=== PATIENT | female | born 1990 | race Caucasian/White ===

== ENCOUNTER 2016-11-05 16:14 | Emergency (ER) | payer OTHER ==
[~2016-11-05 16:14] MED LIST: /TRAZ10TA PO; ALBU17IN INH; AMBIEN PO; DEPRO PROVERA IM; DOXY150C PO; IMIT50TA PO; MINI2CAP PO; NO HOME MEDS; PROZ40CA PO; RITA10TA PO; SERO400T3 PO; STRA80CA PO; SUBO8MIS SL; ZANTTAB PO; ZYPR20TA PO; [UNRECOGNIZED DRUG - CODE] TOP; [UNRECOGNIZED DRUG - OTHER] TD
[2016-11-05] MEDS ORDERED: ONDANSETRON 4 MG ORAL DISINTEGRATING TAB (S0181) As Ordered ONE (16:57)
--- NOTE | 2016-11-05 17:56 | EDDOCDS ---
Nurse's Notes [facility] Name: Ashley Stoll Age: 25 yrs Sex: Female : 1990 Arrival Date: 11/05/2016 Time: 16:14 Bed 13 Private MD: Diagnosis: Other and unspecified noninfective gastroenteritis and colitis Presentation: 11/05 16:18 Presenting complaint: Patient states: n/v/d since yesterday. Adult Sepsis Screening: kc3 The patient does not have new or worsening altered mentation. Patient's respiratory rate is less than 22. Systolic blood pressure is greater than 100. Patient has a qSOFA score of 0- Negative Sepsis Screen. Suicide/Homicide risk assessment- the patient denies having any suicidal and/or homicidal ideations and does not present with any other emotional, behavioral or mental health complaints. Status: Patient is not a senior administrative services officer or dependent. Transition of care: patient was not received from another setting of care. 16:18 Acuity: MONTEZ Level 4 kc3 16:18 Method Of Arrival: Walkin/Carried/Asstd kc3 Triage Assessment: 16:21 General: Appears in no apparent distress, comfortable, Behavior is appropriate for age, kc3 cooperative. Pain: Denies pain. HIV screening NA for this visit Offered previously. GI: Reports diarrhea, nausea, vomiting. 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 gabapentin 600 mg Oral tab 1 tab 3 times per day 2. Effexor XR 150 mg oral cp24 1 cap once daily 3. Zyprexa 5 mg Oral tab once daily 4. Cogentin 0.5 mg Oral tab 1 tab 2 times per day 5. Albuterol Inhl as needed 6. depo shot - PMHx: Anxiety; Asthma; Depression; Migraines; - PSHx: none; - Social history: Smoking status: Patient uses tobacco products, light tobacco smoker. No barriers to communication noted, The patient speaks fluent Sammarinese, Speaks appropriately for age. - Family history: Not pertinent. - : The pt / caregiver states he / she is not on anticoagulants. Home medication list is obtained from the patient. - Exposure Risk Screening:: None identified. Screenin:53 Screening information is obtained from the patient. Fall risk: No risks identified. jmb Assistance ADL's: requires no assistance with activities of daily living. Abuse/DV Screen: The patient / caregiver reports he/she is: not in a situation that causes fear, pain or injury. Nutritional screening: No deficits noted. Advance Directives: Currently, there is no health care proxy. There is no active DNR order. There is no living will. There is no Power of Textile Examiner. home support is adequate. Assessment: 16:40 Adult Sepsis Screening: The patient does not have new or worsening altered mentation. lf1 Patient's respiratory rate is less than 22. Systolic blood pressure is greater than 100. Patient has a qSOFA score of 0- Negative Sepsis Screen. General: Appears in no apparent distress, comfortable, Behavior is cooperative. Pain: Location: generalized body aches Pain currently is 4 out of 10 on a pain scale. Neurological: Level of Consciousness is awake, alert, obeys commands, Oriented to person, place, time. EENT: No deficits noted. Cardiovascular: Chest pain is denied. Respiratory: Respiratory effort is even, unlabored, Respiratory pattern is regular, Breath sounds are clear bilaterally. Denies cough, shortness of breath. GI: Reports diarrhea, nausea, vomiting. : No deficits noted. Derm: Skin is normal. 16:59 General: Appears in no apparent distress, comfortable, Behavior is appropriate for age, jmb cooperative, Patient laying on stretcher, texting and posting on [employer]. No voiced complaints at this time. . Neurological: Level of Consciousness is awake, alert, obeys commands, Oriented to person, place, time, Speech is normal, Facial symmetry appears normal, Facial symmetry: tongue is midline. Cardiovascular: Capillary refill < 3 seconds Heart tones present Pulses are all present. Rhythm is regular. Respiratory: Airway is patent Respiratory effort is even, unlabored, Respiratory pattern is regular, symmetrical, Breath sounds are clear bilaterally. GI: Abdomen is non- distended Bowel sounds present X 4 quads. Abd is soft X 4 quads. Derm: Skin is normal. Musculoskeletal: Range of motion intact in all extremities. 17:53 General: Patient instructed on discharge instructions. Patient asked if there were any b questions regarding discharge, patient stated no. Patient signed discharge instructions. Patient discharged in stable condition. . Vital Signs: 16:15 BP 137 / 79; Pulse 107; Resp 18; Temp 98.5(O); Pulse Ox 99% on R/A; Weight 68.04 kg lr2 (R); Height 5 ft. 3 in. (160.02 cm) (R); Pain 3/10; 17:53 BP 128 / 70; Pulse 70; Resp 18; Temp 98.2(O); Pulse Ox 98% on R/A; Pain 0/10; jmb 16:15 Body Mass Index 26.57 (68.04 kg, 160.02 cm) lr2 Vitals: 16:15 Log In Time: November 05, 2016 at 16:14. lr2 ED Course: 16:15 Patient visited by Leah Cuba. lr2 16:15 Patient moved to Waiting lr2 16:17 Patient moved to Pre RCE lr2 16:19 Triage Initiated kc3 16:32 Patient moved to I9 / 22 jml1 16:33 Patient moved to 13 jml1 16:40 -Influenza A&B Rapid Antigen - Nose Sent. lf1 16:42 Patient visited by Rosalia Barton RN. lf1 16:43 [facility] ke 16:43 Patient visited by Hever Carrasco FNP. ke 16:43 Patient visited by Hever Carrasco FNP. ke 17:01 Patient visited by Don Armas RN. jmb 17:24 Patient visited by Hever Carrasco FNP. ke 17:53 The patient / caregiver is instructed regarding the plan of care and ED course. b 17:53 No IV's were initiated during this patient's visit. No procedures done that require b assistance. 17:54 [facility] Payment Agreement was scanned into [email or web address] and attached to record. zo Administered Medications: 16:59 Drug: Ondansetron ODT (Peds >25kg) 4 mg [ondansetron 4 mg disintegrating tablet (1 jmb tabs)] Route: PO; Order Results: Lab Order: -Influenza A&B Rapid Antigen - Nose; SPEC'M 11/05/16 16:37 Test: INFLUENZA A RAPID SCR by ICA; Value: INFLUENZA A RESULTS NEGATIVE; Status: F Test: INFLUENZA A RAPID SCR by ICA; Value: Comments:; Status: F Test: INFLUENZA B RAPID SCR by ICA; Value: INFLUENZA B RESULTS NEGATIVE; Status: F Test Note: ; The Influenza test is a direct rapid immunoassay for the qualitative detection of Influenza viral antigen. Cell culture (Viral Culture) testing should be considered to confirm NEGATIVE results and to assist in detecting other viruses that can provide similar clinical symptoms. Please contact the lab within 24 hours ([phone]) if confirmatory testing is desired. Outcome: 17:48 Discharge ordered by Provider. nimo 17:53 Discharge Assessment: Patient awake, alert and oriented x 3. No cognitive and/or jmb functional deficits noted. Patient verbalized understanding of disposition instructions. Patient awake and alert. obeys commands, Oriented to person, place and time. Patient verbalized understanding of disposition instructions. Patient has no functional deficits. patient administered narcotics - no. The following High Risk Discharge criteria are identified: None. Discharged to home ambulatory. Condition: stable Condition: improved. Discharge instructions given to patient, Instructed on discharge instructions, follow up and referral plans. medication usage, Demonstrated understanding of instructions, medications, Pt was receptive of discharge instructions/ teaching. Prescriptions given X 1. No special radiology studies were completed. Property sent home with patient. 17:55 Patient left the ED. b Signatures: Hever Carrasco, MANAGER FACILITY MANAGER FACILITY John Whatley Lisa,RN RN lf1 Mike Gonzalesl1 Don Armas,RN RN maria db Claudine Mckeon,SULTANA RN kc3 Leah Cuba2 MTDD
--- NOTE | 2016-11-05 17:56 | EDDOCDS ---
Physician Documentation [facility] Name: Ashley Stoll Age: 25 yrs Sex: Female : 1990 Arrival Date: 11/05/2016 Time: 16:14 Bed 13 Private MD: Disposition: 11/05/16 17:48 Discharged to Home/Self Care. Impression: Other and unspecified noninfective gastroenteritis and colitis. - Condition is Stable. - Discharge Instructions: Gastritis, Adult. - Prescriptions for Zofran 4 mg Oral Tablet - take 1 tablet by ORAL route 4 times per day As needed; 10 tablet. - Medication Reconciliation, Local Pharmacy Hours form. - Follow up: Private Physician; When: 4 - 5 days; Reason: Recheck today's complaints, Continuance of care. - Problem is new. - Symptoms have improved. Historical: - Allergies: Ceclor; - Home Meds: 1. gabapentin 600 mg Oral tab 1 tab 3 times per day 2. Effexor XR 150 mg oral cp24 1 cap once daily 3. Zyprexa 5 mg Oral tab once daily 4. Cogentin 0.5 mg Oral tab 1 tab 2 times per day 5. Albuterol Inhl as needed 6. depo shot - PMHx: Anxiety; Asthma; Depression; Migraines; - PSHx: none; - Social history: Smoking status: Patient uses tobacco products, light tobacco smoker. No barriers to communication noted, The patient speaks fluent Turkmen, Speaks appropriately for age. - Family history: Not pertinent. - : The pt / caregiver states he / she is not on anticoagulants. Home medication list is obtained from the patient. - Exposure Risk Screening:: None identified. COMMERCIAL COORDINATOR: 11/05 16:21 LMP N/A - control method kc3 Vital Signs: 16:15 BP 137 / 79; Pulse 107; Resp 18; Temp 98.5(O); Pulse Ox 99% on R/A; Weight 68.04 kg / lr2 150 lbs (R); Height 5 ft. 3 in. (160.02 cm) (R); Pain 3/10; 17:53 BP 128 / 70; Pulse 70; Resp 18; Temp 98.2(O); Pulse Ox 98% on R/A; Pain 0/10; jmb 16:15 Body Mass Index 26.57 (68.04 kg, 160.02 cm) lr2 MDM: 16:26 Obtain sample by nasopharyngeal swab ordered. ke 16:27 -Influenza A&B Rapid Antigen - Nose Ordered. EDMS 16:43 Ondansetron ODT (Peds >25kg) Oral Disintegrating Tablet 4 mg PO once ordered. ke 17:06 -Influenza A&B Rapid Antigen - Nose Reviewed. ke 17:06 Fluid Challenge ordered. ke 17:40 Financial registration complete. zo 17:54 [facility] Payment Agreement was scanned into [employer] and attached to record. zo Administered Medications: 16:59 Drug: Ondansetron ODT (Peds >25kg) 4 mg [ondansetron 4 mg disintegrating tablet (1 jmb tabs)] Route: PO; Signatures: Dispatcher [employer] EDMS Hever Carrasco, John Alonzo Joshua,RN RN Claudine Lees,RN RN kc3 The chart was reviewed and I authenticate all verbal orders and agree with the evaluation and treatment provided.Attachments: 17:54 [facility] Payment Agreement zo MTDD
--- NOTE | 2016-11-07 18:57 | EDDOCDS ---
Physician Documentation [facility] Name: Ashley Stoll Age: 25 yrs Sex: Female : 1990 Arrival Date: 11/05/2016 Time: 16:14 Bed 13 Private MD: Disposition: 11/05/16 17:48 Discharged to Home/Self Care. Impression: Other and unspecified noninfective gastroenteritis and colitis. - Condition is Stable. - Discharge Instructions: Gastritis, Adult. - Prescriptions for Zofran 4 mg Oral Tablet - take 1 tablet by ORAL route 4 times per day As needed; 10 tablet. - Medication Reconciliation, Local Pharmacy Hours form. - Follow up: Private Physician; When: 4 - 5 days; Reason: Recheck today's complaints, Continuance of care. - Problem is new. - Symptoms have improved. Historical: - Allergies: Ceclor; - Home Meds: 1. gabapentin 600 mg Oral tab 1 tab 3 times per day 2. Effexor XR 150 mg oral cp24 1 cap once daily 3. Zyprexa 5 mg Oral tab once daily 4. Cogentin 0.5 mg Oral tab 1 tab 2 times per day 5. Albuterol Inhl as needed 6. depo shot - PMHx: Anxiety; Asthma; Depression; Migraines; - PSHx: none; - Social history: Smoking status: Patient uses tobacco products, light tobacco smoker. No barriers to communication noted, The patient speaks fluent Belarusian, Speaks appropriately for age. - Family history: Not pertinent. - : The pt / caregiver states he / she is not on anticoagulants. Home medication list is obtained from the patient. - Exposure Risk Screening:: None identified. 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 3 in. (160.02 cm) (R); Pain 3/10; 17:53 BP 128 / 70; Pulse 70; Resp 18; Temp 98.2(O); Pulse Ox 98% on R/A; Pain 0/10; jmb 16:15 Body Mass Index 26.57 (68.04 kg, 160.02 cm) lr2 MDM: 16:26 Obtain sample by nasopharyngeal swab ordered. ke 16:27 -Influenza A&B Rapid Antigen - Nose Ordered. EDMS 16:43 Ondansetron ODT (Peds >25kg) Oral Disintegrating Tablet 4 mg PO once ordered. ke 17:06 -Influenza A&B Rapid Antigen - Nose Reviewed. ke 17:06 Fluid Challenge ordered. ke 17:40 Financial registration complete. zo 17:54 [facility] Payment Agreement was scanned into [employer] and attached to record. zo 11/06 09:48 T-Sheet-- Draft Copy was scanned into [employer] and attached to record. gb Administered Medications: 11/05 16:59 Drug: Ondansetron ODT (Peds >25kg) 4 mg [ondansetron 4 mg disintegrating tablet (1 jmb tabs)] Route: PO; Signatures: Dispatcher [employer] EDMS Qian Bhandari, Reg Reg Hever Boo, LEAN SENSEI LEAN SENSEI John Whatley Joshua,RN RN Claudine Lees,SULTANA RN kc3 The chart was reviewed and I authenticate all verbal orders and agree with the evaluation and treatment provided.Attachments: 17:54 [facility] Payment Agreement zo 11/06 09:48 T-Sheet-- Draft Copy gb Chart Complete MTDD
--- NOTE | 2016-11-07 18:57 | EDDOCDS ---
Nurse's Notes [facility] Name: Ashley Stoll Age: 25 yrs Sex: Female : 1990 Arrival Date: 11/05/2016 Time: 16:14 Bed 13 Private MD: Diagnosis: Other and unspecified noninfective gastroenteritis and colitis Presentation: 11/05 16:18 Presenting complaint: Patient states: n/v/d since yesterday. Adult Sepsis Screening: kc3 The patient does not have new or worsening altered mentation. Patient's respiratory rate is less than 22. Systolic blood pressure is greater than 100. Patient has a qSOFA score of 0- Negative Sepsis Screen. Suicide/Homicide risk assessment- the patient denies having any suicidal and/or homicidal ideations and does not present with any other emotional, behavioral or mental health complaints. Status: Patient is not a director of cardiology service line or dependent. Transition of care: patient was not received from another setting of care. 16:18 Acuity: MONTEZ Level 4 kc3 16:18 Method Of Arrival: Walkin/Carried/Asstd kc3 Triage Assessment: 16:21 General: Appears in no apparent distress, comfortable, Behavior is appropriate for age, kc3 cooperative. Pain: Denies pain. HIV screening NA for this visit Offered previously. GI: Reports diarrhea, nausea, vomiting. 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 gabapentin 600 mg Oral tab 1 tab 3 times per day 2. Effexor XR 150 mg oral cp24 1 cap once daily 3. Zyprexa 5 mg Oral tab once daily 4. Cogentin 0.5 mg Oral tab 1 tab 2 times per day 5. Albuterol Inhl as needed 6. depo shot - PMHx: Anxiety; Asthma; Depression; Migraines; - PSHx: none; - Social history: Smoking status: Patient uses tobacco products, light tobacco smoker. No barriers to communication noted, The patient speaks fluent Trinidadian, Speaks appropriately for age. - Family history: Not pertinent. - : The pt / caregiver states he / she is not on anticoagulants. Home medication list is obtained from the patient. - Exposure Risk Screening:: None identified. Screenin:53 Screening information is obtained from the patient. Fall risk: No risks identified. jmb Assistance ADL's: requires no assistance with activities of daily living. Abuse/DV Screen: The patient / caregiver reports he/she is: not in a situation that causes fear, pain or injury. Nutritional screening: No deficits noted. Advance Directives: Currently, there is no health care proxy. There is no active DNR order. There is no living will. There is no Power of Modern Greek Studies Professor. home support is adequate. Assessment: 16:40 Adult Sepsis Screening: The patient does not have new or worsening altered mentation. lf1 Patient's respiratory rate is less than 22. Systolic blood pressure is greater than 100. Patient has a qSOFA score of 0- Negative Sepsis Screen. General: Appears in no apparent distress, comfortable, Behavior is cooperative. Pain: Location: generalized body aches Pain currently is 4 out of 10 on a pain scale. Neurological: Level of Consciousness is awake, alert, obeys commands, Oriented to person, place, time. EENT: No deficits noted. Cardiovascular: Chest pain is denied. Respiratory: Respiratory effort is even, unlabored, Respiratory pattern is regular, Breath sounds are clear bilaterally. Denies cough, shortness of breath. GI: Reports diarrhea, nausea, vomiting. : No deficits noted. Derm: Skin is normal. 16:59 General: Appears in no apparent distress, comfortable, Behavior is appropriate for age, jmb cooperative, Patient laying on stretcher, texting and posting on [employer]. No voiced complaints at this time. . Neurological: Level of Consciousness is awake, alert, obeys commands, Oriented to person, place, time, Speech is normal, Facial symmetry appears normal, Facial symmetry: tongue is midline. Cardiovascular: Capillary refill < 3 seconds Heart tones present Pulses are all present. Rhythm is regular. Respiratory: Airway is patent Respiratory effort is even, unlabored, Respiratory pattern is regular, symmetrical, Breath sounds are clear bilaterally. GI: Abdomen is non- distended Bowel sounds present X 4 quads. Abd is soft X 4 quads. Derm: Skin is normal. Musculoskeletal: Range of motion intact in all extremities. 17:53 General: Patient instructed on discharge instructions. Patient asked if there were any b questions regarding discharge, patient stated no. Patient signed discharge instructions. Patient discharged in stable condition. . Vital Signs: 16:15 BP 137 / 79; Pulse 107; Resp 18; Temp 98.5(O); Pulse Ox 99% on R/A; Weight 68.04 kg lr2 (R); Height 5 ft. 3 in. (160.02 cm) (R); Pain 3/10; 17:53 BP 128 / 70; Pulse 70; Resp 18; Temp 98.2(O); Pulse Ox 98% on R/A; Pain 0/10; jmb 16:15 Body Mass Index 26.57 (68.04 kg, 160.02 cm) lr2 Vitals: 16:15 Log In Time: November 05, 2016 at 16:14. lr2 ED Course: 16:15 Patient visited by Leah Cuba. lr2 16:15 Patient moved to Waiting lr2 16:17 Patient moved to Pre RCE lr2 16:19 Triage Initiated kc3 16:32 Patient moved to I9 / 22 jml1 16:33 Patient moved to 13 jml1 16:40 -Influenza A&B Rapid Antigen - Nose Sent. lf1 16:42 Patient visited by Rosalia Barton RN. lf1 16:43 [facility] ke 16:43 Patient visited by Hever Carrasco FNP. ke 16:43 Patient visited by Hever Carrasco FNP. ke 17:01 Patient visited by Don Armas RN. jmb 17:24 Patient visited by Hever Carrasco FNP. ke 17:53 The patient / caregiver is instructed regarding the plan of care and ED course. b 17:53 No IV's were initiated during this patient's visit. No procedures done that require b assistance. 17:54 [facility] Payment Agreement was scanned into [employer] and attached to record. zo 11/06 09:48 T-Sheet-- Draft Copy was scanned into [employer] and attached to record. gb Administered Medications: 11/05 16:59 Drug: Ondansetron ODT (Peds >25kg) 4 mg [ondansetron 4 mg disintegrating tablet (1 jmb tabs)] Route: PO; Order Results: Lab Order: -Influenza A&B Rapid Antigen - Nose; SPEC'M 11/05/16 16:37 Test: INFLUENZA A RAPID SCR by ICA; Value: INFLUENZA A RESULTS NEGATIVE; Status: F Test: INFLUENZA A RAPID SCR by ICA; Value: Comments:; Status: F Test: INFLUENZA B RAPID SCR by ICA; Value: INFLUENZA B RESULTS NEGATIVE; Status: F Test Note: ; The Influenza test is a direct rapid immunoassay for the qualitative detection of Influenza viral antigen. Cell culture (Viral Culture) testing should be considered to confirm NEGATIVE results and to assist in detecting other viruses that can provide similar clinical symptoms. Please contact the lab within 24 hours ([phone]) if confirmatory testing is desired. Outcome: 17:48 Discharge ordered by Provider. nimo 17:53 Discharge Assessment: Patient awake, alert and oriented x 3. No cognitive and/or jmb functional deficits noted. Patient verbalized understanding of disposition instructions. Patient awake and alert. obeys commands, Oriented to person, place and time. Patient verbalized understanding of disposition instructions. Patient has no functional deficits. patient administered narcotics - no. The following High Risk Discharge criteria are identified: None. Discharged to home ambulatory. Condition: stable Condition: improved. Discharge instructions given to patient, Instructed on discharge instructions, follow up and referral plans. medication usage, Demonstrated understanding of instructions, medications, Pt was receptive of discharge instructions/ teaching. Prescriptions given X 1. No special radiology studies were completed. Property sent home with patient. 17:55 Patient left the ED. jmb Signatures: Qian Bhandari, Reg Reg Hever Boo, COMMERCIAL LOAN OFFICER COMMERCIAL LOAN OFFICER John Whatley Lisa,RN RN lf1 Mike Gonzalesl1 Don Armas,RN RN maria db Claudine Mckeon,SULTNAA RN rowan3 Leah Cuba2 Chart Complete MTDD
--- NOTE | 2016-11-07 18:57 | EDDOCDS ---
Physician Documentation [facility] Name: Ashley Stoll Age: 25 yrs Sex: Female : 1990 Arrival Date: 11/05/2016 Time: 16:14 Bed 13 Private MD: Disposition: 11/05/16 17:48 Discharged to Home/Self Care. Impression: Other and unspecified noninfective gastroenteritis and colitis. - Condition is Stable. - Discharge Instructions: Gastritis, Adult. - Prescriptions for Zofran 4 mg Oral Tablet - take 1 tablet by ORAL route 4 times per day As needed; 10 tablet. - Medication Reconciliation, Local Pharmacy Hours form. - Follow up: Private Physician; When: 4 - 5 days; Reason: Recheck today's complaints, Continuance of care. - Problem is new. - Symptoms have improved. Historical: - Allergies: Ceclor; - Home Meds: 1. gabapentin 600 mg Oral tab 1 tab 3 times per day 2. Effexor XR 150 mg oral cp24 1 cap once daily 3. Zyprexa 5 mg Oral tab once daily 4. Cogentin 0.5 mg Oral tab 1 tab 2 times per day 5. Albuterol Inhl as needed 6. depo shot - PMHx: Anxiety; Asthma; Depression; Migraines; - PSHx: none; - Social history: Smoking status: Patient uses tobacco products, light tobacco smoker. No barriers to communication noted, The patient speaks fluent Pashto, Speaks appropriately for age. - Family history: Not pertinent. - : The pt / caregiver states he / she is not on anticoagulants. Home medication list is obtained from the patient. - Exposure Risk Screening:: None identified. 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 3 in. (160.02 cm) (R); Pain 3/10; 17:53 BP 128 / 70; Pulse 70; Resp 18; Temp 98.2(O); Pulse Ox 98% on R/A; Pain 0/10; jmb 16:15 Body Mass Index 26.57 (68.04 kg, 160.02 cm) lr2 MDM: 16:26 Obtain sample by nasopharyngeal swab ordered. ke 16:27 -Influenza A&B Rapid Antigen - Nose Ordered. EDMS 16:43 Ondansetron ODT (Peds >25kg) Oral Disintegrating Tablet 4 mg PO once ordered. ke 17:06 -Influenza A&B Rapid Antigen - Nose Reviewed. ke 17:06 Fluid Challenge ordered. ke 17:40 Financial registration complete. zo 17:54 [facility] Payment Agreement was scanned into [employer] and attached to record. zo 11/06 09:48 T-Sheet-- Draft Copy was scanned into [employer] and attached to record. gb Administered Medications: 11/05 16:59 Drug: Ondansetron ODT (Peds >25kg) 4 mg [ondansetron 4 mg disintegrating tablet (1 jmb tabs)] Route: PO; Signatures: Dispatcher [employer] EDMS Qian Bhandari, Reg Reg Hever Boo, SPECIAL EDUCATION SUPERVISOR SPECIAL EDUCATION SUPERVISOR John Whatley Joshua,RN RN Claudine Lees,SULTANA RN kc3 The chart was reviewed and I authenticate all verbal orders and agree with the evaluation and treatment provided.Attachments: 17:54 [facility] Payment Agreement zo 11/06 09:48 T-Sheet-- Draft Copy gb Chart Complete MTDD
== END 2016-11-05 17:55 | disposition home or self-care (01) ==
LOC: M ED 16:14
DX: K52.9 Noninfective gastroenteritis and colitis, unspecified (principal); B34.9 Viral infection, unspecified; J45.909 Unspecified asthma, uncomplicated; F41.9 Anxiety disorder, unspecified; F32.9 Major depressive disorder, single episode, unspecified; G43.909 Migraine, unspecified, not intractable, without status migrainosus; Z79.899 Other long term (current) drug therapy; Z79.3 Long term (current) use of hormonal contraceptives; Z88.1 Allergy status to other antibiotic agents; F17.201 Nicotine dependence, unspecified, in remission

== ENCOUNTER → 2016-11-10 | Outpatient (CLI) | payer OTHER | LOC: M LAB 11:50 | PROVIDERS: ATTEND Nurse Practitioner Family | DX: Z51.81 Encounter for therapeutic drug level monitoring (principal); Z79.899 Other long term (current) drug therapy ==

== ENCOUNTER 2016-12-03 09:00 | Emergency (ER) | payer OTHER ==
[~2016-12-03] VITALS: Ht 160 cm; Wt 63.5 kg
[2016-12-03 09:25] VITALS: BP 136/81
[2016-12-03] MEDS ORDERED: LAMI25TA PO (09:27)
[2016-12-03] MEDS ORDERED: EFFE75CA75 PO (09:27)
[2016-12-03] MEDS ORDERED: GABA600T PO (09:27)
[2016-12-03] MEDS ORDERED: ZOFR4TAB3 PO (09:55)
[2016-12-03] MEDS ORDERED: ONDANSETRON 4 MG ORAL DISINTEGRATING TAB (S0181) PO ONE (10:00)
== END 2016-12-03 10:00 | disposition home or self-care (01) ==
LOC: M ED 09:50
DX: R11.2 Nausea with vomiting, unspecified (principal); R19.7 Diarrhea, unspecified; F99 Mental disorder, not otherwise specified; F17.210 Nicotine dependence, cigarettes, uncomplicated; Z88.1 Allergy status to other antibiotic agents; Z79.899 Other long term (current) drug therapy

== ENCOUNTER 2017-06-05 16:00 | Emergency (ER) | payer OTHER, SELFPAY ==
[~2017-06-05] VITALS: Ht 160 cm; Wt 52.3 kg
[~2017-06-05 16:00] MED LIST changes: +EFFE75CA75 PO; +GABA600T PO; +LAMI25TA PO; +ZOFR4TAB3 PO
[2017-06-05 16:01] VITALS: BP 131/77
[2017-06-05] MEDS ORDERED: IPRATROPIUM 0.5MG/ALBUTEROL 2.5MG INH SOL UD 3ML (DUONEB)(J7620) NEB ONE (18:45)
[2017-06-05] MEDS ORDERED: ALBUTEROL 90 MCG/ACT 8GM HFA INHALER INH ONE (18:45)
== END 2017-06-05 18:54 | disposition left against medical advice (07) ==
LOC: M ED 16:00
DX: J45.901 Unspecified asthma with (acute) exacerbation (principal); J06.9 Acute upper respiratory infection, unspecified; F31.9 Bipolar disorder, unspecified; F17.210 Nicotine dependence, cigarettes, uncomplicated; Z88.1 Allergy status to other antibiotic agents

== ENCOUNTER → 2018-04-03 | Outpatient (CLI) | payer OTHER ==
[2018-04-03 11:05] LABS: HEMATOCRIT 40.3 % (36.0-47.0); HEMOGLOBIN 13.6 g/dl (12.0-15.5); MEAN CORPUSCULAR HEMOGLOBIN 32.2 pg (27.0-33.0); MEAN CORPUSCULAR HGB CONC 33.7 g/dl (32.0-36.5); MEAN CORPUSCULAR VOLUME 95.3 fl (80.0-96.0); PLATELET COUNT, AUTOMATED 239 10^3/uL (150-450); RED BLOOD COUNT 4.23 10^6/uL (4.00-5.40); RED CELL DISTRIBUTION WIDTH 12.4 % (11.5-14.5); WHITE BLOOD COUNT 6.4 10^3/uL (4.0-10.0)
[2018-04-03 11:43] LABS: ALBUMIN 3.7 GM/DL (3.2-5.2); ALBUMIN/GLOBULIN RATIO 1.48 (1.00-1.93); ALKALINE PHOSPHATASE 65 U/L (45-117); ALT/SGPT 18 U/L (12-78); ANION GAP 6 MEQ/L (8-16); AST/SGOT 14 U/L (7-37); BILIRUBIN,TOTAL 0.4 MG/DL (0.2-1.0); BLOOD UREA NITROGEN 12 MG/DL (7-18); CALCIUM LEVEL 8.8 MG/DL (8.5-10.1); CARBON DIOXIDE LEVEL 26 MEQ/L (21-32); CHLORIDE LEVEL 111 MEQ/L (98-107); GLOMERULAR FILTRATION RATE > 60.0 (>60); GLUCOSE, FASTING 74 MG/DL (70-100); POTASSIUM SERUM 4.3 MEQ/L (3.5-5.1); SODIUM LEVEL 143 MEQ/L (136-145); THYROID STIMULATING HORMONE 0.765 uIU/ML (0.358-3.740); TOTAL PROTEIN 6.2 GM/DL (6.4-8.2)
[2018-04-05 00:08] LABS: H PYLORI STOOL ANTIGEN Negative (Negative)
== END ==
LOC: M LAB 10:14
DX: R91.8 Other nonspecific abnormal finding of lung field (principal); K21.9 Gastro-esophageal reflux disease without esophagitis; R07.81 Pleurodynia
CPT/HCPCS: 71046

== ENCOUNTER → 2018-04-11 | Outpatient (CLI) | payer OTHER ==
[~2018-04-11] MED LIST changes: -/TRAZ10TA PO; -ALBU17IN INH; -AMBIEN PO; -DEPRO PROVERA IM; -DOXY150C PO; -EFFE75CA75 PO; -GABA600T PO; -IMIT50TA PO; +ISOVUE-370 76% 100ML VIAL (Q9967) As Ordered; -LAMI25TA PO; -MINI2CAP PO; -NO HOME MEDS; -PROZ40CA PO; -RITA10TA PO; -SERO400T3 PO; -STRA80CA PO; -SUBO8MIS SL; -ZANTTAB PO; -ZOFR4TAB3 PO; -ZYPR20TA PO; -[UNRECOGNIZED DRUG - CODE] TOP; -[UNRECOGNIZED DRUG - OTHER] TD
== END ==
LOC: M RAD 14:19
DX: R93.8 Abnormal findings on diagnostic imaging of other specified body structures (principal)
CPT/HCPCS: Q9967

== ENCOUNTER 2018-04-12 20:07 | Emergency (ER) | payer OTHER ==
[2018-04-12] MEDS: IBUPROFEN 600 MG TAB PO (23:30)
== END 2018-04-12 23:41 | disposition home or self-care (01) ==
LOC: M ED 20:07
DX: L95.8 Other vasculitis limited to the skin (principal); K21.9 Gastro-esophageal reflux disease without esophagitis; M54.9 Dorsalgia, unspecified; F17.200 Nicotine dependence, unspecified, uncomplicated; Z88.1 Allergy status to other antibiotic agents; Z79.899 Other long term (current) drug therapy
CPT/HCPCS: 99283

== ENCOUNTER → 2018-05-07 | Outpatient (CLI) | payer OTHER ==
[2018-05-07 18:26] LABS: ERYTHROCYTE SEDIMENTATION RATE 1 mm/hr (0-20)
[2018-05-07 19:06] LABS: RHEUMATOID FACTOR QUANT < 10.0 IU/ML (<15.0)
[2018-05-11 00:07] LABS: ANCA-ATYPICAL <1:20 titer (Neg:<1:20); ANTI DOUBLE STRAND-DNA AB <1 IU/mL (0-9); ANTINUCLEAR ANTIBODIES DIRECT Negative (Negative); CYTOPLASMIC NEUTROP AB ANCA-C <1:20 titer (Neg:<1:20); PERINUCLEAR AB ANCA-P <1:20 titer (Neg:<1:20); RNP ANTIBODIES <0.2 AI (0.0-0.9); SJOGREN'S ANTI SS-A <0.2 AI (0.0-0.9); SJOGREN'S ANTI SS-B <0.2 AI (0.0-0.9); SMITH ANTIBODIES <0.2 AI (0.0-0.9)
== END ==
LOC: M LAB 16:46
DX: R91.8 Other nonspecific abnormal finding of lung field (principal)
CPT/HCPCS: 86255

== ENCOUNTER → 2018-05-07 | Outpatient (CLI) | payer OTHER | LOC: M RAD 16:51 | DX: R07.81 Pleurodynia (principal) | CPT/HCPCS: 71130 ==

== ENCOUNTER → 2018-05-24 | Outpatient (CLI) | payer OTHER | LOC: M LAB 09:34 | DX: R91.8 Other nonspecific abnormal finding of lung field (principal) | CPT/HCPCS: 36415 ==

== ENCOUNTER → 2018-06-18 | Outpatient (REF) | payer OTHER | LOC: M SFHCPLAZ 17:22 | DX: D22.20 Melanocytic nevi of unspecified ear and external auricular canal (principal) ==

== ENCOUNTER 2018-06-20 13:31 | Day surgery (SDC) | payer OTHER ==
[2018-06-20] MEDS: NS 1,000 ML IV (06:00)
[~2018-06-20 13:31] MED LIST changes: -ISOVUE-370 76% 100ML VIAL (Q9967) As Ordered; +LIDOCAINE 2% INJ 100 MG/5 ML SDV (FOR ANES.) As Ordered; +PROPOFOL 200 MG/20 ML VIAL As Ordered; +fentaNYL 100 MCG/2 ML INJECTION (J3010) As Ordered
== END 2018-06-20 15:19 | disposition home or self-care (01) ==
LOC: M OPP 15:19
DX: K21.0 Gastro-esophageal reflux disease with esophagitis (principal); K22.8 Other specified diseases of esophagus; K29.70 Gastritis, unspecified, without bleeding; R12 Heartburn; F41.9 Anxiety disorder, unspecified; F32.9 Major depressive disorder, single episode, unspecified; G43.909 Migraine, unspecified, not intractable, without status migrainosus; Z86.69 Personal history of other diseases of the nervous system and sense organs; F19.90 Other psychoactive substance use, unspecified, uncomplicated; J45.909 Unspecified asthma, uncomplicated; F17.210 Nicotine dependence, cigarettes, uncomplicated; Z79.899 Other long term (current) drug therapy
CPT/HCPCS: 43239

== ENCOUNTER → 2018-07-04 | Outpatient (CLI) | payer OTHER | LOC: M RAD 14:28 | DX: R91.8 Other nonspecific abnormal finding of lung field (principal) | CPT/HCPCS: 71250 ==

== ENCOUNTER → 2018-08-04 | Outpatient (REF) | payer OTHER, MEDICAID ==
[2018-08-04 21:39] LABS: APPEARANCE, URINE CLEAR (CLEAR); BACTERIA, URINE AUTO 1+ (NEGATIVE); BILIRUBIN, URINE AUTO NEGATIVE (NEGATIVE); BLOOD, URINE BLOOD NEGATIVE (NEGATIVE); COLOR, URINE YELLOW (YELLOW); GLUCOSE, URINE (UA) AUTO NEGATIVE (NEGATIVE); KETONE, URINE AUTO NEGATIVE (NEGATIVE); LEUKOCYTE ESTERASE, URINE AUTO NEGATIVE (NEGATIVE); NITRITE, URINE AUTO NEGATIVE (NEGATIVE); PROTEIN, URINE AUTO NEGATIVE (NEGATIVE); RBC, URINE AUTO 0 /HPF (0-3); SQUAMOUS EPITHELIAL CELL UR AU 1 /HPF (0-6); UROBILINOGEN, URINE AUTO 0.2 mg/dL (0.0-2.0); WBC, URINE AUTO 2 /HPF (0-3)
== END ==
LOC: M LAB REF 13:30
DX: N39.0 Urinary tract infection, site not specified (principal)

== ENCOUNTER → 2019-06-05 | Outpatient (CLI) | payer BC ==
[~2019-06-05] MED LIST changes: +ALBU17IN INH; +ALBU83IN INH; +ALLE180T33 PO; +AMBIEN PO; +AUGM875T28 PO; +DEPRO PROVERA IM; +DOXY150C PO; +EFFE75CA2 PO; +GABA600T4 PO; +IBUP-1022 PO; +IMIT50TA PO; +LAMI25TA PO; -LIDOCAINE 2% INJ 100 MG/5 ML SDV (FOR ANES.) As Ordered; +MINI2CAP PO; +NO HOME MEDS; +OMEP10CASR PO; -PROPOFOL 200 MG/20 ML VIAL As Ordered; +PROZ40CA PO; +RITA10TA PO; +SERO400T3 PO; +STRA80CA PO; +SUBO8MIS SL; +TRAZ1TAB25 PO; +VENL37TA PO; +VENTAER; +ZANTTAB PO; +ZOFR4TAB14 PO; +ZYPR20TA PO; +[UNRECOGNIZED DRUG - CODE] TOP; +[UNRECOGNIZED DRUG - OTHER] TD; -fentaNYL 100 MCG/2 ML INJECTION (J3010) As Ordered
[2019-06-05 10:22] LABS: BASO # 0.1 10^3/uL (0.0-0.2); BASO % 0.6 % (0.0-1.0); EOS # 0.1 10^3/uL (0.0-0.5); EOS % 0.8 % (0.0-3.0); HEMATOCRIT 42.1 % (36.0-47.0); HEMOGLOBIN 14.4 g/dl (12.0-15.5); LYMPH # 2.5 10^3/uL (1.5-5.0); LYMPH % 31.9 % (24.0-44.0); MEAN CORPUSCULAR HEMOGLOBIN 32.4 pg (27.0-33.0); MEAN CORPUSCULAR HGB CONC 34.2 g/dl (32.0-36.5); MEAN CORPUSCULAR VOLUME 94.8 fl (80.0-96.0); MONO # 0.5 10^3/uL (0.0-0.8); MONO % 5.8 % (0.0-5.0); NEUTROPHILS # 4.8 10^3/uL (1.5-8.5); NEUTROPHILS % 60.5 % (36.0-66.0); PLATELET COUNT, AUTOMATED 244 10^3/uL (150-450); RED BLOOD COUNT 4.44 10^6/uL (4.00-5.40); WHITE BLOOD COUNT 7.9 10^3/uL (4.0-10.0)
[2019-06-05 10:50] LABS: C REACTIVE PROTEIN QUANTITATIV < 0.30 MG/DL (0.00-0.30)
[2019-06-05 10:56] LABS: ERYTHROCYTE SEDIMENTATION RATE 5 mm/hr (0-20)
[2019-06-05 13:44] LABS: MONO SCRN NEGATIVE (NEGATIVE)
--- NOTE | 2019-06-05 19:54 | REP ---
PA and lateral chest: Comparison is 04/03/2018. There is a 7 mm faintly visible parenchymal density peripherally in the right lung, similar to the prior study. Upon review of the chest CT dated 07/04/2018. This corresponds to a calcified granuloma per Lung guardado otherwise clear. Cardiac size is normal. The dg, mediastinum, skeletal structures are unremarkable. Impression: Essentially negative PA and lateral chest. Electronically Signed by Lionel Morris MD 06/05/2019 07:45 P
[2019-06-06 12:22] LABS: HEPATITIS C VIRUS ABY INDEX 0.2 INDEX (<0.8)
[2019-06-06 12:23] LABS: HEPATITIS B CORE ANTIBODY IGM NEGATIVE (NEGATIVE)
[2019-06-06 12:24] LABS: HIV 1&2 SCREEN CENTAUR NEGATIVE (NEGATIVE)
[2019-06-06 15:57] LABS: HEPATITIS A ANTIBODY IGM NEGATIVE (NEGATIVE)
[2019-06-10 00:14] LABS: HEPATITIS A IgG TOTAL Positive (Negative); HEPATITIS B CORE ANTIBODY IGG Negative (Negative)
== END ==
LOC: M LAB 08:29
PROVIDERS: ATTEND Physician Assistant Medical
DX: R68.83 Chills (without fever) (principal)

== ENCOUNTER → 2019-06-11 | Outpatient (CLI) | payer BC | LOC: M ED 09:39 → M RAD 09:39 | PROVIDERS: ATTEND Physician Assistant Medical | DX: R76.12 Nonspecific reaction to cell mediated immunity measurement of gamma interferon antigen response without active tuberculosis (principal) ==

== ENCOUNTER → 2019-06-12 | Outpatient (CLI) | payer BC | LOC: M ED 08:36 | PROVIDERS: ATTEND Physician Assistant Medical | DX: R76.12 Nonspecific reaction to cell mediated immunity measurement of gamma interferon antigen response without active tuberculosis (principal) ==

== ENCOUNTER → 2019-06-13 | Outpatient (CLI) | payer BC | LOC: M ED 08:37 | PROVIDERS: ATTEND Physician Assistant Medical | DX: R76.12 Nonspecific reaction to cell mediated immunity measurement of gamma interferon antigen response without active tuberculosis (principal) ==

== ENCOUNTER → 2019-07-02 | Outpatient (REF) | payer BC ==
[2019-07-02 15:56] LABS: BASO % 0.3 % (0.0-1.0); EOS # 0.2 10^3/uL (0.0-0.5); EOS % 2.1 % (0.0-3.0); HEMATOCRIT 44.8 % (36.0-47.0); HEMOGLOBIN 15.3 g/dl (12.0-15.5); LYMPH # 3.4 10^3/uL (1.5-5.0); LYMPH % 43.9 % (24.0-44.0); MEAN CORPUSCULAR HEMOGLOBIN 32.2 pg (27.0-33.0); MEAN CORPUSCULAR HGB CONC 34.2 g/dl (32.0-36.5); MEAN CORPUSCULAR VOLUME 94.3 fl (80.0-96.0); MONO # 0.7 10^3/uL (0.0-0.8); MONO % 8.6 % (0.0-5.0); NEUTROPHILS # 3.4 10^3/uL (1.5-8.5); NEUTROPHILS % 44.7 % (36.0-66.0); RED BLOOD COUNT 4.75 10^6/uL (4.00-5.40); WHITE BLOOD COUNT 7.7 10^3/uL (4.0-10.0)
[2019-07-02 16:23] LABS: ALBUMIN 4.3 GM/DL (3.2-5.2); ALT/SGPT 21 U/L (12-78); BILIRUBIN,TOTAL 0.5 MG/DL (0.2-1.0); BLOOD UREA NITROGEN 9 MG/DL (7-18); C REACTIVE PROTEIN QUANTITATIV < 0.30 MG/DL (0.00-0.30); CALCIUM LEVEL 9.8 MG/DL (8.5-10.1); CARBON DIOXIDE LEVEL 23 MEQ/L (21-32); CHLORIDE LEVEL 109 MEQ/L (98-107); CREATININE FOR GFR 0.62 MG/DL (0.55-1.30); GLOMERULAR FILTRATION RATE > 60.0 (>60); GLUCOSE, FASTING 73 MG/DL (70-100); POTASSIUM SERUM 4.4 MEQ/L (3.5-5.1); SODIUM LEVEL 139 MEQ/L (136-145)
== END ==
LOC: M SFHCPLAZ 13:49
PROVIDERS: ATTEND Physician Assistant Medical
DX: A09 Infectious gastroenteritis and colitis, unspecified (principal)

== ENCOUNTER → 2019-07-05 | Outpatient (REF) | payer BC | LOC: M SFHCPLAZ 08:21 | PROVIDERS: ATTEND Physician Assistant Medical | DX: A09 Infectious gastroenteritis and colitis, unspecified (principal) ==

== ENCOUNTER → 2019-07-21 | Outpatient (CLI) | payer BC, SELFPAY ==
[~2019-07-21] MED LIST changes: +ISOVUE-370 76% 100ML VIAL (Q9967) As Ordered ONE
--- NOTE | 2019-07-21 09:20 | REP ---
CT chest without contrast: History: Chronic cough. Comparison CT study July 04, 2018. Technique: A contrast-enhanced exam was attempted however we were apparently unable to obtain and maintain intravenous access. A noncontrast study was accomplished. CT findings: There is no evidence of endobronchial disease seen radiographically. Densely calcified benign stable right middle lobe granuloma is again seen. No other significant pulmonary parenchymal opacity is seen. There are stable granulomatous calcific residuals in the right hilus. Scattered normal-sized mediastinal lymph nodes are again seen unchanged. No pleural or pericardial effusion is seen. No hilar or mediastinal mass or adenopathy is observed. No adrenal lesion is seen. There is subtle contrast enhancement in the renal parenchyma bilaterally from attempts at the intravenous injection. Impression: No active cardiopulmonary disease seen. Old granulomatous residuals. Electronically Signed by Ignacio Leal MD 07/21/2019 01:36 P
== END ==
LOC: M RAD 06:42
PROVIDERS: ATTEND Internal Medicine Infectious Disease
DX: R05 Cough (principal)
CPT/HCPCS: 71250; Q9967

== ENCOUNTER → 2019-08-26 | Outpatient (REF) | payer BC ==
[~2019-08-26] MED LIST changes: -ISOVUE-370 76% 100ML VIAL (Q9967) As Ordered ONE
[2019-08-26 11:48] LABS: BASO % 0.6 % (0.0-1.0); EOS # 0.1 10^3/uL (0.0-0.5); HEMATOCRIT 44.9 % (36.0-47.0); HEMOGLOBIN 15.7 g/dl (12.0-15.5); LYMPH # 2.6 10^3/uL (1.5-5.0); LYMPH % 40.4 % (24.0-44.0); MEAN CORPUSCULAR HEMOGLOBIN 32.5 pg (27.0-33.0); MONO # 0.6 10^3/uL (0.0-0.8); MONO % 8.4 % (0.0-5.0); NEUTROPHILS # 3.2 10^3/uL (1.5-8.5); NEUTROPHILS % 48.4 % (36.0-66.0); PLATELET COUNT, AUTOMATED 258 10^3/uL (150-450); RED BLOOD COUNT 4.83 10^6/uL (4.00-5.40); WHITE BLOOD COUNT 6.5 10^3/uL (4.0-10.0)
[2019-08-26 12:12] LABS: ERYTHROCYTE SEDIMENTATION RATE 3 mm/hr (0-20)
[2019-08-26 12:20] LABS: ALBUMIN 4.6 GM/DL (3.2-5.2); ALT/SGPT 35 U/L (12-78); BILIRUBIN,TOTAL 0.5 MG/DL (0.2-1.0); BLOOD UREA NITROGEN 6 MG/DL (7-18); CALCIUM LEVEL 10.1 MG/DL (8.5-10.1); CARBON DIOXIDE LEVEL 25 MEQ/L (21-32); CHLORIDE LEVEL 106 MEQ/L (98-107); CREATININE FOR GFR 0.68 MG/DL (0.55-1.30); GLOMERULAR FILTRATION RATE > 60.0 (>60); GLUCOSE, FASTING 79 MG/DL (70-100); POTASSIUM SERUM 3.8 MEQ/L (3.5-5.1); SODIUM LEVEL 139 MEQ/L (136-145); TOTAL PROTEIN 7.4 GM/DL (6.4-8.2)
== END ==
LOC: M SFHCPLAZ 10:14
PROVIDERS: ATTEND Internal Medicine Infectious Disease
DX: R76.12 Nonspecific reaction to cell mediated immunity measurement of gamma interferon antigen response without active tuberculosis (principal); A09 Infectious gastroenteritis and colitis, unspecified

== ENCOUNTER 2020-01-10 17:19 | Emergency (ER) | payer BC, MEDICAID, OTHER ==
[~2020-01-10] VITALS: Ht 160 cm; Wt 46.0 kg
[~2020-01-10 17:19] MED LIST changes: +ABIL400I IM; +ADDE10CA3 PO; +ADDE1TAB14 PO; +NEUR600T PO; +PEPC1TAB5 PO; +PRAZ1CAP PO; +RIFA30CA PO; +ZOFR4TAB16 PO
[2020-01-10 17:20] VITALS: BP 117/71
[2020-01-10] MEDS ORDERED: GABA800T4 (17:31)
[2020-01-10] MEDS ORDERED: ADDE10TA (17:31)
[2020-01-10] MEDS ORDERED: QUET5TAB (17:31)
[2020-01-10] MEDS ORDERED: VENL37.598 (17:31)
[2020-01-10] MEDS ORDERED: LIDOCAINE 2% MDV 20ML VIAL SC ONE (18:00)
[2020-01-10 18:09] LABS: BASO # 0.1 10^3/uL (0.0-0.2); BASO % 0.6 % (0.0-1.0); EOS # 0.2 10^3/uL (0.0-0.5); HEMATOCRIT 40.2 % (36.0-47.0); HEMOGLOBIN 13.7 g/dl (12.0-15.5); LYMPH # 1.9 10^3/uL (1.5-5.0); LYMPH % 23.5 % (24.0-44.0); MEAN CORPUSCULAR HGB CONC 34.1 g/dl (32.0-36.5); MEAN CORPUSCULAR VOLUME 93.9 fl (80.0-96.0); MONO # 0.7 10^3/uL (0.0-0.8); MONO % 8.9 % (0.0-5.0); NEUTROPHILS # 5.2 10^3/uL (1.5-8.5); NEUTROPHILS % 64.8 % (36.0-66.0); PLATELET COUNT, AUTOMATED 385 10^3/uL (150-450); RED BLOOD COUNT 4.28 10^6/uL (4.00-5.40); WHITE BLOOD COUNT 8.1 10^3/uL (4.0-10.0)
[2020-01-10] MEDS ORDERED: CLINDAMYCIN 600 MG in IV 1 EA IV ONE (18:15)
[2020-01-10 18:32] LABS: BLOOD UREA NITROGEN 12 MG/DL (7-18); C REACTIVE PROTEIN QUANTITATIV 1.05 MG/DL (0.00-0.30); CALCIUM LEVEL 9.2 MG/DL (8.5-10.1); CARBON DIOXIDE LEVEL 25 MEQ/L (21-32); CHLORIDE LEVEL 110 MEQ/L (98-107); CREATININE FOR GFR 0.58 MG/DL (0.55-1.30); GLOMERULAR FILTRATION RATE > 60.0 (>60); GLUCOSE, FASTING 105 MG/DL (70-100); POTASSIUM SERUM 3.2 MEQ/L (3.5-5.1); SODIUM LEVEL 141 MEQ/L (136-145)
[2020-01-10 18:36] LABS: ERYTHROCYTE SEDIMENTATION RATE 19 mm/hr (0-20)
[2020-01-10] MEDS ORDERED: BOOSTRIX/ADACEL VACCINE (DIPHTH/PERTUSS/ACELL/TETANUS) 0.5ML SYR IM ONE (18:45)
[2020-01-10] MEDS ORDERED: POTASSIUM CHLORIDE 10 MEQ SR TABLET PO ONE (19:00)
[2020-01-10] MEDS ORDERED: CLIN150C14 PO (20:20)
== END 2020-01-10 20:34 | disposition home or self-care (01) ==
LOC: EEVIPCON 17:19 → M ED 17:19
DX: L03.112 Cellulitis of left axilla (principal); L02.412 Cutaneous abscess of left axilla; F17.210 Nicotine dependence, cigarettes, uncomplicated; F15.10 Other stimulant abuse, uncomplicated; F11.10 Opioid abuse, uncomplicated; Z88.1 Allergy status to other antibiotic agents; Z79.899 Other long term (current) drug therapy

== ENCOUNTER → 2020-02-21 | Outpatient (REF) | payer OTHER ==
[~2020-02-21] MED LIST changes: +ADDE10TA; +CLIN150C14 PO; +GABA800T4 PO; +QUET5TAB; +VENL37.598
[2020-02-21 21:02] LABS: AMORPHOUS SEDIMENT SMALL (NEGATIVE); APPEARANCE, URINE HAZY (CLEAR); BACTERIA, URINE AUTO NEGATIVE (NEGATIVE); BILIRUBIN, URINE AUTO NEGATIVE (NEGATIVE); BLOOD, URINE BLOOD NEGATIVE (NEGATIVE); COLOR, URINE YELLOW (YELLOW); GLUCOSE, URINE (UA) AUTO NEGATIVE (NEGATIVE); KETONE, URINE AUTO NEGATIVE (NEGATIVE); LEUKOCYTE ESTERASE, URINE AUTO TRACE (NEGATIVE); MUCUS, URINE SMALL (NEGATIVE); NITRITE, URINE AUTO NEGATIVE (NEGATIVE); PROTEIN, URINE AUTO NEGATIVE (NEGATIVE); RBC, URINE AUTO 2 /HPF (0-3); SPECIFIC GRAVITY URINE AUTO 1.016 (1.002-1.035); SQUAMOUS EPITHELIAL CELL UR AU 6 /HPF (0-6); WBC, URINE AUTO 22 /HPF (0-3)
[2020-02-21 22:28] LABS: CHLAMYDIA DNA AMPLIFICATION NEGATIVE (NEGATIVE); GC DNA AMPLIFICATION NEGATIVE (NEGATIVE)
== END ==
LOC: M LAB REF 20:51
PROVIDERS: ATTEND Physician Assistant Medical
DX: Z11.3 Encounter for screening for infections with a predominantly sexual mode of transmission (principal)

== ENCOUNTER 2020-02-24 10:30 | Emergency (ER) | payer OTHER ==
[~2020-02-24] VITALS: Ht 160 cm; Wt 40.9 kg
[2020-02-24] MEDS ORDERED: LORazepam 2 MG/ML VIAL IV STA (10:36)
[2020-02-24 10:42] VITALS: BP 134/80
[2020-02-24] MEDS ORDERED: NS 1,000 ML IV ONE (10:45)
--- NOTE | 2020-02-24 21:41 | ECGEPIP ---
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
== END 2020-02-24 11:17 | disposition left against medical advice (07) ==
LOC: EDBD 10:30 → M ED 10:30
DX: F15.129 Other stimulant abuse with intoxication, unspecified (principal); G43.909 Migraine, unspecified, not intractable, without status migrainosus; F31.9 Bipolar disorder, unspecified; F43.10 Post-traumatic stress disorder, unspecified; F90.9 Attention-deficit hyperactivity disorder, unspecified type; Z79.899 Other long term (current) drug therapy; Z88.1 Allergy status to other antibiotic agents; F17.210 Nicotine dependence, cigarettes, uncomplicated

== ENCOUNTER 2020-03-28 10:09 | Inpatient (IN) | payer OTHER ==
[~2020-03-28] VITALS: Ht 160 cm; Wt 50.1 kg
[2020-03-28 11:52] LABS: BASO % 0.3 % (0.0-1.0); EOS # 0.1 10^3/uL (0.0-0.5); EOS % 0.6 % (0.0-3.0); HEMATOCRIT 36.6 % (36.0-47.0); HEMOGLOBIN 12.9 g/dl (12.0-15.5); LYMPH # 1.2 10^3/uL (1.5-5.0); LYMPH % 12.8 % (24.0-44.0); MEAN CORPUSCULAR HEMOGLOBIN 31.5 pg (27.0-33.0); MEAN CORPUSCULAR HGB CONC 35.2 g/dl (32.0-36.5); MEAN CORPUSCULAR VOLUME 89.5 fl (80.0-96.0); MONO # 0.6 10^3/uL (0.0-0.8); MONO % 6.8 % (0.0-5.0); NEUTROPHILS # 7.4 10^3/uL (1.5-8.5); NEUTROPHILS % 79.2 % (36.0-66.0); PLATELET COUNT, AUTOMATED 261 10^3/uL (150-450); RED BLOOD COUNT 4.09 10^6/uL (4.00-5.40); WHITE BLOOD COUNT 9.4 10^3/uL (4.0-10.0)
[2020-03-28 12:12] LABS: BLOOD UREA NITROGEN 7 MG/DL (7-18); C REACTIVE PROTEIN QUANTITATIV 9.23 MG/DL (0.00-0.30); CALCIUM LEVEL 8.8 MG/DL (8.5-10.1); CARBON DIOXIDE LEVEL 25 MEQ/L (21-32); CHLORIDE LEVEL 106 MEQ/L (98-107); CREATININE FOR GFR 0.52 MG/DL (0.55-1.30); GLOMERULAR FILTRATION RATE > 60.0 (>60); GLUCOSE, FASTING 132 MG/DL (70-100); POTASSIUM SERUM 3.3 MEQ/L (3.5-5.1); SODIUM LEVEL 136 MEQ/L (136-145)
[2020-03-28 12:13] LABS: ERYTHROCYTE SEDIMENTATION RATE 14 mm/hr (0-20)
--- NOTE | 2020-03-28 12:24 | REP ---
HAND: REASON: Pain and swelling. FINDINGS: The joint spaces are symmetric and relatively well maintained. There is no evidence of acute fracture or destructive osseous lesion. IMPRESSION: Negative. Electronically Signed by Eyal Ma DO 03/28/2020 01:11 P
[2020-03-28] MEDS ORDERED: VANCOMYCIN HCL 1,000 MG, VIAL MATE ADAPTER 1 EACH in D5W 250 ML IV ONE (12:45)
[2020-03-28] MEDS ORDERED: ACETAMINOPHEN 500 MG TAB PO ONE (13:30)
[2020-03-28] MEDS ORDERED: POTASSIUM CHLORIDE 10 MEQ SR TABLET PO ONE (13:30)
[2020-03-28] MEDS ORDERED: PANT40TA29 PO (14:30)
--- NOTE | 2020-03-28 14:38 | REP ---
DEEP VENOUS ULTRASOUND LEFT UPPER EXTREMITY: REASON: Pain and swelling. TECHNIQUE: Multiple ultrasonographic images of the deep venous structures of the left upper extremity were obtained to rule out deep venous thrombosis. FINDINGS: There is no abnormal echogenic material seen in any of the visualized deep venous structures of the left upper extremity. Coaptation where applicable is appropriate throughout. Augmentation shows an expected response throughout. A short segment of distal basilic vein is noncompressible and no color Doppler signal is seen within that short segment of vein. This is likely secondary to a small thrombus. IMPRESSION: No evidence of a definite acute deep vein thrombosis; however, there is a small thrombus in the distal left basilic vein. It is debatable on whether or not that is truly part of the deep venous system. Electronically Signed by Eyal Ma DO 03/28/2020 02:49 P
--- NOTE | 2020-03-28 14:43 | REP ---
REASON: Assess for abscess. Ultrasonographic evaluation of the dorsum of the left hand over the regions of interest were obtained showing no evidence of a well-demarcated abscess or other fluid collection. There does appear to be diffuse edema. Correlate clinically. Electronically Signed by Eyal Ma DO 03/28/2020 02:50 P
--- NOTE | 2020-03-28 14:46 | HPEPDOC ---
[facility] Medical History & Physical Date of Admission Mar 28, 2020 Date of Service: Mar 28, 2020 Attending Physician: Eugenia Schafer MD History and Physical CHIEF COMPLAINT: Left hand pain HISTORY OF PRESENT ILLNESS: Patient is a 29 y/o F with PMH of polysubstance abuse (heroin, Lucy, methamphetamine), ADHD, bipolar disorder, PTSD, depression, asthma, migraine headaches, GORD (Gastro-oesophageal) reflux disease who presented to [facility] ER for worsening left hand pain, redness and swelling for past 3 days. Patient states that she shot Lucy into her left hand and she immediately felt severe, 10/10 pain, sharp, constant. She did not take anything to relieve the pain, worsened by hanging her hand by her side and it starts to throb. Swelling increased over the last several days. She states she has had decreased ability to open and close her hand and noticed extension of the redness, swelling up her left arm past the left wrist. Associated symptoms include chills. She denies fevers, nausea, vomiting, lightheadedness, chest pain, shortness of breath. Last use of substances: Lucy was 03/27/20 in AM, amphetamines was 03/24/20 in AM, heroin was 03/26/20 in the PM. She also complains of a new red, follicular rash that began several days 4-5 days ago, prior to the left hand swelling. It is small, scabs, itches only occasionally, located primarily near follicles on body (base of occipital hairline, forehead hairline, pubic hair areas, lumbar area of back. No recent exposure to scabies but there are some areas in between the fingers that are of concern, difficult to see if burrowing with amount of track barrett, swelling and tattoos on body. The patient thought this red, follicular ra sh was associated with being "hot" and with sweating. Unfamiliar to patient. She also admits to staying in a place from 03/30-04/03 where there was a bedbug infestation. She says she woke up one night with bed bugs all over her. She says she showered well and hasn't seen them since. She is covered in red bites with scabbed areas in central areas of bites. Patient says she gets mouth ulcers occasionally when she shoots Lucy or methamphetamines and has one now under her right side of tongue. In ER, VS stable. Labs were unremarkable. Extension of left hand cellulitis is beyond the left wrist. She had 10/10 pain. Ulcer under right side of tongue appeared clean. The rashes above were observed. XR of left hand was neg. PAST MEDICAL HISTORY: 1. Substance abuse- heroin, Lucy, methamphetamine 2. ADHD 3. Bipolar 4. PTSD 5. Depression 6. Asthma 7. Migraine headaches 8. GORD (Gastro-oesophageal) reflux disease PAST SURGICAL HISTORY: 1. Upper Endoscopy 2. 2 abscess drainages (left arm, right arm) 3. Mole removal from head, behind left ear SOCIAL HISTORY: Smoker 1/2 PPD, 10 years, cigarettes, medical marijuana. Illicit drug use: heroin, amphetamines, Lucy. PCP- Lita Diallo. Patient lives with her mother currently, full code. FAMILY HISTORY: Father: drug addict, alcohol abuse. Alive Mother: skin cancer. Alive. ALLERGIES: Please see below. HOME MEDICATIONS: Please see below. PHYSICAL EXAMINATION: CONSTITUTIONAL: Very figity, cannot sit still but otherwise in no acute distress laying in bed, AAO x 3 EYES: PERRLA, EOM intact HENT, MOUTH: Normocephalic, atraumatic, moist mucous membranes, poor dental hygiene, 0.4 cm x 0.4 cm tongue ulcer under the right tongue base NECK: SUPPLE, no JVD, no lymphadenopathy, no carotid bruit CV: Regular rate and rhythm, S1S2 normal, no murmurs/rubs/gallops RESPIRATORY: Clear to auscultation bilaterally, no rales/rhonchi/wheezes GI: BS positive in 4 quadrants, soft, nontender, nondistended, no rebound or guarding, no organomegaly : Deferred MUSCULOSKELETAL: Normal ROM. No cyanosis, clubbing, swelling, joint deformity, extremity edema INTEGUMENTARY: scabbed follicular rash located primarily near follicles on body (base of occipital hairline, forehead hairline, pubic hair areas, lumbar area of back), ? burrows between digits in upper ext b/l. Red, large bites all over the body thought to be 2/2 to bed bugs, appear clean. Left hand swelling and tenderness, erythema, extending past the left wrist on the left. Bump in left antecubital area. Intact, no rashes, no lesions, no erythema NEUROLOGIC: Cranial Nerves II-XII are intact, no focal deficits PSYCHIATRIC: Mood and affect are normal LABORATORY DATA: Please see below IMAGING: Left hand XR: neg Vascular US of LUE: No evidence of a definite acute deep vein thrombosis; however, there is a small thrombus in the distal left basilic vein. It is debatable on whether or not that is truly part of the deep venous system Soft tissues US of LUE: Ultrasonographic evaluation of the dorsum of the left hand over the regions of interest were obtained showing no evidence of a well-demarcated abscess or other fluid collection. There does appear to be diffuse edema. ASSESSMENT: Patient is a 29 y/o F with PMH of polysubstance abuse (heroin, Lucy, methamphetamine), ADHD, bipolar disorder, PTSD, depression, asthma, migraine headaches, GORD (Gastro-oesophageal) reflux disease admitted for further treatment of LUE cellulitis, left basilic vein thrombosis, bed bug exposure, ? scabies. PLAN: 1. Left hand cellulitis 2/2 to IV drug abuse. Cannot r/o increased swelling is also from left basilic vein thrombosis -WBC wnl, afebrile. Extension of redness past left wrist -F/u BCx x 2 sets, daily labs -Will outline to ensure improvement daily -C/w Vancomycin, tylenol PRN, tramadol PRN 2. Left basilic vein thrombosis -US above. Questionable results to some extent -In primary upper ext DVT, anticoagulation typically continues for a minimum of 3 months. With questionable results above, discussion should take place and include finding out if patient can afford continued medication after discharge (she is between homes, has been homeless and is moving out of state soon). She also has a history of noncompliance and dangerous lifestyle so risks of shelter AC should be reviewed. -For now, c/w Xarelto BID 3. Bed bug exposure -Bed bug bites all over body, stayed at residence with known infestation 03/30- 04/03 -Decontamination is suggested -Contact precautions -Can add benadryl cream if itching arises 4. ? Scabies infection vs. bacterial folliculitis or both -Ordered premethrin cream to be started -Suggest starting topical mupirocin after premethrin administered -Monitor for worsening over the next several days -Contact precautions 5. Polysubstance abuse-heroin, methamphetamines, Lucy -Very figity; however, not agitated and she states that this is her baseline -Monitor for signs of withdrawl -Ativan PRN 6. GORD -Start on PPI 7. Depression/Bipolar disorder/ADHD/PTSD -Not on medications -Currently appears stable -Denies HI/SI 8. Asthma -Can add albuterol PRN if SOB 9. DVT px. -Xarelto BID DISPOSITION: Admitted under inpatient status. Plan is discharge with her to return to her mother's home when medically improved. Vital Signs Vital Signs Date Time Temp Pulse Resp B/P (MAP) Pulse Ox O2 Delivery O2 Flow Rate FiO2 03/28/20 13:43 97.6 65 18 110/62 (78) 100 03/28/20 10:09 Room Air Laboratory Data Labs 24H Laboratory Tests 2 03/28/20 11:33: Immature Granulocyte % (Auto) 0.3, Neutrophils (%) (Auto) 79.2H, Lymphocytes (%) (Auto) 12.8L, Monocytes (%) (Auto) 6.8H, Eosinophils (%) (Auto) 0.6, Basophils (%) (Auto) 0.3, Neutrophils # (Auto) 7.4, Lymphocytes # (Auto) 1.2L, Monocytes # (Auto) 0.6, Eosinophils # (Auto) 0.1, Basophils # (Auto) 0.0, Nucleated Red Blood Cells % (auto) 0.0, Erythrocyte Sedimentation Rate 14, Anion Gap 5L, Glomerular Filtration Rate > 60.0, Calcium Level 8.8, C-Reactive Protein, Quantitative 9.23H CBC/BMP Laboratory Tests 03/28/20 11:33 Microbiology Microbiology 03/28/20 Blood Culture, Received Pending 03/28/20 Blood Culture, Received Pending Home Medications Scheduled Gabapentin (Gabapentin) 800 Mg Tablet, 800 MG PO QID Allergies Coded Allergies: cefaclor (Verified Allergy, Intermediate, rash, 11/06/19) A-FIB/CHADSVASC A-FIB History Current/History of A-Fib/PAF?: No Current PO Anticoag Therapy: No Age/Risk Factor Scoring CHADSVASC: CHADSVASC Response (Comments) Value Age Risk Factor Age < 65 years old 0 Gender Risk Factor Female 1 Hx of CHF No 0 Hx of HTN No 0 Hx of Stroke/TIA/or VTE No 0 Hx of Diabetes No 0 Hx of Vascular Disease No 0 Total 1 Treatment Treatment ordered: Rivaroxaban Eugenia Schafer MD Mar 28, 2020 14:46
[2020-03-28] MEDS ORDERED: LORazepam 1 MG TAB PO PRN ×3 (15:00→16:15)
[2020-03-28] MEDS ORDERED: VANCOMYCIN HCL 1,000 MG, VIAL MATE ADAPTER 1 EACH in D5W 250 ML IV SCH (15:00)
[2020-03-28 16:16] VITALS: BP 100/59
[2020-03-28] MEDS: VANCOMYCIN HCL 750 MG, VIAL MATE ADAPTER 1 EACH in D5W 250 ML IV SCH (16:38)
[2020-03-28] MEDS: PANTOPRAZOLE 20 MG TAB PO SCH (16:39)
[2020-03-28] MEDS ORDERED: PERMETHRIN 5% CREAM 60 GM TOP ONE (17:00)
[2020-03-28] MEDS: RIVAROXABAN 15 MG TAB (XARELTO) PO SCH (17:31)
[2020-03-28] MEDS: GABAPENTIN 400 MG CAP PO SCH ×2 (17:31→22:22)
[2020-03-28] MEDS: MAGIC MOUTHWASH SUSPENSION BTL SSP PRN (17:32)
[2020-03-28 17:34] LABS: INR 1.36; PROTHROMBIN TIME 16.5 SECONDS (11.8-14.0)
[2020-03-28 17:46] LABS: PARTIAL THROMBOPLASTIN TIME 30.1 SECONDS (25.0-38.4)
[2020-03-28 22:00] VITALS: BP 101/58
[2020-03-28] MEDS: traMADol 50 MG TAB PO PRN (22:32)
[2020-03-29] MEDS: VANCOMYCIN HCL 750 MG, VIAL MATE ADAPTER 1 EACH in D5W 250 ML IV SCH ×5 (00:11→23:45)
[2020-03-29] MEDS: MAGIC MOUTHWASH SUSPENSION BTL SSP PRN ×2 (00:13→14:13)
[2020-03-29] MEDS: traMADol 50 MG TAB PO PRN ×3 (05:18→23:44)
[2020-03-29 06:00] VITALS: BP 100/58
[2020-03-29] MEDS ORDERED: ENOXAPARIN 40MG/0.4ML SYRINGE (J1650 PER 10MG) SC SCH (09:00)
[2020-03-29] MEDS: RIVAROXABAN 15 MG TAB (XARELTO) PO SCH ×2 (09:48→18:28)
[2020-03-29] MEDS: GABAPENTIN 400 MG CAP PO SCH ×4 (09:48→21:17)
[2020-03-29] MEDS: PANTOPRAZOLE 20 MG TAB PO SCH (10:00)
[2020-03-29] MEDS ORDERED: LORazepam 1 MG TAB PO ONE (12:30)
[2020-03-29 14:00] VITALS: BP 113/71
[2020-03-29] MEDS ORDERED: LIDOCAINE 1% MDV 20ML VIAL As Ordered ONE (14:40)
[2020-03-29 15:40] VITALS: BP 119/73
[2020-03-29] MEDS: ACETAMINOPHEN TAB 650MG DOSE (2X325MG) PO PRN ×2 (16:03→16:44)
[2020-03-29] MEDS ORDERED: LORazepam 1 MG TAB PO PRN (16:30)
[2020-03-29] MEDS ORDERED: SODIUM CHLORIDE 0.9% INJ 10 ML SYR IV PRN (16:45)
--- NOTE | 2020-03-29 17:38 | IPNPDOC ---
Date Seen The patient was seen on 03/29/20. Progress Note SUBJECTIVE: Increasingly agitated but not confused- increased dose and frequency of ativan as she is likely withdrawling either from heroine or methamphetamines. PICC placement today. Denies chest pain, n/v/d, fevers or shortness of breath. OBJECTIVE: VITAL SIGNS: Please see below PHYSICAL EXAMINATION: CONSTITUTIONAL: Goosebump flesh, still very fidgity, tearful about PICC line, in no acute distress laying in bed, AAO x 3 EYES: PERRLA, EOM intact HENT, MOUTH: Normocephalic, atraumatic, moist mucous membranes, poor dental hygiene, 0.4 cm x 0.4 cm tongue ulcer under the right tongue base NECK: SUPPLE, no JVD, no lymphadenopathy, no carotid bruit CV: Regular rate and rhythm, S1S2 normal, no murmurs/rubs/gallops RESPIRATORY: Clear to auscultation bilaterally, no rales/rhonchi/wheezes GI: BS positive in 4 quadrants, soft, nontender, nondistended, no rebound or guarding, no organomegaly : Deferred MUSCULOSKELETAL: Normal ROM. No cyanosis, clubbing, swelling, joint deformity, extremity edema. patient is able to make left hand into fist easier today INTEGUMENTARY: scabbed follicular rash located primarily near follicles on body (base of occipital hairline, forehead hairline, pubic hair areas, lumbar area of back), ? burrows between digits in upper ext b/l. Red, large bites all over the body thought to be 2/2 to bed bugs, appear clean with scabbed areas in the central area. Left hand swelling and tenderness, erythema- improved . Bump in left antecubital area. Intact, no rashes, no lesions, no erythema NEUROLOGIC: Cranial Nerves II-XII are intact, no focal deficits PSYCHIATRIC: Appears agitated, tearful LABORATORY DATA: Please see below IMAGING: Left hand XR: neg Vascular US of LUE: No evidence of a definite acute deep vein thrombosis; however, there is a small thrombus in the distal left basilic vein. It is debatable on whether or not that is truly part of the deep venous system Soft tissues US of LUE: Ultrasonographic evaluation of the dorsum of the left hand over the regions of interest were obtained showing no evidence of a well-demarcated abscess or other fluid collection. There does appear to be diffuse edema. ASSESSMENT: Patient is a 29 y/o F with PMH of polysubstance abuse (heroin, Lucy, methamphetamine), ADHD, bipolar disorder, PTSD, depression, asthma, migr barb headaches, GORD (Gastro-oesophageal) reflux disease admitted for further treatment of LUE cellulitis, left basilic vein thrombosis, bed bug exposure, ? scabies. PLAN: 1. Left hand cellulitis 2/2 to IV drug abuse. Cannot r/o increased swelling is a lso from left basilic vein thrombosis -WBC wnl, afebrile. Erythema is improved and no longer past the left wrist. -PICC placed due to poor vascular access for IV abx -BCx x 2 sets NG at 24 hrs -F/u daily labs -C/w Vancomycin, tylenol PRN, tramadol PRN 2. Left basilic vein thrombosis -US above. Questionable results to some extent -In primary upper ext DVT, anticoagulation typically continues for a minimum of 3 months. With questionable results above, discussion should take place and include finding out if patient can afford continued medication after discharge (she is between homes, has been homeless and is moving out of state soon). She also has a history of noncompliance and dangerous lifestyle so risks of [facility] AC should be reviewed. -For now, c/w Xarelto BID 3. Polysubstance abuse withdrawl -Increased agitation, emotional, goosebump flesh but VS are currently stable and patient is not hallucinating-AAOx3 -Ativan 2 mg PO Q4 hrs 4. Bed bug exposure -Bed bug bites all over body, stayed at residence with known infestation 03/30- 04/03 -Decontamination done -Can add benadryl cream if itching arises 5. ? Scabies infection vs. bacterial folliculitis or both -S/p premethrin cream to be started -C/w topical mupirocin 6. Polysubstance abuse-heroin, methamphetamines, Lucy -Very figity; however, not agitated and she states that this is her baseline -Monitor for signs of withdrawl -Ativan PRN 7. GORD -C/w PPI 8. Depression/Bipolar disorder/ADHD/PTSD -Not on medications -Currently appears stable -Denies HI/SI 9. Asthma -Can add albuterol PRN if SOB 10. DVT px. -Xarelto BID DISPOSITION: Admitted under inpatient status. Plan is discharge with her to return to her mother's home when medically improved. VS, I&O, 24H, Fishbone Vital Signs/I&O Vital Signs Date Time Temp Pulse Resp B/P (MAP) Pulse Ox O2 Delivery O2 Flow Rate FiO2 03/29/20 15:40 99.2 87 19 119/73 (88) 100 Room Air I&O- Last 24 Hours up to 6 AM 03/29/20 06:00 Intake Total 1570 ml Output Total 0 ml Balance 1570 ml Laboratory Data Microbiology Microbiology 03/28/20 Blood Culture - Preliminary, Resulted No growth after 24 hours . All specim... 03/28/20 Blood Culture - Preliminary, Resulted No growth after 24 hours . All specim... Current Medications Current Medications Medications (Trade) Dose Ordered Sig/Blanca Route PRN Reason Start Time Stop Time Status Last Admin Dose Admin Acetaminophen (Tylenol Tab) 650 mg Q6HP PRN PO PAIN / FEVER 03/28/20 15:00 03/29/20 16:44 Enoxaparin Sodium (Lovenox) 40 mg DAILY SC 03/29/20 09:00 03/28/20 15:44 DC Gabapentin (Neurontin) 800 mg QID PO 03/28/20 17:00 03/29/20 16:03 Heparin Sodium (Heparin (Flush)) 200 units ASDIRECTED PRN IV SEE LABEL COMMENTS 03/29/20 16:45 Heparin Sodium (Heparin (Flush)) 200 units PICC IV 03/29/20 18:00 Home Med (Med Rec Complete!) ASDIRECTED XX 03/28/20 14:45 03/28/20 14:36 DC Lidocaine/ Diphenhydr/Alum/ Mg/Simeth (Magic Mouthwash) 5ml TIDP PRN SSP DISCOMFORT 03/28/20 16:30 03/29/20 14:13 Lorazepam (Ativan) 1 mg Q4HP PRN PO ANXIETY 03/28/20 16:15 03/28/20 16:15 DC Lorazepam (Ativan) 1 mg Q8HP PRN PO ANXIETY 03/28/20 15:00 03/28/20 16:12 DC Lorazepam (Ativan) 1 mg Q8HP PRN PO ANXIETY 03/28/20 16:15 03/29/20 16:24 DC Lorazepam (Ativan) 2 mg Q8HP PRN PO ANXIETY 03/29/20 16:30 03/29/20 17:06 Pantoprazole Sodium (Protonix) 20 mg DAILY PO 03/28/20 09:00 03/29/20 10:00 Rivaroxaban (Xarelto) 15 mg BID@08,18 PO 03/28/20 18:00 03/29/20 09:48 Sodium Chloride (Saline Lock Flush) 10 ml ASDIRECTED PRN IV SEE LABEL COMMENTS 03/29/20 16:45 Sodium Chloride (Saline Lock Flush) 10 ml PICC IV 03/29/20 18:00 Tramadol HCl (Ultram) 50 mg Q6HP PRN PO MODERATE PAIN (PS 5-7) 03/28/20 16:00 03/29/20 12:11 Vancomycin HCl 750 mg/IV Miscellaneous Supplies 1 each/ Dextrose 275 ml @ 275 mls/hr Q8H IV 03/28/20 16:00 03/29/20 16:04 Vancomycin HCl 1000 mg/IV Miscellaneous Supplies 1 each/ Dextrose 270 ml @ 270 mls/hr Q12H IV 03/28/20 15:00 03/28/20 15:17 DC Allergies Coded Allergies: cefaclor (Verified Allergy, Intermediate, rash, 11/06/19) Eugenia Schafer MD Mar 29, 2020 17:38
[2020-03-29] MEDS: SODIUM CHLORIDE 0.9% INJ 10 ML SYR IV SCH (18:27)
--- NOTE | 2020-03-29 18:43 | REP ---
PICC line insertion under ultrasound guidance. The procedure was performed by NICKI Kinsey, under the direct supervision of Dr. Leal. The risks and benefits of the procedure were explained to the patient and informed consent was obtained both verbally and written. Directly prior to the start of the procedure, a formal timeout was completed in the procedure room. The right basilic vein was localized using ultrasound guidance. The skin was prepped and draped in the sterile fashion. 1 ml 1% lidocaine 10 mg/ml was used as a local anesthetic. Using ultrasound guidance the right basilic vein was cannulated and a 0.018 guidewire was inserted and advanced to the SVC using fluoroscopic guidance. The needle was removed and a 4.5 Montserratian dilator and peel-away sheath was inserted over the guidewire. A 4.5 [place]atian single lumen catheter was cut to the length of 35 cm. The dilator was removed and the catheter was inserted over the guide wire with the tip ending in the SVC. The peel-away sheath was removed and the catheter was flushed with heparinized saline as per hospital protocol. The catheter was affixed to the skin and a sterile dressing was applied. The patient tolerated the procedure well and there were no immediate complications. 0.3 minutes of fluoroscopy time was utilized for this procedure. Some fluoroscopic images are performed with last image hold technology. These images require no additional radiation. Reviewed by NICKI Amaro 03/29/2020 05:20 P Electronically Signed by Ignacio Leal MD 03/29/2020 06:34 P
[2020-03-29] MEDS: MUPIROCIN 2% OINT 22 GM TUBE TOP SCH (21:17)
[2020-03-29 22:00] VITALS: BP 127/69
[2020-03-30 06:00] VITALS: BP 114/62
[2020-03-30] MEDS: SODIUM CHLORIDE 0.9% INJ 10 ML SYR IV SCH ×2 (06:40→17:07)
[2020-03-30] MEDS: traMADol 50 MG TAB PO PRN ×3 (06:45→13:30)
[2020-03-30] MEDS: LORazepam 1 MG TAB PO PRN ×4 (06:47→23:37)
[2020-03-30 06:54] LABS: HEMATOCRIT 34.6 % (36.0-47.0); HEMOGLOBIN 11.9 g/dl (12.0-15.5); MEAN CORPUSCULAR HEMOGLOBIN 32.1 pg (27.0-33.0); MEAN CORPUSCULAR HGB CONC 34.4 g/dl (32.0-36.5); MEAN CORPUSCULAR VOLUME 93.3 fl (80.0-96.0); PLATELET COUNT, AUTOMATED 277 10^3/uL (150-450); RED BLOOD COUNT 3.71 10^6/uL (4.00-5.40); WHITE BLOOD COUNT 5.8 10^3/uL (4.0-10.0)
[2020-03-30 07:23] LABS: ALBUMIN 2.5 GM/DL (3.2-5.2); ALT/SGPT 69 U/L (12-78); BILIRUBIN,TOTAL 0.3 MG/DL (0.2-1.0); BLOOD UREA NITROGEN 4 MG/DL (7-18); CALCIUM LEVEL 8.5 MG/DL (8.5-10.1); CARBON DIOXIDE LEVEL 25 MEQ/L (21-32); CHLORIDE LEVEL 113 MEQ/L (98-107); CREATININE FOR GFR 0.49 MG/DL (0.55-1.30); GLOMERULAR FILTRATION RATE > 60.0 (>60); GLUCOSE, FASTING 105 MG/DL (70-100); SODIUM LEVEL 142 MEQ/L (136-145); TOTAL PROTEIN 5.3 GM/DL (6.4-8.2); VANCOMYCIN LEVEL TROUGH 7.2 UG/ML (10.0-20.0)
[2020-03-30 07:24] LABS: POTASSIUM SERUM 2.8 MEQ/L (3.5-5.1)
[2020-03-30] MEDS: GABAPENTIN 400 MG CAP PO SCH ×4 (08:37→21:07)
[2020-03-30] MEDS: RIVAROXABAN 15 MG TAB (XARELTO) PO SCH ×2 (08:38→17:19)
[2020-03-30] MEDS: PANTOPRAZOLE 20 MG TAB PO SCH (08:38)
[2020-03-30] MEDS: POTASSIUM CHLORIDE 10 MEQ SR TABLET PO SCH ×3 (08:38→10:53)
[2020-03-30] MEDS: VANCOMYCIN HCL 750 MG, VIAL MATE ADAPTER 1 EACH in D5W 250 ML IV SCH ×3 (08:39→23:38)
[2020-03-30] MEDS: MUPIROCIN 2% OINT 22 GM TUBE TOP SCH ×2 (08:40→21:08)
[2020-03-30] MEDS: KETOROLAC 30 MG/ML 1ML VIAL IV SCH ×3 (09:30→21:08)
[2020-03-30] MEDS: ACETAMINOPHEN 500 MG TAB PO SCH ×3 (09:31→21:07)
[2020-03-30] MEDS ORDERED: VANCOMYCIN HCL 500 MG in D5W MINI-BAG PLUS 100 ML IV ONE (10:00)
[2020-03-30] MEDS: NS 1,000 ML IV SCH ×2 (11:20→21:06)
[2020-03-30 14:00] VITALS: BP 120/84
[2020-03-30] MEDS ORDERED: XARE15TA PO (15:02)
[2020-03-30] MEDS ORDERED: BACT800T5 PO (15:02)
--- NOTE | 2020-03-30 17:52 | IPN ---
DATE: 03/30/2020 SUBJECTIVE: Patient remains afebrile. Complains of pain in her right hand, rating it at 5/10. Complains of restlessness, wants to go smoking and wanted to sign out against medical advice (AMA). Floor nursing harvesting supervisor convinced her to stay for IV antibiotics. Patient agrees. OBJECTIVE: PHYSICAL EXAMINATION: Vital signs: Temperature 98.3, pulse 83, respiratory rate 17, blood pressure 120/84, 99% on room air. Generally: Patient is lethargic but arousable, speaks in slow sentences. Anicteric sclerae, no jaundice. Peripherally inserted central catheter (PICC) line in place. Poor dentition. Ulcer at the right tongue base. Lungs: Clear to auscultation, no wheezing, rales, or rhonchi. Heart: S1, S2, sinus rhythm. No murmurs, rubs, or gallops. Abdomen: Soft, nontender, nondistended. Positive bowel sounds. Extremities: Right hand continues to have some erythema, tenderness, difficulty with flexion and extension of her proximal interphalangeal (PIP) / metacarpophalangeal (MCP) joints. Patient has multiple excoriations bilateral upper and lower extremities, open lesions, non-purulent, pruritic, but non-erythematous, not raised. LABORATORY DATA: White count 5.8, hemoglobin 11, hematocrit 34, platelet count 277, sodium 142, potassium 2.8, chloride 113, bicarbonate 25, BUN 4, creatinine 0.49, glucose of 105. MICROBIOLOGY Methicillin-resistant Staphylococcus aureus (MRSA) positive. ASSESSMENT AND PLAN: This is a 29-year-old female with history of IV drug use and homeless admitted for complaints of swelling, redness, and tenderness of the left hand. IMPRESSION: 1. Left hand cellulitis secondary to drug abuse, currently on IV vancomycin. She is methicillin-resistant Staphylococcus aureus (MRSA) positive. Blood cultures have remained negative so far. White count is normal. She has remained afebrile but clinically not significantly improved. 2. Left basilic vein thrombosis. Currently on anticoagulation with Xarelto twice a day. 3. Polysubstance abuse with heroin, Lucy, and methamphetamines. Currently on Ativan every 4 hours. 4. Bedbug exposure. On Benadryl decontamination. 5. Questionable scabies. On permethrin and topical mupirocin for open lesions. 6. History of posttraumatic stress disorder (PTSD) and depression. Outpatient followup. 7. History of asthma. Not wheezing currently. 8. History of migraines. No complaints. 9. History of reflux disease. No new complaints. MTDD
[2020-03-30 22:00] VITALS: BP 106/74
[2020-03-31] MEDS: KETOROLAC 30 MG/ML 1ML VIAL IV SCH ×2 (02:07→08:33)
[2020-03-31] MEDS: SODIUM CHLORIDE 0.9% INJ 10 ML SYR IV SCH (05:13)
[2020-03-31 06:00] VITALS: BP 112/74
[2020-03-31] MEDS: NS 1,000 ML IV SCH (06:42)
[2020-03-31] MEDS: LORazepam 1 MG TAB PO PRN (06:42)
[2020-03-31 07:21] LABS: HEMOGLOBIN 11.7 g/dl (12.0-15.5); MEAN CORPUSCULAR HEMOGLOBIN 31.2 pg (27.0-33.0); MEAN CORPUSCULAR HGB CONC 33.4 g/dl (32.0-36.5); MEAN CORPUSCULAR VOLUME 93.3 fl (80.0-96.0); PLATELET COUNT, AUTOMATED 293 10^3/uL (150-450); RED BLOOD COUNT 3.75 10^6/uL (4.00-5.40); WHITE BLOOD COUNT 5.1 10^3/uL (4.0-10.0)
[2020-03-31 07:41] LABS: ALBUMIN 2.4 GM/DL (3.2-5.2); ALT/SGPT 53 U/L (12-78); BILIRUBIN,TOTAL 0.2 MG/DL (0.2-1.0); BLOOD UREA NITROGEN 4 MG/DL (7-18); CALCIUM LEVEL 8.3 MG/DL (8.5-10.1); CARBON DIOXIDE LEVEL 22 MEQ/L (21-32); CHLORIDE LEVEL 116 MEQ/L (98-107); GLOMERULAR FILTRATION RATE > 60.0 (>60); GLUCOSE, FASTING 80 MG/DL (70-100); POTASSIUM SERUM 4.2 MEQ/L (3.5-5.1); SODIUM LEVEL 144 MEQ/L (136-145); TOTAL PROTEIN 4.7 GM/DL (6.4-8.2)
[2020-03-31] MEDS ORDERED: VANCOMYCIN HCL 1,000 MG, VIAL MATE ADAPTER 1 EACH in D5W 250 ML IV SCH (08:00)
[2020-03-31] MEDS: ACETAMINOPHEN 500 MG TAB PO SCH (08:33)
[2020-03-31] MEDS: RIVAROXABAN 15 MG TAB (XARELTO) PO SCH (08:34)
[2020-03-31] MEDS: MUPIROCIN 2% OINT 22 GM TUBE TOP SCH (08:34)
[2020-03-31] MEDS: PANTOPRAZOLE 20 MG TAB PO SCH (08:34)
[2020-03-31] MEDS: GABAPENTIN 400 MG CAP PO SCH (08:34)
[2020-03-31] MEDS ORDERED: ACET-683 PO (09:20)
[2020-03-31] MEDS ORDERED: IBUP-1114 PO (09:20)
[2020-03-31] MEDS ORDERED: PRIL20TA2 PO (09:20)
[2020-03-31] MEDS ORDERED: ELIQ5TAB PO (10:40)
== END 2020-03-31 10:53 | disposition home or self-care (01) | DRG 383 ==
LOC: M ED 10:09 → M ED INP 14:28 → ENRESERV 15:08 → M MSPAV 15:49
PROVIDERS: ADMIT Internal Medicine; ATTEND General Practice
PROC: 02HV33Z Insertion of Infusion Device into Superior Vena Cava, Percutaneous Approach (ICD-10-PCS; principal; 2020-03-29 15:30)
DX: L03.114 Cellulitis of left upper limb (principal); I82.612 Acute embolism and thrombosis of superficial veins of left upper extremity; F31.9 Bipolar disorder, unspecified; F11.10 Opioid abuse, uncomplicated; F43.10 Post-traumatic stress disorder, unspecified; F32.9 Major depressive disorder, single episode, unspecified; J45.909 Unspecified asthma, uncomplicated; G43.909 Migraine, unspecified, not intractable, without status migrainosus; K21.9 Gastro-esophageal reflux disease without esophagitis; F17.210 Nicotine dependence, cigarettes, uncomplicated; S80.861A Insect bite (nonvenomous), right lower leg, initial encounter; S80.862A Insect bite (nonvenomous), left lower leg, initial encounter; S40.861A Insect bite (nonvenomous) of right upper arm, initial encounter; S40.862A Insect bite (nonvenomous) of left upper arm, initial encounter; W57.XXXA Bitten or stung by nonvenomous insect and other nonvenomous arthropods, initial encounter; Y92.009 Unspecified place in unspecified non-institutional (private) residence as the place of occurrence of the external cause

== ENCOUNTER 2020-04-10 14:57 | Emergency (ER) | payer OTHER ==
[~2020-04-10 14:57] MED LIST changes: +ACET-683 PO; +BACT800T5 PO; +ELIQ5TAB PO; +IBUP-1114 PO; +LORazepam 2 MG/ML VIAL As Ordered ONE; +PANT40TA29 PO; +PRIL20TA2 PO; +XARE15TA PO
[2020-05-16 21:35] LABS: BASO % 0.3 % (0.0-1.0); EOS % 0.5 % (0.0-3.0); HEMATOCRIT 36.6 % (36.0-47.0); HEMOGLOBIN 12.5 g/dl (12.0-15.5); LYMPH # 1.3 10^3/uL (1.5-5.0); MEAN CORPUSCULAR HEMOGLOBIN 30.7 pg (27.0-33.0); MEAN CORPUSCULAR HGB CONC 34.2 g/dl (32.0-36.5); MEAN CORPUSCULAR VOLUME 89.9 fl (80.0-96.0); MONO # 0.7 10^3/uL (0.0-0.8); MONO % 9.4 % (0.0-5.0); NEUTROPHILS # 5.5 10^3/uL (1.5-8.5); NEUTROPHILS % 72.5 % (36.0-66.0); PLATELET COUNT, AUTOMATED 266 10^3/uL (150-450); RED BLOOD COUNT 4.07 10^6/uL (4.00-5.40); WHITE BLOOD COUNT 7.6 10^3/uL (4.0-10.0)
[2020-06-20 13:59] LABS: ALBUMIN 3.3 GM/DL (3.2-5.2); ALT/SGPT 155 U/L (12-78); BILIRUBIN,DIRECT 0.3 MG/DL (0.0-0.2); BILIRUBIN,TOTAL 0.7 MG/DL (0.2-1.0); BLOOD UREA NITROGEN 9 MG/DL (7-18); CALCIUM LEVEL 8.9 MG/DL (8.5-10.1); CARBON DIOXIDE LEVEL 27 MEQ/L (21-32); CHLORIDE LEVEL 104 MEQ/L (98-107); CREATININE FOR GFR 0.64 MG/DL (0.55-1.30); GLOMERULAR FILTRATION RATE > 60.0 (>60); GLUCOSE, FASTING 59 MG/DL (70-100); POTASSIUM SERUM 3.2 MEQ/L (3.5-5.1); SODIUM LEVEL 138 MEQ/L (136-145); TOTAL PROTEIN 5.9 GM/DL (6.4-8.2)
== END 2020-04-10 15:10 | disposition home or self-care (01) ==
LOC: M ED 14:57
DX: F19.10 Other psychoactive substance abuse, uncomplicated (principal); L98.9 Disorder of the skin and subcutaneous tissue, unspecified; Z86.14 Personal history of Methicillin resistant Staphylococcus aureus infection; F17.200 Nicotine dependence, unspecified, uncomplicated; Z79.899 Other long term (current) drug therapy; Z79.01 Long term (current) use of anticoagulants
CPT/HCPCS: 80048; 80076; 83605; 85025; 87040; 87077; 87186; 96374; 99284; J2060

== ENCOUNTER 2020-05-01 05:15 | Emergency (ER) | payer OTHER ==
[~2020-05-01 05:15] MED LIST changes: -LORazepam 2 MG/ML VIAL As Ordered ONE
[2020-05-01 05:39] VITALS: BP 138/62
== END 2020-05-01 06:39 | disposition home or self-care (01) ==
LOC: M ED 05:15
DX: Z91.19 Patient's noncompliance with other medical treatment and regimen (principal); J45.909 Unspecified asthma, uncomplicated; K21.9 Gastro-esophageal reflux disease without esophagitis; F15.10 Other stimulant abuse, uncomplicated; Z79.899 Other long term (current) drug therapy; Z88.1 Allergy status to other antibiotic agents; F17.210 Nicotine dependence, cigarettes, uncomplicated

== ENCOUNTER 2020-05-10 22:28 | Emergency (ER) | payer OTHER ==
[2020-05-10] MEDS ORDERED: diphenhydrAMINE 50MG/ML VIAL (J1200) IM ONE (23:30)
[2020-05-10] MEDS ORDERED: LORazepam 2 MG/ML VIAL IM ONE (23:30)
[2020-05-10] MEDS ORDERED: HALOPERIDOL 5MG/ML VIAL (J1630 PER 1) IM ONE (23:30)
[2020-05-11 00:08] LABS: AMPHETAMINES LEVEL URINE POSITIVE (NEGATIVE); BARBITURATES URINE NEGATIVE (NEGATIVE); BENZODIAZEPINES URINE NEGATIVE (NEGATIVE); CANNABINOIDS URINE POSITIVE (NEGATIVE); COCAINE METABOLITE URINE NEGATIVE (NEGATIVE); METHADONE URINE NEGATIVE (NEGATIVE); OPIATES URINE NEGATIVE (NEGATIVE); PHENCYCLIDINE URINE NEGATIVE (NEGATIVE)
[2020-05-11 00:33] LABS: HEMATOCRIT 43.2 % (36.0-47.0); MEAN CORPUSCULAR HEMOGLOBIN 30.8 pg (27.0-33.0); MEAN CORPUSCULAR HGB CONC 32.4 g/dl (32.0-36.5); MEAN CORPUSCULAR VOLUME 95.2 fl (80.0-96.0); PLATELET COUNT, AUTOMATED 219 10^3/uL (150-450); RED BLOOD COUNT 4.54 10^6/uL (4.00-5.40); WHITE BLOOD COUNT 8.1 10^3/uL (4.0-10.0)
[2020-05-11 01:20] LABS: ACETAMINOPHEN LEVEL < 2.0 UG/ML (10.0-30.0); ALBUMIN 3.7 GM/DL (3.2-5.2); ALT/SGPT 80 U/L (12-78); BILIRUBIN,DIRECT 0.3 MG/DL (0.0-0.2); BILIRUBIN,TOTAL 0.7 MG/DL (0.2-1.0); BLOOD UREA NITROGEN 8 MG/DL (7-18); CARBON DIOXIDE LEVEL 21 MEQ/L (21-32); CHLORIDE LEVEL 111 MEQ/L (98-107); CREATININE FOR GFR 0.72 MG/DL (0.55-1.30); ETHYL ALCOHOL (ETHANOL) < 0.003 % (0.000-0.010); GLOMERULAR FILTRATION RATE > 60.0 (>60); GLUCOSE, FASTING 63 MG/DL (70-100); POTASSIUM SERUM 4.2 MEQ/L (3.5-5.1); SALICYLATE LEVEL 3.9 MG/DL (5.0-30.0); SODIUM LEVEL 140 MEQ/L (136-145); TOTAL PROTEIN 6.9 GM/DL (6.4-8.2)
[2020-05-11] MEDS ORDERED: BUPRENORPHINE/NALOXONE 8-2MG SUBLINGUAL TABLET(SUBOXONE) SL SCH (09:00)
[2020-05-11 12:20] VITALS: BP 111/70
== END 2020-05-11 12:42 | disposition home or self-care (01) ==
LOC: M ED 22:28
DX: F15.10 Other stimulant abuse, uncomplicated (principal); Z79.899 Other long term (current) drug therapy; Z88.1 Allergy status to other antibiotic agents
CPT/HCPCS: 36415; 80048; 80076; 80307; 84443; 85027; 96372; 99285; G0480; J1200; J1630; J2060

== ENCOUNTER 2020-06-06 10:25 | Emergency (ER) | payer OTHER ==
[~2020-06-06] VITALS: Ht 160 cm; Wt 46.2 kg
[2020-06-06] MEDS ORDERED: LORazepam 2 MG/ML VIAL IV STA (10:27)
[2020-06-06] MEDS ORDERED: QUET200T2 (10:38)
[2020-06-06] MEDS ORDERED: ARIP1TAB (10:38)
[2020-06-06] MEDS ORDERED: HYDR-643 (10:38)
[2020-06-06] MEDS ORDERED: LORazepam 2 MG/ML VIAL IM STA (10:55)
[2020-06-06 16:45] VITALS: BP 143/70
== END 2020-06-06 17:44 | disposition home or self-care (01) ==
LOC: M ED 10:25
DX: F19.10 Other psychoactive substance abuse, uncomplicated (principal); F31.9 Bipolar disorder, unspecified; F17.200 Nicotine dependence, unspecified, uncomplicated; Z79.899 Other long term (current) drug therapy; Z88.1 Allergy status to other antibiotic agents; Z86.14 Personal history of Methicillin resistant Staphylococcus aureus infection; Z86.19 Personal history of other infectious and parasitic diseases
CPT/HCPCS: 96372; 99284; J2060

== ENCOUNTER → 2020-08-12 | Outpatient (CLI) | payer MEDICAID ==
[~2020-08-12] MED LIST changes: +ARIP1TAB; +ARIP1TAB6; +BUPRENORPHINE; +ERYT5OIN25 OD; +GABA600T4; +HYDR-643; +OMEP-221; +PRAZ1CAP; +QUET200T2; +VENL75CA47
== END ==
LOC: M OUTALCOH 08:26
PROVIDERS: ATTEND Psychiatry & Neurology Addiction Medicine
DX: Z13.39 Encounter for screening examination for other mental health and behavioral disorders (principal); F16.10 Hallucinogen abuse, uncomplicated; F11.20 Opioid dependence, uncomplicated; F12.10 Cannabis abuse, uncomplicated

== ENCOUNTER 2020-08-15 17:21 | Emergency (ER) | payer MEDICAID, OTHER ==
[~2020-08-15] VITALS: Ht 160 cm; Wt 56.1 kg
[~2020-08-15 17:21] MED LIST changes: -ARIP1TAB6; -BUPRENORPHINE; -ERYT5OIN25 OD; -GABA600T4; -OMEP-221; -PRAZ1CAP; -VENL75CA47
[2020-08-15] MEDS ORDERED: GABA600T4 (17:32)
[2020-08-15] MEDS ORDERED: PRAZ1CAP (17:32)
[2020-08-15] MEDS ORDERED: VENL75CA47 (17:32)
[2020-08-15] MEDS ORDERED: BUPRENORPHINE (17:32)
[2020-08-15] MEDS ORDERED: OMEP-221 (17:32)
[2020-08-15] MEDS ORDERED: ARIP1TAB6 (17:32)
[2020-08-15] MEDS ORDERED: FLUORESCEIN OPHTH 1 MG STRIP OD ONE (18:00)
[2020-08-15] MEDS ORDERED: TETRACAINE 0.5% OPHTH SOLN 4ML OD ONE (18:00)
[2020-08-15] MEDS ORDERED: ERYTHROMYCIN OPHTH OINT OD ONE (18:15)
[2020-08-15] MEDS ORDERED: IBUPROFEN 800 MG TAB PO ONE (18:15)
[2020-08-15] MEDS ORDERED: ACETAMINOPHEN 500 MG TAB PO ONE (18:15)
[2020-08-15] MEDS ORDERED: ERYT5OIN25 OD (18:16)
[2020-08-15 18:54] VITALS: BP 130/79
== END 2020-08-15 19:24 | disposition home or self-care (01) ==
LOC: M ED 17:21
DX: S05.01XA Injury of conjunctiva and corneal abrasion without foreign body, right eye, initial encounter (principal); X58.XXXA Exposure to other specified factors, initial encounter; Y92.89 Other specified places as the place of occurrence of the external cause; Z79.899 Other long term (current) drug therapy

== ENCOUNTER 2020-09-02 09:00 | Outpatient (RCR) | payer MEDICAID ==
[~2020-09-02 09:00] MED LIST changes: +ARIP1TAB6; +BUPRENORPHINE; +ERYT5OIN25 OD; +GABA600T4; +OMEP-221; +PRAZ1CAP; +VENL75CA47
== END 2020-09-09 ==
LOC: M OUTALCOH 09:00
PROVIDERS: ATTEND Psychiatry & Neurology Addiction Medicine
DX: F16.20 Hallucinogen dependence, uncomplicated (principal); F11.20 Opioid dependence, uncomplicated; F12.10 Cannabis abuse, uncomplicated; F17.200 Nicotine dependence, unspecified, uncomplicated

== ENCOUNTER 2020-09-10 23:46 | Emergency (ER) | payer MEDICAID ==
[~2020-09-10] VITALS: Ht 160 cm; Wt 43.2 kg
[2020-09-11 01:16] LABS: HEMATOCRIT 41.1 % (36.0-47.0); HEMOGLOBIN 13.7 g/dl (12.0-15.5); MEAN CORPUSCULAR HEMOGLOBIN 30.1 pg (27.0-33.0); MEAN CORPUSCULAR HGB CONC 33.3 g/dl (32.0-36.5); MEAN CORPUSCULAR VOLUME 90.3 fl (80.0-96.0); PLATELET COUNT, AUTOMATED 339 10^3/uL (150-450); RED BLOOD COUNT 4.55 10^6/uL (4.00-5.40); WHITE BLOOD COUNT 7.8 10^3/uL (4.0-10.0)
[2020-09-11 01:24] LABS: HCG, SERUM QUALITATIVE NEGATIVE (NEGATIVE)
[2020-09-11 01:36] LABS: AMPHETAMINES LEVEL URINE NEGATIVE (NEGATIVE); BARBITURATES URINE NEGATIVE (NEGATIVE); BENZODIAZEPINES URINE NEGATIVE (NEGATIVE); CANNABINOIDS URINE POSITIVE (NEGATIVE); COCAINE METABOLITE URINE NEGATIVE (NEGATIVE); METHADONE URINE NEGATIVE (NEGATIVE); OPIATES URINE NEGATIVE (NEGATIVE); PHENCYCLIDINE URINE NEGATIVE (NEGATIVE)
[2020-09-11 01:44] LABS: GLOMERULAR FILTRATION RATE > 60.0 (>60)
[2020-09-11 01:45] LABS: ACETAMINOPHEN LEVEL < 2.0 UG/ML (10.0-30.0); ALBUMIN 3.6 GM/DL (3.2-5.2); ALT/SGPT 129 U/L (12-78); BILIRUBIN,DIRECT < 0.1 MG/DL (0.0-0.2); BILIRUBIN,TOTAL 0.7 MG/DL (0.2-1.0); BLOOD UREA NITROGEN 16 MG/DL (7-18); CALCIUM LEVEL 8.9 MG/DL (8.5-10.1); CARBON DIOXIDE LEVEL 19 MEQ/L (21-32); CHLORIDE LEVEL 109 MEQ/L (98-107); CREATININE FOR GFR < 0.15 MG/DL (0.55-1.30); ETHYL ALCOHOL (ETHANOL) < 0.003 % (0.000-0.010); GLUCOSE, FASTING 128 MG/DL (70-100); POTASSIUM SERUM 4.1 MEQ/L (3.5-5.1); SALICYLATE LEVEL < 1.7 MG/DL (5.0-30.0); SODIUM LEVEL 139 MEQ/L (136-145); TOTAL PROTEIN 6.8 GM/DL (6.4-8.2)
[2020-09-11 03:51] VITALS: BP 132/58
== END 2020-09-11 03:52 | disposition home or self-care (01) ==
LOC: M ED 23:46
DX: F43.20 Adjustment disorder, unspecified (principal); Z79.891 Long term (current) use of opiate analgesic; Z88.1 Allergy status to other antibiotic agents; F17.210 Nicotine dependence, cigarettes, uncomplicated
CPT/HCPCS: 36415; 80048; 80076; 80307; 84443; 84703; 85027; 99284; G0480

== ENCOUNTER 2020-09-11 07:10 | Emergency (ER) | payer MEDICAID ==
[2020-09-11] MEDS ORDERED: LORazepam 2 MG TAB PO STA (07:50)
[2020-09-11] MEDS ORDERED: BUPRENORPHINE/NALOXONE 8-2MG SUBLINGUAL TABLET(SUBOXONE) SL SCH (09:00)
[2020-09-11 18:19] VITALS: BP 118/68
[2020-09-12] MEDS ORDERED: BUPRENORPHINE/NALOXONE 8-2MG SUBLINGUAL TABLET(SUBOXONE) SL SCH (09:00)
== END 2020-09-11 18:22 | disposition home or self-care (01) ==
LOC: M ED 07:10
DX: F16.10 Hallucinogen abuse, uncomplicated (principal); J45.909 Unspecified asthma, uncomplicated; K21.9 Gastro-esophageal reflux disease without esophagitis; Z79.899 Other long term (current) drug therapy; Z88.1 Allergy status to other antibiotic agents

== ENCOUNTER 2021-01-07 05:56 | Emergency (ER) | payer MEDICAID, OTHER ==
[~2021-01-07] VITALS: Ht 160 cm; Wt 45.5 kg
[~2021-01-07 05:56] MED LIST changes: -CLIN150C14 PO; +CLIN150C15 PO; +QUET50TA3; -QUET5TAB
[2021-01-07 06:26] LABS: HEMATOCRIT 44.9 % (36.0-47.0); HEMOGLOBIN 15.5 g/dl (12.0-15.5); MEAN CORPUSCULAR HEMOGLOBIN 29.2 pg (27.0-33.0); MEAN CORPUSCULAR HGB CONC 34.5 g/dl (32.0-36.5); MEAN CORPUSCULAR VOLUME 84.6 fl (80.0-96.0); PLATELET COUNT, AUTOMATED 272 10^3/uL (150-450); RED BLOOD COUNT 5.31 10^6/uL (4.00-5.40); WHITE BLOOD COUNT 7.9 10^3/uL (4.0-10.0)
[2021-01-07 07:16] LABS: HCG, SERUM QUALITATIVE NEGATIVE (NEGATIVE)
[2021-01-07 07:37] LABS: ACETAMINOPHEN LEVEL < 2.0 UG/ML (10.0-30.0); ALBUMIN 3.8 GM/DL (3.2-5.2); ALT/SGPT 36 U/L (12-78); BILIRUBIN,DIRECT 0.2 MG/DL (0.0-0.2); BILIRUBIN,TOTAL 0.7 MG/DL (0.2-1.0); BLOOD UREA NITROGEN 9 MG/DL (7-18); CALCIUM LEVEL 9.4 MG/DL (8.5-10.1); CARBON DIOXIDE LEVEL 20 MEQ/L (21-32); CHLORIDE LEVEL 107 MEQ/L (98-107); CREATININE FOR GFR 0.52 MG/DL (0.55-1.30); ETHYL ALCOHOL (ETHANOL) < 0.003 % (0.000-0.010); GLOMERULAR FILTRATION RATE > 60.0 (>60); GLUCOSE, FASTING 68 MG/DL (70-100); SALICYLATE LEVEL < 1.7 MG/DL (5.0-30.0); SODIUM LEVEL 137 MEQ/L (136-145); THYROID STIMULATING HORMONE 0.541 uIU/ML (0.358-3.740); TOTAL PROTEIN 7.4 GM/DL (6.4-8.2)
[2021-01-07] MEDS ORDERED: BUPR1FIL (08:58)
[2021-01-07] MEDS ORDERED: GABA-845 (08:58)
[2021-01-07] MEDS ORDERED: QUET100T2 (08:58)
[2021-01-07 17:19] LABS: AMPHETAMINES LEVEL URINE POSITIVE (NEGATIVE); BARBITURATES URINE NEGATIVE (NEGATIVE); BENZODIAZEPINES URINE NEGATIVE (NEGATIVE); CANNABINOIDS URINE NEGATIVE (NEGATIVE); COCAINE METABOLITE URINE POSITIVE (NEGATIVE); METHADONE URINE NEGATIVE (NEGATIVE); OPIATES URINE NEGATIVE (NEGATIVE); PHENCYCLIDINE URINE NEGATIVE (NEGATIVE)
[2021-01-08] MEDS ORDERED: DOXY100C37 PO (06:56)
[2021-01-08] MEDS ORDERED: BUPRENORPHINE/NALOXONE 8-2MG SUBLINGUAL TABLET(SUBOXONE) SL ONE (15:00)
[2021-01-08] MEDS ORDERED: DOXYCYCLINE HYCLATE 100MG TABLET PO ONE (15:15)
[2021-01-08 15:43] VITALS: BP 112/70
== END 2021-01-08 15:46 | disposition home or self-care (01) ==
LOC: M ED 05:56
DX: F15.10 Other stimulant abuse, uncomplicated (principal); F43.20 Adjustment disorder, unspecified; L03.90 Cellulitis, unspecified; Z88.1 Allergy status to other antibiotic agents

== ENCOUNTER 2021-06-06 18:52 | Inpatient (IN) | payer MEDICAID, OTHER ==
[~2021-06-06] VITALS: Ht 160 cm; Wt 45.5 kg
[~2021-06-06 18:52] MED LIST changes: +ARIP10TA32; -ARIP1TAB; +BUPR1FIL; -CLIN150C15 PO; +CLIN150C17 PO; +DOXY1CAP62 PO; +GABA-283; -OMEP-221; +OMEP-221 PO; +QUET100T2; -QUET50TA3; +QUET50TA4
[2021-06-06] MEDS ORDERED: NS 1,000 ML IV ONE (19:20)
[2021-06-06 20:45] LABS: BASO % 0.3 % (0.0-1.0); EOS # 0.1 10^3/uL (0.0-0.5); EOS % 0.6 % (0.0-3.0); HEMATOCRIT 43.9 % (36.0-47.0); HEMOGLOBIN 15.2 g/dl (12.0-15.5); LYMPH # 3.4 10^3/uL (1.5-5.0); LYMPH % 35.2 % (24.0-44.0); MEAN CORPUSCULAR HEMOGLOBIN 30.3 pg (27.0-33.0); MEAN CORPUSCULAR HGB CONC 34.6 g/dl (32.0-36.5); MEAN CORPUSCULAR VOLUME 87.5 fl (80.0-96.0); MONO # 0.8 10^3/uL (0.0-0.8); MONO % 8.7 % (2.0-8.0); NEUTROPHILS # 5.3 10^3/uL (1.5-8.5); NEUTROPHILS % 54.8 % (36.0-66.0); PLATELET COUNT, AUTOMATED 359 10^3/uL (150-450); RED BLOOD COUNT 5.02 10^6/uL (4.00-5.40); WHITE BLOOD COUNT 9.7 10^3/uL (4.0-10.0)
[2021-06-06 21:48] LABS: RSV AMPLIFICATION NEGATIVE (NEGATIVE)
[2021-06-06 22:35] LABS: ACETAMINOPHEN LEVEL < 2.0 UG/ML (10.0-30.0); ALBUMIN 3.4 GM/DL (3.2-5.2); ALT/SGPT 73 U/L (12-78); BILIRUBIN,DIRECT 0.1 MG/DL (0.0-0.2); BILIRUBIN,TOTAL 0.6 MG/DL (0.2-1.0); BLOOD UREA NITROGEN 19 MG/DL (7-18); CARBON DIOXIDE LEVEL 21 MEQ/L (21-32); CHLORIDE LEVEL 108 MEQ/L (98-107); CPK CREATINE PHOSPHOKINASE 58 U/L (26-192); CREATININE FOR GFR 0.56 MG/DL (0.55-1.30); ETHYL ALCOHOL (ETHANOL) < 0.003 % (0.000-0.010); GLOMERULAR FILTRATION RATE > 60.0 (>60); GLUCOSE, FASTING 87 MG/DL (70-100); POTASSIUM SERUM 4.4 MEQ/L (3.5-5.1); SALICYLATE LEVEL 2.1 MG/DL (5.0-30.0); SODIUM LEVEL 138 MEQ/L (136-145); TOTAL PROTEIN 7.3 GM/DL (6.4-8.2)
[2021-06-06 22:36] LABS: HCG, SERUM QUALITATIVE NEGATIVE (NEGATIVE)
--- NOTE | 2021-06-07 05:09 | ECGEPIP ---
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
[2021-06-07 09:55] LABS: HEPATITIS A ANTIBODY IGM NEGATIVE (NEGATIVE); HEPATITIS B CORE ANTIBODY IGM NEGATIVE (NEGATIVE); HEPATITIS B SURFACE ANTIGEN NEGATIVE (NEGATIVE); HEPATITIS C VIRUS ABY INDEX > 11.0 INDEX (<0.8)
[2021-06-07 09:57] LABS: HIV SCREEN CENTAUR SOURCE NEGATIVE (NEGATIVE)
[2021-06-07] MEDS ORDERED: MOM 30ML SUSPENSION UDC PO PRN (13:55)
[2021-06-07] MEDS ORDERED: MAALOX 30 ML SUSP *UDC PO PRN (13:55)
[2021-06-07] MEDS ORDERED: QUET200T2 PO (15:18)
[2021-06-07] MEDS ORDERED: PRAZ2CAP PO (15:18)
[2021-06-07] MEDS ORDERED: HOME MED LIST COMPLETE! XX SCH (15:20)
--- NOTE | 2021-06-07 15:53 | MHIPNPDOC ---
[facility] Progress Note Progress Note DATE OF SERVICE: 06/07/21 Per PSA report patient presented by police due to overdose on polydrug use suicide attempt. Patient meets criteria for inpatient admission on involuntary status. Vital Signs Vital Signs Date Time Temp Pulse Resp B/P (MAP) Pulse Ox O2 Delivery O2 Flow Rate FiO2 06/06/21 21:58 115 18 133/71 (91) 99 Room Air 06/06/21 20:04 97.9 Laboratory Data 24H Labs Laboratory Tests 2 06/06/21 20:34: Immature Granulocyte % (Auto) 0.4, Neutrophils (%) (Auto) 54.8, Lymphocytes (%) (Auto) 35.2, Monocytes (%) (Auto) 8.7H, Eosinophils (%) (Auto) 0.6, Basophils (%) (Auto) 0.3, Neutrophils # (Auto) 5.3, Lymphocytes # (Auto) 3.4, Monocytes # (Auto) 0.8, Eosinophils # (Auto) 0.1, Basophils # (Auto) 0.0, Nucleated Red Blood Cells % (auto) 0.0, Hepatitis A IgM Antibody NEGATIVE, Hepatitis B Surface Antigen NEGATIVE, Hepatitis B Core IgM Antibody NEGATIVE, Hepatitis C Antibody Index > 11.0H, HIV Antigen/Antibody Combo Qual NEGATIVEA 06/06/21 20:48: Coronavirus (COVID-19)(PCR) POSITIVEA, Influenza Type A (RT-PCR) NEGATIVE, Influenza Type B (RT-PCR) NEGATIVE, Respiratory Syncytial Virus (PCR) NEGATIVE 06/06/21 21:53: Anion Gap 9, Glomerular Filtration Rate > 60.0, Calcium Level 9.0, Total Bilirubin 0.6, Direct Bilirubin 0.1, Aspartate Amino Transf (AST/SGOT) 48H, Alanine Aminotransferase (ALT/SGPT) 73, Alkaline Phosphatase 96, Total Creatine Kinase 58, Total Protein 7.3, Albumin 3.4, Albumin/Globulin Ratio 0.9L, Thyroid Stimulating Hormone (TSH) 2.630, Human Chorionic Gonadotropin, Qual NEGATIVE, Salicylates Level 2.1L, Acetaminophen Level < 2.0L, Ethyl Alcohol Level < 0.003 CBC/BMP Laboratory Tests 06/06/21 20:34 06/06/21 21:53 Current Medications Current Medications Medications (Trade) Dose Ordered Sig/Blanca Route PRN Reason Start Time Stop Time Status Last Admin Dose Admin Acetaminophen (Tylenol Tab) 650 mg Q6HP PRN PO HEADACHE or MILD DISCOMFORT 06/07/21 13:55 Al Hydrox/Mg Hydrox/Simethicone (Mylanta) 30 ml Q4HP PRN PO HEARTBURN/INDIGESTION 06/07/21 13:55 Clonidine HCl (Catapres) 0.1 mg DAILYPRN PRN PO WITHDRAWAL SYMPTOMS 06/07/21 13:55 Home Med (Home Med List Complete!) ASDIRECTED XX 06/07/21 15:20 06/07/21 15:21 DC Magnesium Hydroxide (Milk Of Magnesia) 30 ml DAILYPRN PRN PO CONSTIPATION 06/07/21 13:55 Nicotine (Nicoderm Cq 21mg) 1 patch DAILY TD 06/07/21 09:00 Olanzapine (ZyPREXA ZYDIS) 5 mg Q6HP PRN PO ANXIETY/AGITATION 06/07/21 13:55 Trazodone HCl (Desyrel) 50 mg QHSP PRN PO INSOMNIA 06/07/21 13:55 Allergies Coded Allergies: cefaclor (Verified Allergy, Intermediate, rash, 11/06/19) YOEL LIMA MD Jun 07, 2021 15:53
[2021-06-07] MEDS: NICOTINE 21MG/24HR 1 EA TRANSDERMAL TD SCH (17:00)
[2021-06-07] MEDS: traZODone 50 MG TAB PO PRN (22:01)
[2021-06-07] MEDS: QUEtiapine FUMARATE 200 MG TAB PO SCH (22:01)
[2021-06-07] MEDS: PRAZOSIN 1 MG CAP PO SCH (22:30)
[2021-06-08 06:53] VITALS: BP 113/64
[2021-06-08] MEDS: NICOTINE 21MG/24HR 1 EA TRANSDERMAL TD SCH (09:30)
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
[2021-06-08] MEDS: DOCUSATE SODIUM 100MG CAPSULE PO SCH ×2 (14:42→21:04)
[2021-06-08] MEDS: OMEPRAZOLE 20 MG CAP PO SCH (14:42)
--- NOTE | 2021-06-08 16:35 | HPEPDOC ---
[facility] Medical History & Physical Date of Admission Jun 08, 2021 Date of Service: Jun 08, 2021 Attending Physician: HANNAH ARCOS DO History and Physical CHIEF COMPLAINT: Substance use disorder HISTORY OF PRESENT ILLNESS: Patient is a 30-year-old female is currently in the inpatient mental health unit for polysubstance abuse. Patient was incidentally found to have COVID-19 on regular admission testing. Patient denies any symptoms of COVID-19. Patient is only complaining of constipation and heartburn. Patient would like her omeprazole which she is supposed to be on. Patient is otherwise doing well. Patient denies any shortness of breath or coughing. Patient recently finished a course of antibiotics for a soft tissue abscess on her left hip which is healing. PAST MEDICAL HISTORY: 1. Substance abuse. 2. ADHD. 3. Bipolar. 4. Depression 5. PTSD 6. Asthma 7. Migraine headaches 8. GERD PAST SURGICAL HISTORY: 1. Upper endoscopy. 2. 2 abscess drainages. 3. Mole removal from head. SOCIAL HISTORY: Patient denies alcohol but smokes cigarettes and does Lucy. FAMILY HISTORY: Polysubstance abuse runs in her family on her father's side. Mother had skin ca ncer ALLERGIES: Please see below. REVIEW OF SYSTEMS: General: Patient denies fevers HEENT: Patient denies headaches Cardiovascular: Patient denies chest pain Respiratory: Patient denies shortness of breath, cough GI: Patient reports constipation and heartburn but denies nausea, vomiting, diarrhea : Patient denies increased frequency or pain with urination Extremities: Patient denies swelling or pain in extremities Neurological: Patient denies numbness or tingling in legs Skin: Patient denies any new rashes or lesions. Hematologic: Patient denies any easy bruising. Lymphatic: Patient denies any lumps lumps or bumps in neck, axilla, or groin HOME MEDICATIONS: Please see below. PHYSICAL EXAMINATION: VITAL SIGNS: Temperature 98.5, pulse 103, respiratory rate 20, blood pressure 113/64, pulse oximetry 98% on room air. General: Alert and oriented female patient who is laying in bed when I walked in. Patient not appear to be in any acute distress. HEENT: Normocephalic, atraumatic, moist mucous membranes. Neck: No lymphadenopathy or thyromegaly Cardiac: Regular rate and rhythm, no murmurs, normal S1, normal S2 Pulm: Clear to auscultation bilaterally. No wheezes, rhonchi, rales Abd: Nondistended, nontender to palpation, normal bowel sounds Ext: No edema bilateral lower extremities Neuro: Patient was able to move all 4 extremities on command and reported equal sensation light touch in all 4 extremities. Skin: Patient had a small area that appeared to be a healing abscess. There was no erythema, heat, or fluctuance to this area as well. This was on the left lateral hip LABORATORY DATA: See below. IMAGING: No imaging has been performed MICROBIOLOGY: Please see below. ASSESSMENT: 30-year-old female who presented to the inpatient mental health unit after making suicidal statements to her mother who has a history of polysubstance abuse.. . PLAN: 1. Suicidal statements. Patient will continue treatment per [facility]. 2. COVID-19. At this time, patient is currently asymptomatic. Patient will need to be continue to monitor. If the patient begins to become symptomatic, patient may need to come over to the medical floor if she requires oxygen. Tylenol and/or ibuprofen to help with fevers and body aches from COVID-19. 3. Tachycardia. Patient's vital signs show the patient has been to be tachycardic. This is most likely secondary to the patient's substance abuse. This will need to be monitored closely as it could be a sign that the patient's COVID-19 may be worsening. 4. Abscess on the left hip. This has been healing. Patient finished a course of clindamycin. We we will continue to monitor for worsening of this area. 5. DVT prophylaxis: Early ambulation. Although the patient does have COVID-19, she does not meet criteria for inpatient admission therefore no DVT prophylaxis will be given. Encouraged the patient to walk around her room as much as she can. Disposition: Patient can be discharged per psychiatry. Please reconsult hospitalist if the need arises. Thank you for this consult Vital Signs Vital Signs Date Time Temp Pulse Resp B/P (MAP) Pulse Ox O2 Delivery O2 Flow Rate FiO2 06/08/21 10:48 Room Air 06/08/21 06:53 98.5 103 20 113/64 (80) 98 Home Medications Scheduled Omeprazole (Omeprazole) 40 Mg Capsule., 40 MG PO DAILY Prazosin Hcl (Prazosin HCl) 2 Mg Capsule, 2 MG PO QHS Quetiapine Fumarate (Quetiapine Fumarate) 200 Mg Tablet, 200 MG PO QHS Allergies Coded Allergies: cefaclor (Verified Allergy, Intermediate, rash, 11/06/19) A-FIB/CHADSVASC A-FIB History Current/History of A-Fib/PAF?: No HANNAH ARCOS DO Jun 08, 2021 16:35
[2021-06-08] MEDS: QUEtiapine FUMARATE 200 MG TAB PO SCH (21:04)
[2021-06-08] MEDS: PRAZOSIN 1 MG CAP PO SCH (21:05)
[2021-06-08 21:08] VITALS: BP 102/66
[2021-06-08] MEDS: ACETAMINOPHEN TAB 650MG DOSE (2X325MG) PO PRN (21:16)
[2021-06-08] MEDS: OLANZapine ORAL DISINTEGRATING TAB 5MG PO PRN (21:17)
[2021-06-08] MEDS: traZODone 50 MG TAB PO PRN (21:17)
[2021-06-09] MEDS: cloNIDine 0.1MG TABLET PO PRN ×3 (01:14→21:40)
[2021-06-09] MEDS: ACETAMINOPHEN TAB 650MG DOSE (2X325MG) PO PRN (03:22)
[2021-06-09] MEDS: OLANZapine ORAL DISINTEGRATING TAB 5MG PO PRN ×2 (03:23→21:42)
[2021-06-09] MEDS ORDERED: haloperidoL 5 MG TAB PO ONE (04:25)
[2021-06-09] MEDS ORDERED: LORazepam 0.5 MG TAB PO ONE (04:25)
[2021-06-09 04:51] VITALS: BP 92/51
[2021-06-09] MEDS: IBUPROFEN 600MG TAB PO PRN ×2 (04:53→21:41)
--- NOTE | 2021-06-09 04:55 | IPNPDOC ---
Date Seen The patient was seen on 06/09/21. Progress Note Called by RN to eval patient's left hip, site of known abscess, due to worsening pain. COVID-10 positive. Upon entering room with RN to examine patient, I was shouted at by the patient to leave the room, and that she will not be doing any testing. I left the room. I asked nursing to re-consult during day shift, as this needs to be examined once patient is more amenable to exam. VS, I&O, 24H, Fishbone Vital Signs/I&O Vital Signs Date Time Temp Pulse Resp B/P (MAP) Pulse Ox O2 Delivery O2 Flow Rate FiO2 06/09/21 04:51 92 18 92/51 (65) 06/08/21 21:08 99.5 98 Room Air ELENI MCCALLUM MD Jun 09, 2021 04:55
[2021-06-09] MEDS: NICOTINE 21MG/24HR 1 EA TRANSDERMAL TD SCH ×3 (09:00→10:24)
[2021-06-09] MEDS: OMEPRAZOLE 20 MG CAP PO SCH (10:12)
[2021-06-09] MEDS: DOCUSATE SODIUM 100MG CAPSULE PO SCH ×2 (10:12→21:08)
--- NOTE | 2021-06-09 12:59 | IPNPDOC ---
Text Note Date of Service The patient was seen on 06/09/21. NOTE Subjective: Patient is a 30-year-old female who is in the inpatient mental health unit for substance use disorder who I was asked to reconsult on due to worsening of abscess in the lateral aspect of the left hip. protozoologist called the night provider to see this however, the patient refused examination at that time. Patient is more amenable to examination today. Patient recently finished a course of clindamycin a few days ago and states that the abscess is worse today. Patient is otherwise feeling well. Review of systems: General: Patient denies fevers HEENT: Patient denies headaches Cardiovascular: Patient denies chest pain Respiratory: Patient denies shortness of breath, cough Extremities: Patient reports pain around the abscess on the lateral aspect of th e left hip Physical exam: Vitals: See below General: Alert and oriented female patient who was laying in bed on her side whe n I walked in. Patient not appear to be in any acute distress. HEENT: Normocephalic, atraumatic, moist mucous membranes. Neck: No lymphadenopathy or thyromegaly Cardiac: Regular rate and rhythm, no murmurs, normal S1, normal S2 Pulm: Clear to auscultation bilaterally. No wheezes, rhonchi, rales Abd: Nondistended, nontender to palpation, normal bowel sounds Ext: There is an area of redness over the left hip that is tender to the touch. Patient would only let me examine the area for a quick second sign unable to feel there is any fluctuance in the area although it does appear that there is a pocket that needs to be drained however, patient was adamant about me now touching the area. Labs: See below Imaging: No imaging has been performed Assessment/plan: 30-year-old female who is in the inpatient mental health unit for substance use disorder who has an abscess on the left lateral hip. 1. Soft tissue abscess. This area appears to be in need of incision and drainage however, when I told the patient about this she adamantly refused. She adamantly refused any other treatment other than antibiotics. Patient just finished a course of clindamycin. Patient was started on doxycycline. I did advise the patient that abscesses need to be drained in order for definitive treatment and that this may continue to flare up when the patient does not have antibiotics however, patient still adamantly refuses this at this time. We will continue to monitor for clinical improvement after starting doxycycline. 2. COVID-19. Patient is currently asymptomatic. Tylenol and/or ibuprofen to help with fevers or body aches from COVID-19. 3. Suicidal statements with a history of polysubstance abuse. Treatment per [facility]. DVT Prophylaxis: Early ambulation. Disposition: Discharge per psychiatry. Continue doxycycline as above VS,Fishbone, I+O VS, Fishbone, I+O Vital Signs Date Time Temp Pulse Resp B/P (MAP) Pulse Ox O2 Delivery O2 Flow Rate FiO2 06/09/21 08:59 Room Air 06/09/21 04:51 92 18 92/51 (65) 06/08/21 21:08 99.5 98 HANNAH ARCOS DO Jun 09, 2021 12:59
[2021-06-09] MEDS: DOXYCYCLINE HYCLATE 100MG TABLET PO SCH ×2 (13:04→21:08)
--- NOTE | 2021-06-09 14:35 | MHIPNPDOC ---
[facility] Progress Note Progress Note DATE OF SERVICE: 06/09/21 HISTORY: Patient is a 30 -year-old single , unemployed , , female, who reportedly made suicidal threats to her mother. [place] heroin, Xanax, Jordi and several needles were found on her person. In her initial interview, she refused to participate and answer questions. PER ED REPORT: Pt was brought to the ED by [facility] on a 9.41 after pt made numerous suicidal threats to Mother. [place] she attempted to kill self by OD on Heroin, Xanax, and Jordi. Numerous needles were found in her belongings. Pt states, "I didn't ask to come here, I just simultaneously decided to end my life tonight." Pt reports making suicidal threats to Mother tonight & OD on Heroin, Jordi, and unknown amount of Xanax. She denies any specific triggers to TW. When asked about stressors, pt just shrugs her shoulders and is refusing to explain in detail. Pt has a long hx of polysubstance abuse, bipolar, and anxiety. She admits attempting to get sober in the past, but has been unsuccessful. Denies any previous mental health hospitalizations. Attempted to get additional information from Mother, however pt is refusing TW to contact information. VITAL SIGNS: See below. NEW TEST RESULTS: none CURRENT MEDICATIONS: See below. MENTAL STATUS EXAMINATION: Patient is a 30 -year-old single , unemployed , , female, who reported ly made suicidal threats to her mother. [place] on heroin, Xanax, Jordi and several needles were found on her person. Speech: Is spontaneous, slow rate, low tone and volume Language skills are intact Thought processes including: linear and goal oriented Thought content: denies depression and anxiety. Denies suicidal/homicidal ideation, planning or intent. Abstract reasoning, and computation: fair Description of associations: denies, none observed Description of abnormal or psychotic thoughts: denies, none observed. Judgment: fair Insight: fair Orientation: alert and oriented to person, place, time and situation Recent and remote memory: intact Attention span and concentration: good Language: expansive Fund of knowledge: average Mood: Euthymic Mood Affect: Irritable and hostile DIAGNOSES: Substance Induced Depressive Disorder rule out Major Depressive Disorder, recurrent, moderate Hx of PTSD Hx of ADHD Polysubstance Use Disorder (nicotine, heroin, cannabis, alcohol, bath salts, Xanax, jordi) ASSESSMENT: Patient appears to be experiencing withdrawal symptoms; fatigue, lethargic and drowsiness, reports of increased appetite, observed depressed and apathetic. She denies suicidal ideations or abnormal psychiatric symptoms and wants minimal dialogue in 1:1 interviews. Patient is moderately irritable and undertones of being angry. She is refusing any treatment for withdrawal, substance use, depression or anxiety. She denies any auditory hallucinations. She is requesting to be discharged. Have attempted therapeutic and supportive therapy but patient is making minimal responses and does not engage. MANAGEMENT PLAN: Continue medications and supportive therapies, as patient is unwilling to participate in unit activities, individual and group therapy and is uncooperative and does not want inpatient substance use treatment she can be discharged tomorrow. TIME SPENT: 25 minutes. Vital Signs Vital Signs Date Time Temp Pulse Resp B/P (MAP) Pulse Ox O2 Delivery O2 Flow Rate FiO2 06/09/21 08:59 Room Air 06/09/21 04:51 92 18 92/51 (65) 06/08/21 21:08 99.5 98 Current Medications Current Medications Medications (Trade) Dose Ordered Sig/Blanca Route PRN Reason Start Time Stop Time Status Last Admin Dose Admin Acetaminophen (Tylenol Tab) 650 mg Q6HP PRN PO HEADACHE or MILD DISCOMFORT 06/07/21 13:55 06/09/21 03:22 Al Hydrox/Mg Hydrox/Simethicone (Mylanta) 30 ml Q4HP PRN PO HEARTBURN/INDIGESTION 06/07/21 13:55 Clonidine HCl (Catapres) 0.1 mg DAILYPRN PRN PO WITHDRAWAL SYMPTOMS 06/07/21 13:55 06/09/21 03:22 Docusate Sodium (Colace) 100 mg BID PO 06/08/21 09:00 06/09/21 10:12 Doxycycline Hyclate (Vibramycin) 100 mg BID PO 06/09/21 12:15 06/09/21 13:04 Home Med (Home Med List Complete!) ASDIRECTED XX 06/07/21 15:20 06/07/21 15:21 DC Ibuprofen (Advil) 600 mg Q6HP PRN PO MODERATE PAIN (PS 5-7) 06/09/21 04:25 06/09/21 04:53 Magnesium Hydroxide (Milk Of Magnesia) 30 ml DAILYPRN PRN PO CONSTIPATION 06/07/21 13:55 Nicotine (Nicoderm Cq 21mg) 1 patch DAILY TD 06/07/21 09:00 06/08/21 09:30 Olanzapine (ZyPREXA ZYDIS) 5 mg Q6HP PRN PO ANXIETY/AGITATION 06/07/21 13:55 06/09/21 03:23 Omeprazole (PriLOSEC) 40 mg DAILY PO 06/08/21 09:00 06/09/21 10:12 Prazosin HCl (Minipress) 2 mg QHS PO 06/07/21 21:00 06/08/21 21:05 Quetiapine Fumarate (SEROquel) 200 mg QHS PO 06/07/21 21:00 06/08/21 21:04 Trazodone HCl (Desyrel) 50 mg QHSP PRN PO INSOMNIA 06/07/21 13:55 06/08/21 21:17 Allergies Coded Allergies: cefaclor (Verified Allergy, Intermediate, rash, 11/06/19) ARIELLA GOODEN STAFF PHYSICAL THERAPY ASSISTANT Jun 09, 2021 14:21
[2021-06-09 21:00] VITALS: BP 100/69
[2021-06-09] MEDS: QUEtiapine FUMARATE 200 MG TAB PO SCH (21:08)
[2021-06-09 21:40] VITALS: BP 100/69
[2021-06-09] MEDS: PRAZOSIN 1 MG CAP PO SCH (21:40)
[2021-06-09] MEDS: traZODone 50 MG TAB PO PRN (21:40)
[2021-06-10] MEDS: OLANZapine ORAL DISINTEGRATING TAB 5MG PO PRN (03:49)
[2021-06-10] MEDS: IBUPROFEN 600MG TAB PO PRN (03:53)
[2021-06-10] MEDS ORDERED: DOXY100T PO (08:57)
[2021-06-10] MEDS ORDERED: NICO21PAT TD (08:57)
[2021-06-10] MEDS: NICOTINE 21MG/24HR 1 EA TRANSDERMAL TD SCH (09:00)
[2021-06-10] MEDS: DOXYCYCLINE HYCLATE 100MG TABLET PO SCH (09:45)
[2021-06-10] MEDS: DOCUSATE SODIUM 100MG CAPSULE PO SCH (09:45)
[2021-06-10] MEDS: OMEPRAZOLE 20 MG CAP PO SCH (09:45)
--- NOTE | 2021-06-10 12:25 | MHDSPDOC ---
[facility] Discharge Summary Discharge Summary DATE OF ADMISSION: Jun 07, 2021 at 13:54 DATE OF DISCHARGE: June 10, 2021 at 1057 DISCHARGE DIAGNOSES: Substance Induced Depressive Disorder rule out Major Depressive Disorder, recurrent, moderate Hx of PTSD Hx of ADHD Polysubstance Use Disorder (nicotine, heroin, cannabis, alcohol, bath salts, Xanax, jordi) REASON FOR ADMISSION: Patient is a 30 -year-old single, unemployed , , female, who reportedly made suicidal threats to her mother. [place] to overdose on heroin, Xanax, Jordi and several needles were found on her person. In her initial interview, she refused to participate and answer questions. PER ED REPORT: Pt was brought to the ED by D on a after pt made numerous suicidal threats to Mother. She was found by the [place] after she attempted to kill self by OD on Heroin, Xanax, and Jordi. Numerous needles were found in her belongings. Pt states, "I didn't ask to come here, I just simultaneously decided to end my life tonight." Pt reports making suicidal threats to Mother tonight & OD on Heroin, Jordi, and unknown amount of Xanax. She denies any specific triggers to TW. When asked about stressors, pt just shrugs her shoulders and is refusing to explain in detail. Pt has a long hx of polysubstance abuse, bipolar, and anxiety. She admits attempting to get sober in the past, but has been unsuccessful. Denies any previous mental health hosp italizations. Attempted to get additional information from Mother, however pt is refusing TW to contact information. VITAL SIGNS: See below. CONSULTANTS INVOLVED: See Medical H + P by Hospitalist TREATMENT AND PROGRESS ON THE UNIT: Patient was admitted to the [facility] on a legal status was afforded the following treatment modalities: 1) Individual Therapy 2) Group Therapy 3) Medication Management 4) Milieu Therapy 5) Safe Environment HOSPITAL COURSE: Patient was admitted to [facility] on a legal status. Patient was placed COVID room with quarantine restrictions. Patient was started on medications to reduced withdrawal symptoms and she was started on her home medications. Pt tolerated medications well. Patient was quite resistive to therapy, individual sessions and was refusing to be engaged in treatment. She was had minimal responses with provider and was labile, had undertones of ag itation and anger. Mood, anxiety, and intrusive thoughts appear to have improve with treatment but she was quite superficial when reporting this. Pt did not attend groups daily during stay due to her COVID restrictions. Pts symptoms appear to have improved with treatment. On day of discharge pt. denied depression, anxiety, insomnia, SI/HI, hallucinations, delusions. Pt was d ischarged home with follow-up with [facility]. Pt felt safe for discharge. DISCHARGE ASSESSMENT: In today's interview, patient is alert and oriented, pt.s dress is appropriate. Hygiene and grooming is unkempt/fair. Denies depression and anxiety. Denies suicidal and homicidal ideation, planning or intent. Denies and is not observed with wesley, psychotic symptoms of delusions, bizarre thinking, obsessions, paranoia, ruminations illogical thoughts, flight of ideas or having poor insight and judgement. Reinforced with patient need to abstain from alcohol and drugs. At discharge patient has normal mentation, declines further hospitalization on a voluntary status and meets criteria for discharge today. Discussed indications of medications, potential benefits and risks, alternatives (including no treatment) and questions were encouraged and answered. MENTAL STATUS EXAMINATION ON DISCHARGE: Patient is a 30 -year-old single, unemployed , , female, who reportedly made suicidal threats to her mother. [place], Xanax, Jordi and several needles were found on her person. In her initial interview, she refused to participate and answer questions. Speech: Is spontaneous slow rate, low tone and volume Language skills are intact Thought processes including: linear and goal oriented Thought content: denies depression and anxiety. Denies suicidal/homicidal ideation, planning or intent. Abstract reasoning, and computation: fair Description of associations: denies, none observed Description of abnormal or psychotic thoughts: denies, none observed. Judgment: fair Insight: fair Orientation: alert and oriented to person, place, time and situation Recent and remote memory: intact Attention span and concentration: good Language: expansive Fund of knowledge: average Mood: Labile Mood Affect: Flat Suicide Risk Assessment: 1) Does the patient wish to be ? No 2) Since your admission, have you had any actual thought of killing yourself? No 3) Since your admission, have you been thinking about how you might do this? No 4) Since your admission, have you had these thoughts and had some intention of acting on them? No 5) Since your admission, have you started to work out or worked out the details of how to kill yourself? No 5A) Do you intent to carry out this plan? No and NA 6) Have you ever done anything, started anything, or prepared to do anything with any intent to ? No 6A) How long since your admission did you do any of these? NA MEDICATIONS ON DISCHARGE: See Medication Reconciliation PLAN/FOLLOWUP ARRANGEMENTS: Patient discharged to home she is [facility] The amount of time spent in the coordination of care for this patient was approximately 25_ minutes. ETOH/Disorder Med Rx ETOH/DRUG DISORDER RX: Offrd @ d/c & pt refused Vital Signs/I&Os Vital Signs Date Time Temp Pulse Resp B/P (MAP) Pulse Ox O2 Delivery O2 Flow Rate FiO2 06/09/21 21:40 100/69 06/09/21 21:00 100.1 110 18 95 Room Air Medications Scheduled Doxycycline Hyclate (Doxycycline Hyclate) 100 Mg Tablet, 100 MG PO BID for Abscess, #18 Nicotine (Nicotine Patch) 21 Mg Patch.td24, 1 PATCH TD DAILY for Nicotine Withdrawal, #7 Omeprazole (Omeprazole) 40 Mg Capsule.dr, 40 MG PO DAILY, (Reported) Prazosin Hcl (Prazosin HCl) 2 Mg Capsule, 2 MG PO QHS, (Reported) Quetiapine Fumarate (Quetiapine Fumarate) 200 Mg Tablet, 200 MG PO QHS, (Reported) Allergies Coded Allergies: cefaclor (Verified Allergy, Intermediate, rash, 11/06/19) ARIELLA GOODEN NP Jun 10, 2021 11:00
== END 2021-06-10 13:01 | disposition home or self-care (01) | DRG 773 ==
LOC: M ED 18:52 → M ED INP 06-07 13:54 → M PSY 06-07 15:25
PROVIDERS: ADMIT Student in an Organized Health Care Education/Training Program; ATTEND Psychiatry & Neurology Psychiatry
DX: F19.14 Other psychoactive substance abuse with psychoactive substance-induced mood disorder (principal); U07.1 COVID-19; F11.10 Opioid abuse, uncomplicated; R45.851 Suicidal ideations; F33.1 Major depressive disorder, recurrent, moderate; F10.10 Alcohol abuse, uncomplicated; F43.10 Post-traumatic stress disorder, unspecified; R00.0 Tachycardia, unspecified; L02.412 Cutaneous abscess of left axilla; F17.210 Nicotine dependence, cigarettes, uncomplicated; F12.10 Cannabis abuse, uncomplicated; Z79.899 Other long term (current) drug therapy; Z81.3 Family history of other psychoactive substance abuse and dependence

== ENCOUNTER 2021-06-29 20:47 | Inpatient (IN) | payer MEDICAID, OTHER ==
[~2021-06-29] VITALS: Ht 157.5 cm; Wt 54.5 kg
[~2021-06-29 20:47] MED LIST changes: +DOXY-443 PO; +DOXY100T PO; -DOXY1CAP62 PO; +NICO21PAT TD; +PRAZ2CAP PO; +QUET200T2 PO
[2021-06-29] MEDS ORDERED: diphenhydrAMINE 50MG/ML VIAL (J1200) IM ONE (20:55)
[2021-06-29] MEDS ORDERED: LORazepam 2 MG/ML VIAL IM ONE (20:55)
[2021-06-29] MEDS ORDERED: HALOPERIDOL 5MG/ML VIAL (J1630 PER 1) IM ONE (20:55)
--- OUTSIDE RECORDS SUMMARY | 2021-06-29 20:55 | CCD ---
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 Active confirmed 786563777 Problem Migraine with aura and without status migrainosu s, not intractable G43.109 Active confirmed 0409720 Problem Tobacco use Z72.0 Active confirmed 29528464 0 Problem Drug dependence, abuse F19.20 Active confirmed 7077808 Problem PTSD (post-traumatic stress disorder) F43.10 Ac tive confirmed 48318825 Problem Bipolar II disorder F31.81 Active confirmed 01197603 Problem Positive 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 R76.12 Active confirmed 368955574 Problem Chronic cough R05 Active confirmed 616162 08 Problem Peripheral polyneuropathy G62.9 Active confirmed 50506570 ALLERGIES Allergen (clinical drug ingredient) Drug/Non Drug Allergy do cumented on EMR Reaction Allergy Type Onset Date Status ceclor hives Non Drug Allergy Active ENCOUNTERS from 1989 to 2021-06-21 Encounter Location Date Provider Diagnosis [address] [phone] [place] [address] 08 Oct, 202Elisa Alexander COVID-19 virus RNA test resu lt positive at limit of detection U07.1 and Drug dependence, abuse F19.20 IMMUNIZATIONS Vaccine Route Administration Date Status Influenza 18 yrs & older Flublok IM Intramuscular Jul 15, 2019 Administered Depo-Provera 150mg/1mL Medroxy-Progestrone Acetate IM Intram uscular January 09, 2020 Administered Depo-Provera 150mg/1mL Medroxy-Progestrone Acetate IM Intram uscular Oct 16, 2019 Administered Depo-Provera 150mg/1mL Medroxy-Progestrone Acetate IM Intram uscular Jul 25, 2019 Administered SOCIAL HISTORY Tobacco Use: Social History Observation Description Date Details (start date - stop date) Current Smoker Sex Assigned At : Social History Observation Description Sex Assigned At Unknown Education: Question Answer Notes Level of Education: High School Audit Question Answer Notes Total Score: 0 Interpretation: Alcohol Education Language: Question Answer Notes Languages spoken: Setswana Nondenominational: Question Answer Notes Nondenominational 33 None Sexual Hx: Question Answer Notes Had sex in the last 12 months (vaginal, oral, or anal)? Yes LMP: Depo provera Have you ever had an STD? Yes with Both Men and Women Use protection? Yes Other? Yes How often? Most of the time Drug and Alcohol Question Answer Notes Total Score: 0 Interpretation: No problems reported Alcohol Screening: Question Answer Notes Did you have a drink containing alcohol in the past year? No Points 0 Interpretation Negative Tobacco Use: Question Answer Notes Are you a: current smoker Patient counseled on the dangers of tobacco use and urged to quit: 06/17/2021 How many cigarettes a day do you smoke? 5 or less Are you interested in quitting? Not ready to quit pt does not want smoking cessation handout Counseled the patient on smoking effects, education provided 06/17/2021 REASON FOR REFERRAL No Information VITAL SIGNS Weight 115 lbs Jun, Weight-kg 52.16 kg Jun, Height 63 in Jun, BMI 20.37 kg/m2 Jun, Heart Rate 122 /min Jun, Respiratory Rate 18 /min Jun, Temperature 98.4 degrees Fahrenheit Jun, Oximetry 100% Jun, Blood pressure systolic 128 mm Hg Jun, Blood pressure diastolic 60 mm Hg Jun, MEDICATIONS Medication SIG (Take, Route, Frequency, Duration) Notes Start Da te End Date Status Vivitrol 380 MG 4 ml Intramuscular for 30 day(s) Active SEROquel XR 200 MG 1 tablet in the evening Orally Once a day for 30 day(s) Active Doxycycline Hyclate 100 MG 1 capsule Orally Once a day for 10 day(s) Active Minipress 2 MG 1 capsule at bedtime Orally Once a day for 30 day(s) Active PROCEDURES No Information RESULTS No Results REASON FOR VISIT [facility], 06/10, COVID+ (quarantine ends 06/17), L hip abscess [id number] w/ and open ar ea of 1 cm. SS pt but no availibility. MEDICAL (GENERAL) HISTORY Type Description Date Medical History migraines Medical History PTSD Medical History ADHD Medical History Insomnia Medical History Bipolar Medical History Asthma Medical History Hx of drug addiction including IV drugs (clean since 2013) Medical History "Innumerable scattered thin- walled cystic changes" in lungs bilaterally CT 04/27 Medical History Treated c medical marijuana Medical History Migraine Surgical History EGD 06/2018 Hospitalization History With childbirth Hospitalization History Asthma attack as a child Goals Section No Information Health Concerns No Information MEDICAL EQUIPMENT No Information MENTAL STATUS No Information FUNCTIONAL STATUS No Information ASSESSMENTS Encounter Date Diagnosis Assessment Notes Treatment Notes Treatm ent Clinical Notes Jun, Drug dependence, abuse (ICD-10 - F19.20) poly substance use continuous (jordi, heroin, xanax ) infected ulcer at Left hip healing complete doxy. does not want to stop street drugs Jun, COVID-19 virus RNA test resu lt positive at limit of detection (ICD- 10 - U07.1) reviewed records asymptomatic PLAN OF TREATMENT Treatment Notes Assessment Notes Clinical Notes Drug dependence, abuse poly substance us e continuous (jordi, heroin, xanax )infected ulcer at Left hip healingcomplete doxy.does not want to stop street drugs COVID-19 virus RNA test result positive at limit of detectio n reviewed recordsasymptomatic Next Appt Details f/u with SS Reason: Provider Name:Lita Diallo, 2020-09 07:30:00 AM, [address] [facility], , [place], [address], Insurance Providers Payer Name Payer Address Payer Phone Insured Name Patient Relati onship to Insured Coverage Start Date Coverage End Date [facility] [employer] [facility] [address] [facility] [id number] [employer]TI[employer] G[employer] MAY self
--- OUTSIDE RECORDS SUMMARY | 2021-06-29 20:57 | CCD ---
Author Author [facility] Organization [facility] Address Unknown Phone Unavailable Care Team Providers Care Paper Core Machine Operator Name Role Phone URIEL ANN WAITER AND CASHIER Unavailable Unavailable URIEL ANN WAITER AND CASHIER Unavailable Unavailable URIEL ANN WAITER AND CASHIER Unavailable Unavailable SERURIEL COURTNEY WAITER AND CASHIER Unavailable Unavailable SERURIEL COURTNEY WAITER AND CASHIER Unavailable Unavailable URIEL ANN WAITER AND CASHIER Unavailable Unavailable URIEL ANN WAITER AND CASHIER Unavailable Unavailable STELLA ENCISO MD Unavailable Unavailable STELLA ENCISO MD Unavailable Unavailable STELLA ENCISO MD Unavailable Unavailable STELLA ENCISO MD Unavailable Unavailable STELLA ENCISO MD Unavailable Unavailable STELLA ENCISO MD Unavailable Unavailable STELLA ENCISO MD Unavailable Unavailable Kathrine Nicci Booa, CHANNEL DEVELOPMENT MANAGER Unavailable Unavailable Alvaro, R Jossy WAITER AND CASHIER Unavailable Unavailable Alvaro, R Jossy WAITER AND CASHIER Unavailable Unavailable Alvaro, R Jossy WAITER AND CASHIER Unavailable Unavailable Alvaro, R Jossy WAITER AND CASHIER Unavailable Unavailable Alvaro, R Jossy WAITER AND CASHIER Unavailable Unavailable Alvaro, R Jossy WAITER AND CASHIER Unavailable Unavailable Alvaro, R Jossy WAITER AND CASHIER Unavailable Unavailable Alvaro, R Ojssy WAITER AND CASHIER Unavailable Unavailable Alvaro, R Jossy WAITER AND CASHIER Unavailable Unavailable Alvaro, R Jossy WAITER AND CASHIER Unavailable Unavailable Alvaro, R Jossy WAITER AND CASHIER Unavailable Unavailable Godlewski, Lindy PA Unavailable Unavailable Godlewski, Lindy PA Unavailable Unavailable Godlewski, Lindy PA Unavailable Unavailable Godlewski, Lindy PA Unavailable Unavailable Godlewski, Lindy PA Unavailable Unavailable Godlewski, Lindy PA Unavailable Unavailable Godlewski, Lindy PA Unavailable Unavailable Kathrine Nicci Rayaidaa, CHANNEL DEVELOPMENT MANAGER Unavailable Unavailable Ball, C Merced WAITER AND CASHIER Unavailable Unavailable Ball, C Merced WAITER AND CASHIER Unavailable Unavailable Ball, C Merced WAITER AND CASHIER Unavailable Unavailable Ball, C Merced WAITER AND CASHIER Unavailable Unavailable Ball, C Merced WAITER AND CASHIER Unavailable Unavailable Ball, C Merced WAITER AND CASHIER Unavailable Unavailable Ball, C Merced WAITER AND CASHIER Unavailable Unavailable Ball, C Merced WAITER AND CASHIER Unavailable Unavailable Ball, C Merced WAITER AND CASHIER Unavailable Unavailable Ball, C Merced WAITER AND CASHIER Unavailable Unavailable Mcrae IV, J Devan CHANNEL DEVELOPMENT MANAGER Unavailable Unavailable Mcrae IV, J Devan CHANNEL DEVELOPMENT MANAGER Unavailable Unavailable Mcrae IV, J Devan CHANNEL DEVELOPMENT MANAGER Unavailable Unavailable Mcrae IV, J Devan CHANNEL DEVELOPMENT MANAGER Unavailable Unavailable Fide Gunn DIRECTOR GLOBAL MARKET RESEARCH Unavailable Unavailable Terry Leos MD Unavailable Unavailable Terry Leos MD Unavailable Unavailable Ean Washington MD Unavailable Unavailable Ean Washington MD Unavailable Unavailable Ean Washington MD Unavailable Unavailable Ean Washington MD Unavailable Unavailable Ean Washington MD Unavailable Unavailable Ean Washington MD Unavailable Unavailable Ean Washington MD Unavailable Unavailable Ean Washington MD Unavailable Unavailable Ean Washington MD Unavailable Unavailable Ean Washington MD Unavailable Unavailable Ean Washington MD Unavailable Unavailable Ean Washington MD Unavailable Unavailable Ean Washington MD Unavailable Unavailable Ean Washignton MD Unavailable Unavailable Ean Washington MD Unavailable Unavailable Ean Washington MD Unavailable Unavailable Ean Washington MD Unavailable Unavailable Ean Washington MD Unavailable Unavailable Ean Washington MD Unavailable Unavailable Ean Washington MD Unavailable Unavailable Ean Washington MD Unavailable Unavailable Ean Washington MD Unavailable Unavailable Ean Washington MD Unavailable Unavailable Ean Washington MD Unavailable Unavailable Ean Washington MD Unavailable Unavailable Ean Washington MD Unavailable Unavailable Ean Washington MD Unavailable Unavailable Ean Washington MD Unavailable Unavailable PorcariEan MD Unavailable Unavailable TRAN, G EDWARD RPA Unavailable Unavailable TRAN, G EDWARD RPA Unavailable Unavailable TRAN, G EDWARD RPA Unavailable Unavailable TRAN, G EDWARD RPA Unavailable Unavailable TRAN, G EDWARD RPA Unavailable Unavailable TRAN, G EDWARD RPA Unavailable Unavailable TRAN, G EDWARD RPA Unavailable Unavailable TRAN, G EDWARD RPA Unavailable Unavailable TRAN, G EDWARD RPA Unavailable Unavailable TRAN, G EDWARD RPA Unavailable Unavailable TRAN, G EDWARD RPA Unavailable Unavailable TRAN, G EDWARD RPA Unavailable Unavailable TRAN, G EDWARD RPA Unavailable Unavailable TRAN, G EDWARD RPA Unavailable Unavailable TRAN, G EDWARD RPA Unavailable Unavailable TRAN, G EDWARD RPA Unavailable Unavailable TRAN, G EDWARD RPA Unavailable Unavailable TRAN, G EDWARD RPA Unavailable Unavailable TRAN, G EDWARD RPA Unavailable Unavailable TRAN, G EDWARD RPA Unavailable Unavailable TRAN, G EDWARD RPA Unavailable Unavailable TRAN, G EDWARD RPA Unavailable Unavailable TRAN, G EDWARD RPA Unavailable Unavailable TRAN, G EDWARD RPA Unavailable Unavailable TRAN, G EDWARD RPA Unavailable Unavailable TRAN, G EDWARD RPA Unavailable Unavailable TRAN, G EDWARD RPA Unavailable Unavailable TRAN, G EDWARD RPA Unavailable Unavailable TRAN, G EDWARD RPA Unavailable Unavailable TRAN, G EDWARD RPA Unavailable Unavailable TRAN, G EDWARD RPA Unavailable Unavailable TRAN, G EDWARD RPA Unavailable Unavailable TRAN, G EDWARD RPA Unavailable Unavailable TRAN, G EDWARD RPA Unavailable Unavailable TRAN, G EDWARD RPA Unavailable Unavailable AsarPerry MD Unavailable Unavailable Amelie Loera, [facility] Unavailable Unavailab Catalina Sen Unavailable Unavailable Susy Rossi MD Unavailable Unavailable Susy Rossi MD Unavailable Unavailable Susy Rossi MD Unavailable Unavailable Susy Rossi MD Unavailable Unavailable Susy Rossi MD Unavailable Unavailable Susy Rossi MD Unavailable Unavailable Susy Rossi MD Unavailable Unavailable Susy Rossi MD Unavailable Unavailable Susy Rossi MD Unavailable Unavailable Susy Rossi MD Unavailable Unavailable Susy Rossi MD Unavailable Unavailable Susy Rossi MD Unavailable Unavailable Susy Rossi MD Unavailable Unavailable Susy Rossi MD Unavailable Unavailable Susy Rossi MD Unavailable Unavailable Susy Rossi MD Unavailable Unavailable Susy Rossi MD Unavailable Unavailable Susy Rossi MD Unavailable Unavailable Susy Rossi MD Unavailable Unavailable Susy Rossi MD Unavailable Unavailable Susy Rossi MD Unavailable Unavailable Susy Rossi MD Unavailable Unavailable Susy Rossi MD Unavailable Unavailable Susy Rossi MD Unavailable Unavailable Susy Rossi MD Unavailable Unavailable Head, C Julianna RPA-C Unavailable Unavailable Head, C Julianna RPA-C Unavailable Unavailable Head, C Julianna RPA-C Unavailable Unavailable Head, C Julianna RPA-C Unavailable Unavailable Head, C Julianna RPA-C Unavailable Unavailable Head, C Julianna RPA-C Unavailable Unavailable Head, C Julianna RPA-C Unavailable Unavailable Head, C Julianna RPA-C Unavailable Unavailable Head, C Julianna RPA-C Unavailable Unavailable Head, C Julianna RPA-C Unavailable Unavailable Head, C Julianna RPA-C Unavailable Unavailable Head, C Julianna RPA-C Unavailable Unavailable Head, C Julianna RPA-C Unavailable Unavailable Head, C Julianna RPA-C Unavailable Unavailable Head, C Julianna RPA-C Unavailable Unavailable Head, C Julianna RPA-C Unavailable Unavailable Head, C Julianna RPA-C Unavailable Unavailable Head, C Julianna RPA-C Unavailable Unavailable Head, C Julianna RPA-C Unavailable Unavailable Head, C Julianna RPA-C Unavailable Unavailable Head, C Julianna RPA-C Unavailable Unavailable Head, C Julianna RPA-C Unavailable Unavailable Head, C Julianna RPA-C Unavailable Unavailable Head, C Julianna RPA-C Unavailable Unavailable Head, C Julianna RPA-C Unavailable Unavailable Head, C Julianna RPA-C Unavailable Unavailable Head, C Julianna RPA-C Unavailable Unavailable Head, C Julianna RPA-C Unavailable Unavailable Sherlyn REYES MD Unavailable Unavailable Sherlyn REYES MD Unavailable Unavailable Sherlyn REYES MD Unavailable Unavailable Sherlyn REYES MD Unavailable Unavailable Sherlyn REYES MD Unavailable Unavailable Sherlyn REYES MD Unavailable Unavailable PHYSICIAN, ER Unavailable Unavailable Re-disclosure Warning The records that you are about to access may contain information from federally-assisted alcohol or drug abuse programs. If such information is present, then the following federally mandated warning applies: This information has been disclosed to you from records protected by federal confidentiality rules (42 CFR part 2). The federal rules prohibit you from making any further disclosure of this information unless further disclosure is expressly permitted by the written consent of the person to whom it pertains or as otherwise permitted by 42 CFR part 2. A general authorization for the release of medical or other information is NOT sufficient for this purpose. The Federal rules restrict any use of the information to criminally investigate or prosecute any alcohol or drug abuse patient.The records that you are about to access may contain highly sensitive health information, the redisclosure of which is protected by Article 27-F of the [facility] Public Health law. If you continue you may have access to information: Regarding HIV / AIDS; Provided by facilities licensed or operated by the [facility] Office of Mental Health; or Provided by the [facility] Office for People With Developmental Disabilities. If such information is present, then the following [facility] mandated warning applies: This information has been disclosed to you from confidential records which are protected by state law. State law prohibits you from making any further disclosure of this information without the specific written consent of the person to whom it pertains, or as otherwise permitted by law. Any unauthorized further disclosure in violation of state law may result in a fine or fpc sentence or both. A general authorization for the release of medical or other information is NOT sufficient authorization for further disc losure. Allergies and Adverse Reactions Type Description Substance Reaction Status Data Source(s ) Drug allergy Drug [facility] Drug allergy Drug allergy Penicillins [facility] Drug allergy Drug allergy cefaclor (From [facility]) [facility] Allergy to substance Allergy to substance Cefaclor NETSMART ([facility]) Allergy to substance Allergy to substance Bupropion [facility] ([facility]) Family History Family Member Name Family Member Gender Family Member Status Date o f Status Description Data Source(s) Unknown Male Problem MEDENT ([facility]) Unknown Male Problem MEDENT ([facility]) Encounters Encounter Providers Location Date Indications Data Source(s ) [place] [address] [address] 06/17/2021 12:00:00 AM EDT eCW1 ([facility]) Outpatient Attender: Paz Rossi MDAttender: LOLA MENDOZA RPA 05/22/2021 01:44:44 PM EDT - 05/22/2021 02:36:49 PM EDT [facility]Tap ( [facility]) Preadmit Attender: Fide Gunn LCSW CPSCAORT-CHEPDREH 11:00:00 AM EDT [facility] Emergency Attender: Devan Mcrae IVAttender: Merced Rivera CPSCAORT-ED 12/18/2020 06:53:00 PM EDT - 12/19/2020 10:40:00 AM EDT PSYCH PROBLEM, DRUG ABUSE [facility] PSYCH PROBLEM, DRUG ABUSE Patient discharged. Emergency Attender: Merced Leos MD CPSCAORT-ED 021 08:34:00 AM EDT - 12/18/2020 10:05:00 AM EDT LACERATION TO LEG [facility] LACERATION TO LEG Patient discharged. Outpatient Attender: TANIA Rivera CPSCAORT-CHEPDREH 12/15/2020 03:00:00 PM EDT - 12/15/2020 03:01:00 PM EDT [facility] pital MAR Patient discharged. Outpatient Attender: Fide Gunn LCSW CPSCAORT-CHEPDREH 11:00:00 AM EDT - 12/14/2020 11:01:[address] [facility]. Preadmit Attender: Fide Gunn LCSW CPSCAORT-CHEPDREH 10:00:00 AM EDT [facility] PSD Preadmit Attender: Julianna WALKER CPSCAORT-CHEPDREH 12/08/2020 11:00:00 AM EDT [facility] MAR Outpatient Attender: Fide Gray DIRECTOR GLOBAL MARKET RESEARCH CPSCAORT-CHEPDREH 10:00:00 AM EDT - 11/29/2020 10:01:00 [facility] Outpatient Attender: Fide Gunn DIRECTOR GLOBAL MARKET RESEARCH CPS[facility]ORT-CHEPDREH 09:00:00 AM EST - 11/15/2020 09:01:00 AM EST [facility]. Preadmit Attender: Fide DUBONW CPSCAORT-CHEPDREH 03:00:00 PM EST PSD [facility] PSD Outpatient Attender: Julianna Head RPA-C CPSCAORT-CHEPDREH 11/10/2020 10:30:00 AM EST - 11/10/2020 10:31:00 AM EST MAR [facility] pital MAR Patient discharged. Outpatient Attender: TANIA Rivera CPSCAORT-CHEPDREH 11/04/2020 01:00:00 PM EST - 11/04/2020 01:01:00 PM EST MAR [facility] MAR Patient discharged. Outpatient Attender: DES Loera CPSCAORT- CHEPDREH 11/02/2020 09:00:00 AM EST - 11/02/2020 09:01:00 AM EST PSD [facility] PSD Patient discharged. Outpatient Attender: DES Bolanos tender: Julianna Head RPA-C CPSCAORT-CHEPDREH 10/26/2020 09:56:00 AM EST - 10/26/2020 09:57:00 AM EST [facility] PSD Patient discharged. Inpatient Attender: Stella Florez nder: STELLA ENCISO MDAdmitter: Stella Enciso MDReferrer: TANIA Rivera CPSCAORT-CHEPPDREH 09/27/2020 09:09:00 A M EST - 10/24/2020 06:53:00 AM EST PSYCHOACTIVE SUBSTANCE DEPENDENCE [facility] PSYCHOACTIVE SUBSTANCE DEPENDENCE Patient discharged. [place] [address] [address] 09/24/2020 12:00:00 AM EST eCW1 ([facility]) [facility] 02:56:[address] [facility] 07/22/2020 09:49:[address] [facility] Outpatient [facility] 07/21/2020 08:43:[address] [facility] Inpatient Attender: Ean Washington MDAdmitter: Ean glaser MD [facility] 07/21/2020 05:56:00 PM [facility] - 07/27/2020 03:00:00 PM [facility] F19.10,F11.10 [facility] F19.10,F11.10 Patient discharged. Outpatient 07/20/2020 12:00:00 AM [facility] Outpatient Attender: JACLYN REYES MD 07A-[facility]OX[facility] 07/13 12:00:00 AM EST - 07/13/2020 03:01:48 PM [facility] Outpatient Attender: JACLYN REYES MD [facility] 07/06 12:00:00 AM EDT - 07/06/2020 01:47:43 PM EDT Opioid dependence, [facility] Opioid dependence, uncomplicated Unknown [address] [address] 06/30/2020 12:00:00 AM EDT eCW1 ([facility]) Outpatient Attender: URIEL ANN NP 07A-MTOX[facility]CC 06/28 12:00:00 AM EDT - 06/28/2020 03:02:05 PM EDT [facility] Emergency Attender: Jossy John NPAttender: ER PHYSICIAN 06/27/2020 10:41:00 AM EDT - 06/27/2020 11:50:00 AM EDT SUBOXONE DOSAGE [facility] SUBOXONE DOSAGE Patient discharged. Emergency Attender: Merced Dixon NPAttender: ER PHYSICIAN 06/26/2020 01:44:00 PM EDT - 06/26/2020 04:26:00 PM EDT MISSED SUBOXONE [facility] MISSED SUBOXONE Patient discharged. Emergency 06/26/2020 10:17:00 AM EDT - 06/26/2020 01:20:00 PM EDT med refill [facility] med refill Patient discharged. Unlisted evaluation and management service Performer: Bereket gaston 06/15/2020 10:00:00 PM EDT - 06/15/2020 10:30:00 PM EDT [facility] ([facility]) Outpatient 06/15/2020 12:00:00 AM EDT [facility] Emergency Attender: Lindy Hoyt PAAttender: SHANIA ISBELL 06/14/2020 07:25:00 AM EDT - 06/14/2020 08:17:00 AM EDT UNCERS UNDER TONGUE [facility] UNCERS UNDER TONGUE Patient discharged. Unlisted evaluation and management service Performer: Bereket gaston 06/10/2020 07:00:00 PM EDT - 06/10/2020 07:20:00 PM EDT NETSM[facility] ([facility]) Unlisted evaluation and management service Performer: Bereket gaston 06/09/2020 04:30:00 PM EDT - 06/09/2020 04:50:00 PM EDT [facility] ([facility]) Unlisted evaluation and management service Performer: Bereket gaston 06/08/2020 03:30:00 PM EDT - 06/08/2020 04:10:00 [facility] Outpatient Attender: JACLYN REYES MD [id number] 06/08/2020 12:00:0 0 AM [facility] Outpatient Attender: JACLYN REYES MD [id number] 06/01 12:00:00 AM EDT - 06/01/2020 09:30:14 AM [facility] Unlisted evaluation and management service 05/11 12:39:00 PM EDT [facility] ([facility]) Outpatient Attender: JACLYN REYES MD 07A-MTOX[facility]CC 05/25 12:00:00 AM EDT - 05/26/2020 12:00:00 AM [facility] Outpatient Attender: JACLYN HillA-MTOXUHCC 05/18/2020 12:00:0 0 AM [facility]2020 01:51:00 PM EDT - 05/14/2020 03:07:00 PM EDT Opioid dependence with unspecified opioid-induced disorder [facility] Opioid dependence with unspecified opioi d-induced disorder Patient discharged. Emergency 07A-ERMADULT 05/13/2020 04:02 :00 PM EDT - 05/13/2020 05:09:00 PM EDT Opioid dependence with unspecified opioid-induced diso rder [facility] Opioid dependence with unspecified opioi d-induced disorder Patient discharged. Outpatient 05/04/2020 12:00:00 AM EDT [facility] Immunizations Vaccine Date Status Description Data Source(s) New in 2011. IIV4 05/25/2020 12:00:00 AM EDT completed <t d ID="[id number]">Influenza Quad IM Pres Free (0.5 mL dose)</td><td>05/25/2020</td><td></td> [facility] Medications Medication Brand Name Start Date Product Form Dose Route Admi nistrative Instructions Pharmacy Instructions Status Indications Reaction Description Data Source(s) Sulfamethoxazole 800 MG / Trimethoprim 160 MG Oral Tab let 800-160 mg SULFAMETHOXAZOLE/TRIMETHOPRIM 07/14/2020 12:00:00 AM EST tablet 20 TAKE ONE TABLET BY MOUTH TWO TIMES A DAY FOR 10 DAYS TAKE ONE TABLET BY MOUTH TWO TIMES A DAY FOR 10 DAYS SOLD: 07/15/2020 [facility] Sulfamethoxazole 800 MG / Trimethoprim 1 60 MG Oral Tablet Sulfamethoxazole- Trimethoprim 800-160 MG Oral Tablet (Bactrim DS) Sulfamethoxazole-Trimethoprim 800-160 MG Oral Tablet (Bactrim DS) 07/13/2020 12:00:00 AM EST 1 {tbl } Oral aborted Take 1 tablet by mouth Two T imes Daily for 10 days [facility] Buprenorphine 8 MG / Naloxone 2 MG Oral Strip Buprenorphine HCl-Naloxone HCl 8-2 MG Sublingual Film (SUBOXONE) Buprenorphine HCl-Naloxone HCl 8-2 MG Bradley blingual Film (SUBOXONE) 07/13/2020 12:00:00 AM EST 2 {film} Sublingual active Place 2 Film under the tongue daily for 7 days, Max Daily Dose: 2 Film [facility] Sulfamethoxazole 800 MG / Trimethoprim 1 60 MG Oral Tablet Sulfamethoxazole- Trimethoprim 800-160 MG Oral Tablet (Bactrim DS) Sulfamethoxazole-Trimethoprim 800-160 MG Oral Tablet (Bactrim DS) 07/13/2020 12:00:00 AM EST 1 {tbl } Oral active Take 1 tablet by mouth Two T imes Daily for 10 days [facility] Buprenorphine 8 MG / Naloxone 2 MG Oral Strip Buprenorphine HCl-Naloxone HCl 8-2 MG Sublingual Film (SUBOXONE) Buprenorphine HCl-Naloxone HCl 8-2 MG Bradley blingual Film (SUBOXONE) 07/13/2020 12:00:00 AM EST 2 {film} Sublingual aborted Place 2 Film under the tongue daily for 7 days, Max D aily Dose: 2 Film [facility] Polymyxin B 70127 UNT/ML / Trimethoprim 1 MG/ML Ophthalmic Solution Polymyxin B- Trimethoprim 24759-2.1 UNIT/ML-% Ophthalmic Solution (Polytrim) Polymyxin B- Trimethoprim 35941-6.1 UNIT/ML-% Ophthalmic Solution (Polytrim) 07/06/2020 12:00:00 AM EDT 1 [drp] Both Eyes active Place 1 drop into both eyes every 4 (four) hours for 10 days [facility] Buprenorphine 8 MG / Naloxone 2 MG Oral Strip Buprenorphine HCl-Naloxone HCl 8-2 MG Sublingual Film (SUBOXONE) Buprenorphine HCl-Naloxone HCl 8-2 MG Bradley blingual Film (SUBOXONE) 07/06/2020 12:00:00 AM EDT 2 {film} Sublingual active Place 2 Film under the tongue daily for 7 days, Max Daily Dose: 2 Film [facility] 8-2 mg 07/06/2020 12:00:00 AM EDT film 14 PLACE TWO FILMS UNDER THE TONGUE EVERY DAY FOR 7 DAYS MAXIMUM DAILY DOSE = 2 PLACE TWO FILMS UNDER THE TONGUE EVERY DAY FOR 7 DAYS MAXIMUM DAILY DOSE = 2 SOLD: 07/06/2020 [facility] 10,000 unit- 1 mg/mL 07/06/2020 12:00:00 AM EDT drops 10 INSTILL 1 DROP INTO BOTH EYES EVERY 4 HOURS FOR 10 DAYS INSTILL 1 DROP INTO BOTH EYES EVERY 4 HO URS FOR 10 DAYS SOLD: 07/06/2020 [facility] 8-2 mg 06/28/2020 12:00:00 AM EDT film 16 PLACE TWO FILMS UNDER THE TONGUE EVERY DAY FOR EIGHT DAYS MAXIMUM DAILY DOSE = 2 PLACE TWO FILMS UNDER THE TONGUE EVERY DAY FOR EIGHT DAYS MAXIMUM DAILY DOSE = 2 SOLD: 06/28/2020 [facility] Buprenorphine 8 MG / Naloxone 2 MG Oral Strip Buprenorphine HCl-Naloxone HCl 8-2 MG Sublingual Film (SUBOXONE) Buprenorphine HCl-Naloxone HCl 8-2 MG Bradley blingual Film (SUBOXONE) 06/28/2020 12:00:00 AM EDT 2 {film} Sublingual active Place 2 Film under the tongue daily for 8 days, Max Daily Dose: 2 Film [facility] MAGIC MOUTHWASH 06/14/2020 12:00:00 AM EDT suspension 240 SWISH AND SPIT 10ML EVERY 4 HOURS NEEDED FOR PAIN SWISH AND SPIT 10ML EVERY 4 HOURS NEEDED FOR PAIN SOLD: 06/15/2020 [facility] [id number] mg/30 mL 06/09/2020 12:00:00 AM EDT mouthwash 119 TAKE 15ML BY MOUTH OR THROAT EVERY 6 HOURS NEEDED TAKE 15ML BY MOUTH OR THROAT EVERY 6 HOURS NEEDED SOLD: 06/10/2020 [facility] Buprenorphine 8 MG / Naloxone 2 MG Oral Strip Buprenorphine HCl-Naloxone HCl 8-2 MG Sublingual Film (SUBOXONE) Buprenorphine HCl-Naloxone HCl 8-2 MG Bradley blingual Film (SUBOXONE) 06/08/2020 12:00:00 AM EDT 2 {film} Sublingual active Place 2 Film under the tongue daily for 7 days, Max Daily Dose: 2 Film [facility] quetiapine 200 MG Oral Tablet QUETIAPINE FUMARATE 06/08/2020 12: 00:00 AM EDT tablet 30 TAKE ONE TABLET BY MOUTH EVERY D AY AT NIGHT TAKE ONE TABLET BY MOUTH EVERY DAY AT NIGHT SOLD: 06/10/2020 [facility] Mouth/Throat Suspension 74142-871-17 06/08/2020 12:00:00 AM EDT 15 mL Mouth/Throat active Use as directed 15 mLs in the mouth or throat every 6 (six) hours as needed [facility] quetiapine 200 MG Oral Tablet QUEtiapine Fumarate 200 MG Oral Tablet (SEROquel) QUEtiapine Fumarate 200 MG Oral Tablet (SEROquel) 06/08/2020 12:00:00 AM EDT 200 mg Oral active Take 1 tablet by mouth n ighy [facility] aripiprazole 5 MG Oral Tablet ARIPiprazole 5 MG Oral T ablet (Abilify) ARIPiprazole 5 MG Oral Tablet (Abilify) 06/08/2020 12:00:00 AM EDT 5 mg Oral active Take 1 tablet by mouth da marcel [facility] 5 mg 06/08/2020 12:00:00 AM EDT tablet 30 TAKE ONE TABLET BY MOUTH EVERY DAY TAKE ONE TABLET BY MOUTH EVERY DAY SOLD: 06/08/2020 [facility] 8-2 mg 06/08/2020 12:00:00 AM EDT film 14 PLACE TWO FILMS UNDER THE TONGUE EVERY DAY FOR 7 DAYS MAXIMUM DAILY DOSE = TWO FILMS PLACE TWO FILMS UNDER THE TONGUE EVERY DAY FOR 7 DAYS MAXIMUM DAILY DOSE = TWO FILMS SOLD: 07/15/2020 [facility] 10 mg 06/02/2020 12:00:00 AM EDT tablet 30 TAKE ONE TABLET BY MOUTH THREE TIMES A DAY NEEDED FOR ANXIETY FOR UP TO 10 DAYS TAKE ONE TABLET BY MOUTH THREE TIMES A DAY NEEDED FOR ANXIETY FOR UP TO 10 DAYS SOLD: 06/02/2020 [facility] Buprenorphine 8 MG / Naloxone 2 MG Oral Strip Buprenorphine HCl-Naloxone HCl 8-2 MG Sublingual Film (SUBOXONE) Buprenorphine HCl-Naloxone HCl 8-2 MG Bradley blingual Film (SUBOXONE) 06/01/2020 12:00:00 AM EDT 2 {film} Sublingual active Place 2 Film under the tongue daily for 7 days, Max Daily Dose: 2 Film [facility] Hydroxyzine Hydrochloride 10 MG Oral Tab let hydrOXYzine HCl 10 MG Oral Tablet (ATARAX) hydrOXYzine HCl 10 MG Oral Tablet (ATARAX) 06/01/2020 12:00: 00 AM EDT 10 mg Oral active Take 1 tablet by mouth Three times daily as needed for Anxiety for up to 10 days [facility] 8-2 mg 06/01/2020 12:00:00 AM EDT film 14 PLACE 2 FILMS UNDER THE TONGUE DAILY FOR 7 DAYS MAXIMUM DAILY DOSE = 2 PLACE 2 FILMS UNDER THE TONGUE DAILY FOR 7 DAYS MAXIMUM DAILY DOSE = 2 SOLD: 06/02/2020 [facility] Omeprazole 40 MG Delayed Release Oral Ca psule Omeprazole 40 MG Oral Capsule Delayed Release (PRILOSEC) Omeprazole 40 MG Oral Capsule Delayed Re lease (PRILOSEC) 05/25/2020 12:00:00 AM EDT 40 mg Oral active Take 1 capsule by mouth daily [facility] 12-3 mg 05/25/2020 12:00:00 AM EDT film 7 PLACE 1 FILM UNDER THE TONGUE DAILY MAXIMUM DAILY DOSE = 1 PLACE 1 FILM UNDER THE TONGUE DAILY MAXI MUM DAILY DOSE = 1 SOLD: 05/25/2020 [facility] 40 mg 05/25/2020 12:00:00 AM EDT capsule,delayed release (DR/EC) 30 TAKE ONE CAPSULE BY MOUTH DAILY TAKE ONE CAPSULE BY MOUTH DAILY SOLD: 05/25/2020 [facility] Buprenorphine 12 MG / Naloxone 3 MG Oral Strip Buprenorphine HCl-Naloxone HCl 12-3 MG Sublingual Film (SUBOXONE) Buprenorphine HCl-Naloxone HCl 12-3 MG Sublingual Film (SUBOXONE) 05/25/2020 12:00:00 AM EDT 1 {film} Sublin gual active Place 1 Film under t he tongue daily for 7 days, Max Daily Dose: 1 Film [facility] 8-2 mg 05/18/2020 12:00:00 AM EDT film 7 PLACE ONE FILM UNDER THE TONGUE EVERY DAY FOR 7 DAYS - MAXIMUM DAILY DOSE = [address] ONE FILM UNDER THE TONGUE EVERY DAY FOR 7 DAYS - MAXIMUM DAILY DOSE = 1 FILM SOLD: 05/18/2020 [facility] Buprenorphine 8 MG / Naloxone 2 MG Oral Strip Buprenorphine HCl-Naloxone HCl 8-2 MG Sublingual Film (SUBOXONE) Buprenorphine HCl-Naloxone HCl 8-2 MG Bradley blingual Film (SUBOXONE) 05/18/2020 12:00:00 AM EDT 1 {film} Sublingual active Place 1 Film under the tongue daily for 7 days, Max Daily Dose: 1 Film [facility] Buprenorphine 8 MG / Naloxone 2 MG Subli ngual Tablet buprenorphine-naloxone (SUBOXONE) 8-2 MG per sublingual tablet 1 tablet buprenorphine-naloxone (SUBOXONE) 8-2 MG per sublingual tablet 1 tablet 05/14/2020 03:00:00 PM EDT Sublingual completed 1 tablet (8 mg of buprenorphine), Sublingual, Once, 05/14/20 at 1500, For 1 dose [facility] Medication administered onsite Buprenorphine 8 MG / Naloxone 2 MG Subli ngual Tablet buprenorphine-naloxone (SUBOXONE) 8-2 MG per sublingual tablet 1 tablet buprenorphine-naloxone (SUBOXONE) 8-2 MG per sublingual tablet 1 tablet 05/13/2020 05:00:00 PM EDT Sublingual completed 1 tablet (8 mg of buprenorphine), Sublingual, Once, [place] 05/13/20 at 1700, For 1 dose [facility] Medication administered onsite Buprenorphine 8 MG / Naloxone 2 MG Oral Strip Buprenorphine HCl-Naloxone HCl 8-2 MG Sublingual Film (SUBOXONE) Buprenorphine HCl-Naloxone HCl 8-2 MG Bradley blingual Film (SUBOXONE) 04/13/2020 12:00:00 AM EDT Sublingual aborted Place 16 mg of buprenorphine under the tongue [facility] Insurance Providers Payer name Policy type / Coverage type Policy ID Covered republican ID Covered republican's relationship to selby Policy Selby Plan Information [facility] COMMUNITY PLAN [facility] [id number] SP [id number] [place] [place] [id number] SP [id number] FIVE GU[place] [id number] SP [id number] SELF PAY ONLY [id number] SP [id number] [facility] COMMUNITY PLAN [facility] [id number] SP [id number] [facility] [id number] SP [id number] [facility] [id number] S [id number] [facility] I [id number] Self [id number] [facility] Commercial Insurance Co. [id number] Self [id number] BCBS [place] HMO [id number] SP [id number] [place] P[place] 302/307 [id number] SP [id number] [place] PPO 302/307 [id number] SP [id number] MEDICAID [id number] SP [id number] EXCELL[employer] BCBS B [id number] S [id number] SELF PAY ONLY [id number] SP [id number] ANSI-Medicaid [id number] [facility]-Medicaid [id number] [facility] Health Maintenance Organization (HMO) [id number] Self [id number] [facility] Community Plan Commercial [id number] Self [id number] [facility] Community Plan Commercial [id number] Self [id number] ANSI-Medicaid [id number] [facility] [id number] ANSI-Medicaid [id number] [facility] Community Plan Commercial [id number] Self [id number] [facility] Health Maintenance Organization (HMO) [id number] Self [id number] ANSI-Medicaid [id number] [facility] Community Plan Commercial [id number] Self [id number] ANSI-Medicaid [id number] ANSI-Medicaid [id number] ANSI-Medicaid [id number] ANSI-Medicaid [id number] ANSI-Medicaid [id number] [employer] GUYS O [id number] S [id number] [employer] AMERICHOICE XIX HMO [id number] 18 [id number] [facility] COMM PLAN HUNG W [id number] S [id number] [facility] COMM PLAN HUN[place] W [id number] S [id number] [facility] COMM PLAN H[place] W [id number] S [id number] [facility] COMM PLAN HUNG W UNAVAILABLE S UNAVAILABLE MEDICAID [id number] SP [id number] MEDICAID [id number] SP [id number] [facility] HUNG [id number] SP [id number] UNHC AMERICHOICE XIX HMO [id number] 18 [id number] UNHC COMMUNITY PLAN MCDHMO [id number] SP [id number] UNHC COMMUNITY PLAN MCDHMO [id number] SP [id number] AMERICHOICE UNHC XIX HMO-I/P [id number] 18 [id number] AMERICHOICE UNHC XIX HMO-I/P [id number] 18 [id number] UNHC AMERICHOICE XIX HMO [id number] 18 [id number] [facility] HUNG [id number] SP [id number] UNHC AMERICHOICE XIX HMO [id number] 18 [id number] UNHC COMMUNITY PLAN MCDHMO [id number] SP [id number] UNHC COMMUNITY PLAN MCDHMO [id number] SP [id number] [facility] [address] [id number] Unemploye d [id number] [facility] [address] [id number] S [id number] [facility] HEA [id number] S [id number] [facility](MCAID) O [id number] S [id number] BCBS [place] HMO [id number] SP [id number] [facility] [address] [id number] S [id number] Problems, Conditions, and Diagnoses Code Display Name Description Problem Type Effective Dates Data Source(s) Z88.8 Allergy status to other drug s, medicaments and biological substances status ALLERGY STATUS TO OTHER DRUG/MEDS/BIOL SUBST Diagnosis [facility]/18[facility] 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 O THER MCC (CURRENT) DRUG THERAPY Diagnosis 12/18/2020 08:34:00 AM EDT [facility] F17.210 Nicotine dependence, cigarettes, uncompl icated NICOTINE DEPENDENCE, CIGARETTES, UNCOMPLICATED Diagnosis 12/18/2020 08:34:00 AM EDT [facility] F19.10 Other psychoactive substance abuse, unco mplicated OTHER PSYCHOACTIVE SUBSTANCE ABUSE, UNCOMPLICATED Diagnosis 12/18/2020 08:34:00 AM EDT Ca [facility] Z23 Encounter for immunization ENCOUNTER FOR IMMUNIZATION Diagnosis 12/18/2020 08:34:00 AM [facility] Y92.[address] in unspeci fied non-institutional (private) residence as the place of occurrence of the external cause [facility] ([facility]IDENCE PLACE Diagnosis 12/18/2020 08:34:00 AM EDT [facility] X58.XXXA Exposure to other specified factors, ini tial encounter EXPOSURE TO OTHER SPECIFIED FACTORS, INITIAL ENCOUNTER Diagnosis 12/18/2020 08:34: 00 AM [facility] S71.111A Laceration without foreign body, right t high, initial encounter LACERATION WITHOUT FOREIGN BODY, RIGHT THIGH, INIT ENCNTR Diagnosis 12/18/2020 08:34:00 AM [facility] K04.7 Periapical abscess without sinus PERIAPICAL ABSC ESS WITHOUT SINUS Diagnosis 09/27/2020 09:09:[address] [facility] L08.9 Local infection of the skin and subcutan eous tissue, unspecified LOCAL INFECTION OF THE SKIN AND SUBCUTANEOUS TISSUE, UNSP Diagnosis 09:09:[address] [facility] K59.00 Constipation, unspecified CONSTIPATION, UNSPECIFIED Di agnosis 09/27/2020 09:09:[address] [facility] R21 Rash and other nonspecific skin eruption RASH AND OTHER NONSPECIFIC SKIN ERUPTION Diagnosis 09/27/2020 09:09:00 AM [facility] B95.8 Unspecified staphylococcus as the cause of diseases classified elsewhere UNSP STAPHYLOCOCCUS THE CAUSE OF DISEASES CLASSD ELSWHR Diagnosis 09/27/2020 09:09:[address] [facility] N39.0 Urinary tract infection, site not specif ied URINARY TRACT INFECTION, SITE NOT SPECIFIED Diagnosis 09/27/2020 09:09:00 AM [facility] A54.9 Gonococcal infection, unspecified GONOCOCCAL INF ECTION, UNSPECIFIED Diagnosis 09/27/2020 09:09:[address] [facility] Z91.5 Personal history of self-harm PERSONAL HISTORY OF SELF -HARM Diagnosis 09/27/2020 09:09:[address] [facility] G47.00 Insomnia, unspecified INSOMNIA, UNSPECIFIED Diagnosis 09/27/2020 09:09:[address] [facility] Z87.442 Personal history of urinary calculi PERSONAL HIS TORY OF URINARY CALCULI Diagnosis 09/27/2020 09:09:[address] [facility] B18.2 Chronic viral hepatitis C CHRONIC VIRAL HEPATITIS C Di agnosis 09/27/2020 09:09:[address] [facility] F41.9 Anxiety disorder, unspecified ANXIETY DISORDER, UNSPEC IFIED Diagnosis 09/27/2020 09:09:[address] [facility] F90.9 Attention-deficit hyperactivity disorder , unspecified type ATTENTION- DEFICIT HYPERACTIVITY DISORDER, UNSPECIFIED TYPE Diagnosis 09/27 09:09:[address] [facility] F43.10 Post-traumatic stress disorder, unspecif ied POST-TRAUMATIC STRESS DISORDER, UNSPECIFIED Diagnosis 09/27/2020 09:09:00 AM [facility] F31.9 Bipolar disorder, unspecified BIPOLAR DISORDER, UNSPEC IFIED Diagnosis 09/27/2020 09:09:[address] [facility] K21.9 Gastro-esophageal reflux disease without esophagitis GASTRO-ESOPHAGEAL REFLUX DISEASE WITHOUT ESOPHAGITIS Diagnosis 09/27/2020 09:09:00 AM [facility] M41.9 Scoliosis, unspecified SCOLIOSIS, UNSPECIFIED Diagnosi s 09/27/2020 09:09:[address] [facility] G43.909 Migraine, unspecified, not intractable, without status migrainosus MIGRAINE, UNSP, NOT INTRACTABLE, WITHOUT STATUS MIGRAINOSUS Diagnosis 09/27/2020 09:09:[address] [facility] J30.2 Other seasonal allergic rhinitis OTHER SEASONAL ALLERGIC RHINITIS Diagnosis 09/27/2020 09:09:[address] [facility] Z88.0 Allergy status to penicillin ALLERGY STATUS TO PENICIL BARRY Diagnosis 09/27/2020 09:09:[address] [facility] F15.20 Other stimulant dependence, uncomplicate d OTHER STIMULANT DEPENDENCE, UNCOMPLICATED Diagnosis 09/27/2020 09:09:00 AM [facility] F11.23 Opioid dependence with withdrawal OPIOID DEPENDE NCE WITH WITHDRAWAL Diagnosis 09/27/2020 09:09:[address] [facility] B18.2 Chronic viral hepatitis C CHRONIC VIRAL HEPATITIS C Di agnosis 07/21/2020 05:56:00 PM [facility] F31.9 Bipolar disorder, unspecified BIPOLAR DISORDER, UNSPEC IFIED Diagnosis 07/21/2020 05:56:00 PM [facility] F41.9 Anxiety disorder, unspecified ANXIETY DISORDER, UNSPEC IFIED Diagnosis 07/21/2020 05:56:00 PM [facility] J45.909 Unspecified asthma, uncomplicated UNSPECIFIED THMA, UNCOMPLICATED Diagnosis 07/21/2020 05:56:00 PM [facility] E86.0 Dehydration DEHYDRATION Diagnosis 07/21/2020 05:56:00 PM [facility] G47.09 Other insomnia OTHER INSOMNIA Diagnosis 07/21/2020 05:56: 00 PM [facility] K21.9 Gastro-esophageal reflux disease without esophagitis GASTRO-ESOPHAGEAL REFLUX DISEASE WITHOUT ESOPHAGITIS Diagnosis 07/21/2020 05:56:00 PM [facility] F17.210 Nicotine dependence, cigarettes, uncompl icated NICOTINE DEPENDENCE, CIGARETTES, UNCOMPLICATED Diagnosis 07/21/2020 05:56:00 PM [facility] F90.9 Attention-deficit hyperactivity disorder , unspecified type ATTENTION- DEFICIT HYPERACTIVITY DISORDER, UNSPECIFIED TYPE Diagnosis 07/21 05:56:00 PM [facility] F12.20 Cannabis dependence, uncomplicated CANNABIS DEPE NDENCE, UNCOMPLICATED Diagnosis 07/21/2020 05:56:00 PM [facility] F11.23 Opioid dependence with withdrawal OPIOID DEPENDE NCE WITH WITHDRAWAL Diagnosis 07/21/2020 05:56:00 PM [facility] 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 OTHER STIMULANT DEPENDENCE WITH WITHDRAWAL Diagnosis 07/21/2020 05:56:[address] [facility] spital F11.10 Opioid abuse, uncomplicated OPIOID ABUSE, UNCOMPLICATE D Diagnosis 07/21/2020 05:56:00 PM [facility] F11.20 Opioid dependence, uncomplicated Opioid dependen ce, uncomplicated Diagnosis 07/06/2020 01:04:39 PM [facility] med refill med refill Diagnosis 06/26/2020 11:21:00 AM ED [facility] F11.29 Opioid dependence with unspecified opioi d-induced disorder Opioid dependence with unspecified opioid-induced disorder Diagnosis 02:16:00 PM [facility] refill refill Diagnosis 05/14/2020 02:16:00 PM ED [facility] Withdrawal Withdrawal Diagnosis 05/13/2020 04:37:00 PM ED [facility] F19.20 Psychoactive substance dependence Drug dependence, abu se Problem 06/17/2021 12:00:00 AM EDT eCW1 ([facility]) Surgeries/Procedures Procedure Description Date Indications Data Source(s) TDAP VACCINE 7/> YR IM TDAP VACCINE 7 YRS/> IM 12/18/2020 12:00:00 AM [facility] IMADM PRQ ID SUBQ/IM NJXS 1 VACCINE IMMUNIZATION ADMIN 12/09 12:00:00 AM [facility] EMERGENCY DEPARTMENT VISIT MODERATE SEVERITY EMERGENCY DEPT VISIT 12/18/2020 12:00:00 AM [facility] Injection, lorazepam, 2 mg 12/18/2020 12:00:00 AM [facility] Individual Counseling for Substance Abuse Treatment, C ognitive-Behavioral INDIV SOCIAL ORGANIZATION PROFESSOR FOR SUBSTANCE ABUSE, COGNITIVE BEHAVIORAL 09/30/2020 12:00:[address] [facility] Group Counseling for Substance Abuse Treatment, Motiva tional Enhancement GROUP SOCIAL ORGANIZATION PROFESSOR FOR SUBSTANCE ABUSE, MOTIVATIONAL ENHANCE 09/30/2020 12:00:[address] [facility] Group Counseling for Substance Abuse Treatment, Spirit ual GROUP COUNSELING FOR SUBSTANCE ABUSE TREATMENT, SPIRITUAL 09/30/2020 12:00:[address] [facility] Group Counseling for Substance Abuse Treatment, Cognit lucretia-Behavioral GROUP SOCIAL ORGANIZATION PROFESSOR FOR SUBSTANCE ABUSE, COGNITIVE BEHAVIORAL 09/30/2020 12:00:[address] [facility] Measurement of Cardiac Rhythm, External Approach MEASU REMENT OF CARDIAC RHYTHM, EXTERNAL APPROACH 09/28/2020 12:00:00 AM [facility] Ultrasonography of Right and Left Heart ULTRASONOGRAPHY OF R IGHT AND LEFT HEART 09/28/2020 12:00:[address] [facility] Medication Management for Substance Abuse Treatment, N aloxone MEDS MGMT FOR SUBSTANCE ABUSE TREATMENT, NALOXONE 07/23/2020 12:00:00 AM [facility] Individual Counseling for Substance Abuse Treatment, C ontinuing Care INDIV SOCIAL ORGANIZATION PROFESSOR FOR SUBSTANCE ABUSE TREATMENT, CONTINUING CARE 07/22/2020 12:00:00 AM [facility] Detoxification Services for Substance Abuse Treatment DETOXIFICATION SERVICES FOR SUBSTANCE ABUSE TREATMENT 07/22/2020 12:00:00 AM [facility] Results ID Date Data Source [id number] 06/06/2021 08:48:00 PM EDT [facility] Name Value Range Interpretation Code Description Data Medina rce(s) Supporting Document(s) SARS coronavirus 2 RNA [Presence] in Res piratory specimen by TEE with probe detection POSITIVE [facility] This lab was ordered by [facility] a nd reported by [facility]. ID Date Data Source [id number] 12/18/2020 06:53:00 PM EDT [facility] Name: ASHLEY STOLL Med Rec #: [id number] : 1990 Age/Sex: 30F Date of Service: 12/18/20 PHYSICIAN CHART Physician Documentation [facility] Name: Ashley Stoll Age: 30 yrs Sex: Female : 1990 Arrival Date: 12/18/2020 Time: 18:53 Bed H1 Private MD: ED Physician Merced Leos Disposition: 12/19 06:44 Attestation: I was present, saw, evaluated and participated kr in the care with the Advanced Practice Provider. My personal exam reveals findings consistent with those documented. HPI: 12/18 20:57 This 30 yrs old Female presents to ER via [place] [facility] with complaints of Psych Problem, Drug Abuse. 20:57 Associated signs and symptoms: The patient has no apparent jja1 associated signs or symptoms. Severity of symptoms: At their worst the symptoms were moderate. Patient is a 30-year-old female medical history significant for substance abuse, presenting to the ER today with complaints of likely drug intoxication. Patient was seen here earlier in the emergency department and admitted to taking Yuriy. Apparently patient came in earlier with psychomotor agitation and was treated with lorazepam and discharged home. After discharge it is believed that she used further amounts of Yuriy, and is presenting now with further symptoms.. 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 Suboxone 12-3 mg sublingual film 1 film once daily (Last dose: Unknown) 2. gabapentin 400 mg Oral cap 1 cap 3 times per day (Last dose: Unknown) - PMHx: Abuse; - PSHx: Upper GI Scope; - Med Reconciliation:: Medications reviewed, completed by nurse using patient's med list. - Immunization history: unknown. - Advance directive: There is no existing advanced directive. Information offered. - Family History:: mother : unknown medical history. Father : unknown medical history. - Social History: Smoking status (Tobacco): Patient admits to smoking tobacco products on some days. Preferred Language: Dominican. - The history of the events were obtained from: the patient. ROS: 20:57 Constitutional: See HPI. Head Negative for Injury. ENT: jja1 Negative for sinus congestion, sinus pain, sore throat. Eyes: Negative for blurry vision, Double vision vision loss, visual disturbance. Neck: Negative for injury or acute deformity. Chest See HPI. Cardiovascular: Negative for chest pain, palpitations. Respiratory: Negative for cough, shortness of breath, wheezing. Abdomen/GI: Negative for abdominal pain, nausea, vomiting, diarrhea. Skin: Negative for rash. Psych: See HPI. Neuro: Negative for acute changes. All other systems are negative. Exam: 23:37 Neck: Supple, trachea midline Chest/axilla: Normal chest [facility] wall appearance and motion without asymmetry. Nontender with no deformity. 23:37 Constitutional: The patient appears alert, appears anxious, appears to be awake. 23:37 Head/face: Exam is negative for abnormalities. 23:37 Eyes: Exam is negative for abnormalities. 23:37 Cardiovascular: Rate: tachycardic. 23:37 Respiratory: the patient does not display signs of respiratory distress, Respirations: normal, symetrical, Breath sounds: are normal, clear throughout. 23:37 Abdomen/GI: Inspection: 23:37 Skin: Appearance: Color: pink, Temperature: warm, Moisture: dry. 23:37 Neuro: Orientation: to person. 23:37 Psych: Behavior/mood is anxious, Affect is animated, Not oriented to place, time, Patient has no thoughts/intents to harm self or others. Patient is intoxicated on mildly and has psychomotor agitation and some disorientation.. Vital Signs: 19:13 BP 129 / 67; Pulse 125; Resp 20; Temp 98.4; Pulse Ox 97% on kl1 R/A; Weight 54.43 kg; 20:57 BP 108 / 58; Pulse 102; Resp 20; Pulse Ox 98% on R/A; kl1 22:51 BP 112 / 64; P ulse 92; Resp 20; Pulse Ox 98% on R/A; kl1 12/19 01:36 BP 116 / 64; Pulse 88; Resp 16; Temp 97; Pulse Ox 98% on kl1 R/A; 03:11 BP 126 / 84; Pulse 79; Resp 16; Temp 97; Pulse Ox 98% on kl1 R/A; 05:31 BP 124 / 77; Pulse 97; Resp 20; Pulse Ox 98% on R/A; kl1 MDM: 12/18 18:57 Patient medically screened. jja1 12/19 02:03 Case presented to: Dr. Charity Doyle. Data reviewed: vital jja1 signs, nurses notes, old medical records. Transition of care: After a detail discussion of the patient's case, care is transferred to Charity Doyle MD. ED course: Patient presented intoxicated with Yuriy. However, she now is alert and oriented and at her baseline. However, she was unable to get a ride home at this time. She will likely be able to get a ride in the morning.. Dispensed Medications: 12/18 19:08 Drug: LORazepam 2 mg [lorazepam 2 mg/mL injection solution awr (1 mL)] Route: IVP; Site: right foot; 12/19 05:31 Follow up: Response: Anxiety decreased kl1 12/18 19:32 Drug: LORazepam 1 mg Route: IVP; Site: right foot; kl1 12/19 05:32 Follow up: Response: Anxiety decreased kl1 01:22 Drug: Ibuprofen 600 mg Route: PO; kl1 05:32 Follow up: Response: No adverse reaction kl1 03:10 Drug: Prazosin 2 tabs Route: PO; kl1 05:32 Follow up: Response: No adverse reaction kl1 03:10 Drug: Subutex 8 mg Route: Sublingual; kl1 03:10 Drug: QUEtiapine 200 mg Route: PO; kl1 05:32 CANCELLED (Duplicate Order): Prazosin 2 tabs PO once; january kl1 take own medication 06:54 Drug: omeprazole Delayed Release Capsule 40 mg Route: PO; kl1 06:54 Drug: Venlafaxine Extended Release 24 hour Capsule 150 mg kl1 Route: PO; 06:55 Drug: omeprazole Delayed Release Capsule 40 mg Route: PO; kl1 08:55 Drug: LORazepam 1 mg [lorazepam 1 mg tablet (1 tabs)] mp3 Route: PO; Disposition Summary: 12/19/20 06:45 Discharge Ordered Location: Home/Self Care kr Condition: Good kr Diagnosis - Substance Abuse kr Followup: kr - With: Dilan Pinto MD (Piit) - When: 1 - 2 days - Reason: Continuance of care Discharge Instructions: - Discharge Summary Sheet kr - Substance Use Disorder kr Forms: - Medication Reconciliation kr Signatures: Marcus Reeves RN RN kl1 Merced Leos MD MD jtv Palmer, MacKenzie, RN RN mp3 Henry Moreno RN RN awr Devan Mcrae RNP VEHICLE DETAILER jja1 Charity Doyle MD MD kr Corrections: (The following items were deleted from the chart) 12/18 23:32 20:57 Patient is a 30-year-old female medical history jja1 significant for substance abuse, presenting to the ER today with complaints of likely drug intoxication. Patient was seen here earlier in the emergency department and admitted to taking Yuriy. Apparently patient came in earlier with psychomotor agitation and was treated with lorazepam and discharged home. After discharge is believe that she used further amounts of Yuriy, and is presenting now with further symptoms.. jja1 12/19 05:32 03:10 Prazosin 2 tabs PO once; may take own medication kl1 ordered. kl1 :32 03:10 Prazosin 2 tabs PO once; may take own medication kl1 given. kl1 : 05:32 Prazosin 2 tabs PO once; may take own medication kl1 ordered. kl1 Name Value Range Interpretation Code Description Data Medina rce(s) Supporting Document(s) ID Date Data Source [id number] 12/18/2020 06:53:00 PM EDT [facility] Name: ASHLEY STOLL [facility] Rec #: [id number] : 1990 Age/Sex: 30F Date of Service: 12/18/20 DISPOSITION SUMMARY Discharge Summary [facility] Name:Ashley Stoll Emergency Department Age:30 yrs Sex:Female :1990 Arrival:12/18/2020 18:53 Departure Date12/19/2020 Departure Time10:47 Private MD: Outcome: Discharge Location: Home/Self Care Condition: Good Chief Complaint: Psych Problem, Drug Abuse Diagnosis: Substance Abuse Prescriptions: Follow up: Dilan Pinto MD (Piit) Custom Notes: Attending Physician: Merced Leos MD Private MD: Mid Level Provider: Devan Mcrae RNP Followup Physician: Dilan Pinto MD (Piit) Orders: LORazepam, LORazepam, Ibuprofen, Miscellaneous Medication - Non Formulary, Miscellaneous Medication - Non Formulary, Miscellaneous Medication - Non Formulary, Miscellaneous Medication - Non Formulary, Miscellaneous Med ication - Non Formulary, Miscellaneous Medication - Non Formulary, Venlafaxine, LORazepam Discharge Instruction: Discharge Summary Sheet, Substance Use Disorder, Medication Reconciliation, Fax Visit Summary for Dilan Pinto MD (Piit) Name Value Range Interpretation Code Description Data Medina rce(s) Supporting Document(s) ID Date Data Source [id number] 12/18/2020 06:53:00 PM EDT [facility] Name: ASHLEY STOLL [facility] Rec #: [id number] : 1990 Age/Sex: 30F Date of Service: 12/18/20 NURSE CHART Nurse's Notes [facility] Name: Ashley Stoll Age: 30 yrs Sex: Female : 1990 Arrival Date: 12/18/2020 Time: 18:53 Bed H1 Private MD: Diagnosis: Substance Abuse Presentation: 12/18 18:55 Acuity: Urgent - 3 rp1 19:08 Transition of care: patient was not received from another [facility] setting of care. Presenting complaint: Patient states - Patient having anxiety after using drugs last night. Patient appears to be crying, anxious, but cooperative upon arrival. Have you travelled in the last 30 days? No. Have you had contact with an individual with a confirmed diagnosis of Ebola or COVID-19? No. 19:08 Method Of Arrival: [facility] Triage Assessment: 19:11 SEPSIS SCREEN: A Confirmed or Suspected Infection is [facility] Unknown. Suicide Screening: Have you had thoughts of harming yourself or others? No. The patient appears to have some mild discomfort, The patient is anxious, cooperative. No pain is apparent. 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 Suboxone 12-3 mg sublingual film 1 film once daily (Last dose: Unknown) 2. gabapentin 400 mg Oral cap 1 cap 3 times per day (Last dose: Unknown) - PMHx: Abuse; - PSHx: Upper GI Scope; - Med Reconciliation:: Medications reviewed, completed by nurse using patient's med list. - Immunization history: unknown. - Advance directive: There is no existing advanced directive. Information offered. - Family History:: mother : unknown medical history. Father : unknown medical history. - Social History: Smoking status (Tobacco): Patient admits to smoking tobacco products on some days. Preferred Language: Dominican. - The history of the events were obtained from: the patient. Screenin:17 AUDIT 1. How often do you have a drink containing alcohol? [facility] Never (0 points). Drug Abuse Screening Test: 1. Have you used drugs other than those required for medical reasons? Yes (1 point). Abuse screen: Denies threats or abuse. Denies injuries from another. Nutritional screening: No deficits noted. The patient has IV access (20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 applies to non-numeric results) [facility] Result in log IU/mL is 6.33. ---------ADDITIONAL INFORMATION The quantification range of this assay is 15 to 100,000,000 IU/mL (1.18 log to 8.00 log IU/mL). Testing was performed using the jc HCV test ([employer] with the jc [employer] System. Test Performed by: [place] [address] Fuel Pilot Engineer: Jim Spencer M.D. Ph.D.; CLIA# [id number] THIS IS A STATE REPORTABLE COMMUNICABLE DISEASE. Results called 10/06/20925,NICHOLAS EDWARDS read back information to LAB.HAREM ID Date Data Source [id number] 10/03/2020 11:37:00 AM EST [facility] Value Range Interpretation Code Description Data Medina rce(s) Supporting Document(s) HAVM Nonreactive Normal (applies to non-numeric resu lts) [facility] ID Date Data Source [id number] 10/03/2020 11:36:00 AM EST [facility] Value Range Interpretation Code Description Data Medina rce(s) Supporting Document(s) Hep Bs Ag Result T-Test Nonreactive Normal (applies to non -numeric results) [facility] ID Date Data Source [id number] 10/03/2020 11:36:00 AM EST [facility] Value Range Interpretation Code Description Data Medina rce(s) Supporting Document(s) Syphilis Serology Nonreactive Normal (applies to non-numer ic results) [facility] ID Date Data Source [id number] 10/03/2020 10:58:00 AM EST [facility] Name Value Range Interpretation Code Description Data Medina rce(s) Supporting Document(s) Sodium 140 mmol/L 137-145 Normal (applies to non-numeric resul ts) [facility] Potassium 3.5-5.1 Normal (applies to non-numeric resul ts) [facility] Chloride 107 mmol/L 98-112 Normal (applies to non-numeric resul ts) [facility] Carbon Dioxide CO2 22.0-33.0 Normal (applies to non-numer ic results) [facility] Anion Gap 4.0-11.0 Below low normal [facility] BUN 19 mg/dL 7-17 Above high normal [facility] Creatinine 0.70-1.20 Below low normal [facility] GFR >60 Normal (applies to non-numeric results) [facility] Result based on MDRD formula. Glucose Level 81 mg/dL 74-99 Normal (applies to non-numeric re sults) [facility] The reference range is only applicable w hen fasting. Calcium-Uncorrected 8.4-10.2 Normal (applies to non-nume gabriel results) [facility] Corrected Calcium 8.4-10.2 Normal (applies to non-numeri c results) [facility] Bilirubin,Total 0.2-1.3 Normal (applies to non-numeric results) [facility] Bilirubin,Direct 0.0-0.3 Normal (applies to non-numeric results) [facility] SGOT(AST) 98 U/L 14-36 Above high normal [facility] SGPT(ALT) 133 U/L 9-52 Above high normal [facility] Alkaline Phosphatase 136 U/L 38-126 Above high normal [facility] can increase Alkaline Phosp le vels up to 2 times the normal adult value. Normal values for children and adolescents are 2 to 3 times the normal adult value. CPK 69 U/L 26-192 Normal (applies to non-numeric resul ts) [facility] Total Protein 6.3-8.2 Below low normal [facility] Albumin 3.5-5.0 Below low normal [facility] Thyroid Stimulate Hormone TSH 0.358-3.740 No rmal (applies to non-numeric results) [facility] ID Date Data Source [id number] 10/03/2020 10:58:00 AM EST [facility] Name Value Range Interpretation Code Description Data Medina rce(s) Supporting Document(s) Magnesium 1.80-2.40 Normal (applies to non-numeric resul ts) [facility] ID Date Data Source [id number] 10/03/2020 10:58:00 AM EST [facility] Name Value Range Interpretation Code Description Data Medina rce(s) Supporting Document(s) C-Reactive Protein,Wide Range <3.00 Normal (applies t o non-numeric results) [facility] ID Date Data Source [id number] 10/03/2020 10:50:00 AM EST [facility] Name Value Range Interpretation Code Description Data Medina rce(s) Supporting Document(s) White Blood Count 4.8-10.8 Normal (applies to non-numeri c results) [facility] Red Blood Count 3.68-5.22 Normal (applies to non-numeric results) [facility] Hemoglobin 11.2-15.7 Normal (applies to non-numeric resul ts) [facility] Hematocrit 34.1-44.9 Normal (applies to non-numeric resul ts) [facility] Mean Corpuscular Volume 81-99 Normal (applies to non- numeric results) [facility] Mean Corpuscular Hemoglobin 27.0-33.0 Normal (appli es to non-numeric results) [facility] Mean Corpuscular HGB Conc 32.0-36.0 Normal (applies to no n-numeric results) [facility] Red Cell Distribution Width 11.5-14.5 Normal (appli es to non-numeric results) [facility] Platelet Count 255 X10 3/uL 130-450 Normal (applies to non-numeric results) [facility] Mean Platelet Volume 9.5-12.7 Below low normal [facility] Imm Grans% (AUTO) 0 % 0-2 Normal (applies to non-numeri c results) [facility] Neutrophils % (AUTO) 54 % 40-75 Normal (applies to non-num paulina results) [facility] Lymphocytes % (AUTO) 33 % 21-46 Normal (applies to non-num paulina results) [facility] Monocytes % (AUTO) 9 % 5-12 Normal (applies to non-numer ic results) [facility] Eosinophils % (AUTO) 3 % 1-5 Normal (applies to non-num paulina results) [facility] Basophils % (AUTO) 0 % 0-1 Normal (applies to non-numer ic results) [facility] Imm Grans# (AUTO) 0.0-0.5 Normal (applies to non-numeri c results) [facility] Neutrophils # (AUTO) 1.5-8.1 Normal (applies to non-num paulina results) [facility] Lymphocytes # (AUTO) 1.0-3.1 Normal (applies to non-num paulina results) [facility] Monocytes # (AUTO) 0.2-1.3 Normal (applies to non-numer ic results) [facility] Eosinophils# (AUTO) 0.0-0.5 Normal (applies to non-nume gabriel results) [facility] Basophils # (AUTO) 0.0-0.1 Normal (applies to non-numer ic results) [facility] ID Date Data Source [id number] 09/29/2020 07:07:00 PM EST [facility] Name Value Range Interpretation Code Description Data Medina rce(s) Supporting Document(s) Gentamicin,10 Hr Normal (applies to non-numeric results) [facility] Interval between start of infusion and o btaining a blood sample (hours). This information is based on q24 hour dosing. 6 hours after infusion <7.6 ug/mL 7 hours after infustion <7.0 ug/mL 8 hours after infusion <6.2 ug/mL 9 hours after infusion <5.5 ug/mL 10 hours after infusion <5.0 ug/mL 11 hours after infusion <4.4 ug/mL 12 hours after infusion <3.8 ug/mL 13 hours after infusion <2.8 ug/mL 14 hours after infusion <2.0 ug/mL ID Date Data Source [id number] 09/29/2020 01:01:00 PM [facility] Name: ASHLEY STOLL : 1990 Age/Sex: 29F Ordering Provider: Julianna BLANKENSHIP Med Rec #: [id number] Reg Status: ADM IN Room #: 156-1 Date of Service: 09/29/20 Report Number: [id number] cc:Julianna BLANKENSHIP Send Report To: [id number] XRP/XR Chest 2 View [Pa & Lat] Reason for exam: positive ppd FINDINGS: Heart and mediastinum are within normal limits. There is a calcifiedgranuloma in the right mid lung noted, unchanged from 02/14/20. No mediastinal adenopathy identified. No pleural or pericardial effusions noted. No infiltrates noted. IMPRESSION: Calcified granuloma in the right mid lung. No other significant findings. Fluoroscopy time in seconds: 0 Number of Exposures: Time Portable Image Performed: Contrast Agent in ml: Method of Administration: REPORT SIGNATURE ON FILE Reported By: Sebastian Mosquera MD <Electronically signed by Sammie Mosquera MD> 09/30/20 0952 Dictation Date/Time: 09/29/20 0904 Transcribed Date/Time: 09/29/20 1301 Dope Firer: DOMENICA Name Value Range Interpretation Code Description Data Medina rce(s) Supporting Document(s) ID Date Data Source [id number] 09/28/2020 06:00:00 AM [facility] Name: ASHLEY STOLL : 1990 Age/Sex: 29F Ordering Provider: Julianna BLANKENSHIP Med Rec #: [id number] Reg Status:ADM IN Room #: 156-1 Date of Service: 09/28/20 Report Number: [id number] cc: Julianna BLANKENSHIP Send Report To: Echocardiogram Complete Ordering Phys: PATTIE SCOTT, Referring Phys: PATTIE SCOTT, Exam Location: Echo Lab Exam Date: 09/28/2020 08:50 Ht (in): 63 Wt (lb): 108 Tech/RN: BF/TR Indications: BASELINE, 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 INPT. BP 110 / 75 Rhythm: Technical Quality: Contrast: Total Dose (mL): MEASUREMENTS (Male / Female) Normal Values 2D ECHO Measurement LV Diastolic Diameter PLAX 4.7 cm 4.2 - 6.0 / 3.9 - 5.4 cm IVS Diastolic Thickness 1.3 cm 0.6 - 1.1 / 0.6 - 1.0 cm LVPW Diastolic Thickness 1.1 cm 0.6 - 1.1 / 0.6 - 1.0 LV Relative Wall Thickness 0.51 Aortic Root Diameter 2.6 cm Aortic Root Diameter Index 1.8 cm/m2 LA Systolic Diameter LX 3.6 cm 3.0 - 4.1 / 2.7 - 3.9 cm LA Volume Index 26.5 cm3/m2 16 - 28 cm3/m2 RV Internal Dim ED PLAX 3.1 cm Ascending Aorta Diameter 2.7 cm DOPPLER Measurement AV Peak Velocity 135 cm/s AV Peak Gradient 7.3 mmHg LVOT Peak Velocity 104 cm/s LVOT Peak Gradient 4.3 mmHg Mitral E Point Velocity 60 cm/s Mitral A Point Velocity 59.6 cm/s Mitral E to A Ratio 1 MV Area PHT 3.8 cm2 MV Deceleration Time 197 ms TR Peak Velocity 207 cm/s TR Peak Gradient 17.1 mmHg Right Atrial Pressure 3 mmHg Pulmonary Artery Systolic Pressu 20.1 mmHg Right Ventricular Systolic Press 20.1 mmHg Mitral E to LV E' Lateral Ratio 3.9 LV E' Septal Velocity 10.2 cm/s Mitral E to LV E' Septal Ratio 5.9 FINDINGS Left Ventricle: Normal global left ventricular size and systolic function. Ejection fraction is estimated at _ 60%_ . Right Ventricle: Normal right ventricular size and function. Right Atrium: Normal right atrial size. Left Atrium: Normal left atrial size. Mitral Valve: Trace mitral regurgitation. No evidence of vegetation on the mitral valve. Aortic Valve: Structurally normal aortic valve. No evidence of vegetation on the aortic valve. Tricuspid Valve: Trace tricuspid regurgitation. Right ventricular systolic pressure estimated to be within the normal range at 20 mmHg. Pulmonic Valve: Trace pulmonic regurgitation. No vegetations seen. Pericardium: Normal pericardium. Aorta: Normal size aortic root and proximal ascending aorta. CONCLUSIONS Normal global left ventricular size and systolic function. Ejection fraction is estimated at _60%_ . No significant valvular dysfunction. No significant chamber abnormalities. Right ventricular systolic pressure estimated to be within the normal range at 20 mmHg. REPORT SIGNATURE ON FILE 09/28/20 1341 Reported By: Dio Fuentes II, MD <Electronically signed by Dio Fuentes II, MD in OV> Exam Date/Time: 09/28/20 0600 Order #: [id number] Dictation Date/Time: 09/28/20 0850 Transcribed Date/Time: Dope Firer: Name Value Range Interpretation Code Description Data Medina rce(s) Supporting Document(s) ID Date Data Source [id number] 09/28/2020 10:08:00 AM [facility] Name: ASHLEY STOLL : 1990 Age/Sex: 29F Ordering Provider: Julianna BLANKENSHIP Med Rec #: [id number] Reg Status:ADM IN Room #: 156-1 Date of Service: 09/28/20 Report Number: [id number] cc: Julianna BLANKENSHIP; Stella Enciso MD; PCP None Send Report To: Reason for exam: Baseline SINUS RHYTHM NORMAL ECG There is no old ECG available for comparison Physician Other Spatial Scientist: Jeromy Wiggins M.D. ECG HEART RATE: 92 /min ECG RR INTERVAL: 646 ms ECG P DURATION: 97 ms ECG QRS DURATION: 87 ms ECG OH INTERVAL: 124 ms ECG QT INTERVAL: 329 ms ECG QTC INTERVAL: 385 ms Q-T dispersion: ms ECG P AXIS: 35 deg ECG QRS AXIS: 71 deg ECG T AXIS: 21 deg REPORT SIGNATURE ON FILE 09/28/20 1009 Reported By: Jeromy Wiggins MD, [facility] <<Signature on File>> Exam Date/Time: 09/28/20 0903 Order #: [id number] Dictation Date/Time: 09/28/20 1008 Transcribed Date/Time: 09/28/20 100 Dope Firer: ABI Name Value Range Interpretation Code Description Data Medina rce(s) Supporting Document(s) ID Date Data Source [id number] 09/28/2020 02:44:00 PM EST [facility] Name Value Range Interpretation Code Description Data Medina rce(s) Supporting Document(s) GC Urine Negative [facility] THIS IS A STATE REPORTABLE COMMUNICABLE DISEASE. Results called 09/28/20 1442,PATTIE Levine read back information to LAB.LUC[facility] Methodology: Second generation nucleic acid amplification. ID Date Data Source [id number] 09/27/2020 03:33:00 PM [facility] Name Value Range Interpretation Code Description Data Medina rce(s) Supporting Document(s) Opiate Screen,Urine Negative Normal (applies to non-nume gabriel results) [facility] Amphetamine Screen,Urine Negative Normal (applies to non -numeric results) [facility] Benzodiazepines Scrn,Ur result Negative N ormal (applies to non-numeric results) [facility] Cocaine Screen,Urine Negative Normal (applies to non-num paulina results) [facility] Methadone Screen,Urine Negative Normal (applies to non-n umeric results) [facility] Cannabinoid Screen, Ur Negative Normal (applies to non-n umeric results) [facility] Therapeutic Drug Ranges for Emergency an d Rehabilitation Threshold Levels (ng/mL) Cocaine 300 Opiates 300 Cannabinoids 50 Barbiturates 200 Benzodiazepine 200 Methadone 300 Amphetamines 1000 All positive find ings are presumptive and unconfirmed. Confirmation of positive results are performed only at request of provider. Unconfirmed results must not be used for non-medical purposes (i.e. pre-employment and legal purposes) ID Date Data Source [id number] 09/27/2020 02:09:00 PM [facility] Name Value Range Interpretation Code Description Data Medina rce(s) Supporting Document(s) Color,Urine Yellow Normal (applies to non-numeric resu lts) [facility] Clarity,Urine Clear [facility] ospital Specific Etters,Urine 1.001-1.030 Normal (applies to non- numeric results) [facility] PH,Urine 5.0-8.0 Normal (applies to non-numeric resul ts) [facility] Protein,Urine Negative Normal (applies to non-numeric re sults) [facility] Glucose,Urine (UA) Negative Normal (applies to non-numer ic results) [facility] Ketones,Urine Negative Normal (applies to non-numeric re sults) [facility] Blood,Urine Negative [facility] pital Bilirubin,Urine Negative Normal (applies to non-numeric results) [facility] Urobilinogen,Urine Norm 0.2-1 Normal (applies to non-numer ic results) [facility] Leukocyte Esterase,Urine Negative [facility] Nitrite,Urine Negative Normal (applies to non-numeric re sults) [facility] ID Date Data Source [id number] 09/27/2020 02:09:00 PM [facility] Name Value Range Interpretation Code Description Data Medina rce(s) Supporting Document(s) [facility] 0-2 Normal (applies to non-numeric resul ts) [facility] Hyaline Casts,Ur None Seen Normal (applies to non-numeric results) [facility] Bacteria,Urine None Seen [facility] Epithelial Cell,Ur None-Few [facility] ID Date Data Source [id number] 09/27/2020 02:09:00 PM EST [facility] Name Value Range Interpretation Code Description Data Medina rce(s) Supporting Document(s) Urine HCG Negative Normal (applies to non-numeric resul ts) [facility] ID Date Data Source [id number] 09/27/2020 09:43:00 AM EST [facility] Name Value Range Interpretation Code Description Data Medina rce(s) Supporting Document(s) Respiratory specimen severe acute respir atory syndrome coronavirus 2 (SARS-CoV-2) RNA Negative (qualifier value) [facility] This lab was ordered by [facility] rashad and reported by [facility]. ID Date Data Source [id number] 09/27/2020 09:43:00 AM EST [facility] Name Value Range Interpretation Code Description Data Medina rce(s) Supporting Document(s) SARS-CoV-2 RNA Negative Normal (applies to non-numeric r esults) [facility] Negative results should be treated as pr esumptive and, if inconsistent with clinical signs and symptoms or necessary for patient management, should be tested with different authorized or cleared molecular tests. Negative results do not preclude SARS-CoV-2 infection and should not be used as the sole basis for patient management decisions. Negative results should be considered in the context of a patients recent exposures, history and the presence of clinical signs and symptoms consistent with COVID-19. This test has not been FDA cleared or approved; this test has been authorized by FDA under an Emergency Use Authorization for use by laboratories certified under the Clinical Laboratory Improvement Amendments of 1988 (CLIA), 42 U.S.C. 263a, to perform moderate complexity/high complexity tests and at the Point of Care (POC), i.e., in patient care settings operating under a CLIA Certificate of Waiver, Certificate of Compliance, or Certificate of Accreditation. Factsheets for healthcare providers: https://www.fda.gov/media/096901/download Factsheets for patients: https://www.fda.gov/media/189223/download The ID NOW Instrument is a rapid molecular in vitro diagnostic test utilizing an isothermal nucleic acid amplification technology intended for the qualitative detection of nucleic acid from the SARS-CoV-2 viral RNA. THIS IS A STATE REPORTABLE COMMUNICABLE DISEASE. Manual entry verified by Ronald Buitrago 09/27/20 0942 ID Date Data Source [id number] 09/13/2020 10:13:00 AM EST [facility] Name Value Range Interpretation Code Description Data Medina rce(s) Supporting Document(s) Respiratory specimen severe acute respir atory syndrome coronavirus 2 (SARS-CoV-2) RNA [facility] This lab was ordered by Nicola choudhary and reported by . ID Date Data Source [id number] 09/12/2020 05:00:00 AM EST [facility] ([facility]) Name Value Range Interpretation Code Description Data Medina rce(s) Supporting Document(s) Appearance of Abdomen CLOUDY [facility] ([facility]) Color of Peritoneal dialysis fluid DARK YELLOW [facility] ([facility]) Glucose [Mass/volume] in Urine collected for unspecified duration N EGATIVE [facility] ([facility]) pH of Lower respiratory specimen 7.0 [facility] ([facility]) Bilirubin [Presence] in Peritoneal fluid NEGATIVE [facility] ([facility]) Specific gravity of Pericardial fluid by Refractometry 1.012 [facility] ([facility]) Ketones [Presence] in Blood by Tablet NEGATIVE [facility] ([facility]) OCCULT BLOOD 2+ [facility] ([facility]) Protein [Mass/volume] in Lower respiratory specimen NEGATIVE [facility] ([facility]) WBC 20-40 [facility]) RBC 3-10 [facility]) Leukocyte esterase [Presence] in Body fluid by Automated test strip 3 + [facility] ([facility]) Nitrite [Presence] in Urine by Test strip NEGATIVE [facility] ([facility]) TRANSITIONAL EPITHELIAL CELLS DNR [facility] ([facility]) RENAL EPITHELIAL CELLS DNR NETSMAR T ([facility]) SQUAMOUS EPITHELIAL CELLS 10-20 [facility] ([facility]) Triple phosphate crystals [Presence] in Urine sediment by Li ght microscopy DNR [facility] ([facility]) Calcium oxalate crystals [Presence] in Urine sediment by Lig ht microscopy MANY [facility] ([facility]) URIC ACID CRYSTALS DNR [facility] ([facility]) Bacteria [Presence] in Prostatic fluid by Light microscopy NONE SEEN [facility] ([facility]) HYALINE CAST NONE SEEN [facility]) Amorphous sediment [Presence] in Urine sediment by Light microscopy D NR [facility] ([facility]) Crystals [#/area] in Body fluid by Light microscopy DNR [facility] ([facility]) Casts [#/area] in Urine sediment by Automated count DNR [facility] ([facility]) Yeast [#/area] in Urine by Automated count DNR [facility] ([facility]) GRANULAR CAST DNR [facility] ([facility]) COMMENTS DNR [facility] ([facility]) Enhanced PDF Report [id number] [facility] ([facility]) Nurse Note DNR [facility] ([facility]) ID Date Data Source [id number] 09/12/2020 05:00:00 AM EST [facility] ([facility]) Name Value Range Interpretation Code Description Data Medina rce(s) Supporting Document(s) Color of Urine DARK YELLOW [facility] ([facility]) pH of Urine by Test strip 7.0 [facility] ([facility]) Glucose [Presence] in Urine by Test strip NEGATIVE [facility] ([facility]) Appearance of Urine CLOUDY [facility] ( [facility]) Specific gravity of Urine by Test strip 1.012 [facility] ([facility]) Bilirubin.total [Presence] in Urine by Test strip NEGATIVE [facility] ([facility]) Hemoglobin [Presence] in Urine by Test strip 2+ [facility] ([facility]) Protein [Presence] in Urine by Test strip NEGATIVE [facility] ([facility]) Ketones [Presence] in Urine by Test strip NEGATIVE [facility] ([facility]) Leukocyte esterase [Presence] in Urine by Test strip 3+ [facility] ([facility]) Leukocytes [#/area] in Urine sediment by Microscopy high power fiel d 20-40 [facility] ([facility]) Nitrite [Presence] in Urine by Test strip NEGATIVE [facility] ([facility]) Erythrocytes [#/area] in Urine sediment by Microscopy high power fi eld 3-10 [facility] ([facility]) Epithelial cells.renal [#/area] in Urine sediment by Microscopy high power field DNR [facility] ([facility]) Epithelial cells.squamous [#/area] in Ur ine sediment by Microscopy high power field 10-20 [facility] ([facility]) Transitional cells [#/area] in Urine sediment by Micro scopy high power field DNR [facility] ([facility]) Triple phosphate crystals [#/area] in Ur ine sediment by Microscopy high power field DNR [facility] ([facility]) Calcium oxalate crystals [#/area] in Uri ne sediment by Microscopy high power field MANY [facility] ([facility]) Bacteria [#/area] in Urine sediment by Microscopy high power fie ld NONE SEEN [facility] ([facility]) Urate crystals [#/area] in Urine sediment by Microscopy high pow er field DNR [facility] ([facility]) Crystals [#/area] in Urine sediment by Microscopy high power field DN R [facility] ([facility]) Granular casts [#/area] in Urine sediment by Microscopy low power f ield DNR [facility] ([facility]) Hyaline casts [#/area] in Urine sediment by Microscopy low power field NONE SEEN [facility] ([facility]) Amorphous sediment [Presence] in Urine sediment by Light microscopy D NR [facility] ([facility]) Service comment DNR [facility]) Casts [#/area] in Urine sediment by Microscopy low power field DNR [facility] ([facility]) Yeast [#/area] in Urine sediment by Microscopy high power field DNR [facility] ([facility]) ID Date Data Source [id number] 09/14/2020 12:28:00 PM EST [facility] Received: 09/14/2020 at 09:29:00 QPT : [facility] Lisseth Moody, [address] [place] [address], [phone], Dev Chung MD Name Value Range Interpretation Code Description Data Medina rce(s) Supporting Document(s) Color of Urine DARK YELLOW YELLOW Normal (applies to non-numeric results) [facility] Appearance of Urine CLOUDY CLEAR Abnormal (applies to non-nu meric results) [facility] Specific gravity of Urine by Test strip 1.012 1.001-1. 035 Normal (applies to non-numeric results) [facility] pH of Urine by Test strip 7.0 5.0-8.0 Normal (applies to non-numeric results) [facility] Glucose [Presence] in Urine by Test strip NEGATIVE NEGATI VE Normal (applies to non-numeric results) [facility] Bilirubin.total [Presence] in Urine by Test strip NEGATIVE NEGATIVE Normal (applies to non-numeric results) [facility] Ketones [Presence] in Urine by Test strip NEGATIVE NEGATI VE Normal (applies to non-numeric results) [facility] Hemoglobin [Presence] in Urine by Test strip 2+ NEG ATIVE Abnormal (applies to non-numeric results) [facility] Protein [Presence] in Urine by Test strip NEGATIVE NEGATI VE Normal (applies to non-numeric results) [facility] Nitrite [Presence] in Urine by Test strip NEGATIVE NEGATI VE Normal (applies to non-numeric results) [facility] Leukocyte esterase [Presence] in Urine by Test strip 3+ NEGATIVE Abnormal (applies to non-numeric results) [facility] Leukocytes [#/area] in Urine sediment by Microscopy high pow er field 20-40 /HPF < OR = 5 Abnormal (applies to non-numeric results) [facility] Erythrocytes [#/area] in Urine sediment by Microscopy high power field 3-10 /HPF < OR = 2 Abnormal (applies to non-numeric results) [facility] Epithelial cells.squamous [#/area] in Ur ine sediment by Microscopy high power field 10-20 /HPF < OR = 5 Abnormal (applies to non-numeric results) [facility] Bacteria [#/area] in Urine sediment by Microscopy high power field NONE SEEN /HPF NONE SEEN Normal (applies to non-numeric results) [facility] Calcium oxalate crystals [#/area] in Uri ne sediment by Microscopy high power field MANY /HPF NONE OR FEW Abnormal (applies to non-numeric results) [facility] Hyaline casts [#/area] in Urine sediment by Microscopy low power field NONE SEEN /LPF NONE SEEN Normal (applies to non-numeric results) [facility] ID Date Data Source [id number] 08/23/2020 04:10:00 PM EST [facility] Name Value Range Interpretation Code Description Data Medina rce(s) Supporting Document(s) HCV Genotype result 3 Undetected Normal (applies to non-nume gabriel results) [facility] ADDITIONAL INFORMATIO N This test was performed using the [place] RealTime HCV Genotype II assay ([employer] [place], [place]). Test Performed by: [facility] [place] [address] [employer] Engineer: Jim Spencer M.D. Ph.D.; CLIA# [id number] ID Date Data Source [id number] 07/27/2020 11:05:00 AM [facility] Name Value Range Interpretation Code Description Data Medina rce(s) Supporting Document(s) HCV Genotype result 3 Undetected Normal (applies to non-nume gabriel results) [facility] ADDITIONAL INFORMATIO N This test was performed using the [place] RealTime HCV Genotype II assay ([employer] [place], [place]). Test Performed by: [facility] [place] [address] [employer] Engineer: Jim Spencer M.D. Ph.D.; CLIA# [id number] ID Date Data Source [id number] 07/22/2020 04:19:00 AM [facility] ADD ON FROM SAMPLE COLLECTED 07/21/20 AT 1945 Name Value Range Interpretation Code Description Data Medina rce(s) Supporting Document(s) Beta HCG,Screen Negative Normal (applies to non-numeric results) [facility] ID Date Data Source [id number] 08/23/2020 02:23:00 PM EST [facility] Name Value Range Interpretation Code Description Data Medina rce(s) Supporting Document(s) Chlamydia,Urine Negative Normal (applies to non-numeric results) [facility] Test Performed By: [facility] [address] [place] [address] Director: Em Head MD . GC Urine Negative Normal (applies to non-numeric resul ts) [facility] Test Performed By: [facility] [address] [place] [address] Director: Em Head MD . Methodology: Second generation nucleic acid amplification. ID Date Data Source [id number] 07/23/2020 04:28:00 PM [facility] Name Value Range Interpretation Code Description Data [facility] rce(s) Supporting Document(s) Chlamydia,Urine result Negative Normal (applies to non-n umeric results) [facility] Test Performed By: [facility] [address] [place] [address] Director: Em Head MD . GC Urine result Negative Normal (applies to non-numeric results) [facility] Test Performed By: [facility] [address] [place] [address] Director: Em Head MD . Methodology: Second generation nucleic acid amplification. ID Date Data Source [id number] 07/21/2020 10:21:00 PM [facility] Collected By: Nurse Initials: banuelos Time Collected: 2019 Collected By: Nurse Initials: banuelos Time Collected: 2019 Name Value Range Interpretation Code Description Data [facility] rce(s) Supporting Document(s) Color,Urine Colorl-Dk Y Normal (applies to non-numeric res ults) [facility] Clarity,Urine Clear Normal (applies to non-numeric re sults) [facility] Specific Etters,Urine 1.005-1.030 Normal (applies to non- numeric results) [facility] pH,Urine 5.0-8.0 [facility] Protein,Urine Negative Normal (applies to non-numeric re sults) [facility] Glucose,Urine Negative Normal (applies to non-numeric re sults) [facility] Ketones,Urine Negative Normal (applies to non-numeric re sults) [facility] Blood,Urine Negative Normal (applies to non-numeric resu lts) [facility] Bilirubin,Urine Negative Normal (applies to non-numeric results) [facility] Urobilinogen,Urine 0.2-1.0 Normal (applies to non-numer ic results) [facility] Leukocyte Esterase,Urine Negative Normal (applies to non -numeric results) [facility] Nitrite,Urine Negative Normal (applies to non-numeric re sults) [facility] ID Date Data Source [id number] 07/21/2020 10:21:00 PM [facility] Collected By: Nurse Initials: vin Time Collected: 2019 Collected By: Nurse Initials: vin Time Collected: 2019 Name Value Range Interpretation Code Description Data Medina rce(s) Supporting Document(s) WBC,Urine None Seen [facility] Squamous Cells,Urine None Seen [facility] Bacteria,Urine None Seen [facility] ID Date Data Source [id number] 07/21/2020 10:04:00 PM [facility] Name Value Range Interpretation Code Description Data [facility] rce(s) Supporting Document(s) UDS Benzodiazepines Screen Negative Normal (applies to n on-numeric results) [facility] UDS Cocaine Screen Negative Normal (applies to non-numer ic results) [facility] UDS Ampetamine Screen Negative Normal (applies to non-nu meric results) [facility] UDS Cannabinoids Screen Negative [facility] UDS Opiates Screen Negative Normal (applies to non-numer ic results) [facility] UDS Barbiturates Screen Negative Normal (applies to non- numeric results) [facility] ID Date Data Source [id number] 08/23/2020 02:21:00 PM [facility] Name Value Range Interpretation Code Description Data Medina rce(s) Supporting Document(s) Hepatitis A Ab,IgG result Normal (applies to no n-numeric results) [facility] Result indicates immunity to hepatitis A infection from either vaccination or past exposure to hepatitis A. False-positive results may be observed in patients with CMV antibodies or heterophilic antibodies. REFERENCE VALUE Unvaccinated: Negative Vaccinated: Positive Test Performed by: [facility] [address] [address] [employer] Pilot Engineer: Jim Spencer M.D. Ph.D.; CLIA# [id number] ID Date Data Source [id number] 08/23/2020 02:21:00 PM EST [facility] Test Performed By: [facility] [address] [place] [address] Director: Em Head MD Test Performed By: [place] [address] Director: Em Head MD Name Value Range Interpretation Code Description Data Medina rce(s) Supporting Document(s) Hep C Ab-T Test Nonreactive [facility] Test Performed By: [place] [address] Director: Em Head MD Results called 07/22/20 0811,MERCED BRITTON read back information to Tamra Head THIS IS A STATE REPORTABLE COMMUNICABLE DISEASE. Note: This patient's sample tests reactive with a high Index >/= 11.00. Samples with high indexes have been shown to repeat positive using a different methodology 95% of the time or greater but <5 of every 100 samples might be false positives. Additional testing for verification of the result can be requested by the physician if necessary. ([facility] MMWR No RR-3. 2003). ID Date Data Source [id number] 08/23/2020 02:21:00 PM EST [facility] Test Performed By: [place] [address] Director: Em Head MD Test Performed By: [place] [address] Director: Em Head MD Name Value Range Interpretation Code Description Data [facility] rce(s) Supporting Document(s) ID Date Data Source [id number] 08/23/2020 02:21:00 PM EST [facility] Test Performed By: [facility] [address] [place] [address] Director: Em Head MD Test Performed By: [place] [address] Director: Em Head MD Name Value Range Interpretation Code Description Data [facility] rce(s) Supporting Document(s) ID Date Data Source [id number] 08/23/2020 02:21:00 PM [facility] Name Value Range Interpretation Code Description Data [facility] rce(s) Supporting Document(s) CPK 20 U/L 26-192 Below low normal [facility] Test Performed By: [facility] [address] [place] [address] Director: Em Head MD ID Date Data Source [id number] 07/23/2020 01:57:00 PM [facility] Name Value Range Interpretation Code Description Data [facility] rce(s) Supporting Document(s) Hepatitis A Ab,IgG result Normal (applies to no n-numeric results) [facility] Result indicates immunity to hepatitis A infection from either vaccination or past exposure to hepatitis A. False-positive results may be observed in patients with CMV antibodies or heterophilic antibodies. REFERENCE VALUE Unvaccinated: Negative Vaccinated: Positive Test Performed by: [place] [address] Fuel Pilot Engineer: Jim Spencer M.D. Ph.D.; CLIA# [id number] ID Date Data Source [id number] 07/22/2020 08:33:00 AM [facility] Value Range Interpretation Code Description Data [facility](s) Supporting Document(s) Hepatitis C Virus Ab result Nonreactive Very abnormal (applies to non-numeric units [facility] Test Performed By: [facility] [address] [place] [address] Director: Em Head MD Results called 07/22/20810,MERCED BRITTON read back information to Tamra Head CALLED TO MCKENNA Ballard ([place]) 07/22/20 08 [place] THIS IS A STATE REPORTABLE COMMUNICABLE DISEASE. Note: This patient's sample tests reactive with a high Index >/= 11.00. Samples with high indexes have been shown to repeat positive using a different methodology 95% of the time or greater but <5 of every 100 samples might be false positives. Additional testing for verification of the result can be requested by the physician if necessary. ([facility] MMWR No RR-3. 2003). ID Date Data Source [id number] 07/22/2020 08:33:00 AM [facility] Value Range Interpretation Code Description Data [facility] rce(s) Supporting Document(s) Syphilis Serology result Nonreactive Normal (applies to non-numeric results) [facility] Test Performed By: [facility] [address] [place] [address] Director: Em Head MD ID Date Data Source [id number] 07/22/2020 08:33:00 AM [facility] Value Range Interpretation Code Description Data [facility] rce(s) Supporting Document(s) CPK result 20 U/L 26-192 [facility] Test Performed By: [facility] [address] [place] [address] Director: Em Head MD ID Date Data Source [id number] 07/22/2020 08:33:00 AM [facility] Value Range Interpretation Code Description Data [facility] rce(s) Supporting Document(s) Hep Bs Ag result T-Test Nonreactive Normal (applies to non -numeric results) [facility] Test Performed By: [place] [address] Director: Em Head MD ID Date Data Source [id number] 07/21/2020 08:54:00 PM [facility] Value Range Interpretation Code Description Data [facility] rce(s) Supporting Document(s) Bilirubin,Direct 0.05-0.20 Normal (applies to non-numeric results) [facility] ID Date Data Source [id number] 07/21/2020 08:54:00 PM [facility] Value Range Interpretation Code Description Data [facility] rce(s) Supporting Document(s) Sodium 132 mmol/L 136-145 Below low normal [facility] Potassium 3.5-5.1 Below low normal [facility] Chloride 92 mmol/L 98-107 Below low normal [facility] Carbon Dioxide CO2 21-32 Normal (applies to non-numer ic results) [facility] Anion Gap 5.0-16.0 Normal (applies to non-numeric resul ts) [facility] BUN 14 mg/dL 7-18 Normal (applies to non-numeric results) [facility] Creatinine,Serum 0.7-1.2 Normal (applies to non-numeric results) [facility] GFR >60 Normal (applies to non-numeric results) [facility] Glucose Level 120 mg/dL 60-99 Above high normal [facility] Reference range is only applicable when patient is fasting Note the following drug interference: Sulfasalazine Sulfapyridine Can see falsely depressed Can see falsely elevated result with up to 17% results with up to 11% decrease in measurement increase in measurement Recommend patients be collected for this test prior to administration of either drug. Calcium 8.5-10.1 Normal (applies to non-numeric resul ts) [facility] Bilirubin,Total 0.1-1.9 Normal (applies to non-numeric results) [facility] SGOT(AST) 34 U/L 15-37 Normal (applies to non-numeric resul ts) [facility] Note the following drug interference: Sulfasalazine Sulfapyridine Can see falsely depressed Can see falsely elevated result with up to 10% results with up to 10% decrease in measurement increase in measurement Recommend patients be collected for this test prior to administration of either drug. SGPT(ALT) 32 U/L 12-78 Normal (applies to non-numeric resul ts) [facility] Note the following drug interference: Sulfasalazine Sulfapyridine Can see falsely depressed Can see falsely elevated result with up to 29% results with up to 10% decrease in measurement increase in measurement Recommend patients be collected for this test prior to administration of either drug. Alkaline Phosphatase 127 U/L 38-126 Above high normal [facility] can increase Alkaline Phosp le vels up to 2 times the normal adult value. Normal values for children and adolescents are 2 to 3 times the normal adult value. Total Protein 6.0-8.2 Above high normal [facility] Albumin Level 3.4-5.0 Normal (applies to non-numeric re sults) [facility] ID Date Data Source [id number] 07/21/2020 08:54:00 PM EST [facility] Name Value Range Interpretation Code Description Data [facility] rce(s) Supporting Document(s) Phosphorus 2.5-4.9 Normal (applies to non-numeric resul ts) [facility] ID Date Data Source [id number] 07/21/2020 08:54:00 PM [facility] Name Value Range Interpretation Code Description Data [facility] rce(s) Supporting Document(s) Magnesium 1.8-2.4 Normal (applies to non-numeric resul ts) [facility] ID Date Data Source [id number] 07/21/2020 08:54:00 PM [facility] Name Value Range Interpretation Code Description Data [facility] rce(s) Supporting Document(s) Thyroid Stimulate Hormone TSH 0.358-3.74 No rmal (applies to non-numeric results) [facility] ID Date Data Source [id number] 07/21/2020 08:46:00 PM [facility] Name Value Range Interpretation Code Description Data [facility] rce(s) Supporting Document(s) White Blood Count 3.5-10.5 Normal (applies to non-numeri c results) [facility] Red Blood Count 3.90-5.00 Above high normal [facility] Hemoglobin 12.0-15.5 Above high normal [facility] Hematocrit 34.9-44.5 Above high normal [facility] Mean Corpuscular Volume 81.2-95.1 Normal (applies to non- numeric results) [facility] Mean Corpuscular Hgb 25.6-32.2 Normal (applies to non-num paulina results) [facility] Mean Corpuscular Hgb Conc 32.0-36.0 Normal (applies to no n-numeric results) [facility] Red Cell Distribution Width 11.9-15.5 Normal (appli es to non-numeric results) [facility] Platelet Count 303 x10 3/uL 150-450 Normal (applies to non-numeric results) [facility] Mean Platelet Volume 9.4-12.4 Normal (applies to non-num paulina results) [facility] Neutrophils% (Auto) 31.0-71.0 Normal (applies to non-nume gabriel results) [facility] Lymphocytes% (Auto) 20.0-55.0 Normal (applies to non-nume gabriel results) [facility] Monocytes% (Auto) 4.0-12.0 Normal (applies to non-numeri c results) [facility] Eosinophils% (Auto) 1.0-8.0 Below low normal [facility] Basophils% (Auto) 0.0-2.0 Normal (applies to non-numeri c results) [facility] Immature Granulocytes% (Auto) 0.0-2.0 Normal (lio lies to non-numeric results) [facility] Neutrophils# (Auto) 1.50-6.20 Normal (applies to non-nume agbriel results) [facility] Lymphocytes# (Auto) 1.20-4.00 Normal (applies to non-nume gabriel results) [facility] Monocytes# (Auto) 0.00-0.90 Normal (applies to non-numeri c results) [facility] Eosinophils# (Auto) 0.00-0.50 Normal (applies to non-nume gabriel results) [facility] Basophils# (Auto) 0.00-0.20 Normal (applies to non-numeri c results) [facility] Immature Granulocytes# (Auto) 0.00-7.00 No rmal (applies to non-numeric results) [facility] Slide Reviewed By Normal (applies to non-numeri c results) [facility] Slide has been reviewed and findings con firmed by a technologist/automation control technician. ID Date Data Source [id number] 07/21/2020 08:54:00 PM EST [facility] Name Value Range Interpretation Code Description Data Medina rce(s) Supporting Document(s) Ethanol Less than 10.0 Normal (applies to non-numeric r esults) [facility] ID Date Data Source [id number] 07/21/2020 06:47:00 PM EST [facility] Name Value Range Interpretation Code Description Data Medina rce(s) Supporting Document(s) RP Internal Control Passed Normal (applies to non-nume gabriel results) [facility] Adenovirus None Detect Normal (applies to non-numeric resu lts) [facility] Coronavirus 229E None Detect Normal (applies to non-numeri c results) [facility] Coronavirus HKU1 None Detect Normal (applies to non-numeri c results) [facility] Coronavirus NL63 None Detect Normal (applies to non-numeri c results) [facility] Coronavirus OC43 None Detect Normal (applies to non-numeri c results) [facility] SARS-CoV-2 Not Detect Normal (applies to non-numeric resul ts) [facility] Negative results do not preclude SARS- CoV-2 infection and should not be used as the sole basis for treatment or other patient management decisions. Negative results must be combined with clinical observations, patient history, and epidemiological information. Testing was performed using the [employer] real-time nested multiplexed PCR Respiratory Panel 2.1 This test has not been FDA cleared or approved. This test has been authorized by FDA under an (Emergency Use Authorization) EUA for use by authorized laboratories. This test is only authorized for the duration of the declaration that circumstances exist justifying the authorization of emergency use of in vitro diagnostic tests for detection and/or diagnosis of SARS-CoV-2. Fact sheets for this EUA assay can be found at the following links: General: https://www.cdc.gov/COVID19 Healthcare Professionals: https://www.cdc.gov/coronavirus/2019-nCoV/guidance-hcp.html THIS IS A STATE REPORTABLE COMMUNICABLE DISEASE. Human Metapneumovirus None Detect Normal (applies to non-n umeric results) [facility] Rhino/Enterovirus None Detect Normal (applies to non-numer ic results) [facility] Influenza A None Detect Normal (applies to non-numeric res ults) [facility] Influenza B None Detect Normal (applies to non-numeric res ults) [facility] Parainfluenza Virus 1 None Detect Normal (applies to non-n umeric results) [facility] Parainfluenza Virus 2 None Detect Normal (applies to non-n umeric results) [facility] Parainfluenza Virus 3 None Detect Normal (applies to non-n umeric results) [facility] Parainfluenza Virus 4 None Detect Normal (applies to non-n umeric results) [facility] Respiratory Syncytial Virus None Detect Norm al (applies to non-numeric results) [facility] Bordetella Parapertussis None Detect Normal (applies to non-numeric results) [facility] Bordetella Pertussis None Detect Normal (applies to non-nu meric results) [facility] Chlamydia Pneumoniae None Detect Normal (applies to non-nu meric results) [facility] Mycoplasma Pneumoniae None Detect Normal (applies to non-n umeric results) [facility] Methodology: Multiplexed PCR Refer ence Range: None detected ID Date Data Source [id number] 07/13/2020 04:02:25 PM [facility] Name Value Range Interpretation Code Description Data Medina rce(s) Supporting Document(s) Progress Note [facility] LMNDCa0nGjTSItRc09/SEXrmBQHre2SsYIggZSu2XHjmUUAiT0SqODI7kB9zXIG3HHlOOrVzPbGfVUMc [facility] [file] AgICAgICAgICAgICAgICAgICAgICAgICAgICAgICAgICAgICAgICAgICAgICAgICAgICAgICAgICAgIC LyDQJkXCWsKDAwGIXdXYWhNGVkEF9NHOOcWPOmDDLg ICAgICAgICAgICAgICAgICAgICAgICAgICAgICAgICAgICAgICAgICAgICAgICAgICAgICAgICAgICAg NQMyIFMoSPLrFSMqJHLwULCeCZWoHBLmIWBsRHZsZJ5MXTKuMVCpZTPlKEUqDFSjDYMsCAAhLLFqWFGz ICAgICAgICAgICAgICAgICAgICAgICAgICAgICAgIC EqKCGfBSLbKXHjKLOiJDGnEVHfAIVfUEZqGBBeGURbULDySRJvGKDwSM9RYMWuYXEkTBHuPEUxAVRoLZ AgICAgICAgICAgICAgICAgICAgICAgICAgICAgICAgICAgICAgICAgICAgICAgICAgICAgICAgICAgIC VdTYRqGYDlFPVvAHRxUMGyWAHnIUPmKU6SQWMsRCJb ICAgICAgICAgICAgICAgICAgICAgICAgICAgICAgICAgICAgICAgICAgICAgICAgICAgICAgICAgICAg ACZoAMEnWWPiUZOnAIShJHKwIFRfIGJkFBAqKFRaHOFxNT7HCCLqTEFsNAGcGZOoZZJwWKEqRGRgIHQd ICAgICAgICAgICAgICAgICAgICAgICAgICAgICAgIC XcUTYhGBLwTUMnOQCoTPVqQVNkWOTiPONyTXVkKJUiNBRhQZBuTDWdBILwEM4CRZCjEPDmSLHfFEPsGC AgICAgICAgICAgICAgICAgICAgICAgICAgICAgICAgICAgICAgICAgICAgICAgICAgICAgICAgICAgIC DaZRQpAVCeHHEpCPErQUNmDGHlZFIrZMKnJH8SBPMj ICAgICAgICAgICAgICAgICAgICAgICAgICAgICAgICAgICAgICAgICAgICAgICAgICAgICAgICAgICAg CWWkNKRrDFWbYZLbEWPxOKUrJMOxBRSbGAJeQRZrZWJwIJSaHF8XSPPkGGKaRGJtQEGrVPUxTHCkNJPn ICAgICAgICAgICAgICAgICAgICAgICAgICAgICAgIC PdYEZiVHFdXNClEREwTQJhHAGcFBWvTCXiIVHvLQUjRJZyGAChATNqRAXmCQCqUK9XZYHnIPNsSCQyBL AgICAgICAgICAgICAgICAgICAgICAgICAgICAgICAgICAgICAgICAgICAgICAgICAgICAgICAgICAgIC HeFNOgSLTlWGElOEMxFHWjJWQfRPGjNXTbNTYuDP1N OY13tFXgi4U1CBNuRP8dxze/Iy9VBErgnzFtcXWmKS6RYgPsPO8pra9COvGhCX4fom4PXUrBFjIsY2X5 nZFxVYYnCVQJSbJmA55tKVksPy79UGkvKXUrFrNjSMy1Pp3BNoQhT8sbOZVzSqJ7MGCrVvE1GENaTbAa LFPbOVBxNOLhJXZCFQF7MCZuHsMcPFykRB9Nk0JsdO A1DQo+Px2TNC4mj8FjNJfdZZRcMG5zcd3FQIpOViBdV9WzitW3PMT0SBEcIt3QAKGbTKTkkCAhMTQnCN XSDfSnU9AnlX07LFBDFa9+FBcveoOmAzcEOrT9UECnd8WyXDr1JJ2HKESgAUn6rJIvHBZyP4Raz8HqVi 90ZXMgYnkgUmlzaGFuYSBTIENvaGVuLCBNRCBhdCAx DW7eQqDgFfEmILI3FSWwZF9bZRvyUV8IWAH7BLtzYNWjMMBhD5lGYrGyAEBbEXSvoMkzPS2VCxSwY9Oc cmVudCAyOCAwIFINCj4+JKskftCiUlqLYhGvJUPaDvkZAgn9UIkkXL3CoJMaAR8Wru5tlDWwN2EgiAhn HKLkYIrdzjSqMf9yFBBaPScrNKGoSR3nG5zoL7wmH6 MaPKFZUsYlE1NuH1HiHyE8CELbWhKjXLRxHAZ7CK8aGXddUZ4QYNw1T5HlE1SHGIQwYQRYQB8qf7ryM7 WumTapzzeaB0TcsE3fX058YQAyJiDaDoGynnheRn2cDKb+Sf1MCA5sg1DwRMltTMAiXC2drm5QFPvOFr OcF6G1cXJdO7V9QGtgWe7HUGXkRCLeGgGlQGCTEXdt HU8HHG0ptiR6MF0CgBWlYMGnFTSdhJYsSSh4N59qwFTnOCloMC0ORIV+Pradeep+Hq0DGBMcZZQrAUZxGuKu CXFFXxShH7AuC5NYv4WhQ8QrVV50aFiyjjDxDLddIK7IRF5oBHSaAUNATI2CyCKavT1mipEjEYNpCNYV FnObA49wwFLjAQNkYVL4OFTgSx8RUSSwN7ArsvRejJ bumrKpFJQdLTSWYE8EBLnjslZxeANejQaqVX81oZfzBI4GNd6EQnZaZO5wvm8FbRGzJi5UKINyPF2OMP PbZDCyOEKvVCP1WTFeCcXuPTxgIGKsOCVzIHM0SBSzMRRoJG6OKsVvTQOwYqMjHRnnVIBoFNWivt3GDX GiBQXxIdx6TvOnKPIgQAYlAFsoHLFlURCoEJL9ZRSi CBCoYJ4ENySqAVEnUKM3OZbmZEJoGDMvaw0QKGWgGUJcEsIzFrPyKDAsNMLbXJxrWSVfDCP3LVX0LNUj VFBpFN4QQxLhVWLdPQG7TtGlVHZjHIDwur0YVEZdFWIjXfR0MeVcDQFdNWBbFDunDYCtUSF6Itb2GNYi FNKaMS9YHkLdUCRwRVg7PIAfTQQyLIKnds5WFDRtFP IiAhV0ClVeXHHdRRZvCZolFPTqLJJcEPM8PRLaXXLqCK6VHtDjHPUvSRN6McCiURRlPCAgcc6HOGUaTF UrJWe5EtRrEYVfCPDaQLpqXYWpUBS6CSX6VUEgBLWmXI0VHpWyOQSeKPfdJpRlNAVcPUCvdx9PZHEqAH GiXwBiTvYvUXFeFONlDSgoMELdIYD2Vkr5UZEpSBQw VI6OWpXwCSCfGXt1ZzsjBPJcZZUgex9EVBCwOVQeUFC3FHHhXKXeNJMfSWeoYXHuRMWvNNl7ONSbNDOi TK0KHzQfBQIeCiT4MyNaJXCwGZQvbv0SJMHuIZIgIJXiIGIyOFWzCBCbUXtgFUJhNHDbBOi6XBWxXXUi NL9UHqOySXMbZvNaDgCsYSJaVTLgzi4MCJCiCRZgJT LyXpQwYUOzKREqYXhoIIRoLRNbLAgdXEGvCBBeZA8GWrEpGEKuCrT0NvJhQKSdQZYzqc4LHYJlZJIbAr N1GCRePSFtGRXwXVo7ljZxcYOfZBt1YQ8XJ4FlsfAmGxGRKs4Qn226LUSwARXqOq0LU0sfDp9lGTYfKB YCCp4XSBk1CBegANFjJWAoDvtfATsrFZEqL7EkSOCs HFE2SaMsRTN+RNsjI7R6CvY2KZV6WjX8P2QlYtDdXDJ9HBYdHWjhZaN5MD9zNKNOHj9+DQpzdGFydHhy CDBURmCtYXF7UZfrFTTVRo0H ID Date Data Source [id number] 07/13/2020 08:31:21 PM [facility] Name Value Range Interpretation Code Description Data Medina rce(s) Supporting Document(s) Buprenorphine [Presence] in Urine Negative [facility] (NOTE)Positive results above the cutoff of 10 ng/mL are presumptive andunconfirmed. [phone] within 5 days of collection. ID Date Data Source [id number] 07/13/2020 08:31:21 PM [facility] Name Value Range Interpretation Code Description Data Medina rce(s) Supporting Document(s) Amphetamine [Presence] in Urine by Screen method Negative [facility] Benzodiazepines [Presence] in Urine by Screen method Negat [facility] Cannabinoids [Presence] in Urine by Screen method Negative [facility] (NOTE)Positive results are presumptive a nd unconfirmed;confirmatorytesting can be ordered at the [facility] at [phone] [facility] at [phone] within 5 days of collection. Benzoylecgonine [Presence] in Urine by Screen method Negat [facility] Methadone [Presence] in Urine by Screen method Negative [facility] Opiates [Presence] in Urine by Screen method Negative [facility] Oxycodone [Presence] in Urine by Screen method Negative [facility] Fentanyl+Norfentanyl [Presence] in Urine by Screen method Negative [facility] Service comment [facility] Results below the indicated cutoff (ng/m L), are reported as"Negative." Note: for medical purposes only; not valid for legalor employment testing. ID Date Data Source [id number] 07/06/2020 01:56:43 PM EDT [facility] Name Value Range Interpretation Code Description Data Medina rce(s) Supporting Document(s) Progress Note [facility] BDWTZq2hUfSNXnAu65/VMVodLJPrv0JaVMepCIv9QBhzKZGfF2ZoHPR7qR2eBPO2STzCNpDsZbQdITL5 lbm [file] ICAgICAgICAgICAgICAgICAgICAgICAgICAgICAgIC AgICAgICAgICAgICAgICAgICAgICAgICAgICAgICAgICAgICAgICAgICAgICAgICAgICAgICAgICAgIC YfGM0IIOLnGYRkFJIgDNAuKOUjVMVkEWRwEPSrWMQgKJAiMDOsWDCkGOWiMYQnZXRmXAJeCCFxMQUsAS AgICAgICAgICAgICAgICAgICAgICAgICAgICAgICAg KIZjPMUzVRZgUJYnUV5YEWBmUJNnROZcJPLrPTPsEGXvCHImVFZnDGNxHYZdRCZtCIIhDEPgVVIfVMGl WXRqBSBlLOJpAVJfFDDkQCPdBKZuYHPdWAJcKGWyVWKfCFZiLHIiQNZxEFUoNVSiAOHpVKElFF1VILDi ICAgICAgICAgICAgICAgICAgICAgICAgICAgICAgIC AgICAgICAgICAgICAgICAgICAgICAgICAgICAgICAgICAgICAgICAgICAgICAgICAgICAgICAgICAgIC OoMBCjJD4RPCYhUDSuGTEyPXHzIHRkSHItURFgBNKbWRUgUQAjCDXyJEYaYRTeVQTkOOIpBKHfOCGuGG AgICAgICAgICAgICAgICAgICAgICAgICAgICAgICAg DGAwTSTpNUZmQYCjNEZaBN7PFXVaPMApEMEoEFKvRRMeZLTcAPByBBLpQKDoLMWtXHAyBSHcEGAjOKTe FOOhULTeFJErZHDqBSTrFFBfYPDjSZAlLSUaGDIzAGRrNRBkMPNxUOFhWCIgPHFuZRYdIKViSVFsGH3Z ICAgICAgICAgICAgICAgICAgICAgICAgICAgICAgIC AgICAgICAgICAgICAgICAgICAgICAgICAgICAgICAgICAgICAgICAgICAgICAgICAgICAgICAgICAgIC ReRVTsYFKaFH1YAQSdSHWuPNLrEHMtBWCqBUUvZDIbUVOoOULvCWBkLESuKXAmGVRbJZZdAVNxJQWyEN AgICAgICAgICAgICAgICAgICAgICAgICAgICAgICAg XRUpXVUhQOEzDNSuXPBwKNQmLR1GCLWkCTToZTZzPLGgEFDlVLAgQXErYFNqIWTtLXRsJHSnFKIiMUVg ICAgICAgICAgICAgICAgICAgICAgICAgICAgICAgICAgICAgICAgICAgICAgICAgICAgICAgICAgICAg VV6FAH53tGHqc8O7EPTvID6gtyy/Jz9GOIdpdrJmnA KdDA8PQvVmNR6igm3JRxQdIZ1qrm2WOEoQHcLlP7B8qTQeWGUyYPOYUbJwY67vIFqiZz33JTraVMMnOo IkHXy3Fv2BNoKoF5ceVUJpFaU6OACrYnS3FCZpTrKvLNThMQDlACScIEBDCCA4TUPgAuYxREtzEC3Em0 RriJC7HSr+Ap3XHW3xl7SzQWghJNTaXU6bst9QBNfL DbYbX9HxskO4BXD9OHAhZi2XXOPsOBYlcEQpYUGwFYJBFuHaX0DdgW34JVLSVm9+DQplbmRvYmoNCjI5 HNEbx3ArOVc8PC5GEMYrEAy8xBKdJFAaD4Boc7VfWg38QZTwZldfQgzkeLWnSIBCTJVprJLwNCRVBTEs yQRkUU5cBu0mXIQxDUSuGfUhSTFPIM0MVGBrKWBtdT YqSGXuBXWFAK7HKVigWXO1IUQnkiGntHMrKBjoHY1MVSHuiiCyPunpTWOASKy+Fo7QHA0ck9EyITt7XP Vnp7JbTBv3DP9KVLPqHGcqUZHgHA3yh1YiD1G3KrI2jKUjG4uvqjosS8IihqNukbPmGBQbNVVfTG7FQB 3LTB5KHPFjCQcpHN1TNNZ8QQl3NNFeVpH2VHM8KOMv NTmwQC5XBVBwOHX9PN0JDG8RVqckM7QNAEfrcDWgtkbzR0HtpO6tbtPsWehqNOe9aC5wuQE2IR2uwJ26 ya6xu4jcW5NzhUxjkufuL0RroS1fC844ZKYcGpNhPaJvckwjWv2hNTc+Xl4OSJ2ch3GyBHvnQSUnQJ5l iw6ONVgZIaPqA8L3iFBgZ8X5GWspUg8FAPUoOVKuCj KnWFMVUNoyZT8IMG9rovO4VA6HkCBrOWGcJEAdgIVrRXx7U92zjUGwAOwoFU5NERN+Pradeep+Qp4FBHXwUH LlEDJzFzMcIXOWRkIvT2WxR9NUy9XeX3QdLO02fCtcofXbIHckUV3PZT8mRXNyNFGXGV4BtMLkjZ6izu JqUZLdRQLSHrDsZ46clPLeZXYfUJA6YCBsNw3NVONy F6BbvuEomPrtzvYpOZDtDTBCOJ8ZUJucbjMakFXnhUqvKT86vKscJV4ZTu9OAwIoAV3eug5DeADlNh6V WGUlIM1QBHCeZOGeINUbIWU0BGLuRzTxQFuzRVXqOZNbZPM0OKOgQYXaHW8PEfQwATSeKiI7QiOxMLSb HXAzck3ZPTVyANLbXlF9RfRrEEFbNSCnJYsuNNWoZL FbIWB4JCPjRFLmCV5FJeOdHONxHLT9YUGkRUHcGZEwig0MINOhMVOcDyRmSXNgNOAcKPEcQAowQKUcYR F2YCs9OOOjUOPmFS7AEoSwFDWfCYL2IscxQBThIXEidw0UMDIsIXVwIab0XvApMMYdEMDgJErfVYYyES Y1NtL9OGThPWWvWM6BScDdOIIrJAr4NAmuAETmULWx cm2TDMQmEDIvKrJgDGUtOLPeAYAvLYydYSUuHANtFwC6OKFtULQpBJ8OFhZpSXSpHUHdKLksWIIsGONx rb2XGPBrBMKyYWR4PiMyKVKgVAKaPYerTHXwQKP5VSVkSHDbCNDaFO1DQfNxIPRgADB0XFQrZWIhURIk gh8PYHPtIXYzTektVaBxGMKtKQPuOTwiIAMxNSW0Cw cqEAAnQHZcTN3MYiDuPAKzPVd3BQEcAETxULGtgk1EDHBgWEXcINS4HaHfOLYaUGYxUBhcIVEiXKC3Gm YhUWHkPWDxRR4EAsHnDYHfLii3XfqyWFJpYNLnow5KUZHqFLJzSHZ4IfIwHGBpFEPuTNlpGNTkVHDhSr o4EBSwXARuGJ5VNfWrLFNzQrX7OGErPUMrQPFulp1S ZJLqLTNdWRu6TtNhAJLiIIUiVDekGXEdFDAcZWM3HTEyDKUpAY5SAuWjDFMrHjM7ZwaoFXBaVOEydm6E ICIqIDSjOqzpHwGzBQRlBWIzNWf8anXdgQBaTZo7EJ7HT9TzwiGdFvGFXb8Vd523QWJyBXElLj9WY9sc Np3eWDJaUVHSNl5KYOl6CGDiLsMoYpXhMmP3MENsPN TdIFMeTLWmLPioRYY9Joj+KUbfUNMhHjDeYXR9OICxHGQ6VNI2P0H1FhG3QPT1OlTtJu8pRWHIDn1+DQ pbbYYihXogYUDSPtQgAAdhXKriKXJKHi9Z ID Date Data Source [id number] 07/06/2020 06:28:53 PM [facility] Name Value Range Interpretation Code Description Data Medina rce(s) Supporting Document(s) Amphetamine [Presence] in Urine by Screen method Negative [facility] (NOTE)Positive results are presumptive a nd unconfirmed;confirmatorytesting can be ordered at the [facility] at [address] [place] [address] [place] [address] within 5 days of collection. Benzodiazepines [Presence] in Urine by Screen method Negat [facility] Cannabinoids [Presence] in Urine by Screen method Negative [facility] (NOTE)Positive results are presumptive a nd unconfirmed;confirmatorytesting can be ordered at the [facility] at [address] [place] [address] at [phone] within 5 days of collection. Benzoylecgonine [Presence] in Urine by Screen method Negat [facility] Methadone [Presence] in Urine by Screen method Negative [facility] Opiates [Presence] in Urine by Screen method Negative [facility] Oxycodone [Presence] in Urine by Screen method Negative [facility] Fentanyl+Norfentanyl [Presence] in Urine by Screen method Negative [facility] Service comment [facility] Results below the indicated cutoff (ng/m L), are reported as"Negative." Note: for medical purposes only; not valid for legalor employment testing. ID Date Data Source [id number] 07/06/2020 08:22:02 PM [facility] Name Value Range Interpretation Code Description Data Medina rce(s) Supporting Document(s) Buprenorphine [Presence] in Urine Negative [facility] (NOTE)Positive results above the cutoff of 10 ng/mL are presumptive andunconfirmed. Confirmatory testing can be ordered at [address] within 5 days of collection. ID Date Data Source [id number] 06/28/2020 03:17:17 PM EDT [facility] Name Value Range Interpretation Code Description Data Medina rce(s) Supporting Document(s) Progress Note [facility] TJPHOa7fMrNMNeTn96/PAZcyCGPxq3ZbINwiGEk8ZWovZLCaR5SyVAH1oQ3lXDB7CApNUvAxIuVqFSB5 lbm GbMzmJVjJhANKfQsbPFsZhZHdjVdzrtOWeFK1TyTN6UCGjD10dGFRbQUOuQ8FiCYZtTID+Zp3JHKLvvU NeLA2UBidC6L2td2hWFQ9o2Z9gNMQZNHtSqSWXZYcXfXv3oiYD7lWs7y2IInelmYoAllpt+vfldbnniP t2Gw9KPojJ6BNY9cmjKzuPdIEYi7/Ees8huyTD/+uf vzyU6Zb87Z+yDcetmda8fy6vC4ukzLnkuhohmv/u2DcvNr6sEnozGrb9aUkFwV5KVz5TDFN5DyzNuUGM fXsk0K59GAEmHavSt/v+VITKcQP/w/xur7dj6aAa8t5us0kdF51By5BIqABJ6RE5jDWfp4Ki/UCaCj4m yrTrtkyrvogPQuVLl/3EWxWhSbxus7zgqp6tq9wnsq [file] ICAgICAgICAgICAgICAgICAgICAgICAgICAgICAgIC AgICAgICAgICAgICAgICAgICAgICAgICAgICAgICAgICAgICAgICAgICAgICAgICAgICAgICAgICAgIA 0KICAgICAgICAgICAgICAgICAgICAgICAgICAgICAgICAgICAgICAgICAgICAgICAgICAgICAgICAgIC AgICAgICAgICAgICAgICAgICAgICAgICAgICAgICAg SYMkRTIqNNHxNW8AXEBjKGNySDSyKLHkCLAkIQDeDCNsWBAbYNWtPIBiYQAiICLsFIAzMMBbEEZbHLAd ZMOdABGvBCVhCFEeJIYvPDFwAPVwEVOaPJDhPYAtZUArCCPzEFOvIOMcJGQcCKBbCDVzSV6EOOKvLWZa ICAgICAgICAgICAgICAgICAgICAgICAgICAgICAgIC AgICAgICAgICAgICAgICAgICAgICAgICAgICAgICAgICAgICAgICAgICAgICAgICAgICAgICAgICAgIC YtXM7FJLFbTRHyCCFrTWBvJMQqUYLgOTItSMRpJMDpMVEdPZErMPWqXZQjSFWtVAKsKCZxFWNtEMSnAC AgICAgICAgICAgICAgICAgICAgICAgICAgICAgICAg ZPGdMQEwLSKgOKHtYW6MZNIzOBTfDAWnPFMfRVLrWLBvEUSrZZJoSAHfEZRpHONwEUXiWPTlUPLxMTSt GRBgZZScTLLdGEAgUPRtAUZpGDAwZUQvERIxTBQpKBOeZELvNPHyFMRwCNNyLWGcFPRhYZTbYG7AYTIr ICAgICAgICAgICAgICAgICAgICAgICAgICAgICAgIC AgICAgICAgICAgICAgICAgICAgICAgICAgICAgICAgICAgICAgICAgICAgICAgICAgICAgICAgICAgIC MzBNNbOZ1LFDBnMIYzUPFzAUWsQESrMXUoCFHjKJAbDAIjARVsEWNuHFMtQANtRQXoJKSbWQJoSKLwEM AgICAgICAgICAgICAgICAgICAgICAgICAgICAgICAg DQApERFmROUdETObAGTuFB7SNNKtNGNkUWPaXGDrNOHpWNRjFVOmAPVwBSQoMPVyZGUvLRJmSEUqHETd WPFqBJVmHPEnXNIhETLeLOBxKZElHVVoDBQmLVEdBJZbYUBzWVAbLSIrPZIrZPQsLFEyPSIzPZNiFC9U ICAgICAgICAgICAgICAgICAgICAgICAgICAgICAgIC AgICAgICAgICAgICAgICAgICAgICAgICAgICAgICAgICAgICAgICAgICAgICAgICAgICAgICAgICAgIC JoYUQpDQRzAG5DXO58yIWkd6H3BPPlVM4gefw/Jd8MSNanhjMbnWCyWZ4STnScVD2nct6VZoQvHO2ttm 3YCMnYCkFmN9Q2fCBwIMLvHNOXIiHuS85rEEcpLu99 YSzySREaFiDkKXj5Jv2OLsJoN5fpSVFiIyE9JXGwPbK3KUMeFkS4EXVaQhJlREnsSD9Gd9LyqOIyBBb+ Gw8ZXS2hv9WhXYezAxJtBF3utn0ZYCgGWyVxA4KndaV4QRO0INRrUm4WEACwASOecCLsNWNvNTOCYvUd E3NemY60UWSQKr2+CNhvbaEmTthUHwE7BYOaw0XqEC m5PT8JMAYeCKx4yEJfQGPgB8Eyc3GuHs48RRUtOtxpF4LygQL1AVObB6KoRX1tCPVWTWAhxGDiJZ1fXX 1tHUUoTKKvBaBdWOIZHH1MDDFrSZUqnCNmYXKsJWMRCB3PYGdvBPO9UZKrypUheTPvTUoqXE3IJBTdvo QgMjMgMCBSDQo+Ix2XDF8sw2WoSLiaOIUmOR0lkt0R EUhUAyWuY1U5gNKaH0A6KRyoVq8ZBSUsPBXyNqKfXCAWSLhtYY8XQA1gqjK5MF5ZpQHgBQQcLVZfyDAe JZk1E58xxBCzVCceQQ8WPKM+Pradeep+Wc9NEPRmLZUfYRLlVzJuONFYSqCkI3HdY7LKb6YjA4CuYP58kYkp jmZqHKdqXI4RPO1tGZGqRRPXGF2UdEOwaE6tlwGcWd GmSCUEFpMpN44agKGiIUCvGUGiBONtEm7JBLYgD9LotqWbpPpfnoPsZXPnMFKAHD2FHTbzdaLdbCMrsU ixTP61fJplCA2MQs5HVzHcHJ1zfo3WzGYsBk0THHRiVr6LRHNsGWYrCEMyUCC8UXHaDfKqGPyjKXCxTM JmVUD6XRKmRFVeYE1GTgHoOPXhNoJ5XGFpSAOsNGOe tv5PWRWiOPPwNcIaAlBwZIFbABZpMWzsVERrIACbNWQ6QVRjFCAbSD2AHjAdCFOlWRO4QJIvVADpLYWk mz5TDKSbXBHkBbD1ReLxDXUrVXEdVFruWTKeDNQ3HDT6BNRbUCVdHC3AAoWyOGFcRIP1AWseTIVzZRHz tj3PCIUmTYDiHVIeIEVrBMHmUWAuOWchVEUvUWQ1LC ByXLRsMENoNX7ZLgNwDQUhQKU0KJHgPMJrRGCxrm4FQJWuAGVoYRG9DCHsZNFyOMPoMAnjWNBoRNHqVK loMLRqBEXmAT7URzIiNUSrATP3SbVyTWPfWSCktc9JGNCjQDMcWxMnZxKbUXTtJOBqWRhrHIWyGPGsPy VqIWRwYMJbSQ4AUzYpTQFsXrE8FONbYPOiKBVdac5F BQQmKQJjYmx2ZyAbYOZuENZpGEpdVLFnCLG5MRv5SIGrRIWjRI0KHfDqOVHdJwQ8LrDeJYKrKKYilj0F ZZSpCFMqQOF3UMSuMJPjVHQsHCxrUZAqDKZ6JXkfDRVqYPWfEV4TAbWpOEZlFoX5QuZtEMXoNNRmcw6W LXDyGCHuDvJyJpHdFRUuXNHqVPyoBSEoUKQ7EfF7KP ImDZQrXQ8XVkBeQXppBZQEWak5BNnsA4o1HAJvTl6VD7Tai9HsSwXoQNZNLYxkYZ8qedOfASFxMh4MS5 wTTiyfLMMrXNS9VsBcXeRaJqG4MSmyIFW9B7YrXQXsNhUiEr2mSYK4FOEfHjx6QwRtZIX1LedgNHB9OD TbVcVeOUBnVYC4FnQtOK8YPr2KXzR3GRW7oOIuGn7MIxB2EOhTZaIxQW3HQEn= ID Date Data Source [id number] 06/28/2020 06:38:[facility] Interpretation Code Description Data Medina rce(s) Supporting Document(s) Amphetamine [Presence] in Urine by Screen method Negative [facility] Benzodiazepines [facility]Presence[facility] Cannabinoids [Presence] in Urine by Screen method Negative [facility] (NOTE)Positive results are presumptive a nd unconfirmed;confirmatorytesting can be ordered at the [facility] at [phone] [facility] at [phone] within 5 days of collection. Benzoylecgonine [Presence] in Urine by Screen method [facility] Methadone [Presence] in Urine by Screen method Negative [facility] Opiates [Presence] in Urine by Screen method Negative [facility] Oxycodone [Presence] in Urine by Screen method Negative [facility] Fentanyl+Norfentanyl [Presence] in Urine by Screen method Negative [facility] Service comment [facility] Results below the indicated cutoff (ng/m L), are reported as"Negative." Note: for medical purposes only; not valid for legalor employment testing. ID Date Data Source [id number] 06/28/2020 09:08:58 PM [facility] Name Value Range Interpretation Code Description Data Medina rce(s) Supporting Document(s) Buprenorphine [Presence] in Urine Negative [facility] (NOTE)Positive results above the cutoff of 10 ng/mL are presumptive andunconfirmed. [phone] within 5 days of collection. ID Date Data Source [id number] 06/19/2020 12:00:00 AM EDT [facility] NOTE: Presumptive Positive indicates a n onnegative test result by immunoassay screen. It is a preliminary result. [facility] recommends that a Presumptive Positive result be confirmed by an additional, more specific test such as mass spectrometry Name Value Range Interpretation Code Description Data Medina rce(s) Supporting Document(s) Creatinine 99.9NORMALNORMAL mg/dL 20.0-300.0 mg/dL [facility] pH 6.1NORMALNORMAL 3.5-9.2 [facility] Oxidants -19.00NegativeNegative mcg/mL 200.00 mcg/mL [facility] Validity Result VALIDVALIDVALID [facility] ID Date Data Source [id number] 06/19/2020 12:00:00 AM EDT [facility] NOTE: Presumptive Positive indicates a n onnegative test result by immunoassay screen. It is a preliminary result. [facility] recommends that a Presumptive Positive result be confirmed by an additional, more specific test such as mass spectrometry Name Value Range Interpretation Code Description Data Medina rce(s) Supporting Document(s) Cannabinoids 85.00PRESUMPTIVE POSITIVEPRESUMPTI VE POSITIVE ng/mL 20.00 ng/mL [facility] Cocaine Metabolites 44.00NegativeNegative ng/mL 300.00 ng/mL [facility] Ecstasy (MDMA) 590.00PRESUMPTIVE POSITIVEPRESUMPT LUCRETIA POSITIVE ng/mL 500.00 ng/mL [facility] Ethyl Alcohol -1.00NegativeNegative mg/dL 100.00 mg/dL [facility] Ethyl Glucuronide -40.00NegativeNegative ng/mL 500.00 ng/mL [facility] Heroin (6-AM) 1.20NegativeNegative ng/mL 10.00 ng/mL [facility] Phencyclidine -2.00NegativeNegative ng/mL 25.00 ng/mL [facility] Amphetamines 3777.00PRESUMPTIVE POSITIVEPRESUMP TIVE POSITIVE ng/mL 500.00 ng/mL [facility] Methadone 3.00NegativeNegative ng/mL 300.00 ng/mL [facility] Opiates -15.00NegativeNegative ng/mL 300.00 ng/mL [facility] Synthetic Opiates -12.00NegativeNegative ng/mL 100.00 ng/mL [facility] Tramadol 19.00NegativeNegative ng/mL 200.00 ng/mL [facility] ID Date Data Source [id number] 06/19/2020 12:00:00 AM EDT [facility] NOTE: Presumptive Positive indicates a n onnegative test result by immunoassay screen. It is a preliminary result. [facility] recommends that a Presumptive Positive result be confirmed by an additional, more specific test such as mass spectrometry Name Value Range Interpretation Code Description Data Medina rce(s) Supporting Document(s) Buprenorphine 20.420Positive - ConsistentPOSITIVE ng/mL 5.00 ng/mL [facility] Norbuprenorphine 271.900Positive - ConsistentPOSITI VE ng/mL 10.00 ng/mL [facility] Naloxone 2.800Negative - InconsistentNegative ng /mL 25.00 ng/mL Abnormal (applies to non-numeric results) [facility] ID Date Data Source [id number] 06/19/2020 12:00:00 AM EDT [facility] NOTE: Presumptive Positive indicates a n onnegative test result by immunoassay screen. It is a preliminary result. [facility] recommends that a Presumptive Positive result be confirmed by an additional, more specific test such as mass spectrometry Name Value Range Interpretation Code Description Data Medina rce(s) Supporting Document(s) Norfentanyl 0.000NegativeNegative ng/mL 1.00 ng/mL [facility] Fentanyl 0.120NegativeNegative ng/mL 1.00 ng/mL [facility] Carfentanil 0.090NegativeNegative ng/mL 1.00 ng/mL [facility] Norcarfentanil 0.310NegativeNegative ng/mL 1.00 ng/mL [facility] Sufentanil 0.180NegativeNegative ng/mL 1.00 ng/mL [facility] ID Date Data Source [id number] 06/19/2020 12:00:00 AM EDT [facility] NOTE: Presumptive Positive indicates a n onnegative test result by immunoassay screen. It is a preliminary result. [facility] recommends that a Presumptive Positive result be confirmed by an additional, more specific test such as mass spectrometry Name Value Range Interpretation Code Description Data Medina rce(s) Supporting Document(s) Methamphetamine 2500Positive - InconsistentPOSITIVE> ng /mL 50.00 ng/mL Abnormal (applies to non-numeric results) [facility] Amphetamine 861.670Positive - InconsistentPOSITIVE ng/mL 50.00 ng/mL Abnormal (applies to non-numeric results) [facility] ID Date Data Source [id number] 06/19/2020 12:00:00 AM EDT [facility] NOTE: Presumptive Positive indicates a n onnegative test result by immunoassay screen. It is a preliminary result. [facility] recommends that a Presumptive Positive result be confirmed by an additional, more specific test such as mass spectrometry Name Value Range Interpretation Code Description Data Medina rce(s) Supporting Document(s) MDMA 3.390NegativeNegative ng/mL 50.00 ng/mL [facility] MDEA 20.520NegativeNegative ng/mL 50.00 ng/mL [facility] MDA 13.860NegativeNegative ng/mL 50.00 ng/mL [facility] ID Date Data Source [id number] 06/19/2020 12:00:00 AM EDT [facility] NOTE: Presumptive Positive indicates a n onnegative test result by immunoassay screen. It is a preliminary result. [facility] recommends that a Presumptive Positive result be confirmed by an additional, more specific test such as mass spectrometry Name Value Range Interpretation Code Description Data Medina rce(s) Supporting Document(s) THC-COOH 37.810Positive - InconsistentPOSITIVE n g/mL 15.00 ng/mL Abnormal (applies to non-numeric results) [facility] THC:Creatinine 37.8 [facility] If THC:Creatinine ratio increases betwee n samples, new usage on or between those dates is possible ID Date Data Source [id number] 06/19/2020 12:00:00 AM EDT [facility] NOTE: Presumptive Positive indicates a n onnegative test result by immunoassay screen. It is a preliminary result. [facility] recommends that a Presumptive Positive result be confirmed by an additional, more specific test such as mass spectrometry Name Value Range Interpretation Code Description Data Medina rce(s) Supporting Document(s) Temazepam 2.550NegativeNegative ng/mL 50.00 ng/mL [facility] Lorazepam 10.650NegativeNegative ng/mL 50.00 ng/mL [facility] alpha-Hydroxyalprazolam 8.930NegativeNegative ng/mL 50.00 ng /mL [facility] 7-Aminoclonazepam 13.640NegativeNegative ng/mL 50.00 ng/mL [facility] Oxazepam 13.710NegativeNegative ng/mL 50.00 ng/mL [facility] Nordiazepam 7.120NegativeNegative ng/mL 50.00 ng/mL [facility] ID Date Data Source [id number] 06/19/2020 12:00:00 AM EDT [facility] NOTE: Presumptive Positive indicates a n onnegative test result by immunoassay screen. It is a preliminary result. [facility] recommends that a Presumptive Positive result be confirmed by an additional, more specific test such as mass spectrometry Name Value Range Interpretation Code Description Data Medina rce(s) Supporting Document(s) Pregabalin 8.260NegativeNegative ng/mL 500.00 ng/mL [facility] Gabapentin 2500Positive - InconsistentPOSITIVE> ng /mL 500.00 ng/mL Abnormal (applies to non-numeric results) [facility] ID Date Data Source [id number] 06/08/2020 02:52:12 PM [facility] Name Value Range Interpretation Code Description Data Medina rce(s) Supporting Document(s) Amphetamine [Presence] in Urine by Screen method Negative [facility] (NOTE)Positive results are presumptive a nd unconfirmed;confirmatorytesting can be ordered at the [facility] [place] [address] at [phone] within 5 days of collection. Benzodiazepines [Presence] in Urine by Screen method Negat [facility] Cannabinoids [Presence] in Urine by Screen method Negative [facility] (NOTE)Positive results are presumptive a nd unconfirmed;confirmatorytesting can be ordered at the [facility] [place] [address] at [phone] within 5 days of collection. Benzoylecgonine [Presence[facility] in Urine [facility] Meth[facility]one [Presence] in Urine by Screen method Negative [facility] Opiates [Presence] in Urine by Screen method Negative [facility] Oxycodone [Presence] in Urine by Screen method Negative [facility] Fentanyl+Norfentanyl [Presence] in Urine by Screen method Negative [facility] Service comment [facility] Results below the indicated cutoff (ng/m L), are reported as"Negative." Note: for medical purposes only; not valid for legalor employment testing. ID Date Data Source [id number] 06/08/2020 04:10:04 PM [facility] Value Range Interpretation Code Description Data Medina rce(s) Supporting Document(s) Buprenorphine [Presence] in Urine Negative [facility] (NOTE)Positive results above the cutoff of 10 ng/mL are presumptive andunconfirmed. Confirmatory testing can be ordered at [address] [phone] within 5 days of collection. ID Date Data Source [id number] 06/08/2020 10:31:01 AM [facility] Name Value Range Interpretation Code Description Data Medina rce(s) Supporting Document(s) Progress Note [facility] ZNKXEj3gLcEHAbYr91/EARibEICge6NwNGzvJCo9LQrcLLNzR7RjRMJ0xS3tNJS1ASeJGrNrJcYcSKK2 [facility] [file] ID Date Data Source [id number] 06/02/2020 10:25:11 AM EDT [facility] Name Value Range Interpretation Code Description Data Medina rce(s) Supporting Document(s) Progress Note [facility] OGJCFx6fByLOTrBi40/HIAoiNWMoc9BaUCphQQy9FPknYGQbU2BqSWL9bT3oCTO8HPcZWvFsGuYtNXIu lbm [file] Y3ZRziCBE9EgIqXUvoTkZiFZ0HTi3PWvO1FYG6rWUiIj7JIcA8BzZPFgJuOO0OXGn= ID Date Data Source [id number] 05/25/2020 09:33:18 AM EDT [facility] Name Value Range Interpretation Code Description Data Medina rce(s) Supporting Document(s) Progress Note [facility] FVUGVb0tAdHMYnWt38/XPRnlNGMzf1WiLVwnFFi5NIjxPISwK2EtVZO5rP1yLFS7DIpZLvYnUcJpDNO6 lbm [file] LgASR9KLC6VxHtPU9IBq8NWrY3CPI1dKMjEs0NGqA6GCQPPlNfUQ3TKZj= ID Date Data Source [id number] 05/25/2020 02:25:59 PM EDT [facility] Name Value Range Interpretation Code Description Data Medina rce(s) Supporting Document(s) Amphetamine [Presence] in Urine by Screen method Negative [facility] Benzodiazepines [Presence] in Urine by Screen method Negat [facility] Cannabinoids [Presence] in Urine by Screen method Negative [facility] (NOTE)Positive results are presumptive a nd unconfirmed;confirmatorytesting can be ordered at the [facility] [place] [address] at [phone] within 5 days of collection. Benzoylecgonine [Presence] in Urine by Screen [facility] Methadone [Presence] in Urine by Screen method Negative [facility] (NOTE)Positive results are presumptive a nd unconfirmed;confirmatorytesting can be ordered at the [facility] [place] [address] at [phone] within 5 days of collection. Opiates [Presence] in Urine by Screen method Negative [facility] Oxycodone [Presence] in Urine by Screen method Negative [facility] Fentanyl+Norfentanyl [Presence] in Urine by Screen method Negative [facility] Service comment [facility] Results below the indicated cutoff (ng/m L), are reported as"Negative." Note: for medical purposes only; not valid for legalor employment testing. ID Date Data Source [id number] 05/26/2020 10:32:59 AM EDT [facility] Name Value Range Interpretation Code Description Data Medina rce(s) Supporting Document(s) Buprenorphine [Presence] in Urine Negative [facility] (NOTE)Positive results above the cutoff of 10 ng/mL are presumptive andunconfirmed. [phone] within 5 days of collection. ID Date Data Source [id number] 05/23/2020 03:43:40 PM EDT [facility] Name Value Range Interpretation Code Description Data Medina rce(s) Supporting Document(s) ED Provider Note [facility] LNISGn1lBjFPPnWp89/IIWvvFKIdn0DoLNrdTSq5SIioNAVuG9VzJVT8aI3xZUE0UPuFGvBmIbQlOKYz lbm [file] ICAgICAgICAgICAgICAgICAgICAgICAgICAgICAgICAgICAgICAgICAgICAgICAgICAgICAgICAgICAg ICAgICAgICAgICAgICAgICAgICAgICAgICAgICAgICAgICAgICANCiAgICAgICAgICAgICAgICAgICAg ICAgICAgICAgICAgICAgICAgICAgICAgICAgICAgIC AgICAgICAgICAgICAgICAgICAgICAgICAgICAgICAgICAgICAgICAgICAgICAgICANCiAgICAgICAgIC AgICAgICAgICAgICAgICAgICAgICAgICAgICAgICAgICAgICAgICAgICAgICAgICAgICAgICAgICAgIC AgICAgICAgICAgICAgICAgICAgICAgICAgICAgICAN CiAgICAgICAgICAgICAgICAgICAgICAgICAgICAgICAgICAgICAgICAgICAgICAgICAgICAgICAgICAg ICAgICAgICAgICAgICAgICAgICAgICAgICAgICAgICAgICAgICAgICANCiAgICAgICAgICAgICAgICAg ICAgICAgICAgICAgICAgICAgICAgICAgICAgICAgIC AgICAgICAgICAgICAgICAgICAgICAgICAgICAgICAgICAgICAgICAgICAgICAgICAgICANCiAgICAgIC AgICAgICAgICAgICAgICAgICAgICAgICAgICAgICAgICAgICAgICAgICAgICAgICAgICAgICAgICAgIC AgICAgICAgICAgICAgICAgICAgICAgICAgICAgICAg ICANCiAgICAgICAgICAgICAgICAgICAgICAgICAgICAgICAgICAgICAgICAgICAgICAgICAgICAgICAg ICAgICAgICAgICAgICAgICAgICAgICAgICAgICAgICAgICAgICAgICAgICANCiAgICAgICAgICAgICAg ICAgICAgICAgICAgICAgICAgICAgICAgICAgICAgIC AgICAgICAgICAgICAgICAgICAgICAgICAgICAgICAgICAgICAgICAgICAgICAgICAgICAgICANCiAgIC AgICAgICAgICAgICAgICAgICAgICAgICAgICAgICAgICAgICAgICAgICAgICAgICAgICAgICAgICAgIC AgICAgICAgICAgICAgICAgICAgICAgICAgICAgICAg ICAgICANCiAgICAgICAgICAgICAgICAgICAgICAgICAgICAgICAgICAgICAgICAgICAgICAgICAgICAg ICAgICAgICAgICAgICAgICAgICAgICAgICAgICAgICAgICAgICAgICAgICAgICANCjw/eMBgQ7otxWXy jxV4M6nvQp5YRg6DKI6ao7HqPSBpMVdpsiDlMycASl LyZMHsQbfLRds8LQtiYB0TkLCyB7GyH3OpAZgzFN2ALSFmZTZfrFDwBDGtTTYsKuK3UYMxZAjnRR6EsR IkHGgzNYNzIMTnTjNqWYGiRVXkQKCfOAWjEHXBAZXjYVGdVoVqHCDgEBBeIPunLKBSLAH7LCOeMqZhTG QcTVQjDqGvDGCXOTU6TSEcTiPrUTkhZK1Ka1QmpYHy ZU7WKg1ODeWgVI2ldz0CDJHsSYUhZabLQfy7XDkeOR3TsECswFZ2XmIeXDQLJrUyE1zah1HyUHiqAELP WNnqSR6Yi3HfqFCwRSu+Ni2SXJ1ul2LtOFi9IqPbWA6rvf7OZSaPWiWzT2TqhKczICEIAKJxy9UpNHJj TW2kkMZlTXY2KEIsbSKjX3haPlLKYBFtB8bhZW4EBD G9OXakWP9fTMSaROTzMcL6TLFISG5ODPGsALLtjYHnNLWgHKFYKQ6BZHaaLYE8NpHvdxIndDWnWTnmZS 9LVSCjjvUsQIHiQXOSEXjzQZ4FdRXclYW6RhAqXSACFcXfJ2lur4OrSTjvAKWJPVrfIX1Hq4XvdFFzQC 9SHVOfOhY7qDW2WZTxLDVUDu1+DQplbmRvYmoNCjQ3 NKAol0JnJHj7OR9MHEJoACa2fQBqDqYhc5gvyjMrAC5GZRIjQGTwuPDdXQTrKNPdMoBmCJgdYDPzBrIr JW07mEhjKF9DJTSpVFGcQK84RAH6AQFpOo1QMj7HReZaJR1elh0IHTjpJZWlUsuGNtp0WHraWM3VqOHh PQiSLLBJag93kHAfewNGi3KljpIyeCMGRZJceNCbTW GzVFJrl4WaIWGIAZHlxAW4JmYhYuDsSEFyBml7WhLOFGnOUpFvF4Gjc9BiQcSvHcCfFMCqU5jZOyMaTX BpPWOydIfqDQ8PXjRpA6UoeoVwqSG1AYCiCDAZHeQpW1KjQCRiNLQlVDPRDWjtJL9CWGz9VVG4YFBiJg 4DXq8KSaLhDC8akd1RGYriDBPdYqhBCbr8PFxbOX0Q tSEiIOcRETWVdbvaK0WgHu62IBBcUteqBlJuv5BzcQFXJQonapfrMtdiLn5aOGZjER65FxPvEvViKPT7 GBAcOW5nZAarZH2UGJV8RJctIgYgUUAVTW9OYQaoBAP4DWOmnlOzkTUdWRzsZU0PSXVfssDhHGLvDTKA YIilNU8MmtK5MHM4MGPaVd2WJd0GWuHpYW6lcj0NRG WeZCXiHvnSObh2QHisIX0MoDWfB6VxnETps0eSGoHqN5UHLIBeCDWpRj1AIVPzTaEgJQLyPHkbGY3xOM VnKKEGfDymrhP4QN4WOP8ffcCpUG4KJzFxBm3vWg4SVbOqE8TfK1ZvWBHoRDMRPUnnTJ1HXWviXE0cKE 7Du0TPeSOzwP6qla8VFEHrOXSeKokeqd0OJckpG9Z0 iKxiGSWpNQTwNEPMGJjvCB6PMTSdYHL8MIG0BVZwEMBPMvVaC83sTK1CH2Oey30mPdZ8BHEtIsXiKDis NB13mTulonWkwQMkhMebWL0WDc8+ALzwbxBcWwrXTdjgDVPTLdHtCBQNZaIkVPCiWGKfXLGqMsY9DpDp Ax1AMMSzJQHuIIKtWfBvQIQgDAFtQCuuVXIlOLN1HL imUHWxEEVgVU4RByDfJMZeRSl5JHToYAFrJFMpqn4IYMJzUHCdRDO4KzNsUITeYOGaOYbsXOLxDXAgIi j6ZYHsOCRbHS5UDqElXDHhXPJ0CHFnWRCaHEObwj6RIOTfBCAbVKO3ZQZzCXWgYOPyTHafLGOpQIB2Xk wyKYYhSYZjUW3YSgOgCQFlUXh9SZFsKTOfYNDzep3W SXQsSGBwKHP4URZhYSDwEGWtJPleBWCeBSWpEaNtFNScTCYjPE8AGhCfAQKzHXF6CZDkAKQiUKKtsi0X ABPeTSFrEPNpQiFwWSNyDAGhSGkmMMYsPCW9CvHmKMCfUKOaYN3BEqGrEWYhECvlEeIdXOUrBPLggl6H DBVhYRVlLhP2SOXlWKUuECZcDKytVPKhTYP2VDW5AS KyLKYjLX9BEbCmJXStYmKdMhFgHPBjFNLvdc0FFKMxNIDcKlW1UmRzKOMfWSLrLZnnDZJmWIQhMErwLL MqYLVaFC3XElXuDYYkFjNaYVXtWLZwLMJgyi0YADJxRCRbQBMdBtZpIAEyWLDuBUkeDRZjYXO0WoDoRD HjWHIoRA6RZlRrXXYjKdw8ZXcjBBJoHSWxja3NHQDp OZNePRN1QzUhJMDbCEPcTZbdBPJeCPMcRTy1ITMxOBXqUY5GLoJhYVUyVoA7NwnaELTtDRYmqr4WAHOc ILSfUEAtQSDnJDKnUUNdEQnrMCXqLRWsJYE3RSLzIVWlBI3RHdRdMNYkQjC7BlofITNzUDSrzn8SNQWl WXZcVrf5ZNXfLAUtSNIvJHmfMKAyFNAmOSN0LHFnKR ItUL8GZzTvHHAbUJV8QNPfLMOiNNXmja7VDLGsFZQ6YRm6NYCzPUEkQQGxEFyiUMZcMHT3SEv7UIAuDH UaQB5JBiRtRWUzLMXrGXreHPYhBACjhv5NKNPhOWX0KCE9EPEtHZJvPUHwTApsBHAeQOP8AKN4PJYmYR QlRT6GSfZvEIBoGGH6WTDrRCTgLVQhnb5YITDpFMR9 Uqs8EYCtHZCeFAJuSOnsBUCwATC7JlC3VVHdUIUyGH9JBpYzVROvLWt7GZatILUoWQNqnm6PNLDsTGD2 SKJ7XMCmRIBdYGHxAVruERJeISR5HRIxATPgMMLaSI4UFqHoODVjARDqAZLaHBAsYQQbhj4NIVRaUWD2 NTT2TAYzYBZkJUIeSCanHANmHOEhWoe8ENJhCZRlUR 7FGsOlFOEeMRKsECrwXRCzJHZmkf8EAEQvFKF1VVC8AjJqMUYhUFMtTHtaVNMyHQYgMtBkEDQwIVIqMA 4QZfAsKWubPSVKLwn2MWbaG4m6TRU9EE4GT6Yff3KjGUCqUPDOKFmvEM0xuqYoTGSrOg5IN4jFTeamDt NmWPOuUyYqT1BqFFY5KuZgUHS6VcP5TxHxBKDdJC4h AVOyMGDcYeA3QPNgYUKaXoWsRLF5QdffESS0ZYK1MAGpQaVbRD1SDb9KQeB6PKU8oMZnPd1GPJP6FNDE PaDyXM5VIXe= ID Date Data Source [id number] 05/18/2020:16:53 PM [facility] Name Value Range Interpretation Code Description Data Medina rce(s) Supporting Document(s) Amphetamine [Presence] in Urine by Screen method Negative [facility] Benzodiazepines [Presence] in Urine by Screen method Negat [facility] Cannabinoids [Presence] in Urine by Screen method Negative [facility] (NOTE)Positive results are presumptive a nd unconfirmed;confirmatorytesting can be ordered at the [facility] at [phone] [facility] at [phone] within 5 days of collection. Benzoylecgonine [Presence] in Urine by Screen method Negat [facility] Methadone [Presence] in Urine by Screen method Negative [facility] Opiates [Presence] in Urine by Screen method Negative [facility] Oxycodone [Presence] in Urine by Screen method Negative [facility] Fentanyl+Norfentanyl [Presence] in Urine by Screen method Negative [facility] Service comment [facility] Results below the indicated cutoff (ng/m L), are reported as"Negative." Note: for medical purposes only; not valid for legalor employment testing. ID Date Data Source [id number] 05/18/2020 09:45:36 PM [facility] Value Range Interpretation Code Description Data Medina rce(s) Supporting Document(s) Buprenorphine [Presence] in Urine Negative [facility] (NOTE)Positive results above the cutoff of 10 ng/mL are presumptive andunconfirmed. [phone] within 5 days of collection. ID Date Data Source [id number] 05/18/2020 09:21:43 AM [facility] Name Value Range Interpretation Code Description Data Medina rce(s) Supporting Document(s) Progress Note [facility] UFVYWb1oEyYWKvNt66/HRWtbSRUkr6NxORlsAFn5LEkzEHDoO2UkSTO2xV5oRDP6TBoXPcQuImTxYUZ3 [facility] QtXueUGiDqLJNqAywKZtGtUDmgTdqabMFnLK4UkFT3ITKoJ16fIGQvSSFwC1CsUFO8FrY+Py8LNMBlrK VzHR8VXcrS5C1zh2jTGh4+rV3HNaRmC8CG77U8LSUIQgbv3TJ2p3NtgO+1LGtkJDLe9SNl3w1/PiXOhP wNL70DMf3s5Xc9SHG1S+9ZkkrV//tFHfquYRiq/G/9 Tz+01N1c/k4ewxQSkdqQPo5pq9gSCUBr/ToKnO1y387sNOdKG06PCZJZY/wR4DJSOLroyXfyqzfut25A 2nAE9zkIn4CufhZpSb68/GSdKjX40wr+my++UDc/jyZv5Hx2CbZyNZOG+WT8MFcX9Ypz0RkjuuRbe1+w F3T4iiM07kZxbuyyg2O0LRc9gcfnJc8Q90ND2BFZkw aW57McL7kYr5UAvPGDUprBWKnUvNMHHAJmwx+3rVp+2pRo2GhafdqMQtWtSikxlZIgRw/x1GA81tLPpP 26i3Qj4GNUK7xQeIv0Ja2hVYEuuRa2d9Q+ekx1v9Kl2j6wh6/aBdbOfgm0BX3FRbH5uS0jsynUq56wjF iva9cHeYIB+8hMt9uZHIjgVzZQG7j8nf1/R4Tsg3yW nkFLeFNf0Kq4ZCF3kkwipzPylx9Dd0Jm9RhLwTdJpLr6l0iq9/JxIacbUa91n1BX2oRsoza/aGjhKw8M zuu983jrsGzF0Q4TGB0iQ0mFUsARjk06MxWxQSuzyz6fveBIg2akKT4Dxc6YzWiLxovwT+GBE3p+Ee58 u61zzIFoWiwXGHW2gm0eflQyYHwP2ZMVTh+Mu5B0Af 6abIPnAFHgsENy6Vnn+XlSkcRN7ZgUMr5Ov0Hd76bmUjKxHQK0Uz9N0TOONv6fZw6ghSYZYIfcCZG5Kj TgYWV3Smo/ewkxbLtAWfqsKI/Pharmacy General Manager+vxpS8yjIksTOTBlKBuKSBCenNafET2HRgf/l5l6a/TXC7bf0y1c8 [file] Maria Luisa+tGLf8Xi65BMD8RSa9scG7QNtns5wCLdA2nquiLOa8c6ZC8DhGybMGSPxBvgwrtzwtf0Fa3pJgy2s [file] o= ID Date Data Source [id number] 05/13/2020 11:43:52 PM EDT [facility] Name Value Range Interpretation Code Description Data Medina rce(s) Supporting Document(s) ED Provider Note [facility] AECWWf1aWdROQrNg56/FKKszLTPlz1ZnRGwkVNj8QNfhNGCdM1GbWXR6wC6uQDG1XIuFUuWiSvHePTEn lbm EeCwjTDnOjKBAhZfrNBrCeRRgrIqhuqQRjMC2ZmNP6HBMiY96oXKBjTDMqE4KmAHI9DCY+Fk9DUFImmD IiPM4NDepY7D9KRqpKVc7eyb2IYpsul/TzmOsSl8AzAG+6ZpukuQsvwxs3DHVS6Y59L9oEJ6/LwdVa0h Yfwt5zaGEjAP7cSXNPfHHVScM//Wh0eNGFybI/97+6 VIuTK/G3y7uAQRYol40+LTHZE3ge6zCrDU1o8xFAb5/Fm/oPTERT0CdNkVkLHYEolFcO1qxIn4/j2fS1 OMqz6/PRdJKJA/F42gOIQjU3uJ5i760+[employer]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 [employer]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/hKqO0mLvlDleVznbgihQd4yXAK/mYm+UZztCpm+keaOl [file] CHz0R53tkBPlWTovSK6JXOB+Pradeep+Eo3DXSVsNKVxVSUaJvJnAEWYCdTuI9NsU5JFv9MvO5JcYI46mRam kyHeEZqxZQ7XXF6jWNIbOWDQLT0BfPOzdW4xxdPiDW VeFDOJYoTeO98tnZVaNJDaNED6CIUhFw8QUNQzV5HvrfEhzCmyokXgIQGjWFHLGG1FVMhzfjBbiWIzgJ agGK44mNwjPG1CXu4ZNnMsHB5qip2BtPRgVl2IZBX2BM8EDUQcGWRuFMGyVGR4GOYqZfOcXVwyEGCnGE ItVXG2NAXhHGKtKH5KQgDiJQQmKjm3TLrfIUXuKKGg yo0WCJCkVFB9CEQ0ZTBgHQMuHOYnQVbvNHCcJPTaHRM9QBHmFZFtND6SYhWxKAOhAJMoWmNeUEAjETIh sw0ZRWPxIROqAtZtCFBiRHRfABJnEHrkBYHhOTT4NyVeALYdTSFvML6JAhVmDISfDQL8NBriOEEuMEFy ue0XJOOmHIIuSBSfIZTtAIWbXRCeNZupSMGxFPY5Wn C6NNIqCFSjHH4GAzKcLICeECA1ClXdVKSkIPLwql2TQHMdDABwVYa5PRWxUJLbIBLzRQoiPHAhVME3RN SlFQDkMNDuME1DEgUhWMIwSAC9WoxhAEKbTVJvfq8ADTCbSMYvRcJ3PRRrFBAjWNDcEOhzLGLoIER7Kt ZsXTRzTLQeAS9PWoTiXJZtSoJwOGjxLUZhEEAyuy5V JBXxDQIbMRE2OKYwCPHtJEStAXwdTYGmWKVnJoZ7MCIaURHwFP6DKlKpHBSeGeX2XrKhKWRlNLVssi8F AALaZTFsEqmbURTlWHCgBBQzTKmlSRZeAOHlOPT2LLMjKOWyVQ5JXlJvJSUlWdZrURDfSIKnSMWiec2W GAQkRKFyAXE3GARyGOLyTFCkJEcbVHCoZYU8WJAkYH XoTVCvOS1BKbMiDRVqDvK8WKsjMRJfADDdbh5DZQSzLDAoKAWdPEUfJGBxASMaXBoxVNIpPNP8JQL9SA AsOMBmRG1IUeGkQDUyUpO8FScqCNDjJNAeaf6HDPNlAEIgDeI8UVFeBTKwOTFxTZtiMYMaGVG9FmjvVQ HwKFPoLF3AJrJtYVNoYcr2BSUqVVDyQWFsah8MSRYj FUNwGFZ0TQLfLZXfUVYvTIfeIWZrWWH4Quh9XOLuFXIuIF6RRvZtEDCvVxzhEhAeYRDzLADjtt6XXYCu EDScQCAwYUEfLSErTAEtHJseITEiUNZ4SSu6PMAjNLYxAL3CAhWiIKWaAYKgTxynEXBtDZSmva7WMKRt MCM6PXCpXRIyTTGtBWIeVTgwQYZwGNOpTKk1GSYiKI LcOO7WMtTwJVUqZYV0AZDsJJGkDQWvqn6PMJEkYLH4IOp7BPFbFEDoHDHfKOjlAEQcKQHyVYM6FJFcQI AcAB9FSwJnIJhlUEKWWfv6RArlY2n0ZDZ5PD9AA0Hsz0TiEPNvZTASFSchUS5eicBnVGAkJu9NK0xTHw jnShM5ZxMtAQEuIJXcJSE8BTLnMjs4KHA4OMJ5NFUz VO0nGCBlZDhoHPXwHoLcBQGfVNyzJLOvYQi7FsNyVUB0Q7L5TeGwJF2AGo5ZTyW6BRU4kYZlUt3ETKSg PXGJBoCaWE3IPSq= ID Date Data Source [id number] 05/13/2020 04:59:47 PM EDT [facility] Name Value Range Interpretation Code Description Data Medina rce(s) Supporting Document(s) Consultation [facility] TPLIUc2xWxALXhDn67/HYRhmPVXpj9KvEHxoTQh4NOnzUOUdN3DoGOI3uN4wQSE5UCeKSsGlPvMgJIHv lbm EsWzcFRaMiWNOdBmtTEiWxQAnhXyumuCSpVE6VcUV7WPGpV94gRVIlSFNyM0JrXPNbUTW+My5CRPEuuB GzWK0QBwnG1A5dc2j3Aj3plo4FpDxVJ+nENsE7/amJjwCGmlQigC1Pkt8WxwO9e6rzSs8jl99yhnk5hs +tXmzq3i2seUGTreBA5gHUvHwR2m//eI1HdmqS3G/X P1AEFwMe+U0zhwus3DP42espLPgICxyExnQ149LRS7qme87sO0YlsYyxIN1T7SdSBvS2Grq1Mkh4O7Un yHh2zbfmmPxt+WOlKb44ZeIO34evyCS7yQi/E4sT3dYsaxRnJKcRUh5cgsVlifz0j0BhZZV5f9MaXpkq 9qHhVU36U9N0PtxO0xT/mCJaqYz1O8WWswQ/S2MxN8 s/865LVupE6zbLlKqSkXyHjuNIUz0dzKYtZ/9ZL+LVWhzFy+LsstqoEtq54osaD2JFlWYp4n7frY84o+ Uq0BgYh1vRLXQ6uLxmr62OxGIiU9Z+9ZI4TEf1vlHp7JthImhVmkO6oorWo3Vfo4edss+FpACTGw39A2 iSdTkYZ8+I4tPtkE7bX+jtq3m3dO2JxyrA9AiXrs8K aMm+5MY3tBQ5AjuhFqrjkfnQaRXv+8EyXPRaT4lJuJaFBkMCT79dmBTwmvUY22SK/yeDt9slT6YA8la0 quqywt+gNMqOPNfJAPnIx5Z+TA0GOmjYC1WWQHY8OdbrRJcA3RquphMDbofHLt68zT2k2m01IKuaSQZM YaXPMGEfks+W38lffCTyhAwJixoaGxJ3MwjhKTcgc9 bcJwnHFRYT1Rx7ziFgurugUZFeGDI+uOJZrhLgAHAaAwguaABtiYJN0QSVUlMH7fo3xAmJiZ5KXGHmb1 W/paSDysUIlYwlhUhP14aannvL6DkAALIus2Rbr1iXnHkwRFvvWyDjitkbZVR7JzkkNGeI2zHAwzzUsl qFMPL/CGNdOBQrfwkD6C4jAyy4jRHNkP7wojHzY2Zp aR9/iySkaSToYsyNySQk7ZCKSXdTpz0OOCBk5oI/Ht66erGtTD4cgicTkk8nyUP4MisiypneIcLwM3fs U4MSsf2N+tc59S+KNSNIOTkb1WtB9BZXNeq5QNWBPuNKr0ua3sCYk2HiTHlNdYaA4nq9iKd8LSjqSGah bbtYdh/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+SdN/cngaqh4e/FwPuHAtBYUVT2TyJvJ [file] R7WYX7GLb0KOXfEDLrHPpgDQk4RnMtEJ5TDp8HMmQ1KOH2tPDiCa1XPHUyTz3QIDWGN4CQAr== Procedure Social History Code Duration Value Status Description Data Source(s ) Smoking 06/17/2021 12:00:00 AM EDT Current Smoker completed Curre nt Smoker eCW1 ([facility]) Alcohol intake 07/13/2020 12:00:00 AM EST Ex-drinker (finding) comp leted Ex- drinker (finding) [facility] Tobacco use and exposure 07/13/2020 12:00:00 AM EST Never used co mpleted Never used [facility] Cigarettes smoked current (pack per day) - Reported 07/13/20 12:00:00 AM EST UNK completed [facility] Smoking 07/13/2020 12:00:00 AM EST Current every day smoker co mpleted Current every day smoker [facility] Alcohol intake 07/06/2020 12:00:00 AM EDT Ex-drinker (finding) comp leted Ex- drinker (finding) [facility] Alcohol intake 06/28/2020 12:00:00 AM EDT Ex-drinker (finding) comp leted Ex- drinker (finding) [facility] Smoking 06/27/2020 11:30:00 AM EDT Daily Smoker completed Daily [facility] Smoking 06/26/2020 03:10:00 PM EDT Daily Smoker completed Daily [facility] Alcohol intake 06/26/2020 12:00:00 AM EDT Ex-drinker (finding) comp leted Ex- drinker (finding) [facility] Smoking 06/14/2020 07:56:00 AM EDT Daily Smoker completed Daily [facility] Vital Signs ID Date Data Source UNK Name Value Range Interpretation Code Description Data Source(s) Body temperature 98.4 [degF] 98.4 [degF] eCW1 ( [facility]) Systolic blood pressure 128 mm[Hg] 128 mm[Hg] e CW1 ([facility]) Diastolic blood pressure 60 mm[Hg] 60 mm[Hg] eCW1 ([facility]) Body weight 115 [lb_av] 115 [lb_av] eCW1 ([facility]) Body weight 52.16 kg 52.16 kg eCW1 ([facility]) Body height 63 [in_i] 63 [in_i] eCW1 ([facility]) Body mass index (BMI) [Ratio] 20.37 kg/m2 20.37 kg/m2 eCW1 ([facility]) Heart rate 122 /min 122 /min eCW1 ([facility]) Respiratory rate 18 /min 18 /min eCW1 ([facility]) Body temperature 98.0 [DEGF] 98.0 [DEGF] NETSMA RT ([facility]) Body temperature 36.7 KRISTEN 36.7 KRISTEN NETSMART ([facility]) Heart rate 120.0 /MIN 120.0 /MIN NETSMART ([facility]) Respiratory rate 18.0 /MIN 18.0 /MIN NETSMART ([facility]) Systolic blood pressure 108.0 MM[HG] 108.0 MM[H G] NETSMART ([facility]) Diastolic blood pressure 71.0 MM[HG] 71.0 MM[HG ] NETSMART ([facility]) Body temperature 97.8 [DEGF] 97.8 [DEGF] NETSMA RT ([facility]) Body temperature 36.6 KRISTEN 36.6 KRISTEN NETSMART ([facility]) Heart rate 90.0 /MIN 90.0 /MIN NETSMART ([facility]) Respiratory rate 12.0 /MIN 12.0 /MIN NETSMART ([facility]) Systolic blood pressure 101.0 MM[HG] 101.0 MM[H G] NETSMART ([facility]) Diastolic blood pressure 65.0 MM[HG] 65.0 MM[HG ] NETSMART ([facility]) Heart rate 102.0 /MIN 102.0 /MIN NETSMART ([facility]) Respiratory rate 18.0 /MIN 18.0 /MIN NETSMART ([facility]) Systolic blood pressure 113.0 MM[HG] 113.0 MM[H G] NETSMART ([facility]) Diastolic blood pressure 78.0 MM[HG] 78.0 MM[HG ] NETSMART ([facility]) Diastolic blood pressure 68.0 MM[HG] 68.0 MM[HG ] NETSMART ([facility]) Body temperature 98.2 [DEGF] 98.2 [DEGF] NETSMA RT ([facility]) Body temperature 36.8 KRISTEN 36.8 KRSITEN NETSMART ([facility]) Heart rate 94.0 /MIN 94.0 /MIN NETSMART ([facility]) Respiratory rate 16.0 /MIN 16.0 /MIN NETSMART ([facility]) Systolic blood pressure 103.0 MM[HG] 103.0 MM[H G] NETSMART ([facility]) Body temperature 97.8 [DEGF] 97.8 [DEGF] NETSMA RT ([facility]) Body temperature 36.6 KRISTEN 36.6 KRISTEN NETSMART ([facility]) Heart rate 101.0 /MIN 101.0 /MIN NETSMART ([facility]) Respiratory rate 14.0 /MIN 14.0 /MIN NETSMART ([facility]) Systolic blood pressure 112.0 MM[HG] 112.0 MM[H G] NETSMART ([facility]) Diastolic blood pressure 76.0 MM[HG] 76.0 MM[HG ] NETSMART ([facility]) Pain severity - 0-10 verbal numeric rating [Score] - Reported 0.0 S karie 0.0 Scale NETSMART ([facility]) Body temperature 97.9 [DEGF] 97.9 [DEGF] NETSMA RT ([facility]) Body temperature 36.6 KRISTEN 36.6 KRISTEN NETSMART ([facility]) Heart rate 97.0 /MIN 97.0 /MIN NETSMART ([facility]) Respiratory rate 17.0 /MIN 17.0 /MIN NETSMART ([facility]) Systolic blood pressure 99.0 MM[HG] 99.0 MM[HG] NETSMART ([facility]) Diastolic blood pressure 66.0 MM[HG] 66.0 MM[HG ] NETSMART ([facility]) Body temperature 97.5 [DEGF] 97.5 [DEGF] NETSMA RT ([facility]) Body temperature 36.4 KRISTEN 36.4 KRISTEN NETSMART ([facility]) Heart rate 85.0 /MIN 85.0 /MIN NETSMART ([facility]) Respiratory rate 12.0 /MIN 12.0 /MIN NETSMART ([facility]) Systolic blood pressure 104.0 MM[HG] 104.0 MM[H G] NETSMART ([facility]) Diastolic blood pressure 69.0 MM[HG] 69.0 MM[HG ] NETSMART ([facility]) Body temperature 98.5 [DEGF] 98.5 [DEGF] NETSMA RT ([facility]) Body temperature 36.9 KRISTEN 36.9 KRISTEN NETSMART ([facility]) Heart rate 85.0 /MIN 85.0 /MIN NETSMART ([facility]) Systolic blood pressure 106.0 MM[HG] 106.0 MM[H G] NETSMART ([facility]) Diastolic blood pressure 72.0 MM[HG] 72.0 MM[HG ] NETSMART ([facility]) Body temperature 98.0 [DEGF] 98.0 [DEGF] NETSMA RT ([facility]) Body temperature 36.7 KRISTEN 36.7 KRISTEN NETSMART ([facility]) Heart rate 80.0 /MIN 80.0 /MIN NETSMART ([facility]) Respiratory rate 16.0 /MIN 16.0 /MIN NETSMART ([facility]) Oxygen saturation in Arterial blood by Pulse oximetry 97.0 % 97.0 % NETSMART ([facility]) Systolic blood pressure 129.0 MM[HG] 129.0 MM[H G] NETSMART ([facility]) Diastolic blood pressure 78.0 MM[HG] 78.0 MM[HG ] NETSMART ([facility]) Body temperature 96.8 [DEGF] 96.8 [DEGF] NETSMA RT ([facility]) Body temperature 36.0 KRISTEN 36.0 KRISTEN NETSMART ([facility]) Heart rate 77.0 /MIN 77.0 /MIN NETSMART ([facility]) Respiratory rate 14.0 /MIN 14.0 /MIN NETSMART ([facility]) Oxygen saturation in Arterial blood by Pulse oximetry 96.0 % 96.0 % NETSMART ([facility]) Systolic blood pressure 115.0 MM[HG] 115.0 MM[H G] NETSMART ([facility]) Diastolic blood pressure 69.0 MM[HG] 69.0 MM[HG ] NETSMART ([facility]) Body mass index (BMI) [Ratio] 18.5 kg/m2 No rmal (applies to non-numeric results) 18.5 kg/m2 [facility] Systolic blood pressure 105 mm[Hg] Normal (applies t o non-numeric results) 105 mm[Hg] [facility] Diastolic blood pressure 69 mm[Hg] Normal (applies to non-numeric results) 69 mm[Hg] [facility] Heart rate 104 min Normal (applies to non-numeric resul ts) 104 min [facility] Body height 159.7152 cm Normal (applies to non-numeric res ults) 159.7152 cm [facility] Deprecated Oxygen saturation in Capillary blood by Oximetry 100 % Normal (applies to non-numeric results) 100 % [facility] Respiratory rate 16 min Normal (applies to non-numeric results) 16 min [facility] Body temperature 36.8 kristen Normal (applies to non-numeric results) 36.8 kristen [facility] Body weight Measured 105 [lb_av] Normal (applies to n on-numeric results) 105 [lb_av] [facility] Systolic blood pressure 99 mm[Hg] Normal (applies t o non-numeric results) 99 mm[Hg] [facility] Diastolic blood pressure 68 mm[Hg] Normal (applies to non-numeric results) 68 mm[Hg] [facility] Body mass index (BMI) [Ratio] 18.0 kg/m2 No rmal (applies to non-numeric results) 18.0 kg/m2 [facility] Heart rate 88 min Normal (applies to non-numeric resul ts) 88 min [facility] Body height 159.7152 cm Normal (applies to non-numeric res ults) 159.7152 cm [facility] Deprecated Oxygen saturation in Capillary blood by Oximetry 99 % Normal (applies to non-numeric results) 99 % [facility] Respiratory rate 18 min Normal (applies to non-numeric results) 18 min [facility] Body temperature 36.7 kristen Normal (applies to non-numeric results) 36.7 kristen [facility] Body weight Measured 102 [lb_av] Normal (applies to n on-numeric results) 102 [lb_av] [facility] Body temperature 98.7 [DEGF] 98.7 [DEGF] NETSMA RT ([facility]) Body temperature 37.1 KRISTEN 37.1 KRISTEN NETSMART ([facility]) Oxygen saturation in Arterial blood by Pulse oximetry 96.0 % 96.0 % NETSMART ([employer]) Body mass index (BMI) [Ratio] 18.0 kg/m2 No rmal (applies to non-numeric results) 18.0 kg/m2 [facility] Systolic blood pressure 123 mm[Hg] Normal (applies t o non-numeric results) 123 mm[Hg] [facility] Body height 159.7152 cm Normal (applies to non-numeric res ults) 159.7152 cm [facility] Deprecated Oxygen saturation in Capillary blood by Oximetry 98 % Normal (applies to non-numeric results) 98 % [facility] Respiratory rate 18 min Normal (applies to non-numeric results) 18 min [facility] Body temperature 36.5 kristen Normal (applies to non-numeric results) 36.5 kristen [facility] Body weight Measured 102 [lb_av] Normal (applies to n on-numeric results) 102 [lb_av] [facility] Diastolic blood pressure 79 mm[Hg] Normal (applies to non-numeric results) 79 mm[Hg] [facility] Heart rate 105 min Normal (applies to non-numeric resul ts) 105 min [facility] Body height 160.0 cm 160.0 cm NETSMART ([employer]) Body [facility] 45.5 [facility]G [facility]5 [facility] [employer] Body mass index (BMI) [Ratio] 17.7 17.7 [facility] ([facility] [employer]) Pain severity - 0-10 verbal numeric rating [Score] - Reported 0.0 S karie 0.0 Scale [facility] ([facility] [employer]) ID Date Data Source [id number] 12/20/2020 10:54:00 AM EDT [facility] Name Value Range Interpretation Code Description Data Source(s) Weight (Calculated Kilograms) 48.99 48.99 [facility] Height (Calculated Centimeters) 160.02 160. 02 [facility] Body Mass Index (BMI) 19.1 19.1 [facility] ID Date Data Source [id number] 12/20/2020 10:48:00 AM EDT [facility] Name Value Range Interpretation Code Description Data Source(s) Weight (Calculated Kilograms) 48.99 48.99 [facility] Height (Calculated Centimeters) 160.02 160. 02 [facility] Body Mass Index (BMI) 19.1 19.1 [facility] Weight (Calculated Kilograms) 48.99 48.99 [facility] Height (Calculated Centimeters) 160.02 160. 02 [facility] Body Mass Index (BMI) 19.1 19.1 [facility] Weight (Calculated Kilograms) 48.99 48.99 [facility] Height (Calculated Centimeters) 160.02 160. 02 [facility] Body Mass Index (BMI) 19.1 19.1 [facility] ID Date Data Source [id number] 12/23/2020 01:12:00 PM EDT [facility] Name Value Range Interpretation Code Description Data Source(s) Weight (Calculated Kilograms) 48.99 48.99 [facility] Height (Calculated Centimeters) 160.02 160. 02 [facility] Body Mass Index (BMI) 19.1 19.1 [facility] Weight (Calculated Kilograms) 48.99 48.99 [facility] Height (Calculated Centimeters) 160.02 160. 02 [facility] Body Mass Index (BMI) 19.1 19.1 [facility] Weight (Calculated Kilograms) 48.99 48.99 [facility] Height (Calculated Centimeters) 160.02 160. 02 [facility] Body Mass Index (BMI) 19.1 19.1 [facility] Weight (Calculated Kilograms) 48.99 48.99 [facility] Height (Calculated Centimeters) 160.02 160. 02 [facility] Body Mass Index (BMI) 19.1 19.1 [facility] ID Date Data Source [id number] 12/16/2020 01:58:00 PM EDT [facility] Name Value Range Interpretation Code Description Data Source(s) Weight (Calculated Kilograms) 48.99 48.99 [facility] Height (Calculated Centimeters) 160.02 160. 02 [facility] Body Mass Index (BMI) 19.1 19.1 [facility] Weight (Calculated Kilograms) 48.99 48.99 [facility] Height (Calculated Centimeters) 160.02 160. 02 [facility] Body Mass Index (BMI) 19.1 19.1 [facility] ID Date Data Source [id number] 12/15/2020 12:19:00 AM [facility] Name Value Range Interpretation Code Description Data Source(s) Weight (Calculated Kilograms) 48.99 48.99 [facility] Height (Calculated Centimeters) 160.02 160. 02 [facility] Body Mass Index (BMI) 19.1 19.1 [facility] Weight (Calculated Kilograms) 48.99 48.99 [facility] Height (Calculated Centimeters) 160.02 160. 02 [facility] Body Mass Index (BMI) 19.1 19.1 [facility] ID Date Data Source [id number] 12/09/2020 06:48:00 PM [facility] Name Value Range Interpretation Code Description Data Source(s) Weight (Calculated Kilograms) 48.99 48.99 [facility] Height (Calculated Centimeters) 160.02 160. 02 [facility] Body Mass Index (BMI) 19.1 19.1 [facility] ID Date Data Source [id number] 12/07/2020 06:17:00 PM [facility] Name Value Range Interpretation Code Description Data Source(s) Weight (Calculated Kilograms) 48.99 48.99 [facility] Height (Calculated Centimeters) 160.02 160. 02 [facility] Body Mass Index (BMI) 19.1 19.1 [facility] ID Date Data Source [id number] 11/30/2020 12:12:00 AM [facility] Name Value Range Interpretation Code Description Data Source(s) Weight (Calculated Kilograms) 48.99 48.99 [facility] Height (Calculated Centimeters) 160.02 160. 02 [facility] Body Mass Index (BMI) 19.1 19.1 [facility] Weight (Calculated Kilograms) 48.99 48.99 [facility] Height (Calculated Centimeters) 160.02 160. 02 [facility] Body Mass Index (BMI) 19.1 19.1 [facility] Weight (Calculated Kilograms) 48.99 48.99 [facility] Height (Calculated Centimeters) 160.02 160. 02 [facility] Body Mass Index (BMI) 19.1 19.1 [facility] ID Date Data Source [id number] 11/16/2020 12:40:00 AM [facility] Name Value Range Interpretation Code Description Data Source(s) Weight (Calculated Kilograms) 48.99 48.99 [facility] Height (Calculated Centimeters) 160.02 160. 02 [facility] Body Mass Index (BMI) 19.1 19.1 [facility] Weight (Calculated Kilograms) 48.99 48.99 [facility] Height (Calculated Centimeters) 160.02 160. 02 [facility] Body Mass Index (BMI) 19.1 19.1 [facility] ID Date Data Source [id number] 11/10/2020 11:10:00 AM [facility] Name Value Range Interpretation Code Description Data Source(s) Weight (Calculated Kilograms) 48.99 48.99 [facility] Height (Calculated Centimeters) 160.02 160. 02 [facility] Body Mass Index (BMI) 19.1 19.1 [facility] ID Date Data Source [id number] 11/11/2020 12:57:00 AM [facility] Name Value Range Interpretation Code Description Data Source(s) Weight (Calculated Kilograms) 48.99 48.99 [facility] Height (Calculated Centimeters) 160.02 160. 02 [facility] Body Mass Index (BMI) 19.1 19.1 [facility] Weight (Calculated Kilograms) 48.99 48.99 [facility] Height (Calculated Centimeters) 160.02 160. 02 [facility] Body Mass Index (BMI) 19.1 19.1 [facility] ID Date Data Source [id number] 11/05/2020 02:59:00 AM [facility] Name Value Range Interpretation Code Description Data Source(s) Weight (Calculated Kilograms) 48.99 48.99 [facility] Height (Calculated Centimeters) 160.02 160. 02 [facility] Body Mass Index (BMI) 19.1 19.1 [facility] Weight (Calculated Kilograms) 48.99 48.99 [facility] Height (Calculated Centimeters) 160.02 160. 02 [facility] Body Mass Index (BMI) 19.1 19.1 [facility] ID Date Data Source [id number] 11/03/2020 12:51:[address] [facility] Name Value Range Interpretation Code Description Data Source(s) Weight (Calculated Kilograms) 48.99 48.99 [facility] Height (Calculated Centimeters) 160.02 160. 02 [facility] Body Mass Index (BMI) 19.1 19.1 [facility] Weight (Calculated Kilograms) 48.99 48.99 [facility] Height (Calculated Centimeters) 160.02 160. 02 [facility] Body Mass Index (BMI) 19.1 19.1 [facility] ID Date Data Source [id number] 10/27/2020 01:35:[address] [facility] Name Value Range Interpretation Code Description Data Source(s) Weight (Calculated Kilograms) 48.99 48.99 [facility] Height (Calculated Centimeters) 160.02 160. 02 [facility] Body Mass Index (BMI) 19.1 19.1 [facility] Weight (Calculated Kilograms) 48.99 48.99 [facility] Height (Calculated Centimeters) 160.02 160. 02 [facility] Body Mass Index (BMI) 19.1 19.1 [facility] ID Date Data Source [id number] 12/22/2020 03:54:00 PM EDT [facility] Name Value Range Interpretation Code Description Data Source(s) Weight Measurement Method 1 1 [facility] Weight (Calculated Kilograms) 48.99 48.99 [facility] Weight 2096 2096 [facility] Temperature Source 7 7 [facility] Temperature 98.1 98.1 [facility] Respiratory Effort 1 1 [facility] Respiratory Rate 18 18 [facility] Pulse Assessment Method 4 4 [facility] Pulse Rate 96 96 [facility] Height (Calculated Centimeters) 160.02 160. 02 [facility] Height 63 63 [facility] Blood Pressure 113/66 113/66 [facility] Body Mass Index (BMI) 19.1 19.1 [facility] Weight Measurement Method 1 1 [facility] Weight (Calculated Kilograms) 48.99 48.99 [facility] Weight 20956 [facility] Temperature Source 7 7 [facility] Temperature 98.1 98.1 [facility] Respiratory Effort 1 1 [facility] Respiratory Rate 18 18 [facility] Pulse Assessment Method 4 4 [facility] Pulse Rate 96 96 [facility] Height (Calculated Centimeters) 160.02 160. 02 [facility] Height 63 63 [facility] Blood Pressure 113/66 113/66 [facility] Body Mass Index (BMI) 19.1 19.1 [facility] Weight Measurement Method 1 1 [facility] Weight (Calculated Kilograms) 48.99 48.99 [facility] Weight 2095 2095 [facility] Temperature Source 7 7 [facility] Temperature 98.1 98.1 [facility] Respiratory Effort 1 1 [facility] Respiratory Rate 18 18 [facility] Pulse Assessment Method 4 4 [facility] Pulse Rate 96 96 [facility] Height (Calculated Centimeters) 160.02 160. 02 [facility] Height 63 63 [facility] Blood Pressure 113/66 113/66 [facility] Body Mass Index (BMI) 19.1 19.1 [facility] Weight Measurement Method 1 1 [facility] Weight (Calculated Kilograms) 48.99 48.99 [facility] Weight 1728 1728 [facility] Temperature Source 7 7 [facility] Temperature 98.2 98.2 [facility] Respiratory Effort 1 1 [facility] Respiratory Rate 16 16 [facility] Pulse Assessment Method 4 4 [facility] Pulse Rate 93 93 [facility] Height (Calculated Centimeters) 160.02 160. 02 [facility] Height 63 63 [facility] Blood Pressure 109/79 109/79 [facility] Body Mass Index (BMI) 19.1 19.1 [facility] Weight Measurement Method 1 1 [facility] Weight (Calculated Kilograms) 48.99 48.99 [facility] Weight 1728 1728 [facility] Temperature Source 7 7 [facility] Temperature 98.0 98.0 [facility] Respiratory Effort 1 1 [facility] Respiratory Rate 12 12 [facility] Pulse Assessment Method 4 4 [facility] Pulse Rate 93 93 [facility] Height (Calculated Centimeters) 160.02 160. 02 [facility] Height 63 63 [facility] Blood Pressure 109/79 109/79 [facility] Body Mass Index (BMI) 19.1 19.1 [facility] Weight Measurement Method 1 1 [facility] Weight (Calculated Kilograms) 48.99 48.99 [facility] Weight 1728 1728 [facility] Temperature Source 7 7 [facility] Temperature 97.0 97.0 [facility] Respiratory Effort 1 1 [facility] Respiratory Rate 16 16 [facility] Pulse Assessment Method 4 4 [facility] Pulse Rate 95 95 [facility] Height (Calculated Centimeters) 160.02 160. 02 [facility] Height 63 63 [facility] Blood Pressure 110/75 110/75 [facility] Body Mass Index (BMI) 19.1 19.1 [facility] Weight Measurement Method 1 1 [facility] Weight (Calculated Kilograms) 48.99 48.99 [facility] Weight 1728 1728 [facility] Temperature Source 7 7 [facility] Temperature 97.9 97.9 [facility] Respiratory Effort 1 1 [facility] Respiratory Rate 18 18 [facility] Pulse Assessment Method 4 4 [facility] Pulse Rate 96 96 [facility] Height (Calculated Centimeters) 160.02 160. 02 [facility] Height 63 63 [facility] Blood Pressure 99/59 99/59 [facility] Body Mass Index (BMI) 19.1 19.1 [facility] ID Date Data Source [id number] 08/19/2020 12:11:00 AM EST [facility] Name Value Range Interpretation Code Description Data Source(s) Weight Measurement Method 1 1 [facility] Weight (Calculated Kilograms) 41.39 41.39 [facility] Weight 1460 1460 [facility] Temperature Source 7 7 [facility] Temperature 97.9 97.9 [facility] spital Respiratory Effort 1 1 [facility] Respiratory Rate 18 18 [facility] Pulse Assessment Method 4 4 [facility] Pulse Rate 97 97 [facility] pital Height (Calculated Centimeters) 160.02 160. 02 [facility] Height 63 63 [facility] Blood Pressure 99/62 99/62 [facility] Body Mass Index (BMI) 16.1 16.1 [facility] Weight Measurement Method 1 1 [facility] Weight (Calculated Kilograms) 41.39 41.39 [facility] Weight 1460 1460 [facility] pital Temperature Source 7 7 [facility] Temperature 97.9 97.9 [facility] spital Respiratory Effort 1 1 [facility] Respiratory Rate 18 18 [facility] Pulse Assessment Method 4 4 [facility] Pulse Rate 97 97 [facility]ital Height (Calculated Centimeters) 160.02 160. 02 [facility] Height 63 63 [facility] pital Blood Pressure 99/62 99/62 [facility] Body Mass Index (BMI) 16.1 16.1 [facility] Weight Measurement Method 1 1 [facility] Weight (Calculated Kilograms) 41.39 41.39 [facility] Weight 1460 1460 [facility]ital Temperature Source 7 7 [facility] Temperature 97.9 97.9 [facility] spital Respiratory Effort 1 1 [facility] Respiratory Rate 18 18 [facility] Pulse Assessment Method 4 4 [facility] Pulse Rate 97 97 [facility] pital Height (Calculated Centimeters) 160.02 160. 02 [facility] Height 63 63 [facility] pital Blood Pressure 99/62 99/62 [facility] Body Mass Index (BMI) 16.1 16.1 [facility] Weight Measurement Method 1 1 [facility] Weight (Calculated Kilograms) 41.39 41.39 [facility] Weight 1460 1460 [facility] pital Temperature Source 7 7 [facility] Temperature 97.6 97.6 [facility] spital Respiratory Effort 1 1 [facility] Respiratory Rate 17 17 [facility] Pulse Assessment Method 4 4 [facility] Pulse Rate 93 93 [facility] pital Height (Calculated Centimeters) 160.02 160. 02 [facility] Height 63 63 [facility] pital Blood Pressure 102/70 102/70 [facility] Body Mass Index (BMI) 16.1 16.1 [facility] Weight Measurement Method 1 1 [facility] Weight (Calculated Kilograms) 41.39 41.39 [facility] Weight 1460 1460 [facility] pital Temperature Source 6 6 [facility] Temperature 98.7 98.7 [facility] spital Respiratory Effort 1 1 [facility] Respiratory Rate 16 16 [facility] Pulse Assessment Method 4 4 [facility] Pulse Rate 114 114 [facility] pital Height (Calculated Centimeters) 160.02 160. 02 [facility] Height 63 63 [facility] pital Blood Pressure 107/71 107/71 [facility] Body Mass Index (BMI) 16.1 16.1 [facility] Weight Measurement Method 1 1 [facility] Weight (Calculated Kilograms) 41.39 41.39 [facility] Weight 1460 1460 [facility] pital Temperature Source 7 7 [facility] Temperature 97.7 97.7 [facility] spital Respiratory Effort 1 1 [facility] Respiratory Rate 16 16 [facility] Pulse Assessment Method 4 4 [facility] Pulse Rate 103 103 [facility] pital Height (Calculated Centimeters) 160.02 160. 02 [facility] Height 63 63 [facility] pital Blood Pressure 123/79 123/79 [facility] Body Mass Index (BMI) 16.1 16.1 [facility] Weight Measurement Method 1 1 [facility] Weight (Calculated Kilograms) 41.39 41.39 [facility] Weight 1460 1460 [facility] pital Temperature Source 7 7 [facility] Temperature 98.7 98.7 [facility] spital Respiratory Effort 1 1 [facility] Respiratory Rate 16 16 [facility] Pulse Assessment Method 4 4 [facility] Pulse Rate 108 108 [facility] pital Height (Calculated Centimeters) 160.02 160. 02 [facility] Height 63 63 [facility] pital Blood Pressure 103/70 103/70 [facility] Body Mass Index (BMI) 16.1 16.1 [facility] Weight Measurement Method 1 1 [facility] Weight (Calculated Kilograms) 41.39 41.39 [facility] Weight 1460 1460 [facility] pital Temperature Source 1 1 [facility] Temperature 98.1 98.1 [facility] spital Respiratory Effort 1 1 [facility] Respiratory Rate 17 17 [facility] Pulse Assessment Method 1 1 [facility] Pulse Rate 109 109 [facility] pital Height (Calculated Centimeters) 160.02 160. 02 [facility] Height 63 63 [facility] pital Blood Pressure 93/65 93/65 [facility] Body Mass Index (BMI) 16.1 16.1 [facility] Weight (Calculated Kilograms) 42.55 42.55 [facility] Height (Calculated Centimeters) 160.02 160. 02 [facility] Body Mass Index (BMI) 16.6 16.6 [facility] ID Date Data Source [id number] 07/06/2020 08:22:12 PM [facility] Name Value Range Interpretation Code Description Data Source(s) WEIGHT RECORDED 102 lb 102 lb [facility] Body height [facility] 62.99 [facility] 62[facility] ID Date Data Source [id number] 05/26/2020 10:33:09 AM [facility] Name Value Range Interpretation Code Description Data Source(s) WEIGHT RECORDED 105.4 lb 105.4 lb [facility] ID Date Data Source [id number] 05/13/2020 11:43:52 PM EDT [facility] Name Value Range Interpretation Code Description Data Source(s) WEIGHT RECORDED 105 lb 105 lb [facility] Body height Measured 63 in 63 in [facility] Patient Treatment Plan of Care Planned Activity Planned Date Details Description Data Source (s) Buprenorphine 8 MG / Naloxone 2 MG Oral Strip 07/13/2020 12:00:00 A M [facility] Sulfamethoxazole 800 MG / Trimethoprim 160 MG Oral Tab let 07/13/2020 12:00:00 AM [facility] Sulfamethoxazole 800 MG / Trimethoprim 160 MG Oral Tab let 07/13/2020 12:00:00 AM [facility] ospital Buprenorphine 8 MG / Naloxone 2 MG Oral Strip 07/13/2020 12:00:00 A M [facility] Polymyxin B 01850 UNT/ML / Trimethoprim 1 MG/ML Ophtha lmic Solution 07/06/2020 12:00:00 AM [facility] ospital Buprenorphine 8 MG / Naloxone 2 MG Oral Strip 07/06/2020 12:00:00 A M [facility] Buprenorphine 8 MG / Naloxone 2 MG Oral Strip 06/28/2020 12:00:00 A M [facility] First-Mouthwash BLM Mouth/Throat Suspension 06/08/2020 12:00:00 AM [facility] quetiapine 200 MG Oral Tablet 06/08/2020 12:00:00 AM [facility] aripiprazole 5 MG Oral Tablet 06/08/2020 12:00:00 AM [facility] Buprenorphine 8 MG / Naloxone 2 MG Oral Strip 06/08/2020 12:00:00 A M [facility] Hydroxyzine Hydrochloride 10 MG Oral Tablet 06/01/2020 12:00:00 AM [facility] Buprenorphine 8 MG / Naloxone 2 MG Oral Strip 06/01/2020 12:00:00 A M [facility] Omeprazole 40 MG Delayed Release Oral Capsule 05/25/2020 12:00:00 A M [facility] Buprenorphine 12 MG / Naloxone 3 MG Oral Strip 05/25/2020 12:00:00 AM [facility] Buprenorphine 8 MG / Naloxone 2 MG Oral Strip 05/18/2020 12:00:00 A M [facility] Buprenorphine 8 MG / Naloxone 2 MG Oral Strip 04/13/2020 12:00:00 A M [facility]
[2021-06-29 21:33] LABS: HEMOGLOBIN 14.6 g/dl (12.0-15.5); MEAN CORPUSCULAR HEMOGLOBIN 30.5 pg (27.0-33.0); MEAN CORPUSCULAR HGB CONC 34.8 g/dl (32.0-36.5); MEAN CORPUSCULAR VOLUME 87.7 fl (80.0-96.0); PLATELET COUNT, AUTOMATED 279 10^3/uL (150-450); RED BLOOD COUNT 4.79 10^6/uL (4.00-5.40); WHITE BLOOD COUNT 10.1 10^3/uL (4.0-10.0)
[2021-06-29 21:59] LABS: HCG, SERUM QUALITATIVE NEGATIVE (NEGATIVE)
[2021-06-29 22:08] LABS: ACETAMINOPHEN LEVEL < 2.0 UG/ML (10.0-30.0); ALBUMIN 3.6 GM/DL (3.2-5.2); ALT/SGPT 59 U/L (12-78); BILIRUBIN,DIRECT 0.2 MG/DL (0.0-0.2); BILIRUBIN,TOTAL 0.4 MG/DL (0.2-1.0); BLOOD UREA NITROGEN 12 MG/DL (7-18); CALCIUM LEVEL 9.4 MG/DL (8.5-10.1); CARBON DIOXIDE LEVEL 23 MEQ/L (21-32); CHLORIDE LEVEL 111 MEQ/L (98-107); CREATININE FOR GFR 0.66 MG/DL (0.55-1.30); ETHYL ALCOHOL (ETHANOL) 0.004 % (0.000-0.010); GLOMERULAR FILTRATION RATE > 60.0 (>60); GLUCOSE, FASTING 80 MG/DL (70-100); SALICYLATE LEVEL 2.8 MG/DL (5.0-30.0); SODIUM LEVEL 141 MEQ/L (136-145); THYROID STIMULATING HORMONE 0.611 uIU/ML (0.358-3.740); TOTAL PROTEIN 7.1 GM/DL (6.4-8.2)
[2021-06-29 22:52] LABS: AMPHETAMINES LEVEL URINE POSITIVE (NEGATIVE); BARBITURATES URINE NEGATIVE (NEGATIVE); BENZODIAZEPINES URINE NEGATIVE (NEGATIVE); CANNABINOIDS URINE POSITIVE (NEGATIVE); COCAINE METABOLITE URINE NEGATIVE (NEGATIVE); METHADONE URINE NEGATIVE (NEGATIVE); OPIATES URINE NEGATIVE (NEGATIVE); PHENCYCLIDINE URINE NEGATIVE (NEGATIVE)
--- OUTSIDE RECORDS SUMMARY | 2021-06-29 23:31 | CCD ---
Author Author [facility] Organization [facility] Address Unknown Phone Unavailable Care Team Providers Care Studio Associate Name Role Phone URIEL ANN RN INTERNSHIP Unavailable Unavailable URIEL ANN RN INTERNSHIP Unavailable Unavailable URIEL ANN RN INTERNSHIP Unavailable Unavailable SERURIEL COURTNEY RN INTERNSHIP Unavailable Unavailable SERURIEL COURTNEY RN INTERNSHIP Unavailable Unavailable URIEL ANN RN INTERNSHIP Unavailable Unavailable URIEL ANN RN INTERNSHIP Unavailable Unavailable STELLA ENCISO MD Unavailable Unavailable STELLA ENCISO MD Unavailable Unavailable STELLA ENCISO MD Unavailable Unavailable STELLA ENCISO MD Unavailable Unavailable STELLA ENCISO MD Unavailable Unavailable STELLA ENCISO MD Unavailable Unavailable STELLA ENCISO MD Unavailable Unavailable Kathrine Nicci Booa, DOWN FILLER Unavailable Unavailable Alvaro, R Jossy RN INTERNSHIP Unavailable Unavailable Alvaro, R Jossy RN INTERNSHIP Unavailable Unavailable Alvaro, R Jossy RN INTERNSHIP Unavailable Unavailable Alvaro, R Jossy RN INTERNSHIP Unavailable Unavailable Alvaro, R Jossy RN INTERNSHIP Unavailable Unavailable Alvaro, R Jossy RN INTERNSHIP Unavailable Unavailable Alvaro, R Jossy RN INTERNSHIP Unavailable Unavailable Alvaro, R Jossy RN INTERNSHIP Unavailable Unavailable Alvaro, R Jossy RN INTERNSHIP Unavailable Unavailable Alvaro, R Jossy RN INTERNSHIP Unavailable Unavailable Alvaro, R Jossy RN INTERNSHIP Unavailable Unavailable Godlewski, Lindy PA Unavailable Unavailable Godlewski, Lindy PA Unavailable Unavailable Godlewski, Lindy PA Unavailable Unavailable Godlewski, Lindy PA Unavailable Unavailable Godlewski, Lindy PA Unavailable Unavailable Godlewski, Lindy PA Unavailable Unavailable Godlewski, Lindy PA Unavailable Unavailable Kathrine Nicci Rayaidaa, DOWN FILLER Unavailable Unavailable Ball, C Merced RN INTERNSHIP Unavailable Unavailable Ball, C Merced RN INTERNSHIP Unavailable Unavailable Ball, C Merced RN INTERNSHIP Unavailable Unavailable Ball, C Merced RN INTERNSHIP Unavailable Unavailable Ball, C Merced RN INTERNSHIP Unavailable Unavailable Ball, C Merced RN INTERNSHIP Unavailable Unavailable Ball, C Merced RN INTERNSHIP Unavailable Unavailable Ball, C Merced RN INTERNSHIP Unavailable Unavailable Ball, C Merced RN INTERNSHIP Unavailable Unavailable Ball, C Merced RN INTERNSHIP Unavailable Unavailable Mcrae IV, J Devan DOWN FILLER Unavailable Unavailable Mcrae IV, J Devan DOWN FILLER Unavailable Unavailable Mcrae IV, J Devan DOWN FILLER Unavailable Unavailable Mcrae IV, J Devan DOWN FILLER Unavailable Unavailable Fide Gunn FUR TRAPPER Unavailable Unavailable Terry Leos MD Unavailable Unavailable [...] Unavailable AsarPerry MD Unavailable Unavailable Amelie Loera, [facility] Unavailable Unavailab Catalina Sen Unavailable Unavailable Susy [...] is protected by Article 27-F of the [facility] Public Health law. If you continue you may have access to information: Regarding HIV / AIDS; Provided by facilities licensed or operated by the [facility] Office of Mental Health; or Provided by the [facility] Office for People With Developmental Disabilities. If such information is present, then the following [facility] mandated warning applies: This information has been [...] ) Drug allergy Drug allergy cefaclor ([facility] Drug allergy Drug allergy Penicillins [facility] Drug allergy Drug allergy cefaclor (From [facility]) [facility] Allergy to substance Allergy to substance Cefaclor NETSMART ([facility]) Allergy to substance Allergy to substance Bupropion NETSMART ([facility]) Family History Family Member Name Family Member Gender Family Member Status Date o f Status Description Data Source(s) Unknown Male Problem MEDENT ([facility]) Unknown Male Problem MEDENT ([facility]) Encounters Encounter Providers Location Date Indications Data Source(s ) Outpatient [address] [facility] [place] [address] 06/17/2021 12:00:00 AM EDT eCW1 ([facility]) Outpatient Attender: Paz Rossi MDAttender: LOLA MENDOZA RPA 05/22/2021 01:44:44 PM EDT - 05/22/2021 02:36:49 PM EDT DocuTap ( [facility]) Preadmit Attender: Fide Gunn LCSW CPSCAORT-CHEPDREH 11:00:00 AM EDT [facility] Emergency Attender: Devan Mcrae IVAttender: Merced Rivera CPSCAORT-ED 12/18/2020 06:53:00 PM EDT - 12/19/2020 10:40:00 AM EDT PSYCH PROBLEM, DRUG ABUSE [facility] PSYCH PROBLEM, DRUG ABUSE Patient discharged. Emergency Attender: Merced Leos MD CPSCAORT-ED 021 08:34:00 AM EDT - 12/18/2020 10:05:00 AM EDT LACERATION TO LEG [facility] LACERATION TO LEG Patient discharged. Outpatient Attender: TANIA Rivera CPSCAORT-CHEPDREH 12/15/2020 03:00:00 PM EDT - 12/15/2020 03:01:00 PM EDT [facility] pital MAR Patient discharged. Outpatient Attender: Fide Gunn LCSW CPSCAORT-CHEPDREH 11:00:00 AM EDT - 12/14/2020 11:01:[facility]. Preadmit Attender: Fide Gunn LCSW CPSCAORT-CHEPDREH 10:00:00 AM EDT [facility] PSD Preadmit Attender: Julianna WALKER CPSCAORT-CHEPDREH 12/08/2020 11:00:00 AM EDT [facility] MAR Outpatient Attender: Fide Gray FUR TRAPPER CPSCAORT-CHEPDREH 10:00:00 AM EDT - 11/29/2020 10:01:00 [facility] Attender: Fide Gunn FUR TRAPPER CPSCAORT-CHEPDREH 09:00:00 AM EST - 11/15/2020 09:01:00 AM EST [facility] Preadmit Attender: Fide DUBONW CPSCAORT-CHEPDREH 03:00:00 PM EST PSD [facility] PSD Outpatient Attender: Julianna Head RPA-C CPSCAORT-CHEPDREH 11/10/2020 10:30:00 AM EST - 11/10/2020 10:31:00 AM EST MAR [facility] pital MAR Patient discharged. Outpatient Attender: TANIA Rivera CPSCAORT-CHEPDREH 11/04/2020 01:00:00 PM EST - 11/04/2020 01:01:00 PM EST MAR [facility] MAR Patient discharged. Outpatient Attender: DES Loera CPSCAORT- CHEPDREH 11/02/2020 09:00:00 AM EST - 11/02/2020 09:01:00 AM EST PSD [facility] PSD Patient discharged. Outpatient Attender: DES Bolanos tender: Julianna Head RPA-C CPSCAORT-CHEPDREH 10/26/2020 09:56:00 AM EST - 10/26/2020 09:57:00 AM EST [facility] PSD Patient discharged. Inpatient Attender: Stella Florez nder: STELLA ENCISO MDAdmitter: Stella Enciso MDReferrer: TANIA Rivera CPSCAORT-CHEPPDREH 09/27/2020 09:09:00 A M EST - 10/24/2020 06:53:00 AM EST PSYCHOACTIVE SUBSTANCE DEPENDENCE [facility] PSYCHOACTIVE SUBSTANCE DEPENDENCE Patient discharged. Unknown [address] [facility] [place] [address] 09/24/2020 12:00:00 AM EST eCW1 ([facility]) [facility] 07/23/2020 02:56:00 PM [facility]/22[facility]2020 09:49:00 AM [facility] 07/21/2020 08:43:00 PM [facility] Inpatient Attender: Ean Washington MDAdmitter: Ean glaser MD [email or web address] 07/21/2020 05:56:00 PM [facility] - 07/27/2020 03:00:00 PM [facility] F19.10,F11.10 [facility] F19.10,F11.10 Patient discharged. Outpatient 07/20/2020 12:00:00 AM [facility] Outpatient Attender: JACLYN REYES MD 07A-MTOXUHCC 07/13 12:00:00 AM EST - 07/13/2020 03:01:48 PM [facility] Outpatient Attender: JACLYN REYES MD 07A-[facility]OX[facility]CC 07/06 12:00:00 AM EDT - 07/06/2020 01:47:43 PM EDT Opioid dependence, [facility] Opioid dependence, uncomplicated Unknown [address] [facility] [place] [address] 06/30/2020 12:00:00 AM EDT eCW1 ([facility]) Outpatient Attender: URIEL ANN NP 07A-MTOXUHCC 06/28 12:00:00 AM EDT - 06/28/2020 03:02:05 PM EDT [facility] Emergency Attender: Jossy John NPAttender: ER PHYSICIAN 06/27/2020 10:41:00 AM EDT - 06/27/2020 11:50:00 AM EDT SUBOXONE DOSAGE [facility] SUBOXONE DOSAGE Patient discharged. Emergency Attender: Merced Dixon NPAttender: ER PHYSICIAN 06/26/2020 01:44:00 PM EDT - 06/26/2020 04:26:00 PM EDT MISSED SUBOXONE [facility] MISSED SUBOXONE Patient discharged. Emergency 06/26/2020 10:17:00 AM EDT - 06/26/2020 01:20:00 PM EDT med refill [facility] med refill Patient discharged. Unlisted evaluation and management service Performer: Bereket gaston 06/15/2020 10:00:00 PM EDT - 06/15/2020 10:30:00 PM EDT NETSMART ([facility]) Outpatient 06/15/2020 12:00:00 AM EDT [facility] Emergency Attender: Lindy Hoyt PAAttender: SHANIA ISBELL 06/14/2020 07:25:00 AM EDT - 06/14/2020 08:17:00 AM EDT UNCERS UNDER TONGUE [facility] UNCERS UNDER TONGUE Patient discharged. Unlisted evaluation and management service Performer: Bereket gaston 06/10/2020 07:00:00 PM EDT - 06/10/2020 07:20:00 PM EDT NETSMART ([facility]) Unlisted evaluation and management service Performer: Bereket gaston 06/09/2020 04:30:00 PM EDT - 06/09/2020 04:50:00 PM EDT NETSMART ([facility]) Unlisted evaluation and management service Performer: Bereket gaston 06/08/2020 03:30:00 PM EDT - 06/08/2020 04:10:00 PM [facility] Outpatient Attender: JACLYN REYES MD 07A-MTOXUHCC 06/08/2020 12:00:0 0 AM [facility] Outpatient Attender: JACLYN REYES MD 07A-MTOXUHCC 06/01 12:00:00 AM EDT - 06/01/2020 09:30:14 AM [facility] Unlisted evaluation and management service 05/11 12:39:00 PM EDT [facility] ([facility]) Outpatient Attender: JACLYN REYES MD 07A-MTOXUHCC 05/25 12:00:00 AM EDT - 05/26/2020 12:00:00 AM [facility] Outpatient Attender: JACLYN HillA-MTOXUHCC 05/18/2020 12:00:0 0 AM [facility] 05/14/2020 01:51:00 PM EDT - 05/14/2020 03:07:00 PM EDT Opioid dependence with unspecified opioid-induced disorder [facility] Opioid dependence with unspecified opioi d-induced disorder Patient discharged. Emergency 07A-ERMADULT 05/13/2020 04:02 :00 PM EDT - 05/13/2020 05:09:00 PM EDT Opioid dependence with unspecified opioid-induced diso rder [facility] Opioid dependence with unspecified opioi d-induced disorder Patient discharged. Outpatient 05/04/2020 12:00:00 AM EDT [facility] Immunizations Vaccine Date Status Description Data Source(s) New in 2011. IIV4 05/25/2020 12:00:00 AM EDT completed <t d ID="[id number]">Influenza Quad IM Pres Free (0.5 mL dose)</td><td>05/25/2020</td><td></td> [facility] Medications Medication Brand Name Start Date Product [...] Two T imes Daily for 10 days [facility] Buprenorphine 8 MG / Naloxone 2 MG Oral Strip Buprenorphine HCl-Naloxone HCl 8-2 MG Sublingual Film (SUBOXONE) Buprenorphine HCl-Naloxone HCl 8-2 MG Bradley blingual Film (SUBOXONE) 07/13/2020 12:00:00 AM EST 2 {film} Sublingual active Place 2 Film under the tongue daily for 7 days, Max Daily Dose: 2 Film [facility] Sulfamethoxazole 800 MG / Trimethoprim 1 60 MG Oral Tablet Sulfamethoxazole- Trimethoprim 800-160 MG Oral Tablet (Bactrim DS) Sulfamethoxazole-Trimethoprim 800-160 MG Oral Tablet (Bactrim DS) 07/13/2020 12:00:00 AM EST 1 {tbl } Oral active Take 1 tablet by mouth Two T imes Daily for 10 days [facility] Buprenorphine 8 MG / Naloxone 2 MG Oral Strip Buprenorphine HCl-Naloxone HCl 8-2 MG Sublingual Film (SUBOXONE) Buprenorphine HCl-Naloxone HCl 8-2 MG Bradley blingual Film (SUBOXONE) 07/13/2020 12:00:00 AM EST 2 {film} Sublingual aborted Place 2 Film under the tongue daily for 7 days, Max D aily Dose: 2 Film [facility] Polymyxin B 10558 UNT/ML / Trimethoprim 1 MG/ML Ophthalmic Solution Polymyxin B- Trimethoprim 06494-5.1 UNIT/ML-% Ophthalmic Solution (Polytrim) Polymyxin B- Trimethoprim 46785-5.1 UNIT/ML-% Ophthalmic Solution (Polytrim) 07/06/2020 12:00:00 AM EDT 1 [drp] Both Eyes active Place 1 drop into both eyes every 4 (four) hours for 10 days [facility] Buprenorphine 8 MG / Naloxone 2 MG Oral Strip Buprenorphine HCl-Naloxone HCl 8-2 MG Sublingual Film (SUBOXONE) Buprenorphine HCl-Naloxone HCl 8-2 MG Bradley blingual Film (SUBOXONE) 07/06/2020 12:00:00 AM EDT 2 {film} Sublingual active Place 2 Film under the tongue daily for 7 days, Max Daily Dose: 2 Film [facility] 8-2 mg 07/06/2020 12:00:00 AM EDT film [...] 8 days, Max Daily Dose: 2 Film [facility] MAGIC MOUTHWASH 06/14/2020 12:00:00 AM EDT suspension 240 SWISH AND SPIT 10ML EVERY 4 HOURS NEEDED FOR PAIN SWISH AND SPIT 10ML EVERY 4 HOURS NEEDED FOR PAIN SOLD: 06/15/2020 Caitlin Rivera rugs 394-26-261-40 mg/30 mL 06/09/2020 12:00:00 AM EDT mouthwash [...] 7 days, Max Daily Dose: 2 Film [facility] quetiapine 200 MG Oral Tablet QUETIAPINE FUMARATE 06/08/2020 12: 00:00 AM EDT tablet 30 TAKE ONE TABLET BY MOUTH EVERY D AY AT NIGHT TAKE ONE TABLET BY MOUTH EVERY DAY AT NIGHT SOLD: 06/10/2020 [facility] Mouth/Throat Suspension 98897-457-79 06/08/2020 12:00:00 AM EDT 15 mL Mouth/Throat active Use as directed 15 mLs in the mouth or throat every 6 (six) hours as needed [facility] quetiapine 200 MG Oral Tablet QUEtiapine Fumarate 200 MG Oral Tablet (SEROquel) QUEtiapine Fumarate 200 MG Oral Tablet (SEROquel) 06/08/2020 12:00:00 AM EDT 200 mg Oral active Take 1 tablet by mouth n ighy [facility] aripiprazole 5 MG Oral Tablet ARIPiprazole 5 MG Oral T ablet (Abilify) ARIPiprazole 5 MG Oral Tablet (Abilify) 06/08/2020 12:00:00 AM EDT 5 mg Oral active Take 1 tablet by mouth da marcel [facility] 5 mg 06/08/2020 12:00:00 AM EDT tablet 30 TAKE ONE TABLET BY MOUTH EVERY DAY TAKE ONE TABLET BY MOUTH EVERY DAY SOLD: 06/08/2020 [facility] 8-2 mg 06/08/2020 12:00:00 AM EDT film 14 PLACE TWO FILMS UNDER THE TONGUE EVERY DAY FOR 7 DAYS MAXIMUM DAILY DOSE = TWO FILMS PLACE TWO FILMS UNDER THE TONGUE EVERY DAY FOR 7 DAYS MAXIMUM DAILY DOSE = TWO FILMS SOLD: 07/15/2020 [facility] 10 mg 06/02/2020 12:00:00 AM EDT tablet 30 TAKE ONE TABLET BY MOUTH THREE TIMES A DAY NEEDED FOR ANXIETY FOR UP TO 10 DAYS TAKE ONE TABLET BY MOUTH THREE TIMES A DAY NEEDED FOR ANXIETY FOR UP TO 10 DAYS SOLD: 06/02/2020 [facility] Buprenorphine 8 MG / Naloxone 2 MG Oral Strip Buprenorphine HCl-Naloxone HCl 8-2 MG Sublingual Film (SUBOXONE) Buprenorphine HCl-Naloxone HCl 8-2 MG Bradley blingual Film (SUBOXONE) 06/01/2020 12:00:00 AM EDT 2 {film} Sublingual active Place 2 Film under the tongue daily for 7 days, Max Daily Dose: 2 Film [facility] Hydroxyzine Hydrochloride 10 MG Oral Tab let hydrOXYzine HCl 10 MG Oral Tablet (ATARAX) hydrOXYzine HCl 10 MG Oral Tablet (ATARAX) 06/01/2020 12:00: 00 AM EDT 10 mg Oral active Take 1 tablet by mouth Three times daily as needed for Anxiety for up to 10 days [facility] 8-2 mg 06/01/2020 12:00:00 AM EDT film 14 PLACE 2 FILMS UNDER THE TONGUE DAILY FOR 7 DAYS MAXIMUM DAILY DOSE = 2 PLACE 2 FILMS UNDER THE TONGUE DAILY FOR 7 DAYS MAXIMUM DAILY DOSE = 2 SOLD: 06/02/2020 [facility] Omeprazole 40 MG Delayed Release Oral Ca psule Omeprazole 40 MG Oral Capsule Delayed Release (PRILOSEC) Omeprazole 40 MG Oral Capsule Delayed Re lease (PRILOSEC) 05/25/2020 12:00:00 AM EDT 40 mg Oral active Take 1 capsule by mouth daily [facility] 12-3 mg 05/25/2020 12:00:00 AM EDT film 7 PLACE 1 FILM UNDER THE TONGUE DAILY MAXIMUM DAILY DOSE = 1 PLACE 1 FILM UNDER THE TONGUE DAILY MAXI MUM DAILY DOSE = 1 SOLD: 05/25/2020 [facility] 40 mg 05/25/2020 12:00:00 AM EDT capsule,delayed release (DR/EC) 30 TAKE ONE CAPSULE BY MOUTH DAILY TAKE ONE CAPSULE BY MOUTH DAILY SOLD: 05/25/2020 [facility] Buprenorphine 12 MG / Naloxone 3 MG Oral Strip Buprenorphine HCl-Naloxone HCl 12-3 MG Sublingual Film (SUBOXONE) Buprenorphine HCl-Naloxone HCl 12-3 MG Sublingual Film (SUBOXONE) 05/25/2020 12:00:00 AM EDT 1 {film} Sublin gual active Place 1 Film under t he tongue daily for 7 days, Max Daily Dose: 1 Film [facility] 8-2 mg 05/18/2020 12:00:00 AM EDT film 7 PLACE ONE FILM UNDER THE TONGUE EVERY DAY FOR 7 DAYS - MAXIMUM DAILY DOSE = [address] ONE FILM UNDER THE TONGUE EVERY DAY FOR 7 DAYS - MAXIMUM DAILY DOSE = 1 FILM SOLD: 05/18/2020 [facility] Buprenorphine 8 MG / Naloxone 2 MG Oral Strip Buprenorphine HCl-Naloxone HCl 8-2 MG Sublingual Film (SUBOXONE) Buprenorphine HCl-Naloxone HCl 8-2 MG Bradley blingual Film (SUBOXONE) 05/18/2020 12:00:00 AM EDT 1 {film} Sublingual active Place 1 Film under the tongue daily for 7 days, Max Daily Dose: 1 Film [facility] Buprenorphine 8 MG / Naloxone 2 MG Subli ngual Tablet buprenorphine-naloxone (SUBOXONE) 8-2 MG per sublingual tablet 1 tablet buprenorphine-naloxone (SUBOXONE) 8-2 MG per sublingual tablet 1 tablet 05/14/2020 03:00:00 PM EDT Sublingual completed 1 tablet (8 mg of buprenorphine), Sublingual, Once, 05/14/20 at 1500, For 1 dose [facility] Medication administered onsite Buprenorphine 8 MG / [...] 16 mg of buprenorphine under the tongue [facility] Insurance Providers Payer name Policy type / Coverage type Policy ID Covered democrat ID Covered democrat's relationship to selby Policy Selby Plan Information [facility] COMMUNITY PLAN [facility] [id number] SP [id number] [place] [place] [id number] SP [id number] FIVE [employer] [id number] SP [id number] SELF PAY ONLY [id number] SP [id number] [facility] COMMUNITY PLAN [facility] [id number] SP [id number] [facility] [id number] SP [id number] [facility] [id number] S [id number] [facility] I [id number] Self [id number] [facility] Commercial Insurance Co. [id number] Self [id number] BCBS [place] HMO [id number] SP [id number] [place] PPO 302/307 [id number] SP [id number] [place] PPO 302/307 [id number] SP [id number] MEDICAID [id number] SP [id number] [employer] BCBS B [id number] S [id number] SELF PAY ONLY [id number] SP [id number] ANSI-Medicaid [id number] [facility]-Medicaid [id number] [facility] Health Maintenance Organization (HMO) [id number] Self [id number] [facility] Community Plan Commercial [id number] Self [id number] [facility] Community Plan Commercial [id number] Self [id number] ANSI-Medicaid [id number] [facility] [id number] ANSI-Medicaid [id number] [facility] Community Plan Commercial [id number] Self [id number] [facility] Health Maintenance Organization (HMO) [id number] Self [id number] ANSI-Medicaid [id number] [facility] Community Plan Commercial [id number] Self [id number] ANSI-Medicaid [id number] ANSI-Medicaid [id number] ANSI-Medicaid [id number] ANSI-Medicaid [id number] ANSI-Medicaid [id number] [employer]IVE [employer] O [id number] S [id number] UNHC AMERICHOICE XIX HMO [id number] 18 [id number] [facility] COMM PLAN HUNG W [id number] S [id number] [facility] COMM PLAN HUNG W [id number] S [id number] [facility] COMM PLAN HUNG W [id number] S [id number] [facility] COMM PLAN HUNG W UNAVAILABLE S UNAVAILABLE MEDICAID [id number] SP [id number] MEDICAID [id number] SP [id number] [facility] HUNG [id number] SP [id number] UNHC AMERICHOICE XIX HMO [id number] 18 [id number] UNHC COMMUNITY PLAN MCDHMO [id number] SP [id number] UNHC COMMUNITY PLAN MCDHMO [id number] SP [id number] AMERICHOICE UNHC XIX HMO-I/P [id number] 18 [id number] AMERICHOICE UNHC XIX HMO-I/P [id number] 18 [id number] UNHC AMERICHOICE XIX HMO [id number] 18 [id number] [facility] HUNG [id number] SP [id number] UNHC AMERICHOICE XIX HMO [id number] 18 [id number] UNHC COMMUNITY PLAN MCDHMO [id number] SP [id number] UNHC COMMUNITY PLAN MCDHMO [id number] SP [id number] [facility] [address] [id number] Unemploye d [id number] [facility] [address] [id number] S [id number] [facility] HEA [id number] S [id number] [facility](MCAID) O [id number] S [id number] BCBS [place] HMO [id number] SP [id number] [facility] [address] [id number] S [id number] Problems, Conditions, and Diagnoses Code Display Name Description Problem Type Effective Dates Data Source(s) Z88.8 Allergy status to other drug s, medicaments and biological substances status ALLERGY STATUS TO OTHER DRUG/MEDS/BIOL SUBST Diagnosis [facility] 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 O THER HALF-WAY (CURRENT) DRUG THERAPY Diagnosis 12/18/2020 08:34:00 AM EDT [facility] F17.210 Nicotine dependence, cigarettes, uncompl icated NICOTINE DEPENDENCE, CIGARETTES, UNCOMPLICATED Diagnosis 12/18/2020 08:34:00 AM EDT [facility] F19.10 Other psychoactive substance abuse, unco mplicated OTHER PSYCHOACTIVE SUBSTANCE ABUSE, UNCOMPLICATED Diagnosis 12/18/2020 08:34:00 AM EDT [facility] Z23 Encounter for immunization ENCOUNTER FOR IMMUNIZATION Diagnosis 12/18/2020 08:34:00 AM [facility] Y92.[address] in unspeci fied non-institutional (private) residence as the place of occurrence of the external cause [facility] Diagnosis 12/18/2020 08:34:00 AM EDT [facility] X58.XXXA Exposure to other specified factors, ini tial encounter EXPOSURE TO OTHER SPECIFIED FACTORS, INITIAL ENCOUNTER Diagnosis 12/18/2020 08:34: 00 AM [facility] S71.111A Laceration without foreign body, right t high, initial encounter LACERATION WITHOUT FOREIGN BODY, RIGHT THIGH, INIT ENCNTR Diagnosis 12/18/2020 08:34:00 AM [facility] K04.7 Periapical abscess without sinus PERIAPICAL ABSC ESS WITHOUT SINUS Diagnosis 09/27/2020 09:09:00 AM [facility] L08.9 Local infection of the skin and subcutan eous tissue, unspecified LOCAL INFECTION OF THE SKIN AND SUBCUTANEOUS TISSUE, UNSP Diagnosis 09:09:00 AM [facility] K59.00 Constipation, unspecified CONSTIPATION, UNSPECIFIED Di agnosis 09/27/2020 09:09:00 AM [facility] R21 Rash and other nonspecific skin eruption RASH AND OTHER NONSPECIFIC SKIN ERUPTION Diagnosis 09/27/2020 09:09:00 AM [facility] B95.8 Unspecified staphylococcus as the cause of diseases classified elsewhere UNSP STAPHYLOCOCCUS THE CAUSE OF DISEASES CLASSD ELSWHR Diagnosis 09/27/2020 09:09:00 AM [facility] N39.0 Urinary tract infection, site not specif ied URINARY TRACT INFECTION, SITE NOT SPECIFIED Diagnosis 09/27/2020 09:09:00 AM [facility] A54.9 Gonococcal infection, unspecified GONOCOCCAL INF ECTION, UNSPECIFIED Diagnosis 09/27/2020 09:09:00 AM [facility] Z91.5 Personal history of self-harm PERSONAL HISTORY OF SELF -HARM Diagnosis 09/27/2020 09:09:00 AM [facility] G47.00 Insomnia, unspecified INSOMNIA, UNSPECIFIED Diagnosis 09/27/2020 09:09:00 AM [facility] Z87.442 Personal history of urinary calculi PERSONAL HIS TORY OF URINARY CALCULI Diagnosis 09/27/2020 09:09:00 AM [facility] B18.2 Chronic viral hepatitis C CHRONIC VIRAL HEPATITIS C Di agnosis 09/27/2020 09:09:00 AM [facility] F41.9 Anxiety disorder, unspecified ANXIETY DISORDER, UNSPEC IFIED Diagnosis 09/27/2020 09:09:00 AM [facility] F90.9 Attention-deficit hyperactivity disorder , unspecified type ATTENTION- DEFICIT HYPERACTIVITY DISORDER, UNSPECIFIED TYPE Diagnosis 09/27 09:09:00 AM [facility] F43.10 Post-traumatic stress disorder, unspecif ied POST-TRAUMATIC STRESS DISORDER, UNSPECIFIED Diagnosis 09/27/2020 09:09:00 AM [facility] F31.9 Bipolar disorder, unspecified BIPOLAR DISORDER, UNSPEC IFIED Diagnosis 09/27/2020 09:09:00 AM [facility] K21.9 Gastro-esophageal reflux disease without esophagitis GASTRO-ESOPHAGEAL REFLUX DISEASE WITHOUT ESOPHAGITIS Diagnosis 09/27/2020 09:09:00 AM [facility] M41.9 Scoliosis, unspecified SCOLIOSIS, UNSPECIFIED Diagnosi s 09/27/2020 09:09:00 AM [facility] G43.909 Migraine, unspecified, not intractable, without status migrainosus MIGRAINE, UNSP, NOT INTRACTABLE, WITHOUT STATUS MIGRAINOSUS Diagnosis 09/27/2020 09:09:00 AM [facility] J30.2 Other seasonal allergic rhinitis OTHER SEASONAL ALLERGIC RHINITIS Diagnosis 09/27/2020 09:09:00 AM [facility] Z88.0 Allergy status to penicillin ALLERGY STATUS TO PENICIL BARRY Diagnosis 09/27/2020 09:09:00 AM [facility] F15.20 Other stimulant dependence, uncomplicate d OTHER STIMULANT DEPENDENCE, UNCOMPLICATED Diagnosis 09/27/2020 09:09:00 AM [facility] F11.23 Opioid dependence with withdrawal OPIOID DEPENDE NCE WITH WITHDRAWAL Diagnosis 09/27/2020 09:09:00 AM [facility] B18.2 Chronic viral hepatitis C CHRONIC VIRAL HEPATITIS C Di agnosis 07/21/2020 05:56:00 PM [facility] F31.9 Bipolar disorder, unspecified BIPOLAR DISORDER, UNSPEC IFIED Diagnosis 07/21/2020 05:56:00 PM [facility] F41.9 Anxiety disorder, unspecified ANXIETY DISORDER, UNSPEC IFIED Diagnosis 07/21/2020 05:56:00 PM [facility] J45.909 Unspecified asthma, uncomplicated UNSPECIFIED THMA, UNCOMPLICATED Diagnosis 07/21/2020 05:56:00 PM [facility] E86.0 Dehydration DEHYDRATION Diagnosis 07/21/2020 05:56:00 PM [facility] G47.09 Other insomnia OTHER INSOMNIA Diagnosis 07/21/2020 05:56: 00 PM [facility] K21.9 Gastro-esophageal reflux disease without esophagitis GASTRO-ESOPHAGEAL REFLUX DISEASE WITHOUT ESOPHAGITIS Diagnosis 07/21/2020 05:56:00 PM [facility] F17.210 Nicotine dependence, cigarettes, uncompl icated NICOTINE DEPENDENCE, CIGARETTES, UNCOMPLICATED Diagnosis 07/21/2020 05:56:00 PM [facility] F90.9 Attention-deficit hyperactivity disorder , unspecified type ATTENTION- DEFICIT HYPERACTIVITY DISORDER, UNSPECIFIED TYPE Diagnosis 07/21 05:56:00 PM [facility] F12.20 Cannabis dependence, uncomplicated CANNABIS DEPE NDENCE, UNCOMPLICATED Diagnosis 07/21/2020 05:56:00 PM [facility] F11.23 Opioid dependence with withdrawal OPIOID DEPENDE NCE WITH WITHDRAWAL Diagnosis 07/21/2020 05:56:00 PM [facility] 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 OTHER STIMULANT DEPENDENCE WITH WITHDRAWAL Diagnosis 07/21/2020 05:56:00 PM [facility] F11.10 Opioid abuse, uncomplicated OPIOID ABUSE, UNCOMPLICATE D Diagnosis 07/21/2020 05:56:00 PM [facility] F11.20 Opioid dependence, uncomplicated Opioid dependen ce, uncomplicated Diagnosis 07/06/2020 01:04:39 PM [facility] med refill med refill Diagnosis 06/26/2020 11:21:00 AM ED [facility] F11.29 Opioid dependence with unspecified opioi d-induced disorder Opioid dependence with unspecified opioid-induced disorder Diagnosis 02:16:00 PM [facility] refill refill Diagnosis 05/14/2020 02:16:00 PM ED [facility] Withdrawal Withdrawal Diagnosis 05/13/2020 04:37:00 PM ED [facility] F19.20 Psychoactive substance dependence Drug dependence, abu se Problem 06/17/2021 12:00:00 AM EDT eCW1 ([facility]) Surgeries/Procedures Procedure Description Date Indications Data Source(s) TDAP VACCINE 7/> YR IM TDAP VACCINE 7 YRS/> IM 12/18/2020 12:00:00 AM [facility] IMADM PRQ ID SUBQ/IM NJXS 1 VACCINE IMMUNIZATION ADMIN 12/09 12:00:00 AM [facility] EMERGENCY DEPARTMENT VISIT MODERATE SEVERITY EMERGENCY DEPT VISIT 12/18/2020 12:00:00 AM [facility] Injection, lorazepam, 2 mg 12/18/2020 12:00:00 AM [facility] Individual Counseling for Substance Abuse Treatment, C ognitive-Behavioral INDIV GLACIOLOGIST FOR SUBSTANCE ABUSE, COGNITIVE BEHAVIORAL 09/30/2020 12:00:00 AM [facility] Group Counseling for Substance Abuse Treatment, Motiva tional Enhancement GROUP GLACIOLOGIST FOR SUBSTANCE ABUSE, MOTIVATIONAL ENHANCE 09/30/2020 12:00:00 AM [facility] Group Counseling for Substance Abuse Treatment, Spirit ual GROUP COUNSELING FOR SUBSTANCE ABUSE TREATMENT, SPIRITUAL 09/30/2020 12:00:00 AM [facility] Group Counseling for Substance Abuse Treatment, Cognit lucretia-Behavioral GROUP GLACIOLOGIST FOR SUBSTANCE ABUSE, COGNITIVE BEHAVIORAL 09/30/2020 12:00:00 AM [facility] Measurement of Cardiac Rhythm, External Approach MEASU REMENT OF CARDIAC RHYTHM, EXTERNAL APPROACH 09/28/2020 12:00:00 AM [facility] Ultrasonography of Right and Left Heart ULTRASONOGRAPHY OF R IGHT AND LEFT HEART 09/28/2020 12:00:00 AM [facility] Medication Management for Substance Abuse Treatment, N aloxone MEDS MGMT FOR SUBSTANCE ABUSE TREATMENT, NALOXONE 07/23/2020 12:00:00 AM [facility] Individual Counseling for Substance Abuse Treatment, C ontinuing Care INDIV GLACIOLOGIST FOR SUBSTANCE ABUSE TREATMENT, CONTINUING CARE 07/22/2020 12:00:00 AM [facility] Detoxification Services for Substance Abuse Treatment DETOXIFICATION SERVICES FOR SUBSTANCE ABUSE TREATMENT 07/22/2020 12:00:00 AM [facility] Results ID Date Data Source [id number] 06/06/2021 08:48:00 PM EDT [facility] Name Value Range Interpretation Code Description Data Medina rce(s) Supporting Document(s) SARS coronavirus 2 RNA [Presence] in Res piratory specimen by TEE with probe detection POSITIVE [facility] This lab was ordered by [facility] a nd reported by [facility]. ID Date Data Source [id number] 12/18/2020 06:53:00 PM EDT [facility] Name: ASHLEY STOLL Med Rec #: [id number] : 1990 Age/Sex: 30F Date of Service: 12/18/20 PHYSICIAN CHART Physician Documentation [facility] Name: Ashley Stoll Age: 30 yrs Sex: [...] yrs old Female presents to ER via [place] [facility] with complaints of Psych Problem, [...] and is presenting now with further symptoms.. 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 Preferred Language: Mexican. - The history of the events were [...] Moreno RN RN awr Devan Mcrae RNP BOILER OPERATORS SUPERVISOR jja1 Charity Doyle MD MD kr Corrections: [...] rce(s) Supporting Document(s) ID Date Data Source [id number] 12/18/2020 06:53:00 PM EDT [facility] Name: ASHLEY STOLL [facility] Rec #: [id number] : 1990 Age/Sex: 30F Date of Service: 12/18/20 DISPOSITION SUMMARY Discharge Summary [facility] Name:Ashley Stoll Emergency Department Age:30 yrs Sex:Female [...] rce(s) Supporting Document(s) ID Date Data Source [id number] 12/18/2020 06:53:00 PM EDT [facility] Name: ASHLEY STOLL [facility] Rec #: [id number] : 1990 Age/Sex: 30F Date of Service: 12/18/20 NURSE CHART Nurse's Notes [facility] Name: Ashley Stoll Age: 30 yrs Sex: Female : 1990 Arrival Date: 12/18/2020 Time: 18:53 Bed H1 Private MD: Diagnosis: Substance Abuse Presentation: 12/18 18:55 Acuity: Urgent - 3 rp1 19:08 Transition of care: patient was not received from another [facility] setting of care. Presenting complaint: Patient states - Patient having anxiety after using drugs last night. Patient appears to be crying, anxious, but cooperative upon arrival. Have you travelled in the last 30 days? No. Have you had contact with an individual with a confirmed diagnosis of Ebola or COVID-19? No. 19:08 Method Of Arrival: [facility] [facility] Triage Assessment: 19:11 SEPSIS SCREEN: A Confirmed or Suspected Infection is [facility] Unknown. Suicide Screening: Have you had thoughts of harming yourself or others? No. The patient appears to have some mild discomfort, The patient is anxious, cooperative. No pain is apparent. 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 Preferred Language: Mexican. - The history of the events were obtained from: the patient. Screenin:17 AUDIT 1. How often do you have a drink containing alcohol? [facility] Never (0 points). Drug Abuse Screening Test: 1. Have you used drugs other than those required for medical reasons? Yes (1 point). Abuse screen: Denies threats or abuse. Denies injuries from another. Nutritional screening: No deficits noted. The patient has IV access (20 points). Assessment: 20:57 See Triage Assessment. [facility] 12/19 05:56 Patient has consumed many sandwiches, sodas and ice cream kl1 while being in the ER. Scow Captain: 10:19 Scow Captain Note: Called to ED by nursing supervisor dock marifer Shasha to speak to a patient [...] she had a ticket to go to [place] where she had a safe place to go, just needed to get to [place] for 12:45, and that "Wayne" was supposed to bring her. Per nursing (spoke to Mckenna)- this was confirmed by her mother during the night when they spoke with her. Patient also stated she needed to go to her apartment to cigar packer and picker her belongings and drivers license for ID. Attempts to call mom Jocelin [place] [phone] this morning unsuccessful, immediately went to voicemdil and TM left to return call to discuss further. Contacted [facility] office/ environmental health safety manager manager social media Davon Potter. She contacted Pat Hand at [facility]. Davon stated unable to assist as patient has a place to stay, she could go to [facility] Sunday morning to determine if they could assist with getting her to [place]. I again spoke to patient, she then stated apartment was in her name, and Wayne was not there, no one else was staying there, she just did not feel safe there. Could not/ would not further elaborate. Contacted [facility], spoke with Dina/ officer. She stated [...] they will also see if transportation to [place] for bus can be facilitated, and is [...] Vi Waterman RN RN smm1 Devan Mcrae, BOILER OPERATORS SUPERVISOR BOILER [employer]PERAT[employer] SUPERVISOR jja1 Ree Meneses RN Riri Montalvo RN RN rp1 Charity Doyle MD MD kr Meacham, Kaitlyn krm Facteau, Chase, NA NA cmf Corrections: (The following items were deleted from the chart) 05:32 03:10 Prazosin 2 tabs PO kl1 kl1 Name Value Range Interpretation Code Description Data Medina rce(s) Supporting Document(s) ID Date Data Source [id number] 12/18/2020 08:34:00 AM EDT [facility] Name: ASHLEY STOLL [facility] Rec #: [id number] : 1990 Age/Sex: 30F Date of Service: 12/18/20 PHYSICIAN CHART Physician Documentation [facility] Name: Ashley Stoll Age: 30 yrs Sex: Female : 1990 Arrival Date: 12/18/2020 Time: 08:34 Bed H1 Private MD: [facility] ED Physician Merced Leos HPI: 12/18 08:55 [...] to the laceration. There is no bleeding.. 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 Preferred Language: Mexican No barriers to communication noted, The patient speaks fluent Mexican, Speaks appropriately for age. - The history [...] mcg-5 Lf/0.5 mL intramuscular syringe (0.5 mL)] {Director Diversity: Marfeel. Exp: 07/29/2022. Lot #: [id number]. } Route: [...] Use Disorder jtv - Laceration Care, Adult, Grdj-tn-Iiax jtv Forms: - Medication Reconciliation jtv Signatures: Merced Leos MD MD jtv Mckenna Diop RN RN mp3 Nancy Farooq RN RN md1 Name Value Range Interpretation Code Description Data Medina rce(s) Supporting Document(s) ID Date Data Source [id number] 12/18/2020 08:34:00 AM EDT [facility] Name: ASHLEY STOLL [facility] Rec #: [id number] : 1990 Age/Sex: 30F Date of Service: 12/18/20 DISPOSITION SUMMARY Discharge Summary [facility] Name:Aslhey Stoll Emergency Department Age:30 yrs Sex:Female :1990 [...] Sheet, Substance Use Disorder, Laceration Care, Adult, Shlo-kv-Nlnq, Medication Reconciliation Name Value Range Interpretation Code Description Data Medina rce(s) Supporting Document(s) ID Date Data Source [id number] 12/18/2020 08:34:00 AM EDT [facility] Name: ASHLEY STOLL [facility] Rec #: [id number] : 1990 Age/Sex: 30F Date of Service: 12/18/20 NURSE CHART Nurse's Notes [facility] Name: Ashley Stoll Age: 30 yrs Sex: Female : 1990 Arrival Date: 12/18/2020 Time: 08:34 Bed H1 Private MD: Alisson Amezcua Diagnosis: Laceration without foreign body, left lower leg;Drug Abuse Presentation: 12/18 08:37 Transition of care: patient was not received from another [facility] setting of care. Complicating Factors: There [...] 4 3 08:37 Method Of Arrival: [facility] Triage Assessment: 08:39 SEPSIS SCREEN: A [...] patient complains of pain in right quadriceps. 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 Preferred Language: Mexican No barriers to communication noted, The patient speaks fluent Mexican, Speaks appropriately for age. - The history [...] mcg-5 Lf/0.5 mL intramuscular syringe (0.5 mL)] {Director Diversity: Marfeel. Exp: 07/29/2022. Lot #: [id number]. } Route: [...] Nancy Farooq RN RN md1 Nancy Sandra [facility] Corrections: (The following items were deleted from the chart) 12/18 08:39 08:37 Resp 17bpm; Temp 97.7F Temporal; 54.43 kg Reported; mp3 Height 5 ft. 1 in.; BMI: 22.6; Pain 5/10; mp3 Name Value Range Interpretation Code Description Data Medina rce(s) Supporting Document(s) ID Date Data Source [id number] 10/15/2020 03:59:00 PM [facility] Name Value Range Interpretation Code Description Data Medina rce(s) Supporting Document(s) Beta HCG Screen,Qualitative Negative Normal (appli es to non-numeric results) [facility] ID Date Data Source [id number] 10/13/2020 01:12:00 PM [facility] Name Value Range Interpretation Code Description Data Medina rce(s) Supporting Document(s) Chlamydia,Urine Negative Normal (applies to non-numeric results) [facility] GC Urine Negative Normal (applies to non-numeric resul ts) [facility] Methodology: Second generation nucleic a bryant amplification. ID Date Data Source [id number] 10/09/2020 02:38:00 AM [facility] Name Value Range Interpretation Code Description Data Medina rce(s) Supporting Document(s) Buprenorphine+Nor QL,Urine . Very abnormal (appli es to non-numeric units [facility] Confirmation performed by Mass Spect[employer] try Buprenorphine QL,Ur Confirm . Very abnormal (appl ies to non-numeric units [facility] Buprenorphine Qnt,Ur Confirm 118 ng/mL Cutoff=10 Nor mal (applies to non-numeric results) [facility] Norbuprenorphine QL,Ur Cfm . Very abnormal (appli es to non-numeric units [facility] Norbuprenorphine Qnt,Ur Cfm 240 ng/mL Cutoff=10 Norm al (applies to non-numeric results) [facility] Performed at: - Lab[address] [id number] Maintenance Scheduler: Anisha Banda MD, Phone: [phone] ID Date Data Source [id number] 10/07/2020 01:14:00 PM [facility] Collected By: Patient-Inpatient Time Co llected: 0210 Name Value Range Interpretation Code Description Data Medina rce(s) Supporting Document(s) Urine Culture Normal (applies to non-numeric re sults) [facility] ID Date Data Source [id number] 10/06/2020 01:04:00 PM [facility] Name Value Range Interpretation Code Description Data Medina rce(s) Supporting Document(s) Bupren Scrn,Ur wRfx LCI SO res Negative Banuelos [facility] Therapeutic Drug Threshold for Buprenorp nixon: 5 ng/mL All positive findings are presumptive and unconfirmed. Confirmation of positive Buprenorphine is automatically reflexed and sent to reference laboratory. Unconfirmed results must not be used for non-medical purposes (i.e. pre-employment and legal purposes) ID Date Data Source [id number] 10/06/2020 12:50:00 PM [facility] Name Value Range Interpretation Code Description Data Medina rce(s) Supporting Document(s) Opiate Screen,Urine Negative Normal (applies to non-nume gabriel results) [facility] Amphetamine Screen,Urine Negative Normal (applies to non -numeric results) [facility] Benzodiazepines Scrn,Ur result Negative N ormal (applies to non-numeric results) [facility] Cocaine Screen,Urine Negative Normal (applies to non-num paulina results) [facility] Methadone Screen,Urine Negative Normal (applies to non-n umeric results) [facility] Cannabinoid Screen, Ur Negative Normal (applies to non-n umeric results) [facility] Therapeutic Drug Ranges for Emergency [...] and legal purposes) ID Date Data Source [id number] 10/06/2020 02:52:00 AM [facility] Name Value Range Interpretation Code Description Data Medina rce(s) Supporting Document(s) Color,Urine Yellow [facility] pital Clarity,Urine Clear Normal (applies to non-numeric re sults) [facility] Specific Waggoner,Urine 1.001-1.030 Normal (applies to non- numeric results) [facility] PH,Urine 5.0-8.0 Normal (applies to non-numeric resul ts) [facility] Protein,Urine Negative Normal (applies to non-numeric re sults) [facility] Glucose,Urine (UA) Negative Normal (applies to non-numer ic results) [facility] Ketones,Urine Negative Normal (applies to non-numeric re sults) [facility] Blood,Urine Negative Normal (applies to non-numeric resu lts) [facility] Bilirubin,Urine Negative Normal (applies to non-numeric results) [facility] Urobilinogen,Urine Norm 0.2-1 Normal (applies to non-numer ic results) [facility] Leukocyte Esterase,Urine Negative [facility] Nitrite,Urine Negative [facility] ospital ID Date Data Source [id number] 10/06/2020 02:52:00 AM [facility] Name Value Range Interpretation Code Description Data Medina rce(s) Supporting Document(s) RBC,Auto Urine 0-2 Normal (applies to non-numeric r esults) [facility] WBC Urine Auto 0-10 Normal (applies to non-numeric r esults) [facility] Casts,Hyaline,Urine Auto 0-2 Normal (applies to non -numeric results) [facility] Bacteria Urine Auto None Seen Normal (applies to non-nume gabriel results) [facility] Epithelial Cell Ur Auto None-Few Normal (applies to non- numeric results) [facility] ID Date Data Source [id number] 10/06/2020 05:36:00 AM EST [facility] Name: ASHLEY STOLL : 1990 Age/Sex: 29F Ordering Provider: TANIA Rock Med Rec #: [id number] Reg Status: ADM IN Room #: 156-1 Date of Service: 10/05/20 Report Number: [id number] cc:TANIA Rock Send Report To: [id number] XRP/XR Abdomen 1 View [KUB] Reason for [...] Aristides Hightower MD> 10/06/20 1105 Dictation Date/Time: 10/05/203 Transcribed Date/Time: 10/06/20 5037 Morphologist: DOMENICA Name Value Range Interpretation Code Description Data Medina rce(s) Supporting Document(s) ID Date Data Source [id number] 12/22/2020 03:54:00 PM EDT [facility] Name Value Range Interpretation Code Description Data Medina rce(s) Supporting Document(s) Hepatitis C Antibody Screen Negative Normal (appli es to non-numeric results) [facility] Supplemental testing for HCV RNA is orde red to rule out active HCV infection. Glfgwl-tg-yobfoe ratio is >=8.00. Test Performed by: [place] [address] Maintenance Scheduler: Jim Spencer M.D. Ph.D.; CLIA# [id number] Hep C Virus Qnt (Rfx'd) [id number] IU/mL Undetected Normal ( applies to non-numeric results) [facility] Result in log IU/mL is 6.33. ---------ADDITIONAL INFORMATION The quantification range of this assay is 15 to 100,000,000 IU/mL (1.18 log to 8.00 log IU/mL). Testing was performed using the jc HCV test ([employer] with the jc [id number] System. Test Performed by: [place] [address] Maintenance Scheduler: Jim Spencer M.D. Ph.D.; CLIA# [id number] THIS IS A STATE REPORTABLE COMMUNICABLE DISEASE. Results called 10/06/20925,NICHOLAS EDWARDS read back information to LAB.[facility] ID Date Data Source [id number] 10/03/2020 11:37:00 AM EST [facility] Value Range Interpretation Code Description Data Medina rce(s) Supporting Document(s) HAVM Nonreactive Normal (applies to non-numeric resu lts) [facility] ID Date Data Source [id number] 10/03/2020 11:36:00 AM EST [facility] Value Range Interpretation Code Description Data Medina rce(s) Supporting Document(s) Hep Bs Ag Result T-Test Nonreactive Normal (applies to non -numeric results) [facility] ID Date Data Source [id number] 10/03/2020 11:36:00 AM EST [facility] Value Range Interpretation Code Description Data Medina rce(s) Supporting Document(s) Syphilis Serology Nonreactive Normal (applies to non-numer ic results) [facility] ID Date Data Source [id number] 10/03/2020 10:58:00 AM EST [facility] Name Value Range Interpretation Code Description Data Medina rce(s) Supporting Document(s) Sodium 140 mmol/L 137-145 Normal (applies to non-numeric resul ts) [facility] Potassium 3.5-5.1 Normal (applies to non-numeric resul ts) [facility] Chloride 107 mmol/L 98-112 Normal (applies to non-numeric resul ts) [facility] Carbon Dioxide CO2 22.0-33.0 Normal (applies to non-numer ic results) [facility] Anion Gap 4.0-11.0 Below low normal [facility] BUN 19 mg/dL 7-17 Above high normal [facility] Creatinine 0.70-1.20 Below low normal [facility] GFR >60 Normal (applies to non-numeric results) [facility] Result based on MDRD formula. Glucose Level 81 mg/dL 74-99 Normal (applies to non-numeric re sults) [facility] The reference range is only applicable w hen fasting. Calcium-Uncorrected 8.4-10.2 Normal (applies to non-nume gabriel results) [facility] Corrected Calcium 8.4-10.2 Normal (applies to non-numeri c results) [facility] Bilirubin,Total 0.2-1.3 Normal (applies to non-numeric results) [facility] Bilirubin,Direct 0.0-0.3 Normal (applies to non-numeric results) [facility] SGOT(AST) 98 U/L 14-36 Above high normal [facility] SGPT(ALT) 133 U/L 9-52 Above high normal [facility] Alkaline Phosphatase 136 U/L 38-[address] [facility] can increase Alkaline Phosp le vels up to 2 times the normal adult value. Normal values for children and adolescents are 2 to 3 times the normal adult value. CPK 69 U/L 26-192 Normal (applies to non-numeric resul ts) [facility] Total Protein 6.3-8.2 Below low normal [facility] Albumin 3.5-5.0 Below low normal [facility] Thyroid Stimulate Hormone TSH 0.358-3.740 No rmal (applies to non-numeric results) [facility] ID Date Data Source [id number] 10/03/2020 10:58:00 AM EST [facility] Name Value Range Interpretation Code Description Data Medina rce(s) Supporting Document(s) Magnesium 1.80-2.40 Normal (applies to non-numeric resul ts) [facility] ID Date Data Source [id number] 10/03/2020 10:58:00 AM EST [facility] Name Value Range Interpretation Code Description Data Medina rce(s) Supporting Document(s) C-Reactive Protein,Wide Range <3.00 Normal (applies t o non-numeric results) [facility] ID Date Data Source [id number] 10/03/2020 10:50:00 AM EST [facility] Name Value Range Interpretation Code Description Data Medina rce(s) Supporting Document(s) White Blood Count 4.8-10.8 Normal (applies to non-numeri c results) [facility] Red Blood Count 3.68-5.22 Normal (applies to non-numeric results) [facility] Hemoglobin 11.2-15.7 Normal (applies to non-numeric resul ts) [facility] Hematocrit 34.1-44.9 Normal (applies to non-numeric resul ts) [facility] Mean Corpuscular Volume 81-99 Normal (applies to non- numeric results) [facility] Mean Corpuscular Hemoglobin 27.0-33.0 Normal (appli es to non-numeric results) [facility] Mean Corpuscular HGB Conc 32.0-36.0 Normal (applies to no n-numeric results) [facility] Red Cell Distribution Width 11.5-14.5 Normal (appli es to non-numeric results) [facility] Platelet Count 255 X10 3/uL 130-450 Normal (applies to non-numeric results) [facility] Mean Platelet Volume 9.5-12.7 Below low normal [facility] Imm Grans% (AUTO) 0 % 0-2 Normal (applies to non-numeri c results) [facility] Neutrophils % (AUTO) 54 % 40-75 Normal (applies to non-num paulina results) [facility] Lymphocytes % (AUTO) 33 % 21-46 Normal (applies to non-num paulina results) [facility] Monocytes % (AUTO) 9 % 5-12 Normal (applies to non-numer ic results) [facility] Eosinophils % (AUTO) 3 % 1-5 Normal (applies to non-num paulina results) [facility] Basophils % (AUTO) 0 % 0-1 Normal (applies to non-numer ic results) [facility] Imm Grans# (AUTO) 0.0-0.5 Normal (applies to non-numeri c results) [facility] Neutrophils # (AUTO) 1.5-8.1 Normal (applies to non-num paulina results) [facility] Lymphocytes # (AUTO) 1.0-3.1 Normal (applies to non-num paulina results) [facility] Monocytes # (AUTO) 0.2-1.3 Normal (applies to non-numer ic results) [facility] Eosinophils# (AUTO) 0.0-0.5 Normal (applies to non-nume gabriel results) [facility] Basophils # (AUTO) 0.0-0.1 Normal (applies to non-numer ic results) [facility] ID Date Data Source [id number] 09/29/2020 07:07:00 PM EST [facility] Name Value Range Interpretation Code Description Data Medina rce(s) Supporting Document(s) Gentamicin,10 Hr Normal (applies to non-numeric results) [facility] Interval between start of infusion [...] infusion <2.0 ug/mL ID Date Data Source [id number] 09/29/2020 01:01:00 PM [facility] Name: ASHLEY STOLL : 1990 Age/Sex: 29F Ordering Provider: Julianna BLANKENSHIP Med Rec #: [id number] Reg Status: ADM IN Room #: 156-1 Date of Service: 09/29/20 Report Number: [id number] cc:Julianna BLANKENSHIP Send Report To: [id number] XRP/XR Chest 2 View [Pa & Lat] [...] Date/Time: 09/29/20 0904 Transcribed Date/Time: 09/29/20 1301 Morphologist: DOMENICA Name Value Range Interpretation Code Description Data Medina rce(s) Supporting Document(s) ID Date Data Source [id number] 09/28/2020 06:00:00 AM [facility] Name: ASHLEY STOLL : 1990 Age/Sex: 29F Ordering Provider: Julianna BLANKENSHIP Med Rec #: [id number] Reg Status:ADM IN Room #: 156-1 Date [...] Fuentes II, MD <Electronically signed by Dio Funetes II, MD in [place]> Exam Date/Time: 09/28/20 0600 Order #: [id number] Dictation Date/Time: 09/28/20 0850 Transcribed Date/Time: Morphologist: Name Value Range Interpretation Code Description Data Medina rce(s) Supporting Document(s) ID Date Data Source [id number] 09/28/2020 10:08:00 AM [facility] Name: ASHLEY STOLL : 1990 Age/Sex: 29F Ordering Provider: Julianna BLANKENSHIP Med Rec #: [id number] Reg Status:ADM IN Room #: 156-1 Date of Service: 09/28/20 Report Number: [id number] cc: Julianna BLANKENSHIP; Stella Enciso MD; PCP None Send Report To: Reason for exam: Baseline SINUS RHYTHM NORMAL ECG There is no old ECG available for comparison Physician Advertising Supervisor: Jeromy Wiggins M.D. ECG HEART RATE: 92 /min ECG RR INTERVAL: 646 ms ECG P DURATION: 97 ms ECG QRS DURATION: 87 ms ECG [place] INTERVAL: 124 ms ECG QT INTERVAL: 329 ms ECG QTC INTERVAL: 385 ms Q-T dispersion: ms ECG P AXIS: 35 deg ECG QRS AXIS: 71 deg ECG T AXIS: 21 deg REPORT SIGNATURE ON FILE 09/28/20 1009 Reported By: Jeromy Wiggins MD, [facility] <<Signature on File>> Exam Date/Time: 09/28/20 0903 Order #: [id number] Dictation Date/Time: 09/28/20 1008 Transcribed Date/Time: 09/28/20 100 Morphologist: ABI Name Value Range Interpretation Code Description Data Medina rce(s) Supporting Document(s) ID Date Data Source [id number] 09/28/2020 02:44:00 PM EST [facility] Name Value Range Interpretation Code Description Data Medina rce(s) Supporting Document(s) GC Urine Negative Banuelos [facility] funmi THIS IS A STATE REPORTABLE COMMUNICABLE DISEASE. Results called 09/28/20 1442,PATTIE Levine read back information to LAB.[facility]UCERO Methodology: Second generation nucleic acid amplification. ID Date Data Source [id number] 09/27/2020 03:33:00 PM [facility] Name Value Range Interpretation Code Description Data Medina rce(s) Supporting Document(s) Opiate Screen,Urine Negative Normal (applies to non-nume gabriel results) [facility] Amphetamine Screen,Urine Negative Normal (applies to non -numeric results) [facility] Benzodiazepines Scrn,Ur result Negative N ormal (applies to non-numeric results) [facility] Cocaine Screen,Urine Negative Normal (applies to non-num paulina results) [facility] Methadone Screen,Urine Negative Normal (applies to non-n umeric results) [facility] Cannabinoid Screen, Ur Negative Normal (applies to non-n umeric results) [facility] Therapeutic Drug Ranges for Emergency [...] and legal purposes) ID Date Data Source [id number] 09/27/2020 02:09:00 PM [facility] Name Value Range Interpretation Code Description Data Medina rce(s) Supporting Document(s) Color,Urine Yellow Normal (applies to non-numeric resu lts) [facility] Clarity,Urine Clear [facility] o[facility] Specific [place],Urine 1.001-1.030 Normal (applies to non- numeric results) [facility] PH,Urine 5.0-8.0 Normal (applies to non-numeric resul ts) [facility] Protein,Urine Negative Normal (applies to non-numeric re sults) [facility] Glucose,Urine (UA) Negative Normal (applies to non-numer ic results) [facility] Ketones,Urine Negative Normal (applies to non-numeric re sults) [facility] Blood,Urine Negative [facility] pital Bilirubin,Urine Negative Normal (applies to non-numeric results) [facility] Urobilinogen,Urine Norm 0.2-1 Normal (applies to non-numer ic results) [facility] Leukocyte Esterase,Urine Negative [facility] Nitrite,Urine Negative Normal (applies to non-numeric re sults) [facility] ID Date Data Source [id number] 09/27/2020 02:09:00 PM [facility] Name Value Range Interpretation Code Description Data Medina rce(s) Supporting Document(s) [facility],U[facility] 0-2 Normal (applies to non-numeric resul ts) [facility] Hyaline Casts,Ur None Seen Normal (applies to non-numeric results) [facility] Bacteria,Urine None Seen [facility] Epithelial Cell,Ur None-Few [facility] ID Date Data Source [id number] 09/27/2020 02:09:00 PM EST [facility] Name Value Range Interpretation Code Description Data Medina rce(s) Supporting Document(s) Urine HCG Negative Normal (applies to non-numeric resul ts) [facility] ID Date Data Source [id number] 09/27/2020 09:43:00 AM EST [facility] Name Value Range Interpretation Code Description Data Medina rce(s) Supporting Document(s) Respiratory specimen severe acute respir atory syndrome coronavirus 2 (SARS-CoV-2) RNA Negative (qualifier value) [facility] This lab was ordered by [facility] rashad and reported by [facility]. ID Date Data Source [id number] 09/27/2020 09:43:00 AM EST [facility] Name Value Range Interpretation Code Description Data Medina rce(s) Supporting Document(s) SARS-CoV-2 RNA Negative Normal (applies to non-numeric r esults) [facility] Negative results should be treated [...] Certificate of Accreditation. Factsheets for healthcare providers: https://www.fda.gov/media/372375/download Factsheets for patients: https://www.fda.gov/media/029858/download The ID NOW Instrument is a rapid molecular in vitro diagnostic test utilizing an isothermal nucleic acid amplification technology intended for the qualitative detection of nucleic acid from the SARS-CoV-2 viral RNA. THIS IS A STATE REPORTABLE COMMUNICABLE DISEASE. Manual entry verified by Ronald Buitrago 09/27/20 0942 ID Date Data Source [id number] 09/13/2020 10:13:00 AM EST [facility] Name Value Range Interpretation Code Description Data Medina rce(s) Supporting Document(s) Respiratory specimen severe acute respir atory syndrome coronavirus 2 (SARS-CoV-2) RNA [facility] This lab was ordered by Nicola choudhary and reported by . ID Date Data Source [id number] 09/12/2020 05:00:00 AM EST [facility] ([facility]) Name Value Range Interpretation Code Description Data Medina rce(s) Supporting Document(s) Appearance of Abdomen CLOUDY [facility] ([facility]) Color of Peritoneal dialysis fluid DARK YELLOW [facility] ([facility]) Glucose [Mass/volume] in Urine collected for unspecified duration N EGATIVE [facility] ([facility]) pH of Lower respiratory specimen 7.0 [facility] ([facility]) Bilirubin [Presence] in Peritoneal fluid NEGATIVE [facility] ([facility]) Specific gravity of Pericardial fluid by Refractometry 1.012 [facility] ([facility]) Ketones [Presence] in Blood by Tablet NEGATIVE [facility] ([facility]) OCCULT BLOOD 2+ [facility] Protein [Mass/volume] in Lower respiratory specimen NEGATIVE [facility] ([facility]) WBC 20-40 [facility] ([facility]) RBC 3-10 [facility]) Leukocyte esterase [Presence] in Body fluid by Automated test strip 3 + [facility] ([facility]) Nitrite [Presence] in Urine by Test strip NEGATIVE [facility] ([facility]) TRANSITIONAL EPITHELIAL CELLS DNR [facility] ([facility]) RENAL EPITHELIAL CELLS DNR NETSMAR T ([facility]) SQUAMOUS EPITHELIAL CELLS 10-20 NETS MART ([facility]) Triple phosphate crystals [Presence] in Urine sediment by Li ght microscopy DNR [facility] ([facility]) Calcium oxalate crystals [Presence] in Urine sediment by Lig ht microscopy MANY [facility] ([facility]) URIC ACID CRYSTALS DNR [facility] ([facility]) Bacteria [Presence] in Prostatic fluid by Light microscopy NONE SEEN [facility] ([facility]) HYALINE CAST NONE SEEN [facility] ([facility]) Amorphous sediment [Presence] in Urine sediment by Light microscopy D NR [facility] ([facility]) Crystals [#/area] in Body fluid by Light microscopy DNR [facility] ([facility]) Casts [#/area] in Urine sediment by Automated count DNR [facility] ([facility]) Yeast [#/area] in Urine by Automated count DNR [facility] ([facility]) GRANULAR CAST DNR [facility] ([facility]) COMMENTS DNR [facility] ([facility]) Enhanced PDF Report [id number] [facility] ([facility]) Nurse Note DNR [facility] ([facility]) ID Date Data Source [id number] 09/12/2020 05:00:00 AM EST [facility] ([facility]) Name Value Range Interpretation Code Description Data Medina rce(s) Supporting Document(s) Color of Urine DARK YELLOW [facility] ([facility]) pH of Urine by Test strip [...] [facility] ([facility]) ID Date Data Source [id number] 09/14/2020 12:28:00 PM EST [facility] Received: 09/14/2020 at 09:29:00 QPT : [facility] Lisseth Moody, [address] [place] [address], [phone], Dev Chung MD Name Value Range Interpretation [...] [facility] ID Date Data Source [id number] 08/23/2020 04:10:00 PM EST [facility] Name Value Range Interpretation Code Description Data Medina rce(s) Supporting Document(s) HCV Genotype result 3 Undetected Normal (applies to non-nume gabriel results) [facility] ADDITIONAL INFORMATIO N This test was performed using the [place] RealTime HCV Genotype II assay ([employer] [place], [place]). Test Performed by: [facility] [place] [address] Maintenance Scheduler: Jim Spencer M.D. Ph.D.; CLIA# [id number] ID Date Data Source [id number] 07/27/2020 11:05:00 AM [facility] Name Value Range Interpretation Code Description Data Medina rce(s) Supporting Document(s) HCV Genotype result 3 Undetected Normal (applies to non-nume gabriel results) [facility] ADDITIONAL INFORMATIO N This test was performed using the [place] RealTime HCV Genotype II assay ([employer] [place], [place]). Test Performed by: [facility] [place] [address] Maintenance Scheduler: Jim Spencer M.D. Ph.D.; CLIA# [id number] ID Date Data Source [id number] 07/22/2020 04:19:00 AM [facility] ADD ON FROM SAMPLE COLLECTED 07/21/20 AT 1945 Name Value Range Interpretation Code Description Data Medina rce(s) Supporting Document(s) Beta HCG,Screen Negative Normal (applies to non-numeric results) [facility] ID Date Data Source [id number] 08/23/2020 02:23:00 PM EST [facility] Name Value Range Interpretation Code Description Data Medina rce(s) Supporting Document(s) Chlamydia,Urine Negative Normal (applies to non-numeric results) [facility] Test Performed By: [facility] [address] [place] [address] Director: Em Head MD . GC Urine Negative Normal (applies to non-numeric resul ts) [facility] Test Performed By: [facility] [address] [place] [address] Director: Em Head MD . Methodology: Second generation nucleic acid amplification. ID Date Data Source [id number] 07/23/2020 04:28:00 PM [facility] Name Value Range Interpretation Code Description Data [facility] rce(s) Supporting Document(s) Chlamydia,Urine result Negative Normal (applies to non-n umeric results) [facility] Test Performed By: [facility] [address] [place] [address] Director: Em Head MD . GC Urine result Negative Normal (applies to non-numeric results) [facility] Test Performed By: [facility] [address] [place] [address] Director: Em Head MD . Methodology: Second generation nucleic acid amplification. ID Date Data Source [id number] 07/21/2020 10:21:00 PM [facility] Collected By: Nurse Initials: banuelos Time Collected: 2019 Collected By: Nurse Initials: banuelos Time Collected: 2019 Name Value Range Interpretation Code Description Data [facility] rce(s) Supporting Document(s) Color,Urine Colorl-Dk Y Normal (applies to non-numeric res ults) [facility] Clarity,Urine Clear Normal (applies to non-numeric re sults) [facility] Specific [place],Urine 1.005-1.030 Normal (applies to non- numeric results) [facility] pH,Urine 5.0-8.0 [facility] Protein,Urine Negative Normal (applies to non-numeric re sults) [facility] Glucose,Urine Negative Normal (applies to non-numeric re sults) [facility] Ketones,Urine Negative Normal (applies to non-numeric re sults) [facility] Blood,Urine Negative Normal (applies to non-numeric resu lts) [facility] Bilirubin,Urine Negative Normal (applies to non-numeric results) [facility] Urobilinogen,Urine 0.2-1.0 Normal (applies to non-numer ic results) [facility] Leukocyte Esterase,Urine Negative Normal (applies to non -numeric results) [facility] Nitrite,Urine Negative Normal (applies to non-numeric re sults) [facility] ID Date Data Source [id number] 07/21/2020 10:21:00 PM [facility] Collected By: Nurse Initials: vin Time Collected: 2019 Collected By: Nurse Initials: vin Time Collected: 2019 Name Value Range Interpretation Code Description Data Medina rce(s) Supporting Document(s) WBC,Urine None Seen [facility] Squamous Cells,Urine None Seen [facility] Bacteria,Urine None Seen [facility] ID Date Data Source [id number] 07/21/2020 10:04:00 PM [facility] Name Value Range Interpretation Code Description Data Medina rce(s) Supporting Document(s) UDS Benzodiazepines Screen Negative Normal (applies to n on-numeric results) [facility] UDS Cocaine Screen Negative Normal (applies to non-numer ic results) [facility] UDS Ampetamine Screen Negative Normal (applies to non-nu meric results) [facility] UDS Cannabinoids Screen Negative [facility] UDS Opiates Screen Negative Normal (applies to non-numer ic results) [facility] UDS Barbiturates Screen Negative Normal (applies to non- numeric results) [facility] ID Date Data Source [id number] 08/23/2020 02:21:00 PM [facility] Name Value Range Interpretation Code Description Data Medina rce(s) Supporting Document(s) Hepatitis A Ab,IgG result Normal (applies to no n-numeric results) [facility] Result indicates immunity to hepatitis A infection from either vaccination or past exposure to hepatitis A. False-positive results may be observed in patients with CMV antibodies or heterophilic antibodies. REFERENCE VALUE Unvaccinated: Negative Vaccinated: Positive Test Performed by: [facility] [address] [address] Maintenance Scheduler: Jim Spencer M.D. Ph.D.; CLIA# [id number] ID Date Data Source [id number] 08/23/2020 02:21:00 PM EST [facility] Test Performed By: [facility] [address] [place] [address] Director: Em Head MD Test Performed By: [place] [address] Director: Em Head MD Name Value Range Interpretation Code Description Data Medina rce(s) Supporting Document(s) Hep C Ab-T Test Nonreactive Banuelos [facility] Test Performed By: [place] [address] Director: Em Head MD Results called 07/22/20 [...] be requested by the physician if necessary. ([facility] [place]NOTE 2] MMWR No RR-3. 2003). ID Date Data Source [id number] 08/23/2020 02:21:00 PM EST [facility] Test Performed By: [place] [address] Director: Em Head MD Test Performed By: [place] [address] Director: Em Head MD Name Value Range Interpretation Code Description Data Medina rce(s) Supporting Document(s) ID Date Data Source [id number] 08/23/2020 02:21:00 PM EST [facility] Test Performed By: [facility] [address] [place] [address] Director: Em Head MD Test Performed By: [place] [address] Director: Em Head MD Name Value Range Interpretation Code Description Data Medina rce(s) Supporting Document(s) ID Date Data Source [id number] 08/23/2020 02:21:00 PM [facility] Name Value Range Interpretation Code Description Data [facility] rce(s) Supporting Document(s) CPK 20 U/L 26-192 Below low normal [facility] Test Performed By: [facility] [address] [place] [address] Director: Em Head MD ID Date Data Source [id number] 07/23/2020 01:57:00 PM [facility] Name Value Range Interpretation Code Description Data Medina rce(s) Supporting Document(s) Hepatitis A Ab,IgG result Normal (applies to no n-numeric results) [facility] Result indicates immunity to hepatitis A infection from either vaccination or past exposure to hepatitis A. False-positive results may be observed in patients with CMV antibodies or heterophilic antibodies. REFERENCE VALUE Unvaccinated: Negative Vaccinated: Positive Test Performed by: [place] [address] Maintenance Scheduler: Jim Spencer M.D. Ph.D.; CLIA# [id number] ID Date Data Source [id number] 07/22/2020 08:33:00 AM [facility] Value Range Interpretation Code Description Data [facility](s) Supporting Document(s) Hepatitis C Virus Ab result Nonreactive Very abnormal (applies to non-numeric units [facility] Test Performed By: [facility] [address] [place] [address] Director: Em Head MD Results called 07/22/20810,MERCED [...] be requested by the physician if necessary. ([facility] 2[place] MMWR No RR-3. 2003). ID Date Data Source [id number] 07/22/2020 08:33:00 AM [facility] Value Range Interpretation Code Description Data Medina rce(s) Supporting Document(s) Syphilis Serology result Nonreactive Normal (applies to non-numeric results) [facility] Test Performed By: [facility] [address] [place] [address] Director: Em Head MD ID Date Data Source [id number] 07/22/2020 08:33:00 AM [facility] Value Range Interpretation Code Description Data Medina rce(s) Supporting Document(s) CPK result 20 U/L 26-192 [facility] Test Performed By: [facility] [address] [place] [address] Director: Em Head MD ID Date Data Source [id number] 07/22/2020 08:33:00 AM [facility] Value Range Interpretation Code Description Data Medina rce(s) Supporting Document(s) Hep Bs Ag result T-Test Nonreactive Normal (applies to non -numeric results) [facility] Test Performed By: [place] [address] Director: Em Head MD ID Date Data Source [id number] 07/21/2020 08:54:00 PM [facility] Value Range Interpretation Code Description Data Medina rce(s) Supporting Document(s) Bilirubin,Direct 0.05-0.20 Normal (applies to non-numeric results) [facility] ID Date Data Source [id number] 07/21/2020 08:54:00 PM [facility] Value Range Interpretation Code Description Data Medina rce(s) Supporting Document(s) Sodium 132 mmol/L 136-145 Below low normal [facility] Potassium 3.5-5.1 Below low normal [facility] Chloride 92 mmol/L 98-107 Below low normal [facility] spital Carbon Dioxide CO2 21-32 Normal (applies to non-numer ic results) [facility] Anion Gap 5.0-16.0 Normal (applies to non-numeric resul ts) [facility] BUN 14 mg/dL 7-18 Normal (applies to non-numeric results) [facility] Creatinine,Serum 0.7-1.2 Normal (applies to non-numeric results) [facility] GFR >60 Normal (applies to non-numeric results) [facility] Glucose Level 120 mg/dL 60-99 Above high normal [facility] Reference range is only applicable when patient is fasting Note the following drug interference: Sulfasalazine Sulfapyridine Can see falsely depressed Can see falsely elevated result with up to 17% results with up to 11% decrease in measurement increase in measurement Recommend patients be collected for this test prior to administration of either drug. Calcium 8.5-10.1 Normal (applies to non-numeric resul ts) [facility] Bilirubin,Total 0.1-1.9 Normal (applies to non-numeric results) [facility] SGOT(AST) 34 U/L 15-37 Normal (applies to non-numeric resul ts) [facility] Note the following drug interference: Sulfasalazine Sulfapyridine Can see falsely depressed Can see falsely elevated result with up to 10% results with up to 10% decrease in measurement increase in measurement Recommend patients be collected for this test prior to administration of either drug. SGPT(ALT) 32 U/L 12-78 Normal (applies to non-numeric resul ts) [facility] Note the following drug interference: Sulfasalazine Sulfapyridine Can see falsely depressed Can see falsely elevated result with up to 29% results with up to 10% decrease in measurement increase in measurement Recommend patients be collected for this test prior to administration of either drug. Alkaline Phosphatase 127 U/L 38-126 Above high normal [facility] can increase Alkaline Phosp le vels up to 2 times the normal adult value. Normal values for children and adolescents are 2 to 3 times the normal adult value. Total Protein 6.0-8.2 Above high normal [facility] Albumin Level 3.4-5.0 Normal (applies to non-numeric re sults) [facility] ID Date Data Source [id number] 07/21/2020 08:54:00 PM EST [facility] Name Value Range Interpretation Code Description Data Medina rce(s) Supporting Document(s) Phosphorus 2.5-4.9 Normal (applies to non-numeric resul ts) [facility] ID Date Data Source [id number] 07/21/2020 08:54:00 PM [facility] Name Value Range Interpretation Code Description Data Medina rce(s) Supporting Document(s) Magnesium 1.8-2.4 Normal (applies to non-numeric resul ts) [facility] ID Date Data Source [id number] 07/21/2020 08:54:00 PM [facility] Name Value Range Interpretation Code Description Data Medina rce(s) Supporting Document(s) Thyroid Stimulate Hormone TSH 0.358-3.74 No rmal (applies to non-numeric results) [facility] ID Date Data Source [id number] 07/21/2020 08:46:00 PM [facility] Name Value Range Interpretation Code Description Data Medina rce(s) Supporting Document(s) White Blood Count 3.5-10.5 Normal (applies to non-numeri c results) [facility] Red Blood Count 3.90-5.00 Above high normal [facility] Hemoglobin 12.0-15.5 Above high normal [facility] Hematocrit 34.9-44.5 Above high normal [facility] Mean Corpuscular Volume 81.2-95.1 Normal (applies to non- numeric results) [facility] Mean Corpuscular Hgb 25.6-32.2 Normal (applies to non-num paulina results) [facility] Mean Corpuscular Hgb Conc 32.0-36.0 Normal (applies to no n-numeric results) [facility] Red Cell Distribution Width 11.9-15.5 Normal (appli es to non-numeric results) [facility] Platelet Count 303 x10 3/uL 150-450 Normal (applies to non-numeric results) [facility] Mean Platelet Volume 9.4-12.4 Normal (applies to non-num paulina results) [facility] Neutrophils% (Auto) 31.0-71.0 Normal (applies to non-nume gabriel results) [facility] Lymphocytes% (Auto) 20.0-55.0 Normal (applies to non-nume gabriel results) [facility] Monocytes% (Auto) 4.0-12.0 Normal (applies to non-numeri c results) [facility] Eosinophils% (Auto) 1.0-8.[address] [facility] Basophils% (Auto) 0.0-2.0 Normal (applies to non-numeri c results) [facility] Immature Granulocytes% (Auto) 0.0-2.0 Normal (lio lies to non-numeric results) [facility] Neutrophils# (Auto) 1.50-6.20 Normal (applies to non-nume gabriel results) [facility] Lymphocytes# (Auto) 1.20-4.00 Normal (applies to non-nume gabriel results) [facility] Monocytes# (Auto) 0.00-0.90 Normal (applies to non-numeri c results) [facility] Eosinophils# (Auto) 0.00-0.50 Normal (applies to non-nume gabriel results) [facility] Basophils# (Auto) 0.00-0.20 Normal (applies to non-numeri c results) [facility] Immature Granulocytes# (Auto) 0.00-7.00 No rmal (applies to non-numeric results) [facility] Slide Reviewed By Normal (applies to non-numeri c results) [facility] Slide has been reviewed and findings con firmed by a technologist/library information technician. ID Date Data Source [id number] 07/21/2020 08:54:00 PM EST [facility] Name Value Range Interpretation Code Description Data Medina rce(s) Supporting Document(s) Ethanol Less than 10.0 Normal (applies to non-numeric r esults) [facility] ID Date Data Source [id number] 07/21/2020 06:47:00 PM EST [facility] Name Value Range Interpretation Code Description Data Medina rce(s) Supporting Document(s) RP Internal Control Passed Normal (applies to non-nume gabriel results) [facility] Adenovirus None Detect Normal (applies to non-numeric resu lts) [facility] Coronavirus 229E None Detect Normal (applies to non-numeri c results) [facility] Coronavirus HKU1 None Detect Normal (applies to non-numeri c results) [facility] Coronavirus NL63 None Detect Normal (applies to non-numeri c results) [facility] Coronavirus OC43 None Detect Normal (applies to non-numeri c results) [facility] SARS-CoV-2 Not Detect Normal (applies to non-numeric resul ts) [facility] Negative results do not preclude SARS- CoV-2 infection and should not be used as the sole basis for treatment or other patient management decisions. Negative results must be combined with clinical observations, patient history, and epidemiological information. Testing was performed using the [employer] real-time nested multiplexed PCR Respiratory Panel 2.1 [...] Detect Normal (applies to non-n umeric results) [facility] Rhino/Enterovirus None Detect Normal (applies to non-numer ic results) [facility] Influenza A None Detect Normal (applies to non-numeric res ults) [facility] Influenza B None Detect Normal (applies to non-numeric res ults) [facility] Parainfluenza Virus 1 None Detect Normal (applies to non-n umeric results) [facility] Parainfluenza Virus 2 None Detect Normal (applies to non-n umeric results) [facility] Parainfluenza Virus 3 None Detect Normal (applies to non-n umeric results) [facility] Parainfluenza Virus 4 None Detect Normal (applies to non-n umeric results) [facility] Respiratory Syncytial Virus None Detect Norm al (applies to non-numeric results) [facility] Bordetella Parapertussis None Detect Normal (applies to non-numeric results) [facility] Bordetella Pertussis None Detect Normal (applies to non-nu meric results) [facility] Chlamydia Pneumoniae None Detect Normal (applies to non-nu meric results) [facility] Mycoplasma Pneumoniae None Detect Normal (applies to non-n umeric results) [facility] Methodology: Multiplexed PCR Refer ence Range: None detected ID Date Data Source [id number] 07/13/2020 04:02:25 PM [facility] Name Value Range Interpretation Code Description Data Medina rce(s) Supporting Document(s) Progress Note [facility] URSTFl5vKvHYWvMj19/AVInsZWZam3KcTUlhDXp6MSjgUJIuK9GhSHI7vO0xMYS6TYeRZmNoCbRtFPUn [facility] [file] AgICAgICAgICAgICAgICAgICAgICAgICAgICAgICAgICAgICAgICAgICAgICAgICAgICAgICAgICAgIC PtXPNfJYCnWNLaIXSiMGHxGCIvHH2DFXVqQWFkXKWp ICAgICAgICAgICAgICAgICAgICAgICAgICAgICAgICAgICAgICAgICAgICAgICAgICAgICAgICAgICAg AXJtBUFvCKHwCZRlPYStFLBfKNOgYTQqNLOkDGTnZE9OORQwJTSlCDZgAUWyCWCcNMMlVTIaZXNoHXSw ICAgICAgICAgICAgICAgICAgICAgICAgICAgICAgIC MjNHFiLFEcPVHtMPDlEHHnVKXpHDZgOMXiVTRvRCFrNLFbYGQkWWBuLO6NLKAoJXSsWUTdHCLzUILtWC AgICAgICAgICAgICAgICAgICAgICAgICAgICAgICAgICAgICAgICAgICAgICAgICAgICAgICAgICAgIC OmIACbIBZtTTDgOSMmCDAzFHWdTIQdHD9QFBPxAVAk ICAgICAgICAgICAgICAgICAgICAgICAgICAgICAgICAgICAgICAgICAgICAgICAgICAgICAgICAgICAg XGEbWYYjQILuOQZfKNOiBGZgNQJkWBPsXHXlTZMyYPSnVO6OHRKtFUGpHYVdYXGgNFKjBHMySIEfIJCb ICAgICAgICAgICAgICAgICAgICAgICAgICAgICAgIC LaKKNnYDDrDNCqNSJsQCGsURTbXMDuIGUkCQRiNRWqEPIpFLEtENLfFYXbKK6NFGFvGIVoIFEgSZHcWZ AgICAgICAgICAgICAgICAgICAgICAgICAgICAgICAgICAgICAgICAgICAgICAgICAgICAgICAgICAgIC BkIGGgUYZtYFGrAAKuURQcFOStUYNaIMQySG6VWUAv ICAgICAgICAgICAgICAgICAgICAgICAgICAgICAgICAgICAgICAgICAgICAgICAgICAgICAgICAgICAg IJWbZJGvRQScAEMuSHThRRAyHXCiOWEmWGJzVAFcGNCsGPVfEJ4HSTKsRELtGVEkDHPsJQZnTQRbIIEf ICAgICAgICAgICAgICAgICAgICAgICAgICAgICAgIC IdSLOjJFFsVEOwFSFdFHDmRSXzWNLnSDFsIWEtXPXeUBZiZGPcMHGxCXMxKUVfXT1NWCDwCPDlZWWoOI AgICAgICAgICAgICAgICAgICAgICAgICAgICAgICAgICAgICAgICAgICAgICAgICAgICAgICAgICAgIC IwZICcJRHgILAzQTMyYMOdSOXsODHmLSTxEZZdGJ2O SW31kUGwz5D4ZDYhRS4smfn/Fv3KYWzinyBpeUYvDT9TLwIeBW7maa9UCoHyMV6rel1GYQmLOeKeX8A6 kEGgQDGxTRLFJuNsL88dAFyuPh97UWhgJMGvDyCrUVt2Tm9AExBcP1tsSLMzHzU7AVRwImD1SNOiCpVu AEDoSVSiZDRlXDXNDFI4RKBnHaZqIBccRV3Cg3MxcS A1DQo+Qt0QSX5zq8YvGHfpIRXzYG6bsg5JZCuCWsBsM4DfkyQ3EDE3PXYbUj0BWXSmJHKibKQaKDFwSV FHUhZuR8RuxJ29CLWQUc5+AMzmshKdKgnXYlP0IKIqn1OhVFn6XE5SJCBbNVn3kYNjYQXeB6Dwz2NbAy 90ZXMgYnkgUmlzaGFuYSBTIENvaGVuLCBNRCBhdCAx UP1bBgKrQnYaWCZ3LTUnHD0kCVjoGY6OIQU0TWsmQNMnOLOsN5mDGlXvYJCaJMYccCneHS9VOoAcO9Qz cmVudCAyOCAwIFINCj4+IEdfkoEuVxhGDvLpRXWwNxqUBmd7IKsjUF5AwXDqJQ8Liu2oxKLkU7AejYdw MGMuTMtorvMmMv4uLELqPAojMTLrHL0sF4poI9ucO9 MeMEQDXtKsK4EkL0LeAqN5EVKgDxJxDCJnXUR5HE8pHJluZA2EUMu3P5PlU9CNNKNiXBHEXD8vo8stF7 NxeBoqlnabO7WskZ3jN090XCJkWrFcCkPdeizdFc4zYBn+Wc5MGW4hz6RqLLcdOJRhMS2rco9GKFwNCf JxT8E8lIJsS7H3TByzYh1HSDHeHBJjYmKfGBYMCJco TV4PZA0rxdQ2KM3ZyVNcAWErSPAdyWDuGWg0Y56beZNaRNtfUP7SPMT+Pradeep+Mr0LWNVgNEMpVHFnTtCz VSWNVuMnK9FpO4OYn2TzX4SeKV83pXpsixHrUSkiDR2BBY9sEEDvXELPAO5PvZXnqL0svxPuMWTtOKXT TnYeX22sbCWyBKJpJYI8CLMkJc4OIQSbR1NyosBisA cigtXoGNXhLDLPPN3TSFevecQtlHRddCijKP23hHrlTJ0QBg7BGoFoQP4xeo4LtYOnEw3JMYYwGL7QVS KwVUZlUGCwDET8BOBnBfLpNQrrAXMgYKCtEDH4OAQiHIPvWY5YYdCmCETcWyIhVIzsTSQwHAIkrr7KGV NhIDYlKtz4TbBhCOZxNJGvWFfcIFOwPCWnNCK4VILq AWNfIZ2HKjXaAXFeEUO0FMcfTUQjKIBehx1YTPWgUCLtXxFwKoGyORXcSXOfCCnjBRDkODO9EDV2TMQy YAUiZH8BQvIfDELuPVY0ZlJjTPWkYZVhip0STDLmYZBnIuR4CiCfYTVzSEYeTKnjPKQgCZB7Zcx6XLPq MMEtVK7UGwFcJNOiEPy4AOOrQBWqCYQmnf0QBOZvTU PdUxT4EtMdPUIyIHBmIJimFEUeOQOzAMN3AFKfRMXgQI8PMwWsQMRiQOL5GjLqZJBvPSYrax6HRVPvYP NoRVl1JnUdAQJrXZXaMObkNGLrOOF3MEH9FCPhXXPcJS7STpKkCQGoMKaxIhYgXDHfOAWkqs6BZKOxUK RrXbByJkEaYRPkRCJtWPkoYROwPDD6Keo5BNYbVUHu XQ9KQnQkWHZeRMg5WipeWJOmBEHava8EJMDxUXMtVJO5NCFeMOWvJYRnSGipIOSwJEWgFWu9HJGsBEOj OY0LVkHzDXBwVjJ6IcHqJEFlWVOvrx2OJJHkPTTgTCHhSCGhFNYzWTAtLJriIVAiXOYkCBk3BVJdYPBs UI2LQjVhUHNtByPtDyQkMUWnXIOuvp1XCWTyZSBuVP FgSuSwNNEgYIUyWZxtOYMfAOJrWSuxQYAzOTHdHI2OWpAvLMXfXiU7AnZtIJKuKXMszr6MJINvMHMjTx L5TCXjOFOqKQBqPOd5npApnNCrBDg1BG4DD0GiniQoViISCb2Vv068PQTwFHZvNy4NL6ljBv5bPXOdJK WJGw9NWAj9GRcsETEtBVYxFgyfPNycBLPzS7EmZOWr LJE6GzRtJPP+RZclH3M2CgS8DBF3MlL9F1HjFyVqVLW1OZJjJAmeYgW7NC8fMSCVJu8+DQpzdGFydHhy OUYQRrByJSK2NMuvETADYw0J ID Date Data Source [id number] 07/13/2020 08:31:21 PM [facility] Name Value Range Interpretation Code Description Data Medina rce(s) Supporting Document(s) Buprenorphine [Presence] in Urine Negative [facility] (NOTE)Positive results above the cutoff of 10 ng/mL are presumptive andunconfirmed. [phone] within 5 days of collection. ID Date Data Source [id number] 07/13/2020 08:31:21 PM [facility] Name Value Range Interpretation Code Description Data Medina rce(s) Supporting Document(s) Amphetamine [Presence] in Urine by Screen method Negative [facility] Benzodiazepines [Presence] in Urine by Screen method Negat [facility] Cannabinoids [Presence] in Urine by Screen method Negative [facility] (NOTE)Positive results are presumptive a nd unconfirmed;confirmatorytesting can be ordered at the [facility] at [phone] [facility] at [phone] within 5 days of collection. Benzoylecgonine [Presence] in Urine by Screen method Negat [facility] Methadone [Presence] in Urine by Screen method Negative [facility] Opiates [Presence] in Urine by Screen method Negative [facility] Oxycodone [Presence] in Urine by Screen method Negative [facility] Fentanyl+Norfentanyl [Presence] in Urine by Screen method Negative [facility] Service comment [facility] Results below the indicated cutoff (ng/m L), are reported as"Negative." Note: for medical purposes only; not valid for legalor employment testing. ID Date Data Source [id number] 07/06/2020 01:56:43 PM EDT [facility] Name Value Range Interpretation Code Description Data Medina rce(s) Supporting Document(s) Progress Note [facility] WKQOSb5jOpCUNpYj80/CBIzlEBWli4JnDBkwRYe5AVkfNPTlR6UkKYO1gU8nLAN0BSrKWyQiGiHbXNP2 lbm [file] ICAgICAgICAgICAgICAgICAgICAgICAgICAgICAgIC AgICAgICAgICAgICAgICAgICAgICAgICAgICAgICAgICAgICAgICAgICAgICAgICAgICAgICAgICAgIC DrSG7VBNAdHBKnFVAzUBSyZRGgGPYzBKKyEJRsMJIeHTVpMLEpRUTlWAQcJUAjMOPwQXPtMHKiRLCcWH AgICAgICAgICAgICAgICAgICAgICAgICAgICAgICAg CJNdQVTzRHTeVUDsLL3NYRZtDPUrXJWsBRYvURXaPBDyDTPhSGHiBFIiMUFgPZDdCPXjSGTsRJArAHMt VKRmPTFdTTJiGJEwWBQnRTVmQZYvMFCmQTDqPJOySZQnZFDbUWXrRVFtOXApHIZqZWOiPOAhGQ1DLITz ICAgICAgICAgICAgICAgICAgICAgICAgICAgICAgIC AgICAgICAgICAgICAgICAgICAgICAgICAgICAgICAgICAgICAgICAgICAgICAgICAgICAgICAgICAgIC AeKXWqJL5CAQPwZHDiCHNrBSYvRCImBDErSWMdGFZlTTOrTPFhCXCuMHKzMOGlBIWnEWIdHPZgOXRyUL AgICAgICAgICAgICAgICAgICAgICAgICAgICAgICAg MWRqWFGxGZZiPRLqWNYrUN5RAQZvWOQfIBMePQTpIQWvXRMjNNSlUVPfFDIyZFQcCARjMYHoHXUsDPDk NGIcJNUwAFYdWYSnBSJbCEHgKJCeVLZzBFNvTTBqYYJmLGTvBUEtVFAzBOUkNDUpFPCwVXJxUQNmTB1W ICAgICAgICAgICAgICAgICAgICAgICAgICAgICAgIC AgICAgICAgICAgICAgICAgICAgICAgICAgICAgICAgICAgICAgICAgICAgICAgICAgICAgICAgICAgIC KeFNJtPJVmQZ2QKCXvNOHqZGQrWBDnLWBnXUCaQWSgEDTtSSPsPTEbPCAwJWYxRQEbIAMzYSLxRYDpZE AgICAgICAgICAgICAgICAgICAgICAgICAgICAgICAg SGXdHFCsCYYyPRXvBTDtCVYbJY8BFDBdCFHxQUUdGDEbCATuSYKtPUEqIVQmSLLiXCGsQAOqJBFdAWVk ICAgICAgICAgICAgICAgICAgICAgICAgICAgICAgICAgICAgICAgICAgICAgICAgICAgICAgICAgICAg NA1DOX34xTXbn0T6DMBiAS9eodd/Ot2SDKimxiFgdD DfCR0TUaGyHG4fho7IIoBtEW4cgj4QZUnNTrCeJ2D7iUBpTGOwJYFBAmLsF26bAGtsKt96LNtvIZTmGp KtZXq5Pc8CEyKmW2wdBVXkIaD7CMKnSlI7LTJlGdUqWYQiWBDdNLOaRUYPKPK7CIRxQxLeIBybGF0Aj9 PzwSN3QPx+Pd2JKV4ou0SfGHgbQKZxTO2bjs5CCTuY GlZsS1SjtuC5QNI4ALLdNn6SOHIsSANaoFKsSUNsHOBEOxZfW2ZqaX31OIWVOk3+DQplbmRvYmoNCjI5 DGIss6YhAJg5KM1COKSzPYw8sOElEDCuI5Tok0TeJn77PNSiPsqpEgsvbTHiYFYPLXHmrRScUEDIJHOa nXTuFL9gOn0bMNFwCSAeAiIyNMFAXE7APHBzHHBfbR IcXQWtFBZSZP4LTQbkYSF9LZHxaeYwrNDoAGbcFK4JKXZqgeCgMnfnRDLGTQm+On7GHH2vp4XiJCg7GS Tdq0YwDBy5XK2HFBRqPMpzLSDtYH6yk7HmY6L2XbT9fOKgR8sedqkaZ9YoodXvrlUpKMTaYIVbTM0JFG 0OEQ2YXKLvRDcpFN5ONKY3UCa6XQTpDbS1JFT7RANd JTdpAP1AEVQfWZN8AJ0KWC8BTagxG4UTMGprnNNxossbG6IihO8ggpVyPrdzOZe9jA7hsBY0ZP2eeP86 gt6pf7krI5LbbLwfuqciK5PutJ3oK336EGXeFtDvTlZxifdpFc6mHBm+Ix9NVD9az5DkPThfSCQrOT9r qy9MFUnKOrRkY3P7uSUtQ7H1AWmmWc1HZADtEPRsGy HaYEVZDAttJB3BZK4jocH7UM2ZdKZbNHDkVCXfhXOoUUe4E15ghQXhLSumXG7GABG+Pradeep+Vf0JPPXnBN EfGXDuNgGlBRJKEeWvV3EcR6SDa7LyW3MuZB81uFmkmaPyGWpcZM9RUT2cDBJnQGXJTM6JkMHjdP1zre PwABFrBGNVFwVgG43vhSGqBSUgQGQ6YOIvAy5EQHRo E0MqakSdpEqditCvNNGtHLSMML8AUPfsweUcxRAxpHvsYB16rRreGQ1YLz7PCdDqPZ6alc2EhNQmPo9L GLArWF0NZLFeXAFrLBYzFZB5XRMvQcWdMCflNGTzLLTzLCP6FLCoWSVpJO3WQiDkBULwEbJ1QnTcFDJl OYFsmg6ZTQZjUXSuTbU5GtXpAUEnXAVgKLoyVDXnKY HeZCN5QTJbZKLsAS2QRlRkNIDiBBG8PZQuJRJwQVIvyv3MJJKnQATfFqFsJQMgJQVaULOoKRoqSUSgUH G9AVn6BERcPDZcUV5XVkDaOJIrPXB5EnxjEQPfIWDkix1LDBXnJQKqLdn9ExLwXODlZLFhNGikOAGbBZ C6AsD6XKQfWPNbVA0CIbNlJMPbQXs4WUlfSUNqLLCu qj1HCJPkZUWmOlHxFDQmBIAkBEGiEFlsDOAqRULmTdE9CALrHNQwEJ2MWiQtNOHfZYJsOEfeRBOyICLt jd7KACFmWEFkDDP9UbTaWHXeXTMtJLntDIRgKJH9IXWuAWEbLEBwIK3XEeSzEYLgSTM9DETlQDNiLMJq pe0HRFGcGVGxSewrGlDwSRHaYLFtTYttYJXcGQK8Ve sbHBLhDKZeEO4TYqNiVLMcEKm8CTBlJDLcETCbod5XEFAiWQJrCDG7NaCgMFXoBKSeVQocRTBpWDQ4Ej TzFWKoHJXeZV6YEvTrHNCfFvt4TjqsBPYpOZJmvd9VPHWeUJAlMVR9NmTkYCJySBCxZIlxVSPhMBMiQf g4ULMoYJYzQE2YShCmDNXpSnD2CGXnPNBqKMBcym2U OKCtXJOsZRa3IiPeYILjUCGeBXbpKBHcCDMwPRD8QPHzHNXiKZ4EHoOaNATfGcL2LnhdHGUoPGRwvh4P UTAsKIYyYzajQfOnAVKfTHFsXVw7wlKkaZReVOs0OI0AM0SozoFaBsIMUu6Ej334LRXkAZPzPu8IB1xw Pp7eKVRlZUGSEs0KBFn2IYKjFeFhSiGnMtS5JWEqSV MmPCNoCXCyBEjiMSD8Key+XOdyYQQuGjJuFPK4EHIuDEF2XYR9T5H7BvK0BHO5MtQrDw8fOTQRXf5+DQ kngLCgrIbqCHKULrEsGFfgGEbrSJQWCi4K ID Date Data Source [id number] 07/06/2020 06:28:53 PM [facility] Name Value Range Interpretation Code Description Data Medina rce(s) Supporting Document(s) Amphetamine [Presence] in Urine by Screen method Negative [facility] (NOTE)Positive results are presumptive a nd unconfirmed;confirmatorytesting can be ordered at the [facility] at [address] [place] [address] [place] [address] within 5 days of collection. Benzodiazepines [Presence] in Urine by Screen method Negat [facility] Cannabinoids [Presence] in Urine by Screen method Negative [facility] (NOTE)Positive results are presumptive a nd unconfirmed;confirmatorytesting can be ordered at the [facility] at [address] [place] [address] at [phone] within 5 days of collection. Benzoylecgonine [Presence] in Urine by Screen method Negat [facility] Methadone [Presence] in Urine by Screen method Negative [facility] Opiates [Presence] in Urine by Screen method Negative [facility] Oxycodone [Presence] in Urine by Screen method Negative [facility] Fentanyl+Norfentanyl [Presence] in Urine by Screen method Negative [facility] Service comment [facility] Results below the indicated cutoff (ng/m L), are reported as"Negative." Note: for medical purposes only; not valid for legalor employment testing. ID Date Data Source [id number] 07/06/2020 08:22:02 PM [facility] Name Value Range Interpretation Code Description Data Medina rce(s) Supporting Document(s) Buprenorphine [Presence] in Urine Negative [facility] (NOTE)Positive results above the cutoff of 10 ng/mL are presumptive andunconfirmed. Confirmatory testing can be ordered at [address] within 5 days of collection. ID Date Data Source [id number] 06/28/2020 03:17:17 PM EDT [facility] Name Value Range Interpretation Code Description Data Medina rce(s) Supporting Document(s) Progress Note [facility] GDHPVc8jHrNXCgSp40/KIAlxDDCan9IoAJaaENs6KIhbXTVmR7AaSMZ2iW2iMIQ7OQsXWvQyJaYdRSV6 lbm KsWqnBEdSyYHXxCixURvTeRAtpYalgzKVjTN2JjAM1KYUdO91vXVNxYRZjA8JfCMZpQLC+Yt0DXPFvpS HnBC0VDkiW7Z3na6sFAW3f6Q3bLCLXMFnNnMXOZXdAmTl7osKB5bMv3m0MQvnzfXlAjmum+vfldbnniP x2Wp1VShxF1BXG6juoSfmFgFMRc9/Jln2nxpMF/+uf snwO0Vs67E+bPnytdlb0du5bZ5fytBsjpdszjb/k9FkjYy6oZytyWei7bFzEbV9ACv7YVYO2IvsGoXOC tZzl5C36USQuLtbWp/v+VITKcQP/w/lcz5kp3iKj0x0ht6diF20Te6SRhSZV2DO2kENyc9Kp/SNnQg4q yrTrtkyrvogPQuVLl/4NYsWmEsisn3dbrp3ck4qwsk [file] ICAgICAgICAgICAgICAgICAgICAgICAgICAgICAgIC AgICAgICAgICAgICAgICAgICAgICAgICAgICAgICAgICAgICAgICAgICAgICAgICAgICAgICAgICAgIA 0KICAgICAgICAgICAgICAgICAgICAgICAgICAgICAgICAgICAgICAgICAgICAgICAgICAgICAgICAgIC AgICAgICAgICAgICAgICAgICAgICAgICAgICAgICAg FDEgUKYlMLFsHM3NUQUsREXfSJPoCBHrSEWmJDSyNTMmQNTxUSJyFGNrSDIuVJTuZTNwTUNyHUAeMSTy CKJaEHPkJAGeVVTsWOKvMEMeISGoILAwZHPeFDExVBGsNOJgPQDkDNKhVIRqNRVwZUArUT5JAHTwHUQf ICAgICAgICAgICAgICAgICAgICAgICAgICAgICAgIC AgICAgICAgICAgICAgICAgICAgICAgICAgICAgICAgICAgICAgICAgICAgICAgICAgICAgICAgICAgIC DaEM8TFVLtVBGtGWUbFKDbZGOvQGShXZAwBUToXYWnRMPkMZGvJVHvVPIsDHDrHJJwQLIoGLRgFTTeEU AgICAgICAgICAgICAgICAgICAgICAgICAgICAgICAg GASiDXQmJXVeUMHbKQ3ZWLPxIZGbKFDkDFDlZCKrVFJnKJNgNZCvCQGrVQPdPMVxQXCtQUUfPQIkUTKp QWCpVYAsWAGbFHOhNZPaNYUsFXQqLFIqHXDmSANyBZOkDEScNVBrRQYkRFXmRINrMHKmACNgJR3YLLMo ICAgICAgICAgICAgICAgICAgICAgICAgICAgICAgIC AgICAgICAgICAgICAgICAgICAgICAgICAgICAgICAgICAgICAgICAgICAgICAgICAgICAgICAgICAgIC GzBPMhYC9ELAXeLYZfVOJsUOJnABViPEEsGFLxIIJtSKGvFUXbPTXaCHGdYBCxKBKrOXZtEVLkDBGtRI AgICAgICAgICAgICAgICAgICAgICAgICAgICAgICAg ZJOnURZyGIKtIPDlJKGeEW3TMWXtCLIrTVXaNJIfFPHrPEMfGSAhHPJmKLKfJJIlXULyVRAtHFWzWSPz KKZpCUZiVYTgCNLcYJKaBXKhLESjMTVjCNRsRPZaXYPoZGTrXKQbJIGhWYBcLZBxJTWaZWGoXGEbSQ2Z ICAgICAgICAgICAgICAgICAgICAgICAgICAgICAgIC AgICAgICAgICAgICAgICAgICAgICAgICAgICAgICAgICAgICAgICAgICAgICAgICAgICAgICAgICAgIC BlBXNtADHkRN4RHO89kKUmu4L3YXDgJD2mhff/Nr5MKHexfmIklBXwLH7GMgYiVU0pjr2SVpVyJT0yoy 1CIHzIIhQeS8C6vRXgFWHhNDMHSrQkV72iDSzaZm22 QWuePRDkSpFoXRk2Ng8CUgZeC2ysPEGtVcU1CGRzVvM4ECXbPrZ3CMLwPjIwHPwpBM0Yp5PctMDcKXy+ Ix1FOD7dq4AxVBxgLcQbPH0zcv0RIOpMLcMoJ8YbkiV1PYM8ASSvTw0TGLKvPKAvhHEqVIWnGSPBWzXh C2LvjW78FWALQy5+YLilpbWiJlrAKoW9ZHLyr2AfZQ c5LR0LTVSmXMh1uOApMDSqG6Xvi1IkUw34HGCcVzeoS8KevZW1MKWsC8ThLV0dOPCBDKSzvABeMV6lAZ 7bEKHpXLDyZpJsLALBJN5GWLPcMWSfrHGhKIBsMZRNLY4FAMzgPZS9OVHmvxRtvXHlIYltZT1QJWXhae QgMjMgMCBSDQo+Rx1TGH8tf9SkBGqrRYUpOH6ciu3V SUsREuYrL5L1hRFoZ4X2KNvbYv6CFAJjZUByYqGyPPARJBawPC0JQP1iukG3GC9QaXDwDUIvRWMocRKp GXy3S20kiKDjNJnmDD6PWQI+Pradeep+Pv0YJERvKAXcVMLdVcGvVCYKIxVwN9QwD8EUj4CrH9DaFZ81oRam acEnJLfySE8PPL2dMXHhDBERJA8XkKNkjW4ukgNqCg KdZGKGVpVrG15nuFHtCZNqATOjWKQtGm1HZEStN4SrxmDvxZgxetBxFMAtREVTCW1ECVhnwxZyrYArbC xhVJ27eCboVL4KXc3YZmGcAY9nhr4AcYMaDg4TJNKyKg9WROJsJXOaUDXxBNZ4RXSxCcAwZYlvFISaCP MzSDI4OPYuHRLvSR6CBgRpEMIpFiT8JPAmYATbOPPu yu2FQVQzMAYjOtEdCuZkOYSsWJAnSIhhLCLkMQClJQC9FMInSGEhSD9OJnCdMNNaWTF0PUAhUCNqFCKk fn1PWEVmEAKwSwF9UiZuCKZeCKMbFQcqZMDgZDZ3SXP5OQFaJJKlGO0UFzHiDUIiWFY7CGlyIRAqKMSd ga0CKTXfVSMiMCZpDFOiDTDdSMRuSJpjAIIuWLS7NT SmXBMnQPDbGU9FMmIcNDJsQWN8XDAgFMOwNGAquk2FUXSlPBGwMOX7YKQpIODxQHTnOOedOAQmFKHqVX ydIFBzZNUaAT3SAdCxRLDpLGF3AyAmRXYpLBVsfs6KRMKxHJJrQcEeDmVwRSBrOLHzFHvlJEHmXWHlJr KnKVSkENPoMP2MGlZiLJKrWxV2RUEyULXrZCExpw7Y HEXuNUBvFfq6UkOmOYBtTGWxQNggRVFhBFU3AXr3GBOzYAVhCT3HLgXoOGEdJuE7HzYcTUXoLDOiuo2P RKUbDUCcVOL5PBMtFYIpESDjXWqbEOKwQKQ3PTtxSHUrQLBnKH9FOkQiNTAnBcG0SsYxAQIcIKUwlc2M ZMZqPEPnJrLhIzIwTSIpTSVbDQauBCAwQAC4DkD7XO KgFSCjML2CBiRcXLofTXKOSae0TObnU2m9PSJzRl8RW3Qfw0OtSeIaXVLCVPuuMW8dxsBaLXKeDx7MS8 hRDkwbDUJbMRP4JhYdZmAvBbM1SEicRDP3W5UpCOPpEpKrHs1jSEW6DXJlDun7ShPcXUP9KpqeKHO5MG QmWlUvYUQlDYE7SpSqPI5DWx5PPrR0NBR4uVStBq4ODtD2FLqSTxZlXT1ZIUx= ID Date Data Source [id number] [facility] Interpretation Code Description Data Medina rce(s) Supporting Document(s) Amphetamine [Presence] in Urine by Screen method Negative [facility]ines [facility] Cannabinoids [Presence] in Urine by Screen method Negative [facility] (NOTE)Positive results are presumptive a nd unconfirmed;confirmatorytesting can be ordered at the [facility] at [phone] [facility] at [phone] within 5 days of collection. Benzoylecgonine [Presence] in Urine by Screen method [facility] Methadone [Presence] in Urine by Screen method Negative [facility] Opiates [Presence] in Urine by Screen method Negative [facility] Oxycodone [Presence] in Urine by Screen method Negative [facility] Fentanyl+Norfentanyl [Presence] in Urine by Screen method Negative [facility] Service comment [facility] Results below the indicated cutoff (ng/m L), are reported as"Negative." Note: for medical purposes only; not valid for legalor employment testing. ID Date Data Source [id number] 06/28/2020 09:08:58 PM [facility] Name Value Range Interpretation Code Description Data Medina rce(s) Supporting Document(s) Buprenorphine [Presence] in Urine Negative [facility] (NOTE)Positive results above the cutoff of 10 ng/mL are presumptive andunconfirmed. [phone] within 5 days of collection. ID Date Data Source [id number] 06/19/2020 12:00:00 AM EDT [facility] NOTE: Presumptive [...] Result VALIDVALIDVALID [facility] ID Date Data Source [id number] 06/19/2020 12:00:00 AM EDT [facility] NOTE: Presumptive [...] 200.00 ng/mL [facility] ID Date Data Source [id number] 06/19/2020 12:00:00 AM EDT [facility] NOTE: Presumptive [...] non-numeric results) [facility] ID Date Data Source [id number] 06/19/2020 12:00:00 AM EDT [facility] NOTE: Presumptive [...] 1.00 ng/mL [facility] ID Date Data Source [id number] 06/19/2020 12:00:00 AM EDT [facility] NOTE: Presumptive [...] non-numeric results) [facility] ID Date Data Source [id number] 06/19/2020 12:00:00 AM EDT [facility] NOTE: Presumptive [...] 50.00 ng/mL [facility] ID Date Data Source [id number] 06/19/2020 12:00:00 AM EDT [facility] NOTE: Presumptive [...] dates is possible ID Date Data Source [id number] 06/19/2020 12:00:00 AM EDT [facility] NOTE: Presumptive [...] 50.00 ng/mL [facility] ID Date Data Source [id number] 06/19/2020 12:00:00 AM EDT [facility] NOTE: Presumptive [...] non-numeric results) [facility] ID Date Data Source [id number] 06/08/2020 02:52:12 PM [facility] Name Value Range Interpretation Code Description Data Medina rce(s) Supporting Document(s) Amphetamine [Presence] in Urine by Screen method Negative [facility] (NOTE)Positive results are presumptive a nd unconfirmed;confirmatorytesting can be ordered at the [facility] at [facility] [place] [address] at [phone] within 5 days of collection. Benzodiazepines [Presence] in Urine by Screen method Negat [facility] Cannabinoids [Presence] in Urine by Screen method Negative [facility] (NOTE)Positive results are presumptive a nd unconfirmed;confirmatorytesting can be ordered at the [facility] at [facility] [place] [address] at [phone] within 5 days of collection. Benzoylecgonine [Presence] in Urine [facility] Methadone [Presence] in Urine by Screen method Negative [facility] Opiates [Presence] in Urine by Screen method Negative [facility] Oxycodone [Presence] in Urine by Screen method Negative [facility] Fentanyl+Norfentanyl [Presence] in Urine by Screen method Negative [facility] Service comment [facility] Results below the indicated cutoff (ng/m L), are reported as"Negative." Note: for medical purposes only; not valid for legalor employment testing. ID Date Data Source [id number] 06/08/2020 04:10:[address] [facility] Value Range Interpretation Code Description Data Medina rce(s) Supporting Document(s) Buprenorphine [Presence] in Urine Negative [facility] (NOTE)Positive results above the cutoff of 10 ng/mL are presumptive andunconfirmed. Confirmatory testing can be ordered at [address] [address] within 5 days of collection. ID Date Data Source [id number] 06/08/2020 10:31:01 AM [facility] Name Value Range Interpretation Code Description Data Medina rce(s) Supporting Document(s) Progress Note [facility] HRNBJb7xClCJIoAa28/OGMnkKQBsr4QnGUouQSa4RSzzWUBaW5QmTPI2rI1bYBT7QLlCMdZvMpHbEYZ5 [facility] [file] ID Date Data Source [id number] 06/02/2020 10:25:11 AM EDT [facility] Name Value Range Interpretation Code Description Data Medina rce(s) Supporting Document(s) Progress Note [facility] XUPVQk2gRvVCGbRn83/GAQjtQJHsg7TuRDcgXAe1JYigHDAjO5JbASO2bR0rTUN6AKlBMeLwIoInILCs lbm [file] I5NIqqHOI3EfMbQQjxDgHsDR2CQr3YRdX1FEP8gIFoLt7GInH5YsZJIjIxAO7DEFe= ID Date Data Source [id number] 05/25/2020 09:33:18 AM EDT [facility] Name Value Range Interpretation Code Description Data Medina rce(s) Supporting Document(s) Progress Note [facility] QNOFLf8wFsKHFgCj14/HAKzwGXYzx6NnOGngELs0JZjyJDVbS9XrBMN1qE2vYWX3IDjSTwBqHcLcKOA1 lbm [file] QbCVF7KZK7SsVfKV6HRk8ELnS8SSW2pWLvTw5OGdU7POCPNjKtDA3FZLu= ID Date Data Source [id number] 05/25/2020 02:25:59 PM EDT [facility] Name Value Range Interpretation Code Description Data Medina rce(s) Supporting Document(s) Amphetamine [Presence] in Urine by Screen method Negative [facility] Benzodiazepines [Presence] in Urine by Screen method Negat [facility] Cannabinoids [Presence] in Urine by Screen method Negative [facility] (NOTE)Positive results are presumptive a nd unconfirmed;confirmatorytesting can be ordered at the [facility] at [facility] [place] [address] at [phone] within 5 days of collection. Benzoylecgonine [Presence] in Urine [facility] Screen [facility] Methadone [Presence] in Urine by Screen method Negative [facility] (NOTE)Positive results are presumptive a nd unconfirmed;confirmatorytesting can be ordered at the [facility] at [facility] [place] [address] at [phone] within 5 days of collection. Opiates [Presence] in Urine by Screen method Negative [facility] Oxycodone [Presence] in Urine by Screen method Negative [facility] Fentanyl+Norfentanyl [Presence] in Urine by Screen method Negative [facility] Service comment [facility] Results below the indicated cutoff (ng/m L), are reported as"Negative." Note: for medical purposes only; not valid for legalor employment testing. ID Date Data Source [id number] 05/26/2020 10:32:59 AM EDT [facility] Name Value Range Interpretation Code Description Data Medina rce(s) Supporting Document(s) Buprenorphine [Presence] in Urine Negative [facility] (NOTE)Positive results above the cutoff of 10 ng/mL are presumptive andunconfirmed. [facility] within 5 days of collection. ID Date Data Source [id number] 05/23/2020 03:43:40 PM EDT [facility] Name Value Range Interpretation Code Description Data Medina rce(s) Supporting Document(s) ED Provider Note [facility] VZTRPo1bXmAHVyZv73/CJAlzHKIdq8FkATzpPUp8XOqzBDJvS2KiNZX8nD2lBFU5KCxJGtKjLcZcTIGc lbm [file] IkCaON7TERx= ID Date Data Source [id number] 05/18/2020:16:53 PM [facility] Name Value Range Interpretation Code Description Data Medina rce(s) Supporting Document(s) Amphetamine [Presence] in Urine by Screen method Negative [facility] Benzodiazepines [Presence] in Urine by Screen method Negat [facility] Cannabinoids [Presence] in Urine by Screen method Negative [facility] (NOTE)Positive results are presumptive a nd unconfirmed;confirmatorytesting can be ordered at the [facility] at [phone] [facility] at [phone] within 5 days of collection. Benzoylecgonine [Presence] in Urine by Screen method Negat [facility] Methadone [Presence] in Urine by Screen method Negative [facility] Opiates [Presence] in Urine by Screen method Negative [facility] Oxycodone [Presence] in Urine by Screen method Negative [facility] Fentanyl+Norfentanyl [Presence] in Urine by Screen method Negative [facility] Service comment [facility] Results below the indicated cutoff (ng/m L), are reported as"Negative." Note: for medical purposes only; not valid for legalor employment testing. ID Date Data Source [id number] 05/18/2020 09:45:[address] [facility] Value Range Interpretation Code Description Data Medina rce(s) Supporting Document(s) Buprenorphine [Presence] in Urine Negative [facility] (NOTE)Positive results above the cutoff of 10 ng/mL are presumptive andunconfirmed. Confirmatory testing [facility] [phone] within 5 days of collection. ID Date Data Source [id number] 05/18/2020 09:21:43 AM [facility] Name Value Range Interpretation Code Description Data Medina rce(s) Supporting Document(s) Progress Note [facility] JWKRNc6kYiERQjVw48/XLJybMOGat1OeNApeLCi6UNpfWBYvB0XnWAM0tZ5zZDZ4XMyKYnTlSrKySSQ8 [facility] LkQedEEoBnGIHxZrrOQgHuIWzoMavgkTImGV8RbUF9REVnJ59rAFLuQGBeP9TzGFL5RlL+Mi5HEXSptF DjDL7BFnqW9A6yd8gLHm5+eY3GLyExQ9HJ20N2LNBZHgda4UO5m9IgdM+5QMupTXNc4LUe6s4/PiXOhP lHQ95OAz4v9Br5DTE2V+9ZkkrV//tFHfquYRiq/G/9 Tz+01N1c/y8pcmPKnxwKIx2rm2vYHLKk/CoPsS0d874gVIrYQ36EYIVWM/iX9MSEQVcikRpgmrwaw74L 5cGR9jzFz7CgglGnWu72/DDuLpD43mu+my++UDc/wqHg8Mq0KnUpQIVI+PT2EFzH2Gqi1EicqiSjc8+w G0D5sqO33uXqbxnjx5O2KAx3dqbjMz9A79AV5RHTub kC79PxP0mNe4FWfPCLKcdOHTgNoVDEZEJhwx+3rVp+6kXs9AqhwibHVyYnIaoprVLuHm/m2TS72gINdN 76y6Ak8CMNC9rTrMo7Fq6sAZDskUc4r3S+blv7h1Jj9l2nb9/jShmRxpx2RZ0PQzQ8rF9pzdnLp24dyH atm7sMeUVF+8tNs6fWDCyqLpYAD2w0kj4/L8Zbu8pA awNQcDAb3Tg2PAR9zmbyaxCinr7Oq1Xs1XzJlFbFcRb6p8zd8/KtBegiXp10p2FN3nXvajm/tDpkAg3O xit788adtYmG1B6EQQ8aS6dOQdWKdc68LaZsXZsgbo2dokPJm2pfQA5Tyq9BoDhLwewqP+GBE3p+Ee58 g72czPJfSpvCMIO5hk9uynFbQYrU1WRXSp+Er2H6Mo 8vuWSfRLOzfINh1Yob+ZnMroRO1ZhAPf0Hz6Xm09udMlAzARN6Cz6K8ITBHg5kDs6gkYBBSEctHSO9Vz MfOHN9Zip/ewkxbLtAWfqsKI/Training Project Manager+petZ8tvDuuOJEKfSUtIFZKwgNjdGT3BLfy/l5l6a/FWA3as8d6r7 [file] Maria Luisa+gMHl3Bq49TBS3ZNm2jvH3CWryj0lRLnG6qbynWMb8w1CW1CrNzdVOGJwQfucjyhaqj0Yl1tZmj9f [file] o= ID Date Data Source [id number] 05/13/2020 11:43:52 PM EDT [facility] Name Value Range Interpretation Code Description Data Medina rce(s) Supporting Document(s) ED Provider Note [facility] ZTOTQo6cVdUTLiIo42/OBPdeZWWqe6UtBNndKXm5EHmpRHPwH7DiLZB0eP3wAEE2RXdZUzCiEqIlSOLe lbm ApZwaFUwSdCBYiPklEKuVxVRodKosdxMMkAE2InWI5YAXuH39dGTElEFMfL6CeGLG0WFO+Ur6EUAPfjD NqFM2CDpeC1M5WLuiHPj7dug5SIbjqj/OenNkQc8StYZ+7DtfplTlvnqr3QGPS5X64M7lNP2/TcfSt2f Rybg5rjGIfCL1uEIPVqUNFGfL//Gq4lAWOphZ/97+6 VIuTK/U2j8rBCOEpj49+NYAQL9tw8rBfZN0l9eHTf5/Fm/bJBGTW1ZsEjRrOLBTdyDgA8tbTx5/j2fS1 OMqz6/PRdJKJA/V74mUCMsO3vV7s692+Bakery Demonstrator/oKfT1cHvaJfuGrrmyqsPd8oMQV/mYm+UZztCpm+keaOl [file] ICAgICAgICAgICAgICAgICAgICAgICAgICAgICAgICAgICAgICAgICAgICAgICAgDQogICAgICAgICAg ICAgICAgICAgICAgICAgICAgICAgICAgICAgICAgIC AgICAgICAgICAgICAgICAgICAgICAgICAgICAgICAgICAgICAgICAgICAgICAgICAgICAgICAgICAgDQ ogICAgICAgICAgICAgICAgICAgICAgICAgICAgICAgICAgICAgICAgICAgICAgICAgICAgICAgICAgIC AgICAgICAgICAgICAgICAgICAgICAgICAgICAgICAg ICAgICAgICAgDQogICAgICAgICAgICAgICAgICAgICAgICAgICAgICAgICAgICAgICAgICAgICAgICAg ICAgICAgICAgICAgICAgICAgICAgICAgICAgICAgICAgICAgICAgICAgICAgICAgICAgDQogICAgICAg ICAgICAgICAgICAgICAgICAgICAgICAgICAgICAgIC AgICAgICAgICAgICAgICAgICAgICAgICAgICAgICAgICAgICAgICAgICAgICAgICAgICAgICAgICAgIC AgDQogICAgICAgICAgICAgICAgICAgICAgICAgICAgICAgICAgICAgICAgICAgICAgICAgICAgICAgIC AgICAgICAgICAgICAgICAgICAgICAgICAgICAgICAg ICAgICAgICAgICAgDQogICAgICAgICAgICAgICAgICAgICAgICAgICAgICAgICAgICAgICAgICAgICAg ICAgICAgICAgICAgICAgICAgICAgICAgICAgICAgICAgICAgICAgICAgICAgICAgICAgICAgDQogICAg ICAgICAgICAgICAgICAgICAgICAgICAgICAgICAgIC AgICAgICAgICAgICAgICAgICAgICAgICAgICAgICAgICAgICAgICAgICAgICAgICAgICAgICAgICAgIC AgICAgDQogICAgICAgICAgICAgICAgICAgICAgICAgICAgICAgICAgICAgICAgICAgICAgICAgICAgIC AgICAgICAgICAgICAgICAgICAgICAgICAgICAgICAg ICAgICAgICAgICAgICAgDQogICAgICAgICAgICAgICAgICAgICAgICAgICAgICAgICAgICAgICAgICAg ICAgICAgICAgICAgICAgICAgICAgICAgICAgICAgICAgICAgICAgICAgICAgICAgICAgICAgICAgDQo8 S7hkGMWbMBLvDJ3vLSd5Kv3+HZbGPdXtUTO1leStxF 7QKZ6xw2KmMBguJUDvj7LnFGm2TY8KRAZvEHdtBR4YTHbhnp1ZYKQnWDJodKWIg3fpLuLiDJY7QNWcLq tuEG1OWPTgC8pbubLwOWJoZEOPIGfaGBYGJFokKGUFNMCzCUTmYjMbIaYqFRUgHJFeDVXRHAF4ARRhQl YaVYFaYYCmZQ2XGSErW994egAcRF9RJm0EZzDhHO8p nr4QIceuAXYdRntWKln0WWkcCM3UbXIrbON7RTKcITOIItSbF7zfq1LvXIAsOYRAIQkrQN0Hy9BumFXb DQo+Zz3GSD6fj0ZcTLj0AOOwLO9myy4TUPmHFwJwI8GmkGdnDWDRAWUkr5BaTIMqUZ0syFNpHEZ3MC4n ldjjOfMXyKZsr8hdIKVcbXwvATCvEKXcMO3vMhMqVd UkMMH7VDYiVP3gTMuxZF8OZUS4JIurZOBfFWJoJ6bDMjYaWHevBZOgcRunSE8VSvWbR1LwraVjcLNiSV ZgNEAAVrUvV14yvVPmKOErFTIKBNa+Kg2CHW6bb1WtXAt4EZHlIU7yik0UBHzMVuIhF9VnyNnzRTLTZF Bpd0NqHBDbNH6mvVIjHND2VN4bjzzkNdDJyDSvx6ss LGSbgOotMTZkCMUkLW9lTsPeFbLbNXU1IGNnUX7iUOagZA1QFZW5KYetIRZsKXYFDZ9HSFwrCBXiEYWg nvNjiLNbGFglGN1SPUBrfnSqLkjaBEOYZGgcFA8EvzG5IVVzYCEnEg4MVZJcCxS3kJV8VuVnUTXXCg4+ IHkiveAkIwqTYaCwIZDrt6TxMCd0KI1LCZSlPVw4eU IuYFYrAQOcBGexNL4opSGnFRX2WMiiwWplGdLWoTNtUMGGJnMqdYZ6XpYmMoGcYSJjBRdnAfVPBUnFGa JlX1Xkt3YpOpAcFPGwPWUhX1zWLcSrYWRoEPUzlLgtVW9AOhEjZ7HrobHmuLAtNLVfJHMUHkMoZ2ZeUY YgNDEgMCBSDQo+Il8SBK1mu0HkIOq8SrFeCV9hxc0B OOcVNuMuA6R6uERbR1Q6CJdwDa4EDVTjDBKaSvrdRRMANJsdGX0FVA2aenW5EN4QhLWlHVIlGOImtOVr HFk9N39qtKIrSJsuMB1VGOH+Pradeep+Cs7CCFMgNZJyTNCyWvPmYWYLWrVxX3EuG6MJf3LgF1LuBX64cGpe fgRdBQzlWP3JLP3sWGVvLTONXD0DqGFtdX3xmtEuRH HzYGRXCsOvP45wbCDxXHDhWPH8DEEwBe7JOJWdN7TjfoQhiNhxtoHjFPIuMSXIKK4LEAfdwiVerJMtwW awIM62bAafSP5DSu4ISxWfAE4lkc2TeBRdNr2FHWQ7JB9GSFWoRBIqUFCuDLM4YEXdAcAvJRroXQXlTY HaROD1TKDxGESyWZ1LNhCsSRFqBej1JUnaAUUaTFTi ha3LWZVqLWU7NBO6DYRjFXMiMSNeFDxfSRMiTJItMUL9RPUqLBFfFE4NObHeMWDqVLBsXgAaEOAhXZQe iu8WROQxXABbSpImVXSqMGRuEJYwAKcfCCKcFUX3RaEzMIYwFCYuIU0QFhZlJVOiHOU6YFazPTDbGUWe su4PEAWdATSsYUTjXINoSPEvPKJaMMuxOVRlRUZ4Hj X2UYTxXTHdAB4GVtBgKYMzMUH4QfGnQWGzLIEgmw5JHHUnZVHuKPm1JOTcODQwLIOtOYiqRVKbLVS1PT PrVEMdKWQzMK5ITpZyDJGmTKR2QgbwTVTyIHNdsi0AJCHnOPAeYtK7PYNiPWDjKKFsKKggPOThCUE2Xg ObMTGeNIFoQY5XJjWuABLsDaLkKXteSNJmKLZzlo0A QPJbFJCnFWC6WILwULLhDTNsLClaGMIqHSByYxZ1JTJbMIJeCV2QEvCoIWAhAoL6PaUzXZMeTGJsdc9D YQHdNSRoPawjGPVsXCFmZCMwVHjlSPFvBQFaJMF6YCQfHXNbOT0MEvHiVKFjTzJrYXMvFQOrIVTvqk0E TFTwJEKqVFR4ZKFsJDUmLTSpBZecGEAuJNL2SUAeLH HhSLMsXR8SOcGkOPFwJxZ2JSfrAUTySCRkuz3CJWYoIGGlEUKbIHDpGODeHISqCBczCGGdVSP7JQI3UC WcIHGqKW3WNgCfXYDgCbO7HOctGTKtWWWtni8EDLVwENVrQoM6KKBlWQKpLLHvPZshELLpNDG6YamyUW SnSNAaLD5AYnKxHYOtZxb5QYByADHmOKPkoi1HHAKu JGNmFKD5CTGiAUQtKZWmWMokPMKmNNG0Aeq5PGErORLiCY8XGaHoPSTeNrpiEkRkHRJkRNUngq7MJDCf TSLeDVRyVRTqVLYfPUGhJJydZZMzZUH2FJj7TXEzHUNfTJ3HLvTmUVSxIQIqVjgdLHJvJWJcfu8OKCSc GQA6UBBxIEZdLSJrLDDrDTcgQFIxQPRuNQo9WCMaDR ZxQH6MWjKxYTYoYXL9XYYwIWWrSXCcen2RNILfNLP6YXn2CUHvCWRiKBVjEJrsQOZgXTIvCTE0EWKcZZ HcOA5SGkSdYGohTPOUYan9CObeJ7c3YVS0BP4WZ3Eua0BzDLAdMCXKFGcpSN0labBvIPGtIq4QF1aOQx vsIvU3PtMjHNWpDCEoZYX9OOEkEav2AFQ6FKQ9BIPm PA6kTWKvSSjwIYReRqMnPEOcYUgvHAEuTVk0OhWlWBS3O1B7QjIdQB7EFq8RPuJ2AKH1gILlTw6XBYGy ALASNvZkGA8NCIr= ID Date Data Source [id number] 05/13/2020 04:59:47 PM EDT [facility] Name Value Range Interpretation Code Description Data Medina rce(s) Supporting Document(s) Consultation [facility] AHGBWj4lJsNJBnMh94/DPOdsIYGak2JtAFdjGGx1TQgzCOOwJ4DcVOR9zD9dEQE5FIqXXgXjLaAxRPPe lbm [file] bbtYdh/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+SdN/liaprm2n/WqSuOObKYYOF3ObIrR [file] U9ZYC5JBg5JIRoBJIfTMtnGDt4AzIxCZ7YCw9PUpX4MLT1zGRiYm4CYHWtSq9OGXTZC0RMBv== Procedure Social History Code Duration Value Status Description Data Source(s ) Smoking 06/17/2021 12:00:00 AM EDT Current Smoker completed Curre nt Smoker eCW1 ([facility]) Alcohol intake 07/13/2020 12:00:00 AM EST Ex-drinker (finding) comp leted Ex- drinker (finding) [facility] Tobacco use and exposure 07/13/2020 12:00:00 AM EST Never used co mpleted Never used [facility] Cigarettes smoked current (pack per day) - Reported 07/13/20 12:00:00 AM EST UNK completed [facility] Smoking 07/13/2020 12:00:00 AM EST Current every day smoker co mpleted Current every day smoker [facility] Alcohol intake 07/06/2020 12:00:00 AM EDT Ex-drinker (finding) comp leted Ex- drinker (finding) [facility] Alcohol intake 06/28/2020 12:00:00 AM EDT Ex-drinker (finding) comp leted Ex- drinker (finding) [facility] Smoking 06/27/2020 11:30:00 AM EDT Daily Smoker completed [facility] Smoking 06/26/2020 03:10:00 PM EDT Daily Smoker completed [facility] Alcohol intake 06/26/2020 12:00:00 AM EDT Ex-drinker (finding) comp leted Ex- drinker (finding) [facility] Smoking 06/14/2020 07:56:00 AM EDT Daily Smoker completed [facility] Vital Signs ID Date Data Source UNK Name Value Range Interpretation Code Description Data Source(s) Body temperature 98.4 [degF] 98.4 [degF] eCW1 ( [facility]) Body weight 115 [lb_av] 115 [lb_av] eCW1 ([facility]) Systolic blood pressure 128 mm[Hg] 128 mm[Hg] e CW1 ([facility]) Body weight 52.16 kg 52.16 kg eCW1 ([facility], 1928–1983) Diastolic blood pressure 60 mm[Hg] 60 mm[Hg] eCW1 ([facility]) Body height 63 [in_i] 63 [in_i] eCW1 ([facility], 1928–1983) Body mass index (BMI) [Ratio] 20.37 kg/m2 20.37 kg/m2 eCW1 ([facility]) Heart rate 122 /min 122 /min eCW1 ([facility]) Respiratory rate 18 /min 18 /min eCW1 ([facility]) Body temperature 98.0 [DEGF] 98.0 [DEGF] NETSMA [...] ([facility]) Body temperature 36.8 KRISTEN 36.8 KRISTEN NETSMART ([facility]) Heart rate 94.0 /MIN [...] rmal (applies to non-numeric results) 18.5 kg/m2 [facility] Systolic blood pressure 105 mm[Hg] Normal (applies t o non-numeric results) 105 mm[Hg] [facility] Diastolic blood pressure 69 mm[Hg] Normal (applies to non-numeric results) 69 mm[Hg] [facility] Heart rate 104 min Normal (applies to non-numeric resul ts) 104 min [facility] Body height 159.7152 cm Normal (applies to non-numeric res ults) 159.7152 cm [facility] Deprecated Oxygen saturation in Capillary blood by Oximetry 100 % Normal (applies to non-numeric results) 100 % [facility] Respiratory rate 16 min Normal (applies to non-numeric results) 16 min [facility] Body temperature 36.8 kristen Normal (applies to non-numeric results) 36.8 kristen [facility] Body weight Measured 105 [lb_av] Normal (applies to n on-numeric results) 105 [lb_av] [facility] Systolic blood pressure 99 mm[Hg] Normal (applies t o non-numeric results) 99 mm[Hg] [facility] Diastolic blood pressure 68 mm[Hg] Normal (applies to non-numeric results) 68 mm[Hg] [facility] Body mass index (BMI) [Ratio] 18.0 kg/m2 No rmal (applies to non-numeric results) 18.0 kg/m2 [facility] Heart rate 88 min Normal (applies to non-numeric resul ts) 88 min [facility] Body height 159.7152 cm Normal (applies to non-numeric res ults) 159.7152 cm [facility] Deprecated Oxygen saturation in Capillary blood by Oximetry 99 % Normal (applies to non-numeric results) 99 % [facility] Respiratory rate 18 min Normal (applies to non-numeric results) 18 min [facility] Body temperature 36.7 kristen Normal (applies to non-numeric results) 36.7 kristen [facility] Body weight Measured 102 [lb_av] Normal (applies to n on-numeric results) 102 [lb_av] [facility] Body temperature 98.7 [DEGF] 98.7 [DEGF] NETSMA RT ([facility]) Body temperature 37.1 KRISTEN 37.1 KRISTEN NETSMART ([facility]) Oxygen saturation in Arterial blood by Pulse oximetry 96.0 % 96.0 % NETSMART ([employer]) Body mass index (BMI) [Ratio] 18.0 kg/m2 No rmal (applies to non-numeric results) 18.0 kg/m2 [facility] Diastolic blood pressure 79 mm[Hg] Normal (applies to non-numeric results) 79 mm[Hg] [facility] Systolic blood pressure 123 mm[Hg] Normal (applies t o non-numeric results) 123 mm[Hg] [facility] Respiratory rate 18 min Normal (applies to non-numeric results) 18 min [facility] Body temperature 36.5 kristen Normal (applies to non-numeric results) 36.5 kristen [facility] Body weight Measured 102 [lb_av] Normal (applies to n on-numeric results) 102 [lb_av] [facility] Body height 159.7152 cm Normal (applies to non-numeric res ults) 159.7152 cm [facility] Deprecated Oxygen saturation in Capillary blood by Oximetry 98 % Normal (applies to non-numeric results) 98 % [facility] Heart rate 105 min Normal (applies to non-numeric resul ts) 105 min [facility] Body height 160.0 cm 160.[facility] [employer] Body weight 45.5 KG 45.5 [place]G [place] [employer]) Body mass index (BMI) [Ratio] 17.7 17.7 [facility] ([facility] [employer]) Pain severity - 0-10 verbal numeric rating [Score] - Reported 0.0 S karie 0.0 Scale [facility] ([facility] [employer]) ID Date Data Source [id number] 12/20/2020 10:54:00 AM EDT [facility] Name Value Range Interpretation Code Description Data Source(s) Weight (Calculated Kilograms) 48.99 48.99 [facility] Height (Calculated Centimeters) 160.02 160. 02 [facility] Body Mass Index (BMI) 19.1 19.1 [facility] ID Date Data Source [id number] 12/20/2020 10:48:00 AM EDT [facility] [facility] Name Value Range Interpretation Code Description Data Source(s) Weight (Calculated Kilograms) 48.99 48.99 [facility] Height (Calculated Centimeters) 160.02 160. 02 [facility] Body Mass Index (BMI) 19.1 19.1 [facility] Weight (Calculated Kilograms) 48.99 48.99 [facility] Height (Calculated Centimeters) 160.02 160. 02 [facility] Body Mass Index (BMI) 19.1 19.1 [facility] Weight (Calculated Kilograms) 48.99 48.99 [facility] Height (Calculated Centimeters) 160.02 160. 02 [facility] Body Mass Index (BMI) 19.1 19.1 [facility] ID Date Data Source [id number] 12/23/2020 01:12:00 PM EDT [facility] Name Value Range Interpretation Code Description Data Source(s) Weight (Calculated Kilograms) 48.99 48.99 [facility] Height (Calculated Centimeters) 160.02 160. 02 [facility] Body Mass Index (BMI) 19.1 19.1 [facility] Weight (Calculated Kilograms) 48.99 48.99 [facility] Height (Calculated Centimeters) 160.02 160. 02 [facility] Body Mass Index (BMI) 19.1 19.1 [facility] Weight (Calculated Kilograms) 48.99 48.99 [facility] Height (Calculated Centimeters) 160.02 160. 02 [facility] Body Mass Index (BMI) 19.1 19.1 [facility] Weight (Calculated Kilograms) 48.99 48.99 [facility] Height (Calculated Centimeters) 160.02 160. 02 [facility] Body Mass Index (BMI) 19.1 19.1 [facility] ID Date Data Source [id number] 12/16/2020 01:58:00 PM EDT [facility] Name Value Range Interpretation Code Description Data Source(s) Weight (Calculated Kilograms) 48.99 48.99 [facility] Height (Calculated Centimeters) 160.02 160. 02 [facility] Body Mass Index (BMI) 19.1 19.1 [facility] Weight (Calculated Kilograms) 48.99 48.99 [facility] Height (Calculated Centimeters) 160.02 160. 02 [facility] Body Mass Index (BMI) 19.1 19.1 [facility] ID Date Data Source [id number] 12/15/2020 12:19:00 AM [facility] Name Value Range Interpretation Code Description Data Source(s) Weight (Calculated Kilograms) 48.99 48.99 [facility] Height (Calculated Centimeters) 160.02 160. 02 [facility] Body Mass Index (BMI) 19.1 19.1 [facility] Weight (Calculated Kilograms) 48.99 48.99 [facility] Height (Calculated Centimeters) 160.02 160. 02 [facility] Body Mass Index (BMI) 19.1 19.1 [facility] ID Date Data Source [id number] 12/09/2020 06:48:00 PM [facility] Name Value Range Interpretation Code Description Data Source(s) Weight (Calculated Kilograms) 48.99 48.99 [facility] Height (Calculated Centimeters) 160.02 160. 02 [facility] Body Mass Index (BMI) 19.1 19.1 [facility] ID Date Data Source [id number] 12/07/2020 06:17:00 PM [facility] Name Value Range Interpretation Code Description Data Source(s) Weight (Calculated Kilograms) 48.99 48.99 [facility] Height (Calculated Centimeters) 160.02 160. 02 [facility] Body Mass Index (BMI) 19.1 19.1 [facility] ID Date Data Source [id number] 11/30/2020 12:12:00 AM [facility] Name Value Range Interpretation Code Description Data Source(s) Weight (Calculated Kilograms) 48.99 48.99 [facility] Height (Calculated Centimeters) 160.02 160. 02 [facility] Body Mass Index (BMI) 19.1 19.1 [facility] Weight (Calculated Kilograms) 48.99 48.99 [facility] Height (Calculated Centimeters) 160.02 160. 02 [facility] Body Mass Index (BMI) 19.1 19.1 [facility] Weight (Calculated Kilograms) 48.99 48.99 [facility] Height (Calculated Centimeters) 160.02 160. 02 [facility] Body Mass Index (BMI) 19.1 19.1 [facility] ID Date Data Source [id number] 11/16/2020 12:40:00 AM [facility] Name Value Range Interpretation Code Description Data Source(s) Weight (Calculated Kilograms) 48.99 48.99 [facility] Height (Calculated Centimeters) 160.02 160. 02 [facility] Body Mass Index (BMI) 19.1 19.1 [facility] Weight (Calculated Kilograms) 48.99 48.99 [facility] Height (Calculated Centimeters) 160.02 160. 02 [facility] Body Mass Index (BMI) 19.1 19.1 [facility] ID Date Data Source [id number] 11/10/2020 11:10:00 AM [facility] Name Value Range Interpretation Code Description Data Source(s) Weight (Calculated Kilograms) 48.99 48.99 [facility] Height (Calculated Centimeters) 160.02 160. 02 [facility] Body Mass Index (BMI) 19.1 19.1 [facility] ID Date Data Source [id number] 11/11/2020 12:57:00 AM [facility] Name Value Range Interpretation Code Description Data Source(s) Weight (Calculated Kilograms) 48.99 48.99 [facility] Height (Calculated Centimeters) 160.02 160. 02 [facility] Body Mass Index (BMI) 19.1 19.1 [facility] Weight (Calculated Kilograms) 48.99 48.99 [facility] Height (Calculated Centimeters) 160.02 160. 02 [facility] Body Mass Index (BMI) 19.1 19.1 [facility] ID Date Data Source [id number] 11/05/2020 02:59:00 AM [facility] Name Value Range Interpretation Code Description Data Source(s) Weight (Calculated Kilograms) 48.99 48.99 [facility] Height (Calculated Centimeters) 160.02 160. 02 [facility] Body Mass Index (BMI) 19.1 19.1 [facility] Weight (Calculated Kilograms) 48.99 48.99 [facility] Height (Calculated Centimeters) 160.02 160. 02 [facility] Body Mass Index (BMI) 19.1 19.1 [facility] ID Date Data Source [id number] 11/03/2020 12:51:00 AM EST [facility] Name Value Range Interpretation Code Description Data Source(s) Weight (Calculated Kilograms) 48.99 48.99 [facility] Height (Calculated Centimeters) 160.02 160. 02 [facility] Body Mass Index (BMI) 19.1 19.1 [facility] Weight (Calculated Kilograms) 48.99 48.99 [facility] Height (Calculated Centimeters) 160.02 160. 02 [facility] Body Mass Index (BMI) 19.1 19.1 [facility] ID Date Data Source [id number] 10/27/2020 01:35:00 AM EST [facility] Name Value Range Interpretation Code Description Data Source(s) Weight (Calculated Kilograms) 48.99 48.99 [facility] Height (Calculated Centimeters) 160.02 160. 02 [facility] Body Mass Index (BMI) 19.1 19.1 [facility] Weight (Calculated Kilograms) 48.99 48.99 [facility] Height (Calculated Centimeters) 160.02 160. 02 [facility] Body Mass Index (BMI) 19.1 19.1 [facility] ID Date Data Source [id number] 12/22/2020 03:54:00 PM EDT [facility] Name Value Range Interpretation Code Description Data Source(s) Weight Measurement Method 1 1 [facility] Weight (Calculated Kilograms) 48.99 48.99 [facility] Weight 2096 2096 [facility] Temperature Source 7 7 [facility] Temperature 98.1 98.1 [facility] Respiratory Effort 1 1 [facility] Respiratory Rate 18 18 [facility] Pulse Assessment Method [address] [facility] Pulse Rate 96 96 [facility] Height (Calculated Centimeters) 160.02 160. 02 [facility] Height 63 63 [facility] Blood Pressure 113/66 113/66 [facility] Body Mass Index (BMI) 19.1 19.1 [facility] Weight Measurement Method 1 1 [facility] Weight (Calculated Kilograms) 48.99 48.99 [facility] Weight 20956 [facility] Temperature Source 7 7 [facility] Temperature 98.1 98.1 [facility] Respiratory Effort 1 1 [facility] Respiratory Rate 18 18 [facility] Pulse Assessment Method [address] [facility] Pulse Rate 96 96 [facility] Height (Calculated Centimeters) 160.02 160. 02 [facility] Height 63 63 [facility] Blood Pressure 113/66 113/66 [facility] Body Mass Index (BMI) 19.1 19.1 [facility] Weight Measurement Method 1 1 [facility] Weight (Calculated Kilograms) 48.99 48.99 [facility] Weight 2095 2095 [facility] Temperature Source 7 7 [facility] Temperature 98.1 98.1 [facility] Respiratory Effort 1 1 [facility] Respiratory Rate 18 18 [facility] Pulse Assessment Method [address] [facility] Pulse Rate 96 96 [facility] Height (Calculated Centimeters) 160.02 160. 02 [facility] Height 63 63 [facility] Blood Pressure 113/66 113/66 [facility] Body Mass Index (BMI) 19.1 19.1 [facility] Weight Measurement Method 1 1 [facility] Weight (Calculated Kilograms) 48.99 48.99 [facility] Weight 1728 1728 [facility] Temperature Source 7 7 [facility] Temperature 98.2 98.2 [facility] Respiratory Effort 1 1 [facility] Respiratory Rate 16 16 [facility] Pulse Assessment Method [address] [facility] Pulse Rate 93 93 [facility] Height (Calculated Centimeters) 160.02 160. 02 [facility] Height 63 63 [facility] Blood Pressure 109/79 109/79 [facility] Body Mass Index (BMI) 19.1 19.1 [facility] Weight Measurement Method 1 1 [facility] Weight (Calculated Kilograms) 48.99 48.99 [facility] Weight 1728 1728 [facility] Temperature Source 7 7 [facility] Temperature 98.0 98.0 [facility] Respiratory Effort 1 1 [facility] Respiratory Rate 12 12 [facility] Pulse Assessment Method [address] [facility] Pulse Rate 93 93 [facility] Height (Calculated Centimeters) 160.02 160. 02 [facility] Height 63 63 [facility] Blood Pressure 109/79 109/79 [facility] Body Mass Index (BMI) 19.1 19.1 [facility] Weight Measurement Method 1 1 [facility] Weight (Calculated Kilograms) 48.99 48.99 [facility] Weight 1728 1728 [facility] Temperature Source 7 7 [facility] Temperature 97.0 97.0 [facility] Respiratory Effort 1 1 [facility] Respiratory Rate 16 16 [facility] Pulse Assessment Method [address] [facility] Pulse Rate 95 95 [facility] Height (Calculated Centimeters) 160.02 160. 02 [facility] Height 63 63 [facility] Blood Pressure 110/75 110/75 [facility] Body Mass Index (BMI) 19.1 19.1 [facility] Weight Measurement Method 1 1 [facility] Weight (Calculated Kilograms) 48.99 48.99 [facility] Weight 1728 1728 [facility] Temperature Source 7 7 [facility] Temperature 97.9 97.9 [facility] Respiratory Effort 1 1 [facility] Respiratory Rate 18 18 [facility] Pulse Assessment Method [address] [facility] Pulse Rate 96 96 [facility] Height (Calculated Centimeters) 160.02 160. 02 [facility] Height 63 63 [facility] Blood Pressure 99/59 99/59 [facility] Body Mass Index (BMI) 19.1 19.1 [facility] ID Date Data Source [id number] 08/19/2020 12:11:00 AM EST [facility] Name Value Range Interpretation Code Description Data Source(s) Weight Measurement Method 1 1 [facility] Weight (Calculated Kilograms) 41.39 41.39 [facility] Weight 1460 1460 [facility] Temperature Source 7 7 [facility] Temperature 97.9 97.9 [facility] spital Respiratory Effort 1 1 [facility] Respiratory Rate 18 18 [facility] Pulse Assessment Method 4 4 [facility] Pulse Rate 97 97 [facility] pital Height (Calculated Centimeters) 160.02 160. 02 [facility] Height 63 63 [facility] pital Blood Pressure 99/62 99/62 [facility] Body Mass Index (BMI) [address] [facility] Weight Measurement Method 1 1 [facility] Weight (Calculated Kilograms) 41.39 41.39 [facility] Weight 1460 1460 [facility] pital Temperature Source 7 7 [facility] Temperature 97.9 97.9 [facility] spital Respiratory Effort 1 1 [facility] Respiratory Rate 18 18 [facility] Pulse Assessment Method 4 4 [facility] Pulse Rate 97 97 [facility] pital Height (Calculated Centimeters) 160.02 160. 02 [facility] Height 63 63 [facility] pital Blood Pressure 99/62 99/62 [facility] Body Mass Index (BMI) [address] [facility] Weight Measurement Method 1 1 [facility] Weight (Calculated Kilograms) 41.39 41.39 [facility] Weight 1460 1460 [facility] pital Temperature Source 7 7 [facility] Temperature 97.9 97.9 [facility] spital Respiratory Effort 1 1 [facility] Respiratory Rate 18 18 [facility] Pulse Assessment Method 4 4 [facility] Pulse Rate 97 97 [facility] pital Height (Calculated Centimeters) 160.02 160. 02 [facility] Height 63 63 [facility] pital Blood Pressure 99/62 99/62 [facility] Body Mass Index (BMI) [address] [facility] Weight Measurement Method 1 1 [facility] Weight (Calculated Kilograms) 41.39 41.39 [facility] Weight 1460 1460 [facility] pital Temperature Source 7 7 [facility] Temperature 97.6 97.6 [facility] spital Respiratory Effort 1 1 [facility] Respiratory Rate 17 17 [facility] Pulse Assessment Method 4 4 [facility] Pulse Rate 93 93 [facility] pital Height (Calculated Centimeters) 160.02 160. 02 [facility] Height 63 63 [facility] pital Blood Pressure 102/70 102/70 [facility] Body Mass Index (BMI) [address] [facility] Weight Measurement Method 1 1 [facility] Weight (Calculated Kilograms) 41.39 41.39 [facility] Weight 1460 1460 [facility] pital Temperature Source 6 6 [facility] Temperature 98.7 98.7 [facility] spital Respiratory Effort 1 1 [facility] Respiratory Rate 16 16 [facility] Pulse Assessment Method 4 4 [facility] Pulse Rate 114 114 [facility] pital Height (Calculated Centimeters) 160.02 160. 02 [facility] Height 63 63 [facility] pital Blood Pressure 107/71 107/71 [facility] Body Mass Index (BMI) [address] [facility] Weight Measurement Method 1 1 [facility] Weight (Calculated Kilograms) 41.39 41.39 [facility] Weight 1460 1460 [facility] pital Temperature Source 7 7 [facility] Temperature 97.7 97.7 [facility] spital Respiratory Effort 1 1 [facility] Respiratory Rate 16 16 [facility] Pulse Assessment Method 4 4 [facility] Pulse Rate 103 103 [facility] pital Height (Calculated Centimeters) 160.02 160. 02 [facility] Height 63 63 [facility] pital Blood Pressure 123/79 123/79 [facility] Body Mass Index (BMI) [address] [facility] Weight Measurement Method 1 1 [facility] Weight (Calculated Kilograms) 41.39 41.39 [facility] Weight 1460 1460 [facility] pital Temperature Source 7 7 [facility] Temperature 98.7 98.7 [facility] spital Respiratory Effort 1 1 [facility] Respiratory Rate 16 16 [facility] Pulse Assessment Method 4 4 [facility] Pulse Rate 108 108 [facility] pital Height (Calculated Centimeters) 160.02 160. 02 [facility] Height 63 63 [facility] pital Blood Pressure 103/70 103/70 [facility] Body Mass Index (BMI) [address] [facility] Weight Measurement Method 1 1 [facility] Weight (Calculated Kilograms) 41.39 41.39 [facility] Weight 1460 1460 [facility] pital Temperature Source 1 1 [facility] Temperature 98.1 98.1 [facility] spital Respiratory Effort 1 1 [facility] Respiratory Rate 17 17 [facility] Pulse Assessment Method 1 1 [facility] Pulse Rate 109 109 [facility] pital Height (Calculated Centimeters) 160.02 160. 02 [facility] Height 63 63 [facility] pital Blood Pressure 93/65 93/65 [facility] Body Mass Index (BMI) [address] [facility] Weight (Calculated Kilograms) 42.55 42.55 [facility] Height (Calculated Centimeters) 160.02 160. 02 [facility] Body Mass Index (BMI) 16.[address] [facility] ID Date Data Source [id number] 07/06/2020 08:22:12 PM [facility] Name Value Range Interpretation Code Description Data Source(s) WEIGHT RECORDED 102 lb 102 lb [facility] Body height Measured 62.99 [facility] 62.99 [facility] ID Date Data Source [id number] 05/26/2020 10:33:09 AM [facility] Name Value Range Interpretation Code Description Data Source(s) WEIGHT RECORDED 105.4 lb 105.4 lb [facility] ID Date Data Source [id number] 05/13/2020 11:43:52 PM EDT [facility] Name Value Range Interpretation Code Description Data Source(s) WEIGHT RECORDED 105 lb 105 lb [facility] Body height Measured [address] [facility] Patient Treatment Plan of Care Planned Activity Planned Date Details Description Data Source (s) Buprenorphine 8 MG / Naloxone 2 MG Oral Strip 07/13/2020 12:00:00 A M [facility] Sulfamethoxazole 800 MG / Trimethoprim 160 MG Oral Tab let 07/13/2020 12:00:00 AM [facility] Sulfamethoxazole 800 MG / Trimethoprim 160 MG Oral Tab let 07/13/2020 12:00:00 AM [facility]spital Buprenorphine 8 MG / Naloxone 2 MG Oral Strip 07/13/2020 12:00:00 A M [facility] Polymyxin B [id number] UNT/ML / Trimethoprim 1 MG/ML Ophtha lmic Solution 07/06/2020 12:00:00 AM [facility] ospital Buprenorphine 8 MG / Naloxone 2 MG Oral Strip 07/06/2020 12:00:00 A M [facility] Buprenorphine 8 MG / Naloxone 2 MG Oral Strip 06/28/2020 12:00:00 A M [facility] [employer] [employer] Mouth/Throat Suspension 06/08/2020 12:00:00 AM [facility] quetiapine 200 MG Oral Tablet 06/08/2020 12:00:00 AM [facility] aripiprazole 5 MG Oral Tablet 06/08/2020 12:00:00 AM [facility] Buprenorphine 8 MG / Naloxone 2 MG Oral Strip 06/08/2020 12:00:00 A M [facility] Hydroxyzine Hydrochloride 10 MG Oral Tablet 06/01/2020 12:00:00 AM [facility] Buprenorphine 8 MG / Naloxone 2 MG Oral Strip 06/01/2020 12:00:00 A M [facility] Omeprazole 40 MG Delayed Release Oral Capsule 05/25/2020 12:00:00 A M [facility] Buprenorphine 12 MG / Naloxone 3 MG Oral Strip 05/25/2020 12:00:00 AM [facility] Buprenorphine 8 MG / Naloxone 2 MG Oral Strip 05/18/2020 12:00:00 A M [facility] Buprenorphine 8 MG / Naloxone 2 MG Oral Strip 04/13/2020 12:00:00 A M [facility]
--- NOTE | 2021-06-29 23:42 | REPVR ---
PROCEDURE INFORMATION: Exam: US Left Non-Vascular Joint or Other Extremity Structure Exam date and time: 06/29/2021 10:30 PM Age: 30 years old Clinical indication: Screening exam; R/O abscess at left hi(p/thigh; Additional info: Abscess left hip/thigh TECHNIQUE: Imaging protocol: Left US joint or other nonvascular extremity structure or structures. Real-time ultrasound with image documentation. Limited study. Exam focused on the lower extremity in the region of clinical interest. COMPARISON: 1. US EXTREMITY NON VASCUL LIMITED LEFT 2020-03-28 12:17 2. US EXTREMITY NON VASCUL LIMITED 2014-08-31 15:37 FINDINGS: Soft tissues: 1.7 x 0.8 x 0.7 cm irregular hypoechoic area. Deep to the region of the left hip/thigh with erythema and swelling. Subcutaneous edema. IMPRESSION: Probable 1.7 cm abscess within the soft tissues of the left thigh versus infiltrating subcutaneous edema related to superficial cellulitis. Electronically signed by: Misbah Vidal On 06/29/2021 23:41:39 PM
[2021-06-30] MEDS ORDERED: DOXY100C3 PO (13:59)
[2021-06-30] MEDS ORDERED: VIVI380I IM (13:59)
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
[2021-06-30] MEDS ORDERED: HOME MED LIST COMPLETE! XX SCH (14:05)
[2021-06-30] MEDS ORDERED: MOM 30ML SUSPENSION UDC PO PRN (15:45)
[2021-06-30] MEDS ORDERED: OLANZapine 5 MG TAB PO PRN (15:45)
[2021-06-30] MEDS ORDERED: ACETAMINOPHEN TAB 650MG DOSE (2X325MG) PO PRN (15:45)
[2021-06-30] MEDS ORDERED: MAALOX 30 ML SUSP *UDC PO PRN (15:45)
--- OUTSIDE RECORDS SUMMARY | 2021-06-30 16:26 | CCD ---
Author Author [facility] Organization [facility] Address Unknown Phone Unavailable Care Team Providers Care Sagger Maker Name Role Phone URIEL ANN FLAT KNITTER Unavailable Unavailable URIEL ANN FLAT KNITTER Unavailable Unavailable URIEL ANN FLAT KNITTER Unavailable Unavailable SERURIEL COURTNEY FLAT KNITTER Unavailable Unavailable SERURIEL COURTNEY FLAT KNITTER Unavailable Unavailable URIEL ANN FLAT KNITTER Unavailable Unavailable URIEL ANN FLAT KNITTER Unavailable Unavailable STELLA ENCISO MD Unavailable Unavailable STELLA ENCISO MD Unavailable Unavailable STELLA ENCISO MD Unavailable Unavailable STELLA ENCISO MD Unavailable Unavailable STELLA ENCISO MD Unavailable Unavailable STELLA ENCISO MD Unavailable Unavailable STELLA ENCISO MD Unavailable Unavailable Kathrine Nicci Booa, AGENT TICKETING GATE Unavailable Unavailable Alvaro, R Jossy FLAT KNITTER Unavailable Unavailable Alvaro, R Jossy FLAT KNITTER Unavailable Unavailable Alvaro, R Jossy FLAT KNITTER Unavailable Unavailable Alvaro, R Jossy FLAT KNITTER Unavailable Unavailable Alvaro, R Jossy FLAT KNITTER Unavailable Unavailable Alvaro, R Jossy FLAT KNITTER Unavailable Unavailable Alvaro, R Jossy FLAT KNITTER Unavailable Unavailable Alvaro, R Jossy FLAT KNITTER Unavailable Unavailable Alvaro, R Jossy FLAT KNITTER Unavailable Unavailable Alvaro, R Jossy FLAT KNITTER Unavailable Unavailable Alvaro, R Jossy FLAT KNITTER Unavailable Unavailable Godlewski, Lindy PA Unavailable Unavailable Godlewski, Lindy PA Unavailable Unavailable Godlewski, Lindy PA Unavailable Unavailable Godlewski, Lindy PA Unavailable Unavailable Godlewski, Lindy PA Unavailable Unavailable Godlewski, Lindy PA Unavailable Unavailable Godlewski, Lindy PA Unavailable Unavailable Kathrine Nicci Rayaidaa, AGENT TICKETING GATE Unavailable Unavailable Ball, C Merced FLAT KNITTER Unavailable Unavailable Ball, C Merced FLAT KNITTER Unavailable Unavailable Ball, C Merced FLAT KNITTER Unavailable Unavailable Ball, C Merced FLAT KNITTER Unavailable Unavailable Ball, C Merced FLAT KNITTER Unavailable Unavailable Ball, C Merced FLAT KNITTER Unavailable Unavailable Ball, C Merced FLAT KNITTER Unavailable Unavailable Ball, C Merced FLAT KNITTER Unavailable Unavailable Ball, C Merced FLAT KNITTER Unavailable Unavailable Ball, C Merced FLAT KNITTER Unavailable Unavailable Mcrae IV, J Devan AGENT TICKETING GATE Unavailable Unavailable Mcrae IV, J Devan AGENT TICKETING GATE Unavailable Unavailable Mcrae IV, J Devan AGENT TICKETING GATE Unavailable Unavailable Mcrae IV, J Devan AGENT TICKETING GATE Unavailable Unavailable Fide Gunn VP INFORMATION TECHNOLOGY Unavailable Unavailable Terry Leos MD Unavailable Unavailable Terry Leos MD Unavailable Unavailable Phyllis Badillo Unavailable Unavailable Ean Washington MD Unavailable Unavailable [...] Unavailable Unavailable Ean Washington MD Unavailable Unavailable PorcarEan daley MD Unavailable Unavailable Ean Washington MD Unavailable Unavailable Ean Washington MD Unavailable Unavailable Ean Washington MD Unavailable Unavailable Ean Washington MD Unavailable Unavailable Ean Washington MD Unavailable Unavailable Ean Washington MD Unavailable Unavailable PorcariEan MD Unavailable Unavailable AishwaryacarEan daley MD Unavailable Unavailable AishwaryacarEan daley MD Unavailable Unavailable PorcarEan daley MD Unavailable Unavailable PorcariEan MD Unavailable Unavailable [...] Unavailable AsarPerry MD Unavailable Unavailable Amelie Loera, LM Unavailable Unavailab Susy Lomeli MD Unavailable Unavailable Susy Rossi MD Unavailable [...] is protected by Article 27-F of the [facility] Public Health law. If you continue you may have access to information: Regarding HIV / AIDS; Provided by facilities licensed or operated by the [facility] Office of Mental Health; or Provided by the [facility] Office for People With Developmental Disabilities. If such information is present, then the following [facility] mandated warning applies: This information has [...] law may result in a fine or detention sentence or both. A general authorization for the release of medical or other information is NOT sufficient authorization for further disc losure. Allergies and Adverse Reactions Type Description Substance Reaction Status Data Source(s ) Drug allergy Drug [facility] Drug allergy Drug allergy Penicillins [facility] Drug allergy Drug allergy cefaclor (From [facility]) [facility] Allergy to substance Allergy to substance Cefaclor NETSMART ([facility]) Allergy to substance Allergy to substance Bupropion NETSMART ([facility]) Family History Family Member Name Family Member Gender Family Member Status Date o f Status Description Data Source(s) Unknown Male Problem MEDENT ([facility]) Unknown Male Problem MEDENT ([facility] Encounters Encounter Providers Location Date Indications Data Source(s ) [place] [address] [address] 06/17/2021 12:00:00 AM EDT eCW1 ([facility]) Outpatient Attender: Paz Rossi MDAttender: LOLA MENDOZA RPA 05/22/2021 01:44:44 PM EDT - 05/22/2021 02:36:49 PM EDT [facility] ( [facility]) Preadmit Attender: Fide Gunn LCSW CPSCAORT-CHEPDREH 11:00:00 AM EDT [facility] Emergency Attender: eDvan Mcrae IVAttender: Merced Rivera CPSCAORT-ED 12/18/2020 06:53:00 PM EDT - 12/19/2020 10:40:00 AM EDT PSYCH PROBLEM, DRUG ABUSE [facility] PSYCH PROBLEM, DRUG ABUSE Patient discharged. Emergency Attender: Merced Leos MD CPSCAORT-ED 021 08:34:00 AM EDT - 12/18/2020 10:05:00 AM EDT LACERATION TO LEG [facility] LACERATION TO LEG Patient discharged. Outpatient Attender: TANIA Rivera CPSCAORT-CHEPDREH 12/15/2020 03:00:00 PM EDT - 12/15/2020 03:01:00 PM EDT [facility] pital MAR Patient discharged. Outpatient Attender: Fide Gunn LCSW CPSCAORT-CHEPDREH 11:00:00 AM EDT - 12/14/2020 11:01:00 [facility]. Preadmit Attender: Fide Gunn LCSW CPSCAORT-CHEPDREH 10:00:00 AM EDT [facility] PSD Preadmit Attender: Julianna WALKER CPSCAORT-CHEPDREH 12/08/2020 11:00:00 AM EDT [facility] MAR Outpatient Attender: Fide Gray VP INFORMATION TECHNOLOGY CPSCAORT-CHEPDREH 10:00:00 AM EDT - 11/29/2020 10:01:00 [facility] Outpatient Attender: Fide Gunn VP INFORMATION TECHNOLOGY CPS[facility]ORT-CHEPDREH 09:00:00 AM EST - 11/15/2020 09:01:00 AM EST PSD [facility] PSD Patient discharged. Preadmit Attender: Fide DUBONW CPSCAORT-CHEPDREH 03:00:00 PM EST PSD [facility] PSD Outpatient Attender: Julianna Head RPA-C CPSCAORT-CHEPDREH 11/10/2020 10:30:00 AM EST - 11/10/2020 10:31:00 AM EST MAR [facility] pital MAR Patient discharged. Outpatient Attender: TANIA Rivera CPSCAORT-CHEPDREH 11/04/2020 01:00:00 PM EST - 11/04/2020 01:01:00 PM EST MAR [facility] MAR Patient discharged. Outpatient Attender: DES Loera CPSCAORT- CHEPDREH 11/02/2020 09:00:00 AM EST - 11/02/2020 09:01:00 AM EST PSD [facility] PSD Patient discharged. Outpatient Attender: [facility] Amelie Bolanos tender: Julianna Head RPA-C CPSCAORT-CHEPDREH 10/26/2020 09:56:00 AM EST - 10/26/2020 09:57:00 AM EST PSD [facility] PSD Patient discharged. Inpatient Attender: Stella Florez nder: STELLA ENCISO MDAdmitter: Stella Enciso MDReferrer: TANIA Rivera CPSCAORT-CHEPPDREH 09/27/2020 09:09:00 A M EST - 10/24/2020 06:53:00 AM EST PSYCHOACTIVE SUBSTANCE DEPENDENCE [facility] PSYCHOACTIVE SUBSTANCE DEPENDENCE Patient discharged. [place] [address] [address] 09/24/2020 12:00:00 AM EST eCW1 ([facility]) [facility] 02:56:00 PM [facility] 07/22/2020 09:49:00 AM [facility] 07/21/2020 08:43:00 PM [facility] Inpatient Attender: Ean Washington MDAdmitter: Ean glaser MD [facility] 07/21/2020 05:56:00 PM EST - 07/27/2020 03:00:00 PM [facility] F19.10,F11.10 [facility] F19.10,F11.10 Patient discharged. Outpatient 07/20/2020 12:00:00 AM [facility] Outpatient Attender: JACLYN REYES MD 07A-MTOXUHCC 07/13 12:00:00 AM EST - 07/13/2020 03:01:48 PM [facility] Outpatient Attender: JACLYN REYES MD 07A-MTOXUHCC 07/06 12:00:00 AM EDT - 07/06/2020 01:47:43 PM EDT Opioid dependence, [facility] Opioid dependence, uncomplicated Unknown [address] [address] 06/30/2020 12:00:00 AM EDT eCW1 ([facility]) Outpatient Attender: URIEL ANN NP 07A-MTOXUHCC 06/28 12:00:00 AM EDT - 06/28/2020 03:02:05 PM EDT [facility] Emergency Attender: Jossy John NPAttender: ER PHYSICIAN 06/27/2020 10:41:00 AM EDT - 06/27/2020 11:50:00 AM EDT SUBOXONE DOSAGE [facility] SUBOXONE DOSAGE Patient discharged. Emergency Attender: Merced Dixon NPAttender: ER PHYSICIAN 06/26/2020 01:44:00 PM EDT - 06/26/2020 04:26:00 PM EDT MISSED SUBOXONE [facility] MISSED SUBOXONE Patient discharged. Emergency 06/26/2020 10:17:00 AM EDT - 06/26/2020 01:20:00 PM EDT med refill [facility] med refill Patient discharged. Unlisted evaluation and management service Performer: Nicol small 06/15/2020 10:00:00 PM EDT - 06/15/2020 10:30:00 PM EDT [facility] ([facility]) Outpatient 06/15/2020 12:00:00 AM EDT [facility] Emergency Attender: Lindy ROSSIttender: SHANIA ISBELL 06/14/2020 07:25:00 AM EDT - 06/14/2020 08:17:00 AM EDT UNCERS UND[facility] TONGUE [facility] UNCERS UNDER TONGUE Patient discharged. Unlisted evaluation and management service Performer: Nicol small 06/10/2020 07:00:00 PM EDT - 06/10/2020 07:20:00 PM EDT NETSMART ([facility]) Unlisted evaluation and management service Performer: Nicol small 06/09/2020 04:30:00 PM EDT - 06/09/2020 04:50:00 PM EDT NETSM[facility] ([facility]) Unlisted evaluation and management service Performer: Nicol small 06/08/2020 03:30:00 PM EDT - 06/08/2020 04:10:00 [facility] Outpatient Attender: JACLYN REYES MD 07A-MTOXCC 06/08/2020 12:00:0 0 AM [facility] Outpatient Attender: JACLYN HillA-MTOXCC 06/01 12:00:00 AM EDT - 06/01/2020 09:30:14 AM [facility] Unlisted evaluation and management service 05/11 12:39:00 PM EDT [facility] ([facility]) Outpatient Attender: JACLYN HillA-MTOXCC 05/25 12:00:00 AM EDT - 05/26/2020 12:00:00 AM EDT [facility] Outpatient Attender: JACLYN HillA-MTOXCC 05/18/2020 12:00:0 0 AM T [facility] Emergency 07A-ERMMTA 05/14/2020 01:51:00 PM EDT - 05/14/2020 03:07:00 PM EDT Opioid dependence with unspecified opioid-induced disorder [facility] Opioid dependence with unspecified opioi d-induced disorder Patient discharged. Emergency 07A-ERMADULT 05/13/2020 04:02 :00 PM EDT - 05/13/2020 05:09:00 PM EDT Opioid dependence with unspecified opioid-induced diso rder [facility] Opioid dependence with unspecified opioi d-induced disorder Patient discharged. Outpatient 05/04/2020 12:00:00 AM EDT [facility] Immunizations Vaccine Date Status Description Data Source(s) New in 2011. IIV4 05/25/2020 12:00:00 AM EDT completed <t d ID="[id number]">Influenza Quad IM Pres Free (0.5 mL dose)</td><td>05/25/2020</td><td></td> [facility] Medications Medication Brand Name Start [...] Two T imes Daily for 10 days [facility] Buprenorphine 8 MG / Naloxone 2 MG Oral Strip Buprenorphine HCl-Naloxone HCl 8-2 MG Sublingual Film (SUBOXONE) Buprenorphine HCl-Naloxone HCl 8-2 MG Bradley blingual Film (SUBOXONE) 07/13/2020 12:00:00 AM EST 2 {film} Sublingual active Place 2 Film under the tongue daily for 7 days, Max Daily Dose: 2 Film [facility] Sulfamethoxazole 800 MG / Trimethoprim 1 60 MG Oral Tablet Sulfamethoxazole- Trimethoprim 800-160 MG Oral Tablet (Bactrim DS) Sulfamethoxazole-Trimethoprim 800-160 MG Oral Tablet (Bactrim DS) 07/13/2020 12:00:00 AM EST 1 {tbl } Oral active Take 1 tablet by mouth Two T imes Daily for 10 days [facility] Buprenorphine 8 MG / Naloxone 2 MG Oral Strip Buprenorphine HCl-Naloxone HCl 8-2 MG Sublingual Film (SUBOXONE) Buprenorphine HCl-Naloxone HCl 8-2 MG Bradley blingual Film (SUBOXONE) 07/13/2020 12:00:00 AM EST 2 {film} Sublingual aborted Place 2 Film under the tongue daily for 7 days, Max D aily Dose: 2 Film [facility] Polymyxin B 42641 UNT/ML / Trimethoprim 1 MG/ML Ophthalmic Solution Polymyxin B- Trimethoprim 36106-4.1 UNIT/ML-% Ophthalmic Solution (Polytrim) Polymyxin B- Trimethoprim 36172-7.1 UNIT/ML-% Ophthalmic Solution (Polytrim) 07/06/2020 12:00:00 AM EDT 1 [drp] Both Eyes active Place 1 drop into both eyes every 4 (four) hours for 10 days [facility] Buprenorphine 8 MG / Naloxone 2 MG Oral Strip Buprenorphine HCl-Naloxone HCl 8-2 MG Sublingual Film (SUBOXONE) Buprenorphine HCl-Naloxone HCl 8-2 MG Bradley blingual Film (SUBOXONE) 07/06/2020 12:00:00 AM EDT 2 {film} Sublingual active Place 2 Film under the tongue daily for 7 days, Max Daily Dose: 2 Film [facility] 8-2 mg 07/06/2020 12:00:00 AM [...] MAXIMUM DAILY DOSE = 2 SOLD: 06/28/2020 Caitlin Callahan Buprenorphine 8 MG / Naloxone 2 MG Oral Strip Buprenorphine HCl-Naloxone HCl 8-2 MG Sublingual Film (SUBOXONE) Buprenorphine HCl-Naloxone HCl 8-2 MG Bradley blingual Film (SUBOXONE) 06/28/2020 12:00:00 AM EDT 2 {film} Sublingual active Place 2 Film under the tongue daily for 8 days, Max Daily Dose: 2 Film [facility] MAGIC MOUTHWASH 06/14/2020 12:00:00 AM EDT suspension 240 SWISH AND SPIT 10ML EVERY 4 HOURS NEEDED FOR PAIN SWISH AND SPIT 10ML EVERY 4 HOURS NEEDED FOR PAIN SOLD: 06/15/2020 Caitlin Rivera rugs [id number] mg/30 mL 06/09/2020 12:00:00 AM EDT mouthwash [...] 7 days, Max Daily Dose: 2 Film [facility] quetiapine 200 MG Oral Tablet QUETIAPINE FUMARATE 06/08/2020 12: 00:00 AM EDT tablet 30 TAKE ONE TABLET BY MOUTH EVERY D AY AT NIGHT TAKE ONE TABLET BY MOUTH EVERY DAY AT NIGHT SOLD: 06/10/2020 Cal Callahan [employer] [employer] Mouth/Throat Suspension 78070-139-03 06/08/2020 12:00:00 AM EDT 15 mL Mouth/Throat active Use as directed 15 mLs in the mouth or throat every 6 (six) hours as needed [facility] quetiapine 200 MG Oral Tablet QUEtiapine Fumarate 200 MG Oral Tablet (SEROquel) QUEtiapine Fumarate 200 MG Oral Tablet (SEROquel) 06/08/2020 12:00:00 AM EDT 200 mg Oral active Take 1 tablet by mouth n [facility] aripiprazole 5 MG Oral Tablet ARIPiprazole 5 MG Oral T ablet (Javon) ARIPiprazole 5 MG Oral Tablet (Abilify) 06/08/2020 12:00:00 AM EDT 5 mg Oral active Take 1 tablet by mouth da marcel [facility] 5 mg 06/08/2020 12:00:00 AM EDT tablet 30 TAKE ONE TABLET BY MOUTH EVERY DAY TAKE ONE TABLET BY MOUTH EVERY DAY SOLD: 06/08/2020 [facility] 8-2 mg 06/08/2020 12:00:00 AM EDT film 14 PL[address] TWO FILMS UNDER THE TONGUE EVERY DAY FOR 7 DAYS MAXIMUM DAILY DOSE = TWO FILMS PLACE TWO FILMS UNDER THE TONGUE EVERY DAY FOR 7 DAYS MAXIMUM DAILY DOSE = TWO FILMS SOLD: 07/15/2020 [facility] 10 mg 06/02/2020 12:00:00 AM EDT tablet 30 TAKE ONE TABLET BY MOUTH THREE TIMES A DAY NEEDED FOR ANXIETY FOR UP TO 10 DAYS TAKE ONE TABLET BY MOUTH THREE TIMES A DAY NEEDED FOR ANXIETY FOR UP TO 10 DAYS SOLD: 06/02/2020 [facility] Buprenorphine 8 MG / Naloxone 2 MG Oral Strip Buprenorphine HCl-Naloxone HCl 8-2 MG Sublingual Film (SUBOXONE) Buprenorphine HCl-Naloxone HCl 8-2 MG Bradley blingual Film (SUBOXONE) 06/01/2020 12:00:00 AM EDT 2 {film} Sublingual active Place 2 Film under the tongue daily for 7 days, Max Daily Dose: 2 Film [facility] Hydroxyzine Hydrochloride 10 MG Oral Tab let hydrOXYzine HCl 10 MG Oral Tablet (ATARAX) hydrOXYzine HCl 10 MG Oral Tablet (ATARAX) 06/01/2020 12:00: 00 AM EDT 10 mg Oral active Take 1 tablet by mouth Three times daily as needed for Anxiety for up to 10 days [facility] 8-2 mg 06/01/2020 12:00:00 AM EDT film 14 PLACE 2 FILMS UNDER THE TONGUE DAILY FOR 7 DAYS MAXIMUM DAILY DOSE = 2 PLACE 2 FILMS UNDER THE TONGUE DAILY FOR 7 DAYS MAXIMUM DAILY DOSE = 2 SOLD: 06/02/2020 [facility] Omeprazole 40 MG Delayed Release Oral Ca psule Omeprazole 40 MG Oral Capsule Delayed Release (PRILOSEC) Omeprazole 40 MG Oral Capsule Delayed Re lease (PRILOSEC) 05/25/2020 12:00:00 AM EDT 40 mg Oral active Take 1 capsule by mouth daily [facility] 12-3 mg 05/25/2020 12:00:00 AM EDT film 7 PLACE 1 FILM UNDER THE TONGUE DAILY MAXIMUM DAILY DOSE = 1 PLACE 1 FILM UNDER THE TONGUE DAILY MAXI MUM DAILY DOSE = 1 SOLD: 05/25/2020 [facility] 40 mg 05/25/2020 12:00:00 AM EDT capsule,delayed release (DR/EC) 30 TAKE ONE CAPSULE BY MOUTH DAILY TAKE ONE CAPSULE BY MOUTH DAILY SOLD: 05/25/2020 [facility] Buprenorphine 12 MG / Naloxone 3 MG Oral Strip Buprenorphine HCl-Naloxone HCl 12-3 MG Sublingual Film (SUBOXONE) Buprenorphine HCl-Naloxone HCl 12-3 MG Sublingual Film (SUBOXONE) 05/25/2020 12:00:00 AM EDT 1 {film} Sublin gual active Place 1 Film under t he tongue daily for 7 days, Max Daily Dose: 1 Film [facility] 8-2 mg 05/18/2020 12:00:00 AM EDT film 7 PLACE ONE FILM UNDER THE TONGUE EVERY DAY FOR 7 DAYS - MAXIMUM DAILY DOSE = [address] ONE FILM UNDER THE TONGUE EVERY DAY FOR 7 DAYS - MAXIMUM DAILY DOSE = 1 FILM SOLD: 05/18/2020 [employer] Buprenorphine 8 MG / Naloxone 2 MG Oral Strip Buprenorphine HCl-Naloxone HCl 8-2 MG Sublingual Film (SUBOXONE) Buprenorphine HCl-Naloxone HCl 8-2 MG Bradley blingual Film (SUBOXONE) 05/18/2020 12:00:00 AM EDT 1 {film} Sublingual active Place 1 Film under the tongue daily for 7 days, Max Daily Dose: 1 Film [facility] Buprenorphine 8 MG / Naloxone 2 MG Subli ngual Tablet buprenorphine-naloxone (SUBOXONE) 8-2 MG per sublingual tablet 1 tablet buprenorphine-naloxone (SUBOXONE) 8-2 MG per sublingual tablet 1 tablet 05/14/2020 03:00:00 PM EDT Sublingual completed 1 tablet (8 mg of buprenorphine), Sublingual, Once, 05/14/20 at 1500, For 1 dose [facility] Medication administered onsite Buprenorphine 8 MG / Naloxone 2 MG Subli ngual Tablet buprenorphine-naloxone (SUBOXONE) 8-2 MG per sublingual tablet 1 tablet buprenorphine-naloxone (SUBOXONE) 8-2 MG per sublingual tablet 1 tablet 05/13/2020 05:00:00 PM EDT Sublingual completed 1 tablet (8 mg of buprenorphine), Sublingual, Once, [place] 05/13/20 at 1700, For 1 dose [facility] Medication administered onsite Buprenorphine 8 MG / Naloxone 2 MG Oral Strip Buprenorphine HCl-Naloxone HCl 8-2 MG Sublingual Film (SUBOXONE) Buprenorphine HCl-Naloxone HCl 8-2 MG Bradley blingual Film (SUBOXONE) 04/13/2020 12:00:00 AM EDT Sublingual aborted Place 16 mg of buprenorphine under the tongue daily [facility] Insurance Providers Payer name Policy type / Coverage type Policy ID Covered green party ID Covered green party's relationship to selby Policy Selby Plan Information [facility] COMMUNITY PLAN [place] [id number] SP [id number] [place] [place] [id number] SP [id number] FIVE [employer] [id number] SP [id number] SELF PAY ONLY [id number] SP [id number] [facility] COMMUNITY PLAN [place] [id number] SP [id number] [facility] PLAN [place] [id number] SP [id number] [facility] [id number] S [id number] [facility] [id number] Self [id number] [facility] Commercial Insurance Co. [id number] Self [id number] BCBS [place] HMO [id number] SP [id number] [place] PPO 302/307 [id number] SP [id number] [place] PPO 302/307 [id number] SP [id number] MEDICAID [id number] SP [id number] [place] [employer]BS B [id number] S [id number] SELF PAY ONLY [id number] SP [id number] ANSI-Medicaid [id number] [facility] [id number] [facility] Health Maintenance Organization (HMO) [id number] Self [id number] [facility] Community Plan Commercial [id number] Self [id number] [facility] Commercial [id number] Self [id number] ANSI-Medicaid [id number] [facility]) [id number] S [id number] ANSI-Medicaid [id number] [facility] Commercial [id number] Self [id number] [facility] Health Maintenance Organization (HMO) [id number] Self [id number] ANSI-Medicaid [id number] [facility] Commercial [id number] Self [id number] ANSI-Medicaid [id number] ANSI-Medicaid [id number] ANSI-Medicaid [id number] ANSI-Medicaid [id number] ANSI-Medicaid [id number] [employer]IVE [employer] O [id number] S [id number] UNHC AMERICHOICE XIX HMO [id number] 18 [id number] [facility] COMM PLAN [place] W [id number] S [id number] [facility] COMM PLAN H[place] W [id number] S [id number] [facility] COMM PLAN HUNG W [id number] S [id number] [facility] COMM PLAN [place] W UNAVAILABLE S UNAVAILABLE MEDICAID [id number] SP [id number] MEDICAID [id number] SP [id number] [facility] HUNG [id number] SP [id number] UNHC AMERICHOICE XIX HMO [id number] 18 [id number] UNHC COMMUNITY PLAN MCDHMO [id number] SP [id number] UNHC COMMUNITY PLAN MCDHMO [id number] SP [id number] AMERICHOICE UNHC XIX HMO-I/P [id number] 18 [id number] AMERICHOICE UNHC XIX HMO-I/P [id number] 18 [id number] UNHC AMERICHOICE XIX HMO [id number] 18 [id number] [facility] HUNG [id number] SP [id number] UNHC AMERICHOICE XIX HMO [id number] 18 [id number] UNHC COMMUNITY PLAN MCDHMO [id number] SP [id number] UNHC COMMUNITY PLAN MCDHMO [id number] SP [id number] [facility] PL [id number] Unemploye d [id number] [facility] PL [id number] S [id number] [facility] HEA [id number] S [id number] [facility](MCAID) O [id number] S [id number] BCBS [place] HMO [id number] SP [id number] [facility] [id number] S [id number] Problems, Conditions, and Diagnoses Code Display Name Description Problem Type Effective Dates Data Source(s) Z88.8 Allergy status to other drug s, medicaments and biological substances status ALLERGY STATUS TO OTHER DRUG/MEDS/BIOL SUBST Diagnosis 12/18/2020 08:34:00 AM EDT [facility] Z79.899 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) DRUG THERAPY Diagnosis 12/18/2020 08:34:00 AM EDT [facility] F17.210 Nicotine dependence, cigarettes, uncompl icated NICOTINE DEPENDENCE, CIGARETTES, UNCOMPLICATED Diagnosis 12/18/2020 08:34:00 AM EDT [facility] F19.10 Other psychoactive substance abuse, unco mplicated OTHER PSYCHOACTIVE SUBSTANCE ABUSE, UNCOMPLICATED Diagnosis 12/18/2020 08:34:00 AM EDT [facility] Z23 Encounter for immunization ENCOUNTER FOR IMMUNIZATION Diagnosis 12/18/2020 08:34:00 AM T [facility] Y92.[address] in unspeci fied non-institutional (private) residence as the place of occurrence of the external cause UNSP PLACE IN UNSP NON-INSTITUT (PRIVATE) RESIDENCE PLACE Diagnosis 12/18/2020 08:34:00 AM EDT [facility] X58.XXXA Exposure to other specified factors, ini tial encounter EXPOSURE TO OTHER SPECIFIED FACTORS, INITIAL ENCOUNTER Diagnosis 12/18/2020 08:34: 00 AM EDT [facility] S71.111A Laceration without foreign body, right t high, initial encounter LACERATION WITHOUT FOREIGN BODY, RIGHT THIGH, INIT ENCNTR Diagnosis 12/18/2020 08:34:00 AM EDT [facility] K04.7 Periapical abscess without sinus PERIAPICAL ABSC ESS WITHOUT SINUS Diagnosis 09/27/2020 09:09:00 AM [facility] L08.9 Local infection of the skin and subcutan eous tissue, unspecified LOCAL INFECTION OF THE SKIN AND SUBCUTANEOUS TISSUE, UNSP Diagnosis 09:09:00 AM [facility] K59.00 Constipation, unspecified CONSTIPATION, UNSPECIFIED Di agnosis 09/27/2020 09:09:00 AM [facility] R21 Rash and other nonspecific skin eruption RASH AND OTHER NONSPECIFIC SKIN ERUPTION Diagnosis 09/27/2020 09:09:00 AM [facility] B95.8 Unspecified staphylococcus as the cause of diseases classified elsewhere UNSP STAPHYLOCOCCUS THE CAUSE OF DISEASES CLASSD ELSWHR Diagnosis 09/27/2020 09:09:00 AM [facility] N39.0 Urinary tract infection, site not specif ied URINARY TRACT INFECTION, SITE NOT SPECIFIED Diagnosis 09/27/2020 09:09:00 AM [facility] A54.9 Gonococcal infection, unspecified GONOCOCCAL INF ECTION, UNSPECIFIED Diagnosis 09/27/2020 09:09:00 AM [facility] Z91.5 Personal history of self-harm PERSONAL HISTORY OF SELF -HARM Diagnosis 09/27/2020 09:09:00 AM [facility] G47.00 Insomnia, unspecified INSOMNIA, UNSPECIFIED Diagnosis 09/27/2020 09:09:00 AM [facility] Z87.442 Personal history of urinary calculi PERSONAL HIS TORY OF URINARY CALCULI Diagnosis 09/27/2020 09:09:00 AM [facility] B18.2 Chronic viral hepatitis C CHRONIC VIRAL HEPATITIS C Di agnosis 09/27/2020 09:09:00 AM [facility] F41.9 Anxiety disorder, unspecified ANXIETY DISORDER, UNSPEC IFIED Diagnosis 09/27/2020 09:09:00 AM [facility] F90.9 Attention-deficit hyperactivity disorder , unspecified type ATTENTION- DEFICIT HYPERACTIVITY DISORDER, UNSPECIFIED TYPE Diagnosis 09/27 09:09:00 AM [facility] F43.10 Post-traumatic stress disorder, unspecif ied POST-TRAUMATIC STRESS DISORDER, UNSPECIFIED Diagnosis 09/27/2020 09:09:[address] [facility] F31.9 Bipolar disorder, unspecified BIPOLAR DISORDER, UNSPEC IFIED Diagnosis 09/27/2020 09:09:00 AM [facility] K21.9 Gastro-esophageal reflux disease without esophagitis GASTRO-ESOPHAGEAL REFLUX DISEASE WITHOUT ESOPHAGITIS Diagnosis 09/27/2020 09:09:00 AM [facility] M41.9 Scoliosis, unspecified SCOLIOSIS, UNSPECIFIED Diagnosi s 09/27/2020 09:09:00 AM [facility] G43.909 Migraine, unspecified, not intractable, without status migrainosus MIGRAINE, UNSP, NOT INTRACTABLE, WITHOUT STATUS MIGRAINOSUS Diagnosis 09/27/2020 09:09:00 AM [facility] J30.2 Other seasonal allergic rhinitis OTHER SEASONAL ALLERGIC RHINITIS Diagnosis 09/27/2020 09:09:00 AM [facility] Z88.0 Allergy status to penicillin ALLERGY STATUS TO PENICIL BARRY Diagnosis 09/27/2020 09:09:00 AM [facility] F15.20 Other stimulant dependence, uncomplicate d OTHER STIMULANT DEPENDENCE, UNCOMPLICATED Diagnosis 09/27/2020 09:09:00 AM [facility] F11.23 Opioid dependence with withdrawal OPIOID DEPENDE NCE WITH WITHDRAWAL Diagnosis 09/27/2020 09:09:00 AM [facility] B18.2 Chronic viral hepatitis C CHRONIC VIRAL HEPATITIS C Di agnosis 07/21/2020 05:56:00 PM [facility] F31.9 Bipolar disorder, unspecified BIPOLAR DISORDER, UNSPEC IFIED Diagnosis 07/21/2020 05:56:00 PM [facility] F41.9 Anxiety disorder, unspecified ANXIETY DISORDER, UNSPEC IFIED Diagnosis 07/21/2020 05:56:00 PM [facility] J45.909 Unspecified asthma, uncomplicated UNSPECIFIED THMA, UNCOMPLICATED Diagnosis 07/21/2020 05:56:00 PM [facility] E86.0 Dehydration DEHYDRATION Diagnosis 07/21/2020 05:56:00 PM [facility] G47.09 Other insomnia OTHER INSOMNIA Diagnosis 07/21/2020 05:56: 00 PM [facility] K21.9 Gastro-esophageal reflux disease without esophagitis GASTRO-ESOPHAGEAL REFLUX DISEASE WITHOUT ESOPHAGITIS Diagnosis 07/21/2020 05:56:00 PM [facility] F17.210 Nicotine dependence, cigarettes, uncompl icated NICOTINE DEPENDENCE, CIGARETTES, UNCOMPLICATED Diagnosis 07/21/2020 05:56:00 PM [facility] F90.9 Attention-deficit hyperactivity disorder , unspecified type ATTENTION- DEFICIT HYPERACTIVITY DISORDER, UNSPECIFIED TYPE Diagnosis 07/21 05:56:00 PM [facility] F12.20 Cannabis dependence, uncomplicated CANNABIS DEPE NDENCE, UNCOMPLICATED Diagnosis 07/21/2020 05:56:00 PM [facility] F11.23 Opioid dependence with withdrawal OPIOID DEPENDE NCE WITH WITHDRAWAL Diagnosis 07/21/2020 05:56:00 PM [facility] 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 OTHER STIMULANT DEPENDENCE WITH WITHDRAWAL Diagnosis 07/21/2020 05:56:00 PM [facility] F11.10 Opioid abuse, uncomplicated OPIOID ABUSE, UNCOMPLICATE D Diagnosis 07/21/2020 05:56:00 PM [facility] F11.20 Opioid dependence, uncomplicated Opioid dependen ce, uncomplicated Diagnosis 07/06/2020 01:04:39 PM [facility] med refill med refill Diagnosis 06/26/2020 11:21:00 AM ED [facility] F11.29 Opioid dependence with unspecified opioi d-induced disorder Opioid dependence with unspecified opioid-induced disorder Diagnosis 02:16:00 PM [facility] refill refill Diagnosis 05/14/2020 02:16:00 PM ED [facility] Withdrawal Withdrawal Diagnosis 05/13/2020 04:37:00 PM ED [facility] F19.20 Psychoactive substance dependence Drug dependence, abu se Problem 06/17/2021 12:00:00 AM EDT eCW1 ([facility]) Surgeries/Procedures Procedure Description Date Indications Data Source(s) TDAP VACCINE 7/> YR IM TDAP VACCINE 7 YRS/> IM 12/18/2020 12:00:00 AM T [facility] IMADM PRQ ID SUBQ/IM NJXS 1 VACCINE IMMUNIZATION ADMIN 12/09 12:00:00 AM [facility] EMERGENCY DEPARTMENT VISIT MODERATE SEVERITY EMERGENCY DEPT VISIT 12/18/2020 12:00:00 AM [facility] Injection, lorazepam, 2 mg 12/18/2020 12:00:00 AM [facility] Individual Counseling for Substance Abuse Treatment, C ognitive-Behavioral INDIV OFFSET MACHINE OPERATOR FOR SUBSTANCE ABUSE, COGNITIVE BEHAVIORAL 09/30/2020 12:00:00 AM [facility] Group Counseling for Substance Abuse Treatment, Motiva tional Enhancement GROUP OFFSET MACHINE OPERATOR FOR SUBSTANCE ABUSE, MOTIVATIONAL ENHANCE 09/30/2020 12:00:00 AM [facility] Group Counseling for Substance Abuse Treatment, Spirit ual GROUP COUNSELING FOR SUBSTANCE ABUSE TREATMENT, SPIRITUAL 09/30/2020 12:00:00 AM [facility] Group Counseling for Substance Abuse Treatment, Cognit lucretia-Behavioral GROUP OFFSET MACHINE OPERATOR FOR SUBSTANCE ABUSE, COGNITIVE BEHAVIORAL 09/30/2020 12:00:00 AM [facility] Measurement of Cardiac Rhythm, External Approach MEASU REMENT OF CARDIAC RHYTHM, EXTERNAL APPROACH 09/28/2020 12:00:00 AM [facility] Ultrasonography of Right and Left Heart ULTRASONOGRAPHY OF R IGHT AND LEFT HEART 09/28/2020 12:00:00 AM [facility] Medication Management for Substance Abuse Treatment, N aloxone MEDS MGMT FOR SUBSTANCE ABUSE TREATMENT, NALOXONE 07/23/2020 12:00:00 AM [facility] Individual Counseling for Substance Abuse Treatment, C ontinuing Care INDIV OFFSET MACHINE OPERATOR FOR SUBSTANCE ABUSE TREATMENT, CONTINUING CARE 07/22/2020 12:00:00 AM [facility] Detoxification Services for Substance Abuse Treatment DETOXIFICATION SERVICES FOR SUBSTANCE ABUSE TREATMENT 07/22/2020 12:00:00 AM [facility] Results ID Date Data Source [id number] 06/06/2021 08:48:00 PM EDT [facility] Name Value Range Interpretation Code Description Data Medina rce(s) Supporting Document(s) SARS coronavirus 2 RNA [Presence] in Res piratory specimen by TEE with probe detection POSITIVE [facility] This lab was ordered by [facility] a nd reported by [facility]. ID Date Data Source [id number] 12/18/2020 06:53:00 PM EDT [facility] Name: ASHLEY STOLL Med Rec #: [id number] : 1990 Age/Sex: 30F Date of Service: 12/18/20 PHYSICIAN CHART Physician Documentation [facility] Name: Ashley Stoll Age: 30 yrs [...] yrs old Female presents to ER via [facility] with complaints of Psych Problem, [...] and is presenting now with further symptoms.. ORACLE DATA WAREHOUSE DEVELOPER: 19:13 LMP N/A - Irregular menses kl1 [...] tobacco products on some days. Preferred Language: Chilean. - The history of the events were [...] Neck: Supple, trachea midline Chest/axilla: Normal chest j1 wall appearance and motion without asymmetry. Nontender [...] Moreno RN RN awr Devan Mcrae RNP REVIEW RN jja1 Charity Doyle MD MD kr Corrections: [...] may take own medication kl1 ordered. kl1 : 03:10 Prazosin 2 tabs PO once; may take own medication kl1 given. kl1 : 05:32 Prazosin 2 tabs PO once; may take own medication kl1 ordered. kl1 Name Value Range Interpretation Code Description Data Medina rce(s) Supporting Document(s) ID Date Data Source [id number] 12/18/2020 06:53:00 PM EDT [facility] Name: ASHLEY STOLL [facility] Rec #: [id number] : 1990 Age/Sex: 30F Date of Service: 12/18/20 DISPOSITION SUMMARY Discharge Summary [facility] Name:Ashley Stoll Emergency Department Age:30 yrs [...] rce(s) Supporting Document(s) ID Date Data Source [id number] 12/18/2020 06:53:00 PM EDT [facility] Name: ASHLEY STOLL [facility] Rec #: [id number] : 1990 Age/Sex: 30F Date of Service: 12/18/20 NURSE CHART Nurse's Notes [facility] Name: Ashley Stoll Age: 30 yrs Sex: Female : 1990 Arrival Date: 12/18/2020 Time: 18:53 Bed H1 Private MD: Diagnosis: Substance Abuse Presentation: 12/18 18:55 Acuity: Urgent - 3 rp1 19:08 Transition of care: patient was not received from another [facility] setting of care. Presenting complaint: Patient states - Patient having anxiety after using drugs last night. Patient appears to be crying, anxious, but cooperative upon arrival. Have you travelled in the last 30 days? No. Have you had contact with an individual with a confirmed diagnosis of Ebola or COVID-19? No. 19:08 Method Of Arrival: [facility] Triage Assessment: 19:11 SEPSIS SCREEN: A Confirmed or Suspected Infection is [facility] Unknown. Suicide Screening: Have you had thoughts of harming yourself or others? No. The patient appears to have some mild discomfort, The patient is anxious, cooperative. No pain is apparent. ORACLE DATA WAREHOUSE DEVELOPER: 19:13 LMP N/A - Irregular menses [facility] Historical: - Allergies: Ceclor; - Home [...] tobacco products on some days. Preferred Language: Chilean. - The history of the events were obtained from: the patient. Screenin:17 AUDIT 1. How often do you have a drink containing alcohol? [facility] Never (0 points). Drug Abuse Screening Test: 1. Have you used drugs other than those required for medical reasons? Yes (1 point). Abuse screen: Denies threats or abuse. Denies injuries from another. Nutritional screening: No deficits noted. The patient has IV access (20 points). Assessment: 20:57 See Triage Assessment. [facility] 12/19 05:56 Patient has consumed many sandwiches, sodas and ice cream kl1 while being in the ER. Technical Support Internship: 10:19 Technical Support Internship Note: Called to ED by nursing printing worker supervisor marifer Pulliam to speak to a patient who reports [...] she had a ticket to go to [place] where she had a safe place to go, just needed to get to [place] for 12:45, and that "Wayne" was supposed to bring her. Per nursing (spoke to Mckenna)- this was confirmed by her mother during the night when they spoke with her. Patient also stated she needed to go to her apartment to picker machine operator her belongings and drivers license for ID. Attempts to call mom Jocelin O[place]o [phone] this morning unsuccessful, immediately went to [facility] and TM left to return call to discuss further. Contacted [facility] office/ [employer] hcm consultant social media developer Davon Potter. She contacted Pat Hand at [facility]. Davon stated unable to assist as patient has a place to stay, she could go to [facility] Sunday morning to determine if they could assist with getting her to [place]. I again spoke to patient, she then stated apartment was in her name, and Wayne was not there, no one else was staying there, she just did not feel safe there. Could not/ would not further elaborate. Contacted [facility], spoke with Dina/ officer. She stated they [...] they will also see if transportation to [place] for bus can be facilitated, and is [...] R/A; kl1 ED Course: 12/18 18:54 Henry Moreno, SULTANA is Primary Nurse. krm 18:54 Patient arrived in ED. krm 18:55 Triage completed. rp1 18:57 [facility] jja[facility] 18:57 Merced Leos MD is Attending [...] Order): Prazosin 2 tabs PO once; january take own medication 06:54 Drug: omeprazole Delayed [...] RN RN mp3 Henry Moreno RN RN Vi Berry RN RN smm1 Devan Mcrae, REVIEW RN REVIEW RN jja1 Ree Meneses RN RN Riri Tuttle RN RN rp1 Charity Doyle MD MD kr Meacham, Kaitlyn krm Facteau, Chase, NA NA cmf Corrections: (The following items were deleted from the chart) 05:32 03:10 Prazosin 2 tabs PO kl1 kl1 Name Value Range Interpretation Code Description Data Medina rce(s) Supporting Document(s) ID Date Data Source [id number] 12/18/2020 08:34:00 AM EDT [facility] Name: ASHLEY STOLL [facility] Rec #: [id number] : 1990 Age/Sex: 30F Date of Service: 12/18/20 PHYSICIAN CHART Physician Documentation [facility] Name: Ashley Stoll Age: 30 yrs Sex: Female : 1990 Arrival Date: 12/18/2020 Time: 08:34 Bed H1 Private MD: [facility] ED Physician Merced Leos HPI: 12/18 08:55 [...] to the laceration. There is no bleeding.. ORACLE DATA WAREHOUSE DEVELOPER: 08:37 LMP N/A - Depo-provera mp3 Historical: [...] smoker (>10 cigarettes a day). Preferred Language: Chilean No barriers to communication noted, The patient speaks fluent Chilean, Speaks appropriately for age. - The history [...] mcg-5 Lf/0.5 mL intramuscular syringe (0.5 mL)] {Pit Crew Support Worker: [employer]. Exp: 07/29/2022. Lot #: [id number]. } Route: [...] Use Disorder jtv - Laceration Care, Adult, [id number] jtv Forms: - Medication Reconciliation jtv Signatures: Merced Leos MD MD jtMckenna Garcia RN RN mp3 Nancy Farooq RN RN md1 Name Value Range Interpretation Code Description Data [facility] Document(s) ID Date Data Source [id number] 12/18/2020 08:34:00 AM EDT [facility] Name: ASHLEY STOLL [facility] Rec #: [id number] : 1990 Age/Sex: 30F Date of Service: 12/18/20 DISPOSITION SUMMARY Discharge Summary [facility] Name:Ashley Stoll Emergency Department Age:30 yrs [...] Sheet, Substance Use Disorder, Laceration Care, Adult, [id number], Medication Reconciliation Name Value Range Interpretation Code Description Data [facility] Supporting Document(s) ID Date Data Source [id number] 12/18/2020 08:34:00 AM EDT [facility] Name: ASHLEY STOLL [facility] Rec #: [id number] : 1990 Age/Sex: 30F Date of Service: 12/18/20 NURSE CHART Nurse's Notes [facility] Name: Ashley Stoll Age: 30 yrs Sex: Female : 1990 Arrival Date: 12/18/2020 Time: 08:34 Bed H1 Private MD: Alisson Amezcua Diagnosis: Laceration without foreign body, left lower leg;Drug Abuse Presentation: 12/18 08:37 Transition of care: patient was not received from another [facility] setting of care. Complicating Factors: There [...] 4 3 08:37 Method Of Arrival: Walk-In 3 Triage Assessment: 08:39 SEPSIS SCREEN: A Confirmed [...] patient complains of pain in right quadriceps. ORACLE DATA WAREHOUSE DEVELOPER: 08:37 LMP N/A - Depo-provera mp3 Historical: [...] smoker (>10 cigarettes a day). Preferred Language: Chilean No barriers to communication noted, The patient speaks fluent Chilean, Speaks appropriately for age. - The history [...] on right wrist. mp3 08:41 Nancy Farooq, SULTANA is Primary Nurse. mp3 08:45 Merced Leos MD is Attending Physician. jtv 09:12 Patient has correct armband on for positive identification. md1 09:12 Wound care to laceration located on right leg and right md1 quadriceps was cleaned with sterile water, Patient tolerated well. 09:13 Radiology: None performed. md1 09:32 No procedures ordered. No diagnostic tests ordered. md1 Administered Medications: 09:09 Drug: Tdap(Tetanus) - Boostrix (Not for Under Age 10) 0.5 md1 ml [Boostrix Tdap 2.5 Lf unit-8 mcg-5 Lf/0.5 mL intramuscular syringe (0.5 mL)] {Pit Crew Support Worker: [employer]. Exp: 07/29/2022. Lot #: [id number]. } Route: IM; Site: right gluteus; 09:48 Follow up: Response: No adverse reaction md1 Outcome: 09:02 Discharge ordered by MD. jtv 09:31 Reassessment: No Change in symptoms. md1 09:31 Patient verbalized understanding of disposition instructions. [...] is md1 presently still in ER Signatures: Merced Leos MD MD jtv Palmer, MacKenzie RN RN mp3 Nancy Farooq RN RN md1 Nancy Sandra [facility] Corrections: (The following items were deleted from the chart) 12/18 08:39 08:37 Resp 17bpm; Temp 97.7F Temporal; 54.43 kg Reported; mp3 Height 5 ft. 1 in.; BMI: 22.6; Pain 5/10; mp3 Name Value Range Interpretation Code Description Data Medina rce(s) Supporting Document(s) ID Date Data Source [id number] 10/15/2020 03:59:[address] [facility] Name Value Range Interpretation Code Description Data Medina rce(s) Supporting Document(s) Beta HCG Screen,Qualitative Negative Normal (appli es to non-numeric results) [facility] ID Date Data Source [id number] 10/13/2020 01:12:[address] [facility] Name Value Range Interpretation Code Description Data [facility] rce(s) Supporting Document(s) Chlamydia,Urine Negative Normal (applies to non-numeric results) [facility] GC Urine Negative Normal (applies to non-numeric resul ts) [facility] Methodology: Second generation nucleic a bryant amplification. ID Date Data Source [id number] 10/09/2020 02:38:[address] [facility] Name Value Range Interpretation Code Description Data Medina rce(s) Supporting Document(s) Buprenorphine+Nor QL,Urine . Very abnormal (appli es to non-numeric units [facility] Confirmation performed by Mass Spectrome try Buprenorphine QL,Ur Confirm . Very abnormal (appl ies to non-numeric units [facility] Buprenorphine Qnt,Ur Confirm 118 ng/mL Cutoff=10 Nor mal (applies to non-numeric results) [facility] Norbuprenorphine QL,Ur Cfm . Very abnormal (appli es to non-numeric units [facility] Norbuprenorphine Qnt,Ur Cfm 240 ng/mL Cutoff=10 Norm al (applies to non-numeric results) [facility] Performed at: X[facility] - [facility] [id number] [place] Driver: Anisha Banda MD, Phone: [phone] ID Date Data Source [id number] 10/07/2020 01:14:00 PM [facility] Collected By: Patient-Inpatient Time Co llected: 0210 Name Value Range Interpretation Code Description Data Medina rce(s) Supporting Document(s) Urine Culture Normal (applies to non-numeric re sults) [facility] ID Date Data Source [id number] 10/06/2020 01:04:[address] [facility] Name Value Range Interpretation Code Description Data Medina rce(s) Supporting Document(s) Bupren Scrn,Ur wRfx LCI SO res Negative Banuelos [facility] Therapeutic Drug Threshold for Buprenorp nixon: 5 ng/mL All positive findings are presumptive and unconfirmed. Confirmation of positive Buprenorphine is automatically reflexed and sent to reference laboratory. Unconfirmed results must not be used for non-medical purposes (i.e. pre-employment and legal purposes) ID Date Data Source [id number] 10/06/2020 12:50:[address] [facility] Name Value Range Interpretation Code Description Data Medina rce(s) Supporting Document(s) Opiate Screen,Urine Negative Normal (applies to non-nume gabriel results) [facility] Amphetamine Screen,Urine Negative Normal (applies to non -numeric results) [facility] Benzodiazepines Scrn,Ur result Negative N ormal (applies to non-numeric results) [facility] Cocaine Screen,Urine Negative Normal (applies to non-num paulina results) [facility] Methadone Screen,Urine Negative Normal (applies to non-n umeric results) [facility] Cannabinoid Screen, Ur Negative Normal (applies to non-n umeric results) [facility] Therapeutic Drug Ranges for Emergency an d Rehabilitation Threshold Levels (ng/mL) Cocaine 300 Opiates 300 Cannabinoids 50 Barbiturates 200 Benzodiazepine 200 Methadone 300 Amphetamines 1000 All positive find ings are presumptive and unconfirmed. Confirmation of positive results are performed only at request of provider. Unconfirmed results must not be used for non-medical purposes (i.e. pre-employment and legal purposes) ID Date Data Source [id number] 10/06/2020 02:52:[address] [facility] Name Value Range Interpretation Code Description Data [facility] rce(s) Supporting Document(s) Color,Urine Yellow [facility] pital Clarity,Urine Clear Normal (applies to non-numeric re sults) [facility] Specific [place]ard,Urine 1.001-1.030 Normal (applies to non- numeric results) [facility] PH,Urine 5.0-8.0 Normal (applies to non-numeric resul ts) [facility] Protein,Urine Negative Normal (applies to non-numeric re sults) [facility] Glucose,Urine (UA) Negative Normal (applies to non-numer ic results) [facility] Ketones,Urine Negative Normal (applies to non-numeric re sults) [facility] Blood,Urine Negative Normal (applies to non-numeric resu lts) [facility] Bilirubin,Urine Negative Normal (applies to non-numeric results) [facility] Urobilinogen,Urine Norm 0.2-1 Normal (applies to non-numer ic results) [facility] Leukocyte Esterase,Urine Negative [facility] Nitrite,Urine Negative [facility] ospital ID Date Data Source [id number] 10/06/2020 02:52:[address] [facility] Name Value Range Interpretation Code Description Data Medina rce(s) Supporting Document(s) RBC,Auto Urine 0-2 Normal (applies to non-numeric r esults) [facility] WBC Urine Auto 0-10 Normal (applies to non-numeric r esults) [facility] Casts,Hyaline,Urine Auto 0-2 Normal (applies to non -numeric results) [facility] Bacteria Urine Auto None Seen Normal (applies to non-nume gabriel results) [facility] Epithelial Cell Ur Auto None-Few Normal (applies to non- numeric results) [facility] ID Date Data Source [id number] 10/06/2020 05:36:00 AM EST [facility] Name: ASHLEY STOLL : 1990 Age/Sex: 29F Ordering Provider: ATNIA Rock Med Rec #: [id number] Reg Status: ADM IN Room #: 156-1 Date of Service: 10/05/20 Report Number: [id number] cc:TANIA Rock Send Report To: [id number] XRP/XR Abdomen 1 View [KUB] Reason for [...] Aristides Hightower MD> 10/06/20 1105 Dictation Date/Time: 10/05/202108 Transcribed Date/Time: 10/06/20 0536 Dispensing Optician Apprentice: DOMENICA Name Value Range Interpretation Code Description Data Medina rce(s) Supporting Document(s) ID Date Data Source [id number] 12/22/2020 03:54:00 PM EDT [facility] Name Value Range Interpretation Code Description Data Medina rce(s) Supporting Document(s) Hepatitis C Antibody Screen Negative Normal (appli es to non-numeric results) [facility] Supplemental testing for HCV RNA is orde red to rule out active HCV infection. Vvoxgb-ol-ftqlvg ratio is >=8.00. Test Performed by: [place] [address] [place] Driver: Jim Spencer M.D. Ph.D.; CLIA# [id number] Hep C Virus Qnt (Rfx'd) [id number] IU/mL Undetected Normal ( applies to non-numeric results) [facility] Result in log IU/mL is 6.33. ---------ADDITIONAL INFORMATION The quantification range of this assay is 15 to 100,000,000 IU/mL (1.18 log to 8.00 log IU/mL). Testing was performed using the jc HCV test ([employer] with the jc Sentri0 System. Test Performed by: [place] [address] [place] Driver: Jim Spencer M.D. Ph.D.; CLIA# [id number] THIS IS A STATE REPORTABLE COMMUNICABLE DISEASE. Results called 10/06/20925,NICHOLAS EDWARDS read back information to LAB.HAREM ID Date Data Source [id number] 10/03/2020 11:37:00 AM EST [facility] Value Range Interpretation Code Description Data Medina rce(s) Supporting Document(s) HAVM Nonreactive Normal (applies to non-numeric resu lts) [facility] ID Date Data Source [id number] 10/03/2020 11:36:00 AM EST [facility] Value Range Interpretation Code Description Data Medina rce(s) Supporting Document(s) Hep Bs Ag Result T-Test Nonreactive Normal (applies to non -numeric results) [facility] ID Date Data Source [id number] 10/03/2020 11:36:00 AM EST [facility] Value Range Interpretation Code Description Data Medina rce(s) Supporting Document(s) Syphilis Serology Nonreactive Normal (applies to non-numer ic results) [facility] ID Date Data Source [id number] 10/03/2020 10:58:00 AM EST [facility] Name Value Range Interpretation Code Description Data Medina rce(s) Supporting Document(s) Sodium 140 mmol/L 137-145 Normal (applies to non-numeric resul ts) [facility] Potassium 3.5-5.1 Normal (applies to non-numeric resul ts) [facility] Chloride 107 mmol/L 98-112 Normal (applies to non-numeric resul ts) [facility] Carbon Dioxide CO2 22.0-33.0 Normal (applies to non-numer ic results) [facility] Anion Gap 4.0-11.0 Below low normal [facility] BUN 19 mg/dL 7-17 Above high normal [facility] Creatinine 0.70-1.20 Below low normal [facility] GFR >60 Normal (applies to non-numeric results) [facility] Result based on MDRD formula. Glucose Level 81 mg/dL 74-99 Normal (applies to non-numeric re sults) [facility] The reference range is only applicable w hen fasting. Calcium-Uncorrected 8.4-10.2 Normal (applies to non-nume gabriel results) [facility] Corrected Calcium 8.4-10.2 Normal (applies to non-numeri c results) [facility] Bilirubin,Total 0.2-1.3 Normal (applies to non-numeric results) [facility] Bilirubin,Direct 0.0-0.3 Normal (applies to non-numeric results) [facility] SGOT(AST) 98 U/L 14-36 Above high normal [facility] SGPT(ALT) 133 U/L 9-52 Above high normal [facility] Alkaline Phosphatase 136 U/L 38-126 Above high normal [facility] can increase Alkaline Phosp le vels up to 2 times the normal adult value. Normal values for children and adolescents are 2 to 3 times the normal adult value. CPK 69 U/L 26-192 Normal (applies to non-numeric resul ts) [facility] Total Protein 6.3-8.2 Below low normal [facility] Albumin 3.5-5.0 Below low normal [facility] Thyroid Stimulate Hormone TSH 0.358-3.740 No rmal (applies to non-numeric results) [facility] ID Date Data Source [id number] 10/03/2020 10:58:00 AM EST [facility] Name Value Range Interpretation Code Description Data Medina rce(s) Supporting Document(s) Magnesium 1.80-2.40 Normal (applies to non-numeric resul ts) [facility] ID Date Data Source [id number] 10/03/2020 10:58:00 AM EST [facility] Name Value Range Interpretation Code Description Data Medina rce(s) Supporting Document(s) C-Reactive Protein,Wide Range <3.00 Normal (applies t o non-numeric results) [facility] ID Date Data Source [id number] 10/03/2020 10:50:00 AM EST [facility] Name Value Range Interpretation Code Description Data Medina rce(s) Supporting Document(s) White Blood Count 4.8-10.8 Normal (applies to non-numeri c results) [facility] Red Blood Count 3.68-5.22 Normal (applies to non-numeric results) [facility] Hemoglobin 11.2-15.7 Normal (applies to non-numeric resul ts) [facility] Hematocrit 34.1-44.9 Normal (applies to non-numeric resul ts) [facility] Mean Corpuscular Volume 81-99 Normal (applies to non- numeric results) [facility] Mean Corpuscular Hemoglobin 27.0-33.0 Normal (appli es to non-numeric results) [facility] Mean Corpuscular HGB Conc 32.0-36.0 Normal (applies to no n-numeric results) [facility] Red Cell Distribution Width 11.5-14.5 Normal (appli es to non-numeric results) [facility] Platelet Count 255 X10 3/uL 130-450 Normal (applies to non-numeric results) [facility] Mean Platelet Volume 9.5-12.7 Below low normal [facility] Imm Grans% (AUTO) 0 % 0-2 Normal (applies to non-numeri c results) [facility] Neutrophils % (AUTO) 54 % 40-75 Normal (applies to non-num paulina results) [facility] Lymphocytes % (AUTO) 33 % 21-46 Normal (applies to non-num paulina results) [facility] Monocytes % (AUTO) 9 % 5-12 Normal (applies to non-numer ic results) [facility] Eosinophils % (AUTO) 3 % 1-5 Normal (applies to non-num paulina results) [facility] Basophils % (AUTO) 0 % 0-1 Normal (applies to non-numer ic results) [facility] Imm Grans# (AUTO) 0.0-0.5 Normal (applies to non-numeri c results) [facility] Neutrophils # (AUTO) 1.5-8.1 Normal (applies to non-num paulina results) [facility] Lymphocytes # (AUTO) 1.0-3.1 Normal (applies to non-num paulina results) [facility] Monocytes # (AUTO) 0.2-1.3 Normal (applies to non-numer ic results) [facility] Eosinophils# (AUTO) 0.0-0.5 Normal (applies to non-nume gabriel results) [facility] Basophils # (AUTO) 0.0-0.1 Normal (applies to non-numer ic results) [facility] ID Date Data Source [id number] 09/29/2020 07:07:00 PM EST [facility] Name Value Range Interpretation Code Description Data Medina rce(s) Supporting Document(s) Gentamicin,10 Hr Normal (applies to non-numeric results) [facility] Interval between start of infusion and o [...] infusion <2.0 ug/mL ID Date Data Source [id number] 09/29/2020 01:01:00 PM [facility] Hospital Name: ASHLEY STOLL : 1990 Age/Sex: 29F Ordering Provider: Julianna BLANKENSHIP Med Rec #: [id number] Reg Status: ADM IN Room #: 156-1 Date of Service: 09/29/20 Report Number: [id number] cc:Julianna BLANKENSHIP Send Report To: [id number] XRP/XR Chest 2 View [Pa & Lat] [...] Date/Time: 09/29/20 0904 Transcribed Date/Time: 09/29/20 1301 Dispensing Optician Apprentice: DOMENICA Name Value Range Interpretation Code Description Data Medina rce(s) Supporting Document(s) ID Date Data Source [id number] 09/28/2020 06:00:00 AM [facility] Hospital Name: ASHLEY STOLL : 1990 Age/Sex: 29F Ordering Provider: Julianna BLANKENSHIP Med Rec #: [id number] Reg Status:ADM IN Room #: 156-1 Date [...] OV> Exam Date/Time: 09/28/20 0600 Order #: [id number] Dictation Date/Time: 09/28/20 0850 Transcribed Date/Time: Dispensing Optician Apprentice: Name Value Range Interpretation Code Description Data Medina rce(s) Supporting Document(s) ID Date Data Source [id number] 09/28/2020 10:08:00 AM [facility] Name: ASHLEY STOLL : 1990 Age/Sex: 29F Ordering Provider: Julianna BLANKENSHIP Med Rec #: [id number] Reg Status:ADM IN Room #: 156-1 Date of Service: 09/28/20 Report Number: [id number] cc: Julianna BLANKENSHIP; Stella Enciso MD; PCP None Send Report To: Reason for exam: Baseline SINUS RHYTHM NORMAL ECG There is no old ECG available for comparison Physician Dean Of Education: Jeromy Wiggins M.D. ECG HEART RATE: 92 /min ECG RR INTERVAL: 646 ms ECG P DURATION: 97 ms ECG QRS DURATION: 87 ms ECG UT INTERVAL: 124 ms ECG QT INTERVAL: 329 ms ECG QTC INTERVAL: 385 ms Q-T dispersion: ms ECG P AXIS: 35 deg ECG QRS AXIS: 71 deg ECG T AXIS: 21 deg REPORT SIGNATURE ON FILE 09/28/20 1009 Reported By: Jeromy Wiggins MD, [facility] <<Signature on File>> Exam Date/Time: 09/28/20 0903 Order #: [id number] Dictation Date/Time: 09/28/201007 Transcribed Date/Time: 09/28/20 100 Dispensing Optician Apprentice: GAVINORICS Name Value Range Interpretation Code Description Data Medina rce(s) Supporting Document(s) ID Date Data Source [id number] 09/28/2020 02:44:00 PM EST [facility] Name Value Range Interpretation Code Description Data Medina rce(s) Supporting Document(s) GC Urine Negative [facility] funmi THIS IS A STATE REPORTABLE COMMUNICABLE DISEASE. Results called 09/28/20 1442,PATTIE Levine read back information to LAB.DANMI Methodology: Second generation nucleic acid amplification. ID Date Data Source [id number] 09/27/2020 03:33:[address] [facility] Name Value Range Interpretation Code Description Data Medina rce(s) Supporting Document(s) Opiate Screen,Urine Negative Normal (applies to non-nume gabriel results) [facility] Amphetamine Screen,Urine Negative Normal (applies to non -numeric results) [facility] Benzodiazepines Scrn,Ur result Negative N ormal (applies to non-numeric results) [facility] Cocaine Screen,Urine Negative Normal (applies to non-num paulina results) [facility] Methadone Screen,Urine Negative Normal (applies to non-n umeric results) [facility] Cannabinoid Screen, Ur Negative Normal (applies to non-n umeric results) [facility] Therapeutic Drug Ranges for Emergency an d Rehabilitation Threshold Levels (ng/mL) Cocaine 300 Opiates 300 Cannabinoids 50 Barbiturates 200 Benzodiazepine 200 Methadone 300 Amphetamines 1000 All positive find ings are presumptive and unconfirmed. Confirmation of positive results are performed only at request of provider. Unconfirmed results must not be used for non-medical purposes (i.e. pre-employment and legal purposes) ID Date Data Source [id number] 09/27/2020 02:09:[address] [facility] Name Value Range Interpretation Code Description Data Medina rce(s) Supporting Document(s) Color,Urine Yellow Normal (applies to non-numeric resu lts) [facility] Clarity,Urine Clear [facility] ospital Specific Willard,Urine 1.001-1.030 Normal (applies to non- numeric results) [facility] PH,Urine 5.0-8.0 Normal (applies to non-numeric resul ts) [facility] Protein,Urine Negative Normal (applies to non-numeric re sults) [facility] Glucose,Urine (UA) Negative Normal (applies to non-numer ic results) [facility] Ketones,Urine Negative Normal (applies to non-numeric re sults) [facility] Blood,Urine Negative [facility] pital Bilirubin,Urine Negative Normal (applies to non-numeric results) [facility] Urobilinogen,Urine Norm 0.2-1 Normal (applies to non-numer ic results) [facility] Leukocyte Esterase,Urine Negative [facility] Nitrite,Urine Negative Normal (applies to non-numeric re sults) [facility] ID Date Data Source [id number] 09/27/2020 02:09:[address] [facility] Name Value Range Interpretation Code Description Data Medina rce(s) Supporting Document(s) WBC,URINE 0-10 [facility] RBC,Urine 0-2 Normal (applies to non-numeric resul ts) [facility] Hyaline Casts,Ur None Seen Normal (applies to non-numeric results) [facility] Bacteria,Urine None Seen [facility] Epithelial Cell,Ur None-Few [facility] ID Date Data Source [id number] 09/27/2020 02:09:00 PM EST [facility] Name Value Range Interpretation Code Description Data Medina rce(s) Supporting Document(s) Urine HCG Negative Normal (applies to non-numeric resul ts) [facility] ID Date Data Source [id number] 09/27/2020 09:43:00 AM EST [facility] Name Value Range Interpretation Code Description Data Medina rce(s) Supporting Document(s) Respiratory specimen severe acute respir atory syndrome coronavirus 2 (SARS-CoV-2) RNA Negative (qualifier value) [facility] This lab was ordered by [facility] rashad and reported by [facility]. ID Date Data Source [id number] 09/27/2020 09:43:00 AM EST [facility] Name Value Range Interpretation Code Description Data Medina rce(s) Supporting Document(s) SARS-CoV-2 RNA Negative Normal (applies to non-numeric r esults) [facility] Negative results should be treated as pr [...] Certificate of Accreditation. Factsheets for healthcare providers: https://www.fda.gov/media/411069/download Factsheets for patients: https://www.fda.gov/media/850287/download The ID NOW Instrument is a rapid molecular in vitro diagnostic test utilizing an isothermal nucleic acid amplification technology intended for the qualitative detection of nucleic acid from the SARS-CoV-2 viral RNA. THIS IS A STATE REPORTABLE COMMUNICABLE DISEASE. Manual entry verified by Ronald Buitrago 09/27/20 0942 ID Date Data Source [id number] 09/13/2020 10:13:00 AM EST [facility] Name Value Range Interpretation Code Description Data Medina rce(s) Supporting Document(s) Respiratory specimen severe acute respir atory syndrome coronavirus 2 (SARS-CoV-2) RNA [facility] This lab was ordered by Nicola choudhary and reported by . ID Date Data Source [id number] 09/12/2020 05:00:00 AM EST [facility] ([facility]) Name Value Range Interpretation Code Description Data Medina rce(s) Supporting Document(s) Appearance of Abdomen CLOUDY [facility] ([facility]) Color of Peritoneal dialysis fluid DARK YELLOW [facility] ([facility]) Glucose [Mass/volume] in Urine collected for unspecified duration N EGATIVE [facility] ([facility]) pH of Lower respiratory specimen 7.0 [facility] ([facility]) Bilirubin [Presence] in Peritoneal fluid NEGATIVE [facility] ([facility]) Specific gravity of Pericardial fluid by Refractometry 1.012 [facility] ([facility]) Ketones [Presence] in Blood by Tablet NEGATIVE [facility] ([facility]) OCCULT BLOOD 2+ [facility] ([facility]) Protein [Mass/volume] in Lower respiratory specimen NEGATIVE [facility] ([facility]) WBC 20-40 [facility]) RBC 3-10 [facility] ([facility]) Leukocyte esterase [Presence] in Body fluid by Automated test strip 3 + [facility] ([facility]) Nitrite [Presence] in Urine by Test strip NEGATIVE [facility] ([facility]) TRANSITIONAL EPITHELIAL CELLS DNR [facility] ([facility]) RENAL EPITHELIAL CELLS DNR [facility]SMAR T ([facility]) SQUAMOUS EPITHELIAL CELLS 10-20 [facility] ([facility]) Triple phosphate crystals [Presence] in Urine sediment by Li t microscopy DNR [facility] ([facility]) Calcium oxalate crystals [Presence] in Urine sediment by Lig ht microscopy MANY [facility] ([facility]) URIC ACID CRYSTALS DNR [facility] ([facility]) Bacteria [Presence] in Prostatic fluid by Light microscopy NONE SEEN [facility] ([facility]) HYALINE CAST NONE SEEN [facility] ([facility]) Amorphous sediment [Presence] in Urine sediment by Light microscopy D NR [facility] ([facility]) Crystals [#/area] in Body fluid by Light microscopy DNR [facility] ([facility]) Casts [#/area] in Urine sediment by Automated count DNR [facility] ([facility]) Yeast [#/area] in Urine by Automated count DNR [facility] ([facility]) GRANULAR CAST DNR [facility] ([facility]) COMMENTS DNR [facility] ([facility]) Enhanced PDF Report [id number] [facility] ([facility]) Nurse Note DNR [facility] ([facility]) ID Date Data Source [id number] 09/12/2020 05:00:00 AM EST [facility] ([facility]) Name Value Range Interpretation Code Description Data Medina rce(s) Supporting Document(s) Color of Urine DARK YELLOW [facility] ([facility]) pH of Urine by Test strip 7.0 [facility] ([facility]) Glucose [Presence] in Urine by Test strip NEGATIVE [facility] ([facility]) Appearance of Urine CLOUDY [facility] ( [facility]) Specific gravity of Urine by Test strip 1.012 [facility] ([facility]) Bilirubin.total [Presence] in Urine by Test [...] [facility] ([facility]) ID Date Data Source [id number] 09/14/2020 12:28:00 PM EST [facility] Received: 09/14/2020 at 09:29:00 QPT : [facility] [address], [address] [place] [address], [phone], Dev Chung MD Name Value Range Interpretation [...] [facility] ID Date Data Source [id number] 08/23/2020 04:10:00 PM EST [facility] Name Value Range Interpretation Code Description Data Medina rce(s) Supporting Document(s) HCV Genotype result 3 Undetected Normal (applies to non-nume gabriel results) [facility] ADDITIONAL INFORMATIO N This test was performed using the [place] RealTime HCV Genotype II assay ([employer] [place], [place]). Test Performed by: [place] [address] [place] Driver: Jim Spencer M.D. Ph.D.; CLIA# [id number] ID Date Data Source [id number] 07/27/2020 11:05:00 AM [facility] Name Value Range Interpretation Code Description Data Medina rce(s) Supporting Document(s) HCV Genotype result 3 Undetected Normal (applies to non-nume gabriel results) [facility] ADDITIONAL INFORMATIO N This test was performed using the [place] RealTime HCV Genotype II assay ([employer] [place], [place]). Test Performed by: [place] [address] [place] Driver: Jim Spencer M.D. Ph.D.; CLIA# [id number] ID Date Data Source [id number] 07/22/2020 04:19:00 AM [facility] ADD ON FROM SAMPLE COLLECTED 07/21/20 AT 1945 Name Value Range Interpretation Code Description Data Medina rce(s) Supporting Document(s) Beta HCG,Screen Negative Normal (applies to non-numeric results) [facility] ID Date Data Source [id number] 08/23/2020 02:23:[address] [facility] Name Value Range Interpretation Code Description Data Medina rce(s) Supporting Document(s) Chlamydia,Urine Negative Normal (applies to non-numeric results) [facility] Test Performed By: [facility] [address] [place] [address] Director: Em Head MD . GC Urine Negative Normal (applies to non-numeric resul ts) [facility] Test Performed By: [facility] [address] [place] [address] Director: Em Head MD . Methodology: Second generation nucleic acid amplification. ID Date Data Source [id number] 07/23/2020 04:28:00 PM [facility] Name Value Range Interpretation Code Description Data [facility] rce(s) Supporting Document(s) Chlamydia,Urine result Negative Normal (applies to non-n umeric results) [facility] Test Performed By: [facility] [address] [place] [address] Director: Em Head MD . GC Urine result Negative Normal (applies to non-numeric results) [facility] Test Performed By: [facility] [address] [place] [address] Director: Em Head MD . Methodology: Second generation nucleic acid amplification. ID Date Data Source [id number] 07/21/2020 10:21:00 PM [facility] Collected By: Nurse Initials: banuelos Time Collected: 2019 Collected By: Nurse Initials: banuelos Time Collected: 2019 Name Value Range Interpretation Code Description Data [facility] rce(s) Supporting Document(s) Color,Urine Colorl-Dk Y Normal (applies to non-numeric res ults) [facility] Clarity,Urine Clear Normal (applies to non-numeric re sults) [facility] Specific [place],Urine 1.005-1.030 Normal (applies to non- numeric results) [facility] pH,Urine 5.0-8.0 [facility] Protein,Urine Negative Normal (applies to non-numeric re sults) [facility] Glucose,Urine Negative Normal (applies to non-numeric re sults) [facility] Ketones,Urine Negative Normal (applies to non-numeric re sults) [facility] Blood,Urine Negative Normal (applies to non-numeric resu lts) [facility] Bilirubin,Urine Negative Normal (applies to non-numeric results) [facility] Urobilinogen,Urine 0.2-1.0 Normal (applies to non-numer ic results) [facility] Leukocyte Esterase,Urine Negative Normal (applies to non -numeric results) [facility] Nitrite,Urine Negative Normal (applies to non-numeric re sults) [facility] ID Date Data Source [id number] 07/21/2020 10:21:00 PM [facility] Collected By: Nurse Initials: vin Time Collected: 2019 Collected By: Nurse Initials: vin Time Collected: 2019 Name Value Range Interpretation Code Description Data Medina rce(s) Supporting Document(s) WBC,Urine None Seen [facility] Squamous Cells,Urine None Seen [facility] Bacteria,Urine None Seen [facility] ital ID Date Data Source [id number] 07/21/2020 10:04:00 PM [facility] Name Value Range Interpretation Code Description Data Medina rce(s) Supporting Document(s) UDS Benzodiazepines Screen Negative Normal (applies to n on-numeric results) [facility] UDS Cocaine Screen Negative Normal (applies to non-numer ic results) [facility] UDS Ampetamine Screen Negative Normal (applies to non-nu meric results) [facility] UDS Cannabinoids Screen Negative [facility] UDS Opiates Screen Negative Normal (applies to non-numer ic results) [facility] UDS Barbiturates Screen Negative Normal (applies to non- numeric results) [facility] ID Date Data Source [id number] 08/23/2020 02:21:[address] [facility] Name Value Range Interpretation Code Description Data Medina rce(s) Supporting Document(s) Hepatitis A Ab,IgG result Normal (applies to no n-numeric results) [facility] Result indicates immunity to hepatitis A infection from either vaccination or past exposure to hepatitis A. False-positive results may be observed in patients with CMV antibodies or heterophilic antibodies. REFERENCE VALUE Unvaccinated: Negative Vaccinated: Positive Test Performed by: [facility] [address] [place] [id number] [address] Driver: Jim Spencer M.D. Ph.D.; CLIA# [id number] ID Date Data Source [id number] 08/23/2020 02:21:00 PM EST [facility] Test Performed By: [facility] [address] [place] [address] Director: Em Head MD Test Performed By: [place] [address] Director: Em Head MD Name Value Range Interpretation Code Description Data Medina rce(s) Supporting Document(s) Hep C Ab-T Test Nonreactive [facility] Test Performed By: [facility] [address] [place] [address] Director: Em Head MD Results called 07/22/20810,MERCED [...] be requested by the physician if necessary. ([facility] MMWR No RR-3. 2002). ID Date Data Source [id number] 08/23/2020 02:21:00 PM EST [facility] Test Performed By: [place] [address] Director: Em Head MD Test Performed By: [place] [address] Director: Em Head MD Name Value Range Interpretation Code Description Data Medina rce(s) Supporting Document(s) ID Date Data Source [id number] 08/23/2020 02:21:00 PM EST [facility] Test Performed By: [facility] [address] [place] [address] Director: Em Head MD Test Performed By: [place] [address] Director: Em Head MD Name Value Range Interpretation Code Description Data Medina rce(s) Supporting Document(s) ID Date Data Source [id number] 08/23/2020 02:21:00 PM EST [facility] Name Value Range Interpretation Code Description Data Medina rce(s) Supporting Document(s) CPK 20 U/L 26-192 Below low normal [facility] Test Performed By: [facility] [address] [place] [address] Director: Em Head MD ID Date Data Source [id number] 07/23/2020 01:57:00 PM [facility] Name Value Range Interpretation Code Description Data Medina rce(s) Supporting Document(s) Hepatitis A Ab,IgG result Normal (applies to no n-numeric results) [facility] Result indicates immunity to hepatitis A infection from either vaccination or past exposure to hepatitis A. False-positive results may be observed in patients with CMV antibodies or heterophilic antibodies. REFERENCE VALUE Unvaccinated: Negative Vaccinated: Positive Test Performed by: [place] [address] [place] Driver: Jim Spencer M.D. Ph.D.; CLIA# [id number] ID Date Data Source [id number] 07/22/2020 08:33:00 AM [facility] Value Range Interpretation Code Description Data Medina rce(s) Supporting Document(s) Hepatitis C Virus Ab result Nonreactive Very abnormal (applies to non-numeric units [facility] Test Performed By: [facility] [address] [place] [address] Director: Em Head MD Results called 07/22/20810,MERCED BRITTON read back information to Tamra Head CALLED TO MCKENNA Ballard (RN) 07/22/20832 ABIDA THIS IS A STATE REPORTABLE COMMUNICABLE [...] be requested by the physician if necessary. ([facility] MMWR No RR-3. 2003). ID Date Data Source [id number] 07/22/2020 08:33:00 AM [facility] Value Range Interpretation Code Description Data Medina rce(s) Supporting Document(s) Syphilis Serology result Nonreactive Normal (applies to non-numeric results) [facility] Test Performed By: [facility] [address] [place] [address] Director: Em Head MD ID Date Data Source [id number] 07/22/2020 08:33:00 AM [facility] Value Range Interpretation Code Description Data Medina rce(s) Supporting Document(s) CPK result 20 U/L 26-192 [facility] Test Performed By: [facility] [address] [place] [address] Director: Em Head MD ID Date Data Source [id number] 07/22/2020 08:33:00 AM [facility] Value Range Interpretation Code Description Data Medina rce(s) Supporting Document(s) Hep Bs Ag result T-Test Nonreactive Normal (applies to non -numeric results) [facility] Test Performed By: [facility] [address] [place] [address] Director: Em Head MD ID Date Data Source [id number] 07/21/2020 08:54:00 PM [facility] Value Range Interpretation Code Description Data Medina rce(s) Supporting Document(s) Bilirubin,Direct 0.05-0.20 Normal (applies to non-numeric results) [facility] ID Date Data Source [id number] 07/21/2020 08:54:00 PM [facility] Value Range Interpretation Code Description Data Medina rce(s) Supporting Document(s) Sodium 132 mmol/L 136-145 Below low normal [facility]spital Potassium 3.5-5.1 Below low normal [facility] spital Chloride 92 mmol/L 98-107 Below low normal [facility] Carbon Dioxide CO2 21-32 Normal (applies to non-numer ic results) [facility] Anion Gap 5.0-16.0 Normal (applies to non-numeric resul ts) [facility] BUN 14 mg/dL 7-18 Normal (applies to non-numeric results) [facility] Creatinine,Serum 0.7-1.2 Normal (applies to non-numeric results) [facility] GFR >60 Normal (applies to non-numeric results) [facility] Glucose Level 120 mg/dL 60-99 Above high normal [facility] Reference range is only applicable when patient is fasting Note the following drug interference: Sulfasalazine Sulfapyridine Can see falsely depressed Can see falsely elevated result with up to 17% results with up to 11% decrease in measurement increase in measurement Recommend patients be collected for this test prior to administration of either drug. Calcium 8.5-10.1 Normal (applies to non-numeric resul ts) [facility] Bilirubin,Total 0.1-1.9 Normal (applies to non-numeric results) [facility] SGOT(AST) 34 U/L 15-37 Normal (applies to non-numeric resul ts) [facility] Note the following drug interference: Sulfasalazine Sulfapyridine Can see falsely depressed Can see falsely elevated result with up to 10% results with up to 10% decrease in measurement increase in measurement Recommend patients be collected for this test prior to administration of either drug. SGPT(ALT) 32 U/L 12-78 Normal (applies to non-numeric resul ts) [facility] Note the following drug interference: Sulfasalazine Sulfapyridine Can see falsely depressed Can see falsely elevated result with up to 29% results with up to 10% decrease in measurement increase in measurement Recommend patients be collected for this test prior to administration of either drug. Alkaline Phosphatase 127 U/L 38-126 Above high normal [facility] can increase Alkaline Phosp le vels up to 2 times the normal adult value. Normal values for children and adolescents are 2 to 3 times the normal adult value. Total Protein 6.0-8.2 Above high normal [facility] Albumin Level 3.4-5.0 Normal (applies to non-numeric re sults) [facility] ID Date Data Source [id number] 07/21/2020 08:54:00 PM [facility] Name Value Range Interpretation Code Description Data Medina rce(s) Supporting Document(s) Phosphorus 2.5-4.9 Normal (applies to non-numeric resul ts) [facility] ID Date Data Source [id number] 07/21/2020 08:54:00 PM [facility] Name Value Range Interpretation Code Description Data Medina rce(s) Supporting Document(s) Magnesium 1.8-2.4 Normal (applies to non-numeric resul ts) [facility] ID Date Data Source [id number] 07/21/2020 08:54:00 PM [facility] Name Value Range Interpretation Code Description Data Medina rce(s) Supporting Document(s) Thyroid Stimulate Hormone TSH 0.358-3.74 No rmal (applies to non-numeric results) [facility] ID Date Data Source [id number] 07/21/2020 08:46:00 PM [facility] Name Value Range Interpretation Code Description Data Medina rce(s) Supporting Document(s) White Blood Count 3.5-10.5 Normal (applies to non-numeri c results) [facility] Red Blood Count 3.90-5.00 Above high normal [facility] Hemoglobin 12.0-15.5 Above high normal [facility] Hematocrit 34.9-44.5 Above high normal [facility] Mean Corpuscular Volume 81.2-95.1 Normal (applies to non- numeric results) [facility] Mean Corpuscular Hgb 25.6-32.2 Normal (applies to non-num paulina results) [facility] Mean Corpuscular Hgb Conc 32.0-36.0 Normal (applies to no n-numeric results) [facility] Red Cell Distribution Width 11.9-15.5 Normal (appli es to non-numeric results) [facility] Platelet Count 303 x10 3/uL 150-450 Normal (applies to non-numeric results) [facility] Mean Platelet Volume 9.4-12.4 Normal (applies to non-num paulina results) [facility] Neutrophils% (Auto) 31.0-71.0 Normal (applies to non-nume gabriel results) [facility] Lymphocytes% (Auto) 20.0-55.0 Normal (applies to non-nume gabriel results) [facility] Monocytes% (Auto) 4.0-12.0 Normal (applies to non-numeri c results) [facility] Eosinophils% (Auto) 1.0-8.0 Below low normal [facility] Basophils% (Auto) 0.0-2.0 Normal (applies to non-numeri c results) [facility] Immature Granulocytes% (Auto) 0.0-2.0 Normal (lio lies to non-numeric results) [facility] Neutrophils# (Auto) 1.50-6.20 Normal (applies to non-nume gabriel results) [facility] Lymphocytes# (Auto) 1.20-4.00 Normal (applies to non-nume gabriel results) [facility] Monocytes# (Auto) 0.00-0.90 Normal (applies to non-numeri c results) [facility] Eosinophils# (Auto) 0.00-0.50 Normal (applies to non-nume gabriel results) [facility] Basophils# (Auto) 0.00-0.20 Normal (applies to non-numeri c results) [facility] Immature Granulocytes# (Auto) 0.00-7.00 No rmal (applies to non-numeric results) [facility] Slide Reviewed By Normal (applies to non-numeri c results) [facility] Slide has been reviewed and findings con firmed by a technologist/pathology technician. ID Date Data Source [id number] 07/21/2020 08:54:00 PM EST [facility] Name Value Range Interpretation Code Description Data Medina rce(s) Supporting Document(s) Ethanol Less than 10.0 Normal (applies to non-numeric r esults) [facility] ID Date Data Source [id number] 07/21/2020 06:47:00 PM EST [facility] Name Value Range Interpretation Code Description Data Medina rce(s) Supporting Document(s) RP Internal Control Passed Normal (applies to non-nume gabriel results) [facility] Adenovirus None Detect Normal (applies to non-numeric resu lts) [facility] Coronavirus 229E None Detect Normal (applies to non-numeri c results) [facility] Coronavirus HKU1 None Detect Normal (applies to non-numeri c results) [facility] Coronavirus NL63 None Detect Normal (applies to non-numeri c results) [facility] Coronavirus OC43 None Detect Normal (applies to non-numeri c results) [facility] SARS-CoV-2 Not Detect Normal (applies to non-numeric resul ts) [facility] Negative results do not preclude SARS- CoV-2 infection and should not be used as the sole basis for treatment or other patient management decisions. Negative results must be combined with clinical observations, patient history, and epidemiological information. Testing was performed using the [employer] real-time nested multiplexed PCR Respiratory Panel 2.1 [...] Detect Normal (applies to non-n umeric results) [facility] Rhino/Enterovirus None Detect Normal (applies to non-numer ic results) [facility] Influenza A None Detect Normal (applies to non-numeric res ults) [facility] Influenza B None Detect Normal (applies to non-numeric res ults) [facility] Parainfluenza Virus 1 None Detect Normal (applies to non-n umeric results) [facility] Parainfluenza Virus 2 None Detect Normal (applies to non-n umeric results) [facility] Parainfluenza Virus 3 None Detect Normal (applies to non-n umeric results) [facility] Parainfluenza Virus 4 None Detect Normal (applies to non-n umeric results) [facility] Respiratory Syncytial Virus None Detect Norm al (applies to non-numeric results) [facility] Bordetella Parapertussis None Detect Normal (applies to non-numeric results) [facility] Bordetella Pertussis None Detect Normal (applies to non-nu meric results) [facility] Chlamydia Pneumoniae None Detect Normal (applies to non-nu meric results) [facility] Mycoplasma Pneumoniae None Detect Normal (applies to non-n umeric results) [facility] Methodology: Multiplexed PCR Refer ence Range: None detected ID Date Data Source [id number] 07/13/2020 04:02:25 PM [facility] Name Value Range Interpretation Code Description Data Medina rce(s) Supporting Document(s) Progress Note [facility] JRUBXo0fNeQCUmWi50/OXJocZTUze7RjTHxkFRi9CIlnMOWlY6UuAUC7wA6pNPO5BZuBLoAmGcSrDZQl [facility] [file] AgICAgICAgICAgICAgICAgICAgICAgICAgICAgICAgICAgICAgICAgICAgICAgICAgICAgICAgICAgIC VhRYMrWAFgFYGzPGPdSCZhWFMnAG0FYCEaUEJcKVWu ICAgICAgICAgICAgICAgICAgICAgICAgICAgICAgICAgICAgICAgICAgICAgICAgICAgICAgICAgICAg RBTlZUIwFFXtBTKfPPQuQEUmOAOxEUPxXJCmSCQfNR8FSACtALXbZHQmOQRpCFEtZWBdLNDvPVKaGLUd ICAgICAgICAgICAgICAgICAgICAgICAgICAgICAgIC HkYZKpBUJzOWDoIGSqKGFkDVTaLAGcJLRkYWBqUEWgPKMoUIDjVXOmGS7DAPJsAQMwTDXrCKGsXRKaDQ AgICAgICAgICAgICAgICAgICAgICAgICAgICAgICAgICAgICAgICAgICAgICAgICAgICAgICAgICAgIC IoBAUkEHPsSPAmFEKfYLSmTVPlOFMjNF2QMIZfZHPz ICAgICAgICAgICAgICAgICAgICAgICAgICAgICAgICAgICAgICAgICAgICAgICAgICAgICAgICAgICAg EADcFTTdHEMzSKIdRZZkLAJnEKJpRDSgZANmTIDgDTXuKX9NYEYuKXWiAEJaKYUvOGArMKWbAPFmYARs ICAgICAgICAgICAgICAgICAgICAgICAgICAgICAgIC NwMKQnWCYpPFPyFZAfEZNwOGDtEKJxZTUhGFJaTIHiRIFpMJZqOAUqXCGbVW0WDDZdUOXzFBZsAYAzCO AgICAgICAgICAgICAgICAgICAgICAgICAgICAgICAgICAgICAgICAgICAgICAgICAgICAgICAgICAgIC IoXUDkKBChRPJxNIMuJCOtFIAjYRWoHQFdGS2XUSCc ICAgICAgICAgICAgICAgICAgICAgICAgICAgICAgICAgICAgICAgICAgICAgICAgICAgICAgICAgICAg PWLkRPAvWQVfTYFqWZWqFUSbLVUlAPCuSGSaWLXbLMVeOOGhET3DCBFcFUGjPVOrWEUzCUWfCEFtBSJc ICAgICAgICAgICAgICAgICAgICAgICAgICAgICAgIC MmIBTyQYSnBVIlAHNvBISdXZCqILUuEWXtXUIzXMKoHHRnPMAdHDCfLOXdGLWyMT0HHQJhHGGzKQZzHW AgICAgICAgICAgICAgICAgICAgICAgICAgICAgICAgICAgICAgICAgICAgICAgICAgICAgICAgICAgIC WxMZYxEXUiYHVuKPXgXOYiFAFpHQMvWKVfDUSfAE9P MF60fJJna0G9GIPpLL4agqy/Fo4GEPjsfeRinDXqKM7KKdAfSO9hzh7DCrAjSP6oxm9HWXvYVyDbV0M8 nVUxYFPvMZJXRhJmE21hVNvsPr33LQkuFIVxSoAaQCz7Bi6NIpKeD1cgWBYpSkQ3IQDdWvF9JATkNrHn WHChANUuOVLgWQQYUYJ9BOIqYuRiIExfNK8Wn7HseH A1DQo+Ud5HBC2jj0BeZKmkFLCeWP7wqn0TFBkSEfNrT0OnrzK5YKM5FBIhVw0QFYWwWOLexARnPDFdLG GTCyNaO5ZlgG94JAMYSl9+NMuaztFsNzdMQdJ9QMNmr4UrGNl9FZ6OMVEpTOz8bGAcNJBcE8Jxo8IoBd 90ZXMgYnkgUmlzaGFuYSBTIENvaGVuLCBNRCBhdCAx QT3wTnQfZcNrMXB1QNSfXY1zFFzcSD0FZTG9NTroIVJlIPAoK6sFBkPrTQJePZGmeSjkJH1YZeLwY2Ny cmVudCAyOCAwIFINCj4+FPzliiHzDkvXFoDnIVSfPfpIUvp1OCzqFT0RfZMwZB3Vrv4qrHRfG2TetGxz UHLqKXlkmoHaUx0gBWEqWCukKJCrGD1tG2zsN8prE6 LpQICEPxKzX9LzP3EbKrZ9IKVeXwZvHCKuPAG8HX9eMNdxSD6CGMn0I7JzR2ERWLJxHNUQPV5cs1gxX6 PtwFnrmwipQ6ZnmL5mW126FTPuTmYbAtGyirsiBa0yTCx+Zj9YXQ1aj2PoTEahUMMgJO3rap9BYQxKZs FcX6U1zPEpF9R3XPujUr4RJJQhEHXhDfQmZOXCTOde DE0VVT4nkjX9HZ7AqDPbKQCxBSTztXZoNQk6Q73pkLJsPXsqQU7ZRWZ+Pradeep+Vs4TOTGuHBTcLWUqOcFi JEWWBbXkX1IkR3CTl7SuX5TeSK20hXrhnaYgOSpaCY0CFW3vZGRzZRRFGN4PeBNvtQ1puqUuAKFyHKWD RsYwD50doWSkNSOcJXV4AWLoTj1VVMFkV8IbjxWdrY qkzrLsJAHpBDHIRW1UCWvrqzOxjTZkfSlrPW39gVgfYY1QRn0OHwDzIQ3otr2HdFTqCr1PEKYwAK8VPA KnJUIjODOsRLL5TUEjCuLyYXiwYKFmAJTeQKP7QHOvSTQoKL6LRiHpROZxBmLcWYovNXSwCZVsyk5OWQ ZxMKIiRvc9MjWhCTBgGXThCYzdZRNmUMMbLYB8IHCl ZXDeTG4LNsGxBBHwNPI1BOxdUSLdPDThie6NNVCkCGNpCgUqCgGfZDFdFKEgGWfxZNNeJOQ9AMP6ZFDd VDDvJP3XTxFuTGNlKRW6VwSzZAUlBHXpkv3OBMKfIOJbTcZ1WrVvYZOiWSDyCRrpVFOiVKS1Ott9YAXm KLDrNW8IJtXqZYFwDQk2JSLjTGCcWEPxsf5UCVUrDD SxYnM3DnGxBYOgRWQdFWumGGRhHATdEAH5CQFjCJYrPJ6VXbFeDNZsQZX9EqOtBNZcKDJikk8AXCUaQG VfESm1PzEeHQYcEIUxDHceVIAcJML7KGL6KOFjIGGtTF7OCeVtZTYmKIsjMwNsNOZdRBQuys5RBEMrOT IzFfCkGcAyEWPhUVKlCQksEIZzJSB8Efo5NFSsOHOx UG8QBaRzZOLxPXr6NvjqZGCqKZXmww8EZXQzCBPxPWL3WKEyRRPeOJXxVPvvUCWgQZLkSLs1RMThGVKp ES9XQiDyVTWwCmK7VcWwQWUzTMZnwm6DXTAxLQPqLGYpPAMoFAJnZDDpHMdxJJQvWXDqGJx2DHKrMIHx RW6NBoGrNUDrNwNvGsWyPADfTINxnr2AJKKlLTOqKY XjSkSzPAJwOFUlLDnzVHDxBZZfBFdgTNOeUGGyFX1AVfVlHFWmXqT5XzYwLXMoIOAibq3GXAReKVXeMb S8WFWzXOZrVUUnJSs0rjIqhZJbIIu3BC3AV8KovrJxGyNEHk7Vp581ALEgYAFdYg4DN1tvCj5hYPRyCK RIGv5FLJt8IJzpWETlHMEpLsfxDOckQMBlH8QuUFIe EAU5TfXiNGE+LYjcU8H5ToZ5LVG2EsK5M3YqBzVsFHJ8HEFmJRiaSmE9OZ8iIKWSGx0+DQpzdGFydHhy NJONVhShCGK8OHajYQKSTy3Q ID Date Data Source [id number] 07/13/2020 08:31:21 PM [facility] Name Value Range Interpretation Code Description Data Medina rce(s) Supporting Document(s) Buprenorphine [Presence] in Urine Negative [facility] (NOTE)Positive results above the cutoff of 10 ng/mL are presumptive andunconfirmed. [phone] within 5 days of collection. ID Date Data Source [id number] 07/13/2020 08:31:21 PM [facility] Name Value Range Interpretation Code Description Data Medina rce(s) Supporting Document(s) Amphetamine [Presence] in Urine by Screen method Negative [facility] Benzodiazepines [Presence] in Urine by Screen method Negat [facility] Cannabinoids [Presence] in Urine by Screen method Negative [facility] (NOTE)Positive results are presumptive a nd unconfirmed;confirmatorytesting can be ordered at the [facility] at [phone] [facility] at [phone] within 5 days of collection. Benzoylecgonine [Presence] in Urine by Screen method Negat [facility] Methadone [Presence] in Urine by Screen method Negative [facility] Opiates [Presence] in Urine by Screen method Negative [facility] Oxycodone [Presence] in Urine by Screen method Negative [facility] Fentanyl+Norfentanyl [Presence] in Urine by Screen method Negative [facility] Service comment [facility] Results below the indicated cutoff (ng/m L), are reported as"Negative." Note: for medical purposes only; not valid for legalor employment testing. ID Date Data Source [id number] 07/06/2020 01:56:43 PM EDT [facility] Name Value Range Interpretation Code Description Data Medina rce(s) Supporting Document(s) Progress Note [facility] RTCRNu8rYbMAFpEs35/NXOlyNQFqm5IlGTwnSPv6WZgjFHDvY8HvCKF6tT5iVNL2CXfIBzBvWqRfYJT4 lbm [file] ICAgICAgICAgICAgICAgICAgICAgICAgICAgICAgIC AgICAgICAgICAgICAgICAgICAgICAgICAgICAgICAgICAgICAgICAgICAgICAgICAgICAgICAgICAgIC NlGH4SSCFbRQQoPOMsLDVyWKMmKKGdESCwTHUgWQLkSLStBXNtIOVhJHYsJDNfSQMmCYObHASwLXPiRO AgICAgICAgICAgICAgICAgICAgICAgICAgICAgICAg LDKkROLeODWwWOQoZR7TNQWdFLKwOHNdRIRbPSFfQUWnRUNkGKWuDTZmPIEaELQcGVOiGZRnRSIbHNAu NEJtTBGsSOKiGXAfMJHpACLcSXMzHNWyPOYzPKXeRWGyEBMeHURfOCOoFPFzITQiDEKfWUJgAE2MVGLn ICAgICAgICAgICAgICAgICAgICAgICAgICAgICAgIC AgICAgICAgICAgICAgICAgICAgICAgICAgICAgICAgICAgICAgICAgICAgICAgICAgICAgICAgICAgIC XgDLKpKJ5BZDBfNEYeXRWeYSIdTSCxBQZcSRJzDKCxBAZePNQtPDGqYPRqVTWwAHKeIJCbRZYwNTToAI AgICAgICAgICAgICAgICAgICAgICAgICAgICAgICAg NHBwACWmEMSyJSDaWQWyXA4WZSAvGPMzTTZcHAFrYFQkFULnJYRxGTBtOPZlTBIgJNDkQOYcDZEbNJQg LQPhLSNiKKFnOCPbNUBcBLPjTQJkGKKrUJRnIJMwOLImXKIgCUTsMQHdNYOkWIJnMJZuSBKiPFSlCY4U ICAgICAgICAgICAgICAgICAgICAgICAgICAgICAgIC AgICAgICAgICAgICAgICAgICAgICAgICAgICAgICAgICAgICAgICAgICAgICAgICAgICAgICAgICAgIC DtXEFqKLRkWH3OLTVwDMPqIRLwRTHlFKPuYAYqOMElNUAuOBVcNOMcJAJwXEVoNBJpVSBsVOKaWUNuHK AgICAgICAgICAgICAgICAgICAgICAgICAgICAgICAg DKYgDNAcOOUqDOTaURUtXPDpAF5KZUKtCZBnVKPaLVImVVGxNLXzYROtKACaSHEtYPNjBOKtWKJdXSGp ICAgICAgICAgICAgICAgICAgICAgICAgICAgICAgICAgICAgICAgICAgICAgICAgICAgICAgICAgICAg FH5MQN82uUDhk4R9JYDsIL6zfof/Ex9IOSjiwpSsqG VyKD0KSzPdUH6idq4AErUoUA8ksc7CTPtEFqOpA8J6nDJmPVGcCCULGtAxF65jALxmFm89QUisYBKlPb OlAJr9Mf5NRuGkF4noQCXpQjS8EQAvLeA5VDPqQzZhQYRgKXUlKBIoKHVWTHG0MOKyOeGrJDghWE9Ki9 YbhHP3COp+Hs5MHT4gw9RcNAjkYWDgZI2wmg3NCHqN CzRvW3QrrmS4BYU3GMUyOe6HDBKjTWKcjXIqZBHqXUCPPxEtC6ZafH11HSJXSm3+DQplbmRvYmoNCjI5 MWSqv3MzWEm3UK5GJHLsBMb9nLKdLMSsA8Wjd3CgJw61FACtVeylWelogAQaWJGMKQHwmYYxTYZXCTMj lJHgBB8yYy2vCFAyRPMnJoRdPXTLKU5LXODxINBwyX OxFOAbCLKQXN9QIDbnVEN8QVDvfuOewISmWSouSB5BXRRchcFeWewpUBNIQEq+Cy2VOZ5dv5TtVVm1VO Xwi2NpQEc8QI6WOVQfABjuBZFuGZ3nh3AgW7B4OuI3eNDlO0wbtefmV3BjfoIbfhQiPOSyYUDlNZ5UQM 6DLY9YRPKuZCpzNR8OYQV5ASj0HODtXlO4BEC7PNBk VMjbKG4MUEYeLNK5YC3PLB8NBnfcT2KTUKqbxJGjlkibQ1LxeL7gqoGiExbtDQw6cL3qnPR2BL7zwD24 mx5rz0cgD9NqpPeavibsK5WysS9lI377HIChLwQuOrUhtzzyVw5rTYk+Bi9HKZ1qq7ClIFrvCJEuDI2s cn0ZVHhBEjSdZ0H9jWNaZ9Q3UQxaKx0TZIDoNNTwAm TcNXGKYMshGK3QSC3ealW3RD4TyBMgJQBpJVJhvDZkPBd3V31odSVvMVvdEJ1UDYQ+Pradeep+Aw6VTSYeQN WeSHOvRtRcFZJEGxNeE1RjW3ILs0RmX6MuRM38jEgbizYgRFtfUL3ZLS1hUSLbPVHZQM1NsZKldY4sxl QrLQRmWGDBAmJdW24ioGZvFCSmSYL7DYNbCc7WOBKs I3IhgdTooMvuvvSgOBToLMNKWS7DHOslgpRjeGHigCzlAH54wUuaCD9VHc2RMbIbXH1fru0DeTYsSb4Y JKNwIZ3KLZIcQOIpFDSeHPI5FMGhKhGzQIztVLLyUGNoMUV4KVHtDPXaIH1XYhRoLEGdAnD8WlZpVVJj QXRjgp4ULHQmVTZwTbS7GbFpDIBrSIChBBdqXLJuKG HbBJA2BQQuEIHyGW2DZpKtBZKyDVN3OBXwXZLgSLZswn0QLIAhRWHqMoKpQLHnPXHiKGDsGMglPLOkBX K2IEr5PCFhVAFsCB5QVhIjEJOkFFA6TzgfTMIsYYYqbs9ZPDGyBDBnRmp8YyCfDSYuWNVcXTkcFQZxGL V0LyG1AAIaYDSdMF5TFvDhJUMhEEs6HGizVQQrBLKq ml3MEVZzOMUrYuZyKNYcOCRaHTYeKHweGPQsZOZsNwL2CVBuMMPlHA0OLkOmXPIpLZHtGJtmYSKfAQUg ih9EKLDbWLPxBEW5JgOuKQHcDHOsVBdyLHDlARL3XSMrZLBrSUDgDI1RGjEnNEGvVSC3BEJrTCMgNNKm pn7YNZLiDCIoBtjcRpZyDAAkLLNxTQjnRPUeVUO1Nu pkMOIwHXZjQT7GAjWwEDPmUVw8BZWhXYHaDKVewx7VOCVsGQPvFPO9PxRfYTFcSRPaBNfuSFCrJCU9Zz LuTFXoLQCyTC0YBrUbRZTqGlc4VyhyDHVnTRHkry2LZALuGGXeMDN9MmVrUNWkYGCuFJcyRGTdDWFuGm i1IIMaHZCrYO4LLjQhMLUuPkZ6RLEhMLFcXJTmnl6C GFPlWJOpJYe8LcKmEEVgTPOtOPvbAIChUFGvBPD4WLUbLBQhUI7CFtRnYWGzRuH0QjzuTQCiUFDuze8Q TUKwBRUaZvkvJqMdVPKhBBQkTQy7ccDviLMzFFo3TG1PE3NydrCiCrOKNa7Us408HHJmGYJyOb1VY0az Pl7lWIFwMWIUVg5TJHj4VOKgGiRzMaOyEvK0OEDoXN EhEXGhWIEhGAteJRE1Kzg+TAbjFSWtLyWfAON6VCBhSUW4BJV8C7A1PuF5AVQ1YeFuSa4aVCQYVx3+DQ dxoNDyeBnlNSNMFxPpAHneIJzlYYXZMn5T ID Date Data Source [id number] 07/06/2020 06:28:53 PM [facility] Name Value Range Interpretation Code Description Data Medina rce(s) Supporting Document(s) Amphetamine [Presence] in Urine by Screen method Negative [facility] [facility] (NOTE)Positive results are presumptive a nd unconfirmed;confirmatorytesting can be ordered at the [facility] at [address] [place] [address] [place] [address] within 5 days of collection. Benzodiazepines [Presence[facility] in [facility]rine [facility] Cannabinoids [Presence] in Urine by Screen method Negative [facility] (NOTE)Positive results are presumptive a nd unconfirmed;confirmatorytesting can be ordered at the [facility] at [address] [place] [address] [place] [address] within 5 days of collection. Benzoylecgonine [Presence] in Urine by Screen [facility] Methadone [Presence] in Urine by Screen method Negative [facility] Opiates [Presence] in Urine by Screen method Negative [facility] Oxycodone [Presence] in Urine by Screen method Negative [facility] Fentanyl+Norfentanyl [Presence] in Urine by Screen method Negative [facility] Service comment [facility] Results below the indicated cutoff (ng/m L), are reported as"Negative." Note: for medical purposes only; not valid for legalor employment testing. ID Date Data Source [id number] 07/06/2020 08:22:02 PM [facility] Name Value Range Interpretation Code Description Data Medina rce(s) Supporting Document(s) Buprenorphine [Presence] in Urine Negative [facility] (NOTE)Positive results above the cutoff of 10 ng/mL are presumptive andunconfirmed. Confirmatory testing can be ordered at [facility] [phone] within 5 days of collection. ID Date Data Source [id number] 06/28/2020 03:17:17 PM EDT [facility] Name Value Range Interpretation Code Description Data Medina rce(s) Supporting Document(s) Progress Note [facility] BLIJQn8nYsKYWhFg58/NGBmhAAHoi1JoYKksSBk1KLzdTRNkP7SeLHT9aP0eRXV5TMrHTcXoQtZuAND8 m DiEsnLOmOqVLXwGqdONdNqCIzcIhmgyOTrLQ0CyZI8KIFfF93iWWDqZWIcS7YtOODoMEI+Zd7VTIIzlP VhNK6WPkeQ9W8qe9sCZR8o0Y2tXJFNDCiJaOSIZTmHgUt4ciOD5sBs4y5QAuequDwHnete+vfldbnniP m1Fa4QNvjW1NEG3emsTbjPrLWKa5/Guh4yfqOM/+uf aaiJ0Al83K+aFwurhyt6vn9iY9ypwTqqidvijj/w1PcmBi7jMpngGwk6wMvEaJ3RZt6QDHP3RvmHjRSS sBok5P22VJDqLoiCc/v+VITKcQP/w/ggj9rz9iQm2d2sd5kbJ89Yi1GBoCNG6NB1sSScu2Ul/CMoVw2f yrTrtkyrvogPQuVLl/1KQxYsXkudk4glqp5os3qbnu [file] ICAgICAgICAgICAgICAgICAgICAgICAgICAgICAgIC AgICAgICAgICAgICAgICAgICAgICAgICAgICAgICAgICAgICAgICAgICAgICAgICAgICAgICAgICAgIA 0KICAgICAgICAgICAgICAgICAgICAgICAgICAgICAgICAgICAgICAgICAgICAgICAgICAgICAgICAgIC AgICAgICAgICAgICAgICAgICAgICAgICAgICAgICAg XEHhGLPgFHAyHG7NEWYrKIBwXTHuREFdDNCvOZCzTSTeJQSwHKCiQTGeHIGvRRKdQWDwTMBiTQTpCEYt WFVkMVOgKXEyLJMdOEZxNDMpNSKlULQhIJPpXYNmKTQfIQQzWPZtUJAyTQMcULWiOOKwIF1YTXLmQCEw ICAgICAgICAgICAgICAgICAgICAgICAgICAgICAgIC AgICAgICAgICAgICAgICAgICAgICAgICAgICAgICAgICAgICAgICAgICAgICAgICAgICAgICAgICAgIC VcIQ7ILRMnTTInFUIrHQLtJZIpACMrYKUdWAVnRNVfJPWbKYCcAVNaTUVlAAIjQSFjNAGaTYXaVAXbYH AgICAgICAgICAgICAgICAgICAgICAgICAgICAgICAg SCRoSGNeDJUfRTVvDJ8BCCEwHVRmOFJfYYQrRLEdOVGyTSPfUBQmFMHnLBMuMJDxRFDcGWDfSUGvPLNn XRIfRFHwLKPtPVRhPRKjLZHbKJEhKIMtHMUnVWHrVMWrMLNwRYJnFIPuXMEaNXOqCWTyRWHfBY3IRCBd ICAgICAgICAgICAgICAgICAgICAgICAgICAgICAgIC AgICAgICAgICAgICAgICAgICAgICAgICAgICAgICAgICAgICAgICAgICAgICAgICAgICAgICAgICAgIC XlUGGqZQ0DZZZeRZNdQNKrHPZrICWaEHJrHPInQMYyLTWfSGKwSAGrLTPoIGQeOUPuEODyUWOcIGEfJK AgICAgICAgICAgICAgICAgICAgICAgICAgICAgICAg VQZwWBYoKSIfXRXuWWGlAZ9MTTQmLZMySTZbTULmYSEfFGErOMEvHCXcZPZbCVQpCYEvCJXfSHEiAZZy XGNwISBcUJIcOFEgDMXpXVHfDZDkWRWqMTHuPKMxGLPtQELnNWBaNZTnARVpMIWwSOHbXDNuCHKsNC9X ICAgICAgICAgICAgICAgICAgICAgICAgICAgICAgIC AgICAgICAgICAgICAgICAgICAgICAgICAgICAgICAgICAgICAgICAgICAgICAgICAgICAgICAgICAgIC RdICDyULSbJQ8UFN85pPCjg6X3UAGjFX3yuxh/Mx6FDNifemCeyZUuQC9HLoGhIN3ltp3MYkKlKC4bwt 2POQeUDqNzC1Y1iZYdWQVuKTFFOlStL77kEZpcKr22 TUhwRAHeAvDjCIq6Qx8CTgPoO4ahASXuSrW7HJBaHqQ5FHLaKeD5FEMsZkTbLPoaZB9Kf6YprUNxURk+ Nm2ANK9oj0UeYCbfSpXgNO1rud9XOJzYHaRpJ1LqtbW2LQL2OWDtRi5CFOWnFLIdcYDeQBHxYWQRJpTs P6LmkP34DQGNYp7+PYsyhhYxNfeKZrD9HVXwp9PkUH f6XE9YVOKlABj2mZFsWDUuX8Jpi7ZnDg05ASJoUxsgY0VuvYW4FWIjJ1JdIP9eZUMAJFIovNYgLL3nTH 5iMYWeNVXgDxZtMSAEZR3MSILoSDJqeWOlFHDhAKSZHI7POShgPVH6QYQeonQeqKSrDNiqBY1LHHOvqa QgMjMgMCBSDQo+Xm8DAJ3an2VeJCgsIMRwXE5vav0N UYnLWgLoK1S3vGWnY4A3UGghPw1HVXUgHGFuPeKjAACLCIhaBZ2KOW5kzdS0ZE4RpNHkOCZvCPQeqTXp LXc2O47moYKrPAraZQ9XKCZ+Pradeep+Hp4QGKXqAYLbEJFeWkNnWQNDQbUcN1NcY7ZFd2JlM3YqKQ97hTia xyPtWUotWW1DYQ5zHLYdUOKKNX5EzSRxkS7ttqNfHk SlCNEKIiMgZ09kiOJqOLEqANVuOWLwNt0QQUBaQ1DzriIreQpmeiTpFYQpXLOGJL9NZXhopxIjvHHgeP vuHF18jDunKJ5GPy1TFgYeCB5ine8OjKIpYn5QHKOrAx3APHJvJOJrHKGbCTH3UZWeZzHzFZorZPSgEL YoWGH9AVGdLPUgBJ0WTyMtAHBpIgS8OIIjRIHaEKNj oj7GCYQbOSQkKjFaRjHiJNIyOVJwLRzgVONzXCAhUGE3LLJtTCWhAU6BPxNyFBOdQWW6QUDpIVMjTCCo wm5DBRBoRHSkFcB8EqTdDMUtCAVhSLbaGCSiZJW7HHB7FQPlGCHnSV1KFdLyDJBtVYW6URkaFCQkWNKk bn4KLCSuUVJvZCVhUDKwEEUiSEUxDFvqJROgIFN7UZ HqILSfPWOqRP7CKxNmNXOfKHS3QWZqFAWrURXqfi6HODVaPDMsIVB0QESdLGIjIZRlRIdrNSTpUHLbVF zyQKNpTUOjYM3NMeZkTWUkHTR0RuSiJMHzCSPrhn6RPDOqSUYtSkKfJfJmASCgGJDqHRbfSJKnOJExRx QuVWPpLWDhGS3OAdBeGNNuJcS7UQLmNGBkNRWlwx7P FEHjRMZaNnu7BqCvXTOxDSCdWFeqQWLrMVS8SEf7TNHsSRPbPN5GKcOwOIBpFgS4SbXqICZxKEQzqv0P LMDuHLHqORF2ENJqEZUiOYGeAFmjRFOpZWC7PMslDROkMKItEY7MQkZqXQAcRrA8MqNdNSHwWVDgxh4R YFFzKWLqMfJvPgCiDSRgFFDeCXnjLKYkZUD6SlF5EM XeEJQaWE5AChJfWJtiYBMZRtv4RDxaV4e9ZGJaPu3SC8Gmg2WwIfQeULNBBGgoCC1trqCyKOEtXx6RA0 pMTdfdHVCsZOH4ViWnTlLaTiG9RAeuTCL1K4OeEYNnQsJcPb0nATI0XZUpHxl3IuNsZKX3PzkpLRF6DN RuErOwABZvPBM8QfWwMP0SOo4BVaG6LLS2hWBoYz4BFyH6GCkQYbJjLD3ETHt= ID Date Data Source [id number] [facility]38[facility] Value Range Interpretation Code Description Data Medina rce(s) Supporting Document(s) Amphetamine [Presence] in Urine by Screen method Negative [facility] Benzodiazepines [Presence] in Urine by Screen [facility] Cannabinoids [Presence] in Urine by Screen method Negative [facility] (NOTE)Positive results are presumptive a nd unconfirmed;confirmatorytesting can be ordered at the [facility] at [phone] [facility] at [phone] within 5 days of collection. Benzoylecgonine [Presence] in Urine by Screen method [facility] Methadone [Presence] in Urine by Screen method Negative [facility] Opiates [Presence] in Urine by Screen method Negative [facility] Oxycodone [Presence] in Urine by Screen method Negative [facility] Fentanyl+Norfentanyl [Presence] in Urine by Screen method Negative [facility] Service comment [facility] Results below the indicated cutoff (ng/m L), are reported as"Negative." Note: for medical purposes only; not valid for legalor employment testing. ID Date Data Source [id number] 06/28/2020 09:08:58 PM [facility] Name Value Range Interpretation Code Description Data Medina rce(s) Supporting Document(s) Buprenorphine [Presence] in Urine Negative [facility] (NOTE)Positive results above the cutoff of 10 ng/mL are presumptive andunconfirmed. [phone] 5 days of [facility]. ID Date Data Source [id number] 06/19/2020 12:00:00 AM EDT [facility] NOTE: Presumptive [...] Result VALIDVALIDVALID [facility] ID Date Data Source [id number] 06/19/2020 12:00:00 AM EDT [facility] NOTE: Presumptive Positive indicates a n onnegative test result by immunoassay screen. It is a preliminary result. [facility] recommends that a Presumptive Positive result be confirmed by an additional, more specific test such as mass spectrometry Name Value Range Interpretation Code Description Data [facility](s) Cannabinoids 85.00PRESUMPTIVE POSITIVEPRESUMPTI VE POSITIVE [...] 200.00 ng/mL [facility] ID Date Data Source [id number] 06/19/2020 12:00:00 AM EDT [facility] NOTE: Presumptive [...] non-numeric results) [facility] ID Date Data Source [id number] 06/19/2020 12:00:00 AM EDT [facility] NOTE: Presumptive [...] 1.00 ng/mL [facility] ID Date Data Source [id number] 06/19/2020 12:00:00 AM EDT [facility] NOTE: Presumptive [...] non-numeric results) [facility] ID Date Data Source [id number] 06/19/2020 12:00:00 AM EDT [facility] NOTE: Presumptive [...] 50.00 ng/mL [facility] ID Date Data Source [id number] 06/19/2020 12:00:00 AM EDT [facility] NOTE: Presumptive [...] dates is possible ID Date Data Source [id number] 06/19/2020 12:00:00 AM EDT [facility] NOTE: Presumptive [...] 50.00 ng/mL [facility] ID Date Data Source [id number] 06/19/2020 12:00:00 AM EDT [facility] NOTE: Presumptive [...] non-numeric results) [facility] ID Date Data Source [id number] 06/08/2020 02:52:12 PM [facility] Name Value Range Interpretation Code Description Data Medina rce(s) Supporting Document(s) Amphetamine [Presence] in Urine by Screen method Negative [facility] (NOTE)Positive results are presumptive a nd unconfirmed;confirmatorytesting can be ordered at the [facility] at [address] [place] [address] at [phone] within 5 days of collection. Benzodiazepines [Presence] in Urine by Screen method Negat [facility] Cannabinoids [Presence] in Urine by Screen method Negative [facility] (NOTE)Positive results are presumptive a nd unconfirmed;confirmatorytesting can be ordered at the [facility] at [address] [place] [address] at [phone] within 5 days of collection. Benzoylecgonine [Presence] in Urine by Screen method [facility] Methadone [Presence] in Urine by Screen method Negative [facility] Opiates [Presence] in Urine by Screen method Negative [facility] Oxycodone [Presence] in Urine by Screen method Negative [facility] Fentanyl+Norfentanyl [Presence] in Urine by Screen method Negative [facility] Service comment [facility] Results below the indicated cutoff (ng/m L), are reported as"Negative." Note: for medical purposes only; not valid for legalor employment testing. ID Date Data Source [id number] 06/08/2020 04:10:04 PM [facility] Name Value Range Interpretation Code Description Data Medina rce(s) Supporting Document(s) Buprenorphine [Presence] in Urine Negative [facility] (NOTE)Positive results above the cutoff of 10 ng/mL are presumptive andunconfirmed. Confirmatory testing can be ordered at [address] 8756 within 5 days of collection. ID Date Data Source [id number] 06/08/2020 10:31:01 AM [facility] Name Value Range Interpretation Code Description Data Medina rce(s) Supporting Document(s) Progress Note [facility] YFEVJd8yTpSIOwAq27/UPWadEYPan6XdHOvnFMd8YAgsBIDvD7ZmMUR1xI1gTSP9TCwQRsMhNtKaWHV0 lbm [file] ID Date Data Source [id number] 06/02/2020 10:25:11 AM EDT [facility] Name Value Range Interpretation Code Description Data Medina rce(s) Supporting Document(s) Progress Note [facility] MFZQBu8yVzBPCfNa54/XEKnhEZJoc6PmMIenVVw3NFtaIZExU8VqSLN9cK2vEMH5UJqQVlYcXcDmWAOv lbm [file] N2WFfhHNA7CaDzLJeqIyQuLS4BUa3XRvQ2ONG0xKLpNt8CWjV9RaBKTgDpYU8TQZk= ID Date Data Source [id number] 05/25/2020 09:33:18 AM EDT [facility] Name Value Range Interpretation Code Description Data Medina rce(s) Supporting Document(s) Progress Note [facility] KCZFVq9uOkQPSfPl64/GIZntDVWde9RbHKyjRAe9VIkjXLXfV6OpJNO2tS7tFQT1BQuQMnHfZeEmXVU6 lbm [file] XkGUP9FBE9WgVqWK2LWk8HZtV7FWN4rLMcTe9BJoG8EHPZFeRnRC7NORp= ID Date Data Source [id number] 05/25[facility]2020 [facility]25:[facility] Interpretation Code Description Data Medina rce(s) Supporting Document(s) Amphetamine [Presence] in Urine by Screen method Negative [facility] Benzodiazepines [Presence] in Urine by Screen method Negat [facility] Cannabinoids [Presence] in Urine by Screen method Negative [facility] (NOTE)Positive results are presumptive a nd unconfirmed;confirmatorytesting can be ordered at the [facility] at [address] [place] [address] at [phone] within 5 days of collection. Benzoylecgonine [Presence] in Urine by Screen method [facility] Methadone [Presence] in Urine by Screen method Negative [facility] (NOTE)Positive results are presumptive a nd unconfirmed;confirmatorytesting can be ordered at the [facility] at [address] [place] [address] at [phone] within 5 days of collection. Opiates [Presence] in Urine by Screen method Negative [facility] Oxycodone [Presence] in Urine by Screen method Negative [facility] Fentanyl+Norfentanyl [Presence] in Urine by Screen method Negative [facility] Service comment [facility] Results below the indicated cutoff (ng/m L), are reported as"Negative." Note: for medical purposes only; not valid for legalor employment testing. ID Date Data Source [id number] 05/26/2020 10:32:59 [facility] Value Range Interpretation Code Description Data Medina rce(s) Supporting Document(s) Buprenorphine [Presence] in Urine Negative [facility] (NOTE)Positive results above the cutoff of 10 ng/mL are presumptive andunconfirmed. [facility] within 5 days of collection. ID Date Data Source [id number] 05/23/2020 03:43:40 [facility] Value Range Interpretation Code Description Data Medina rce(s) Supporting Document(s) ED Provider Note [facility] DHDBBc6cNbIEJbWv81/ZEWskONHwg2FwZWmjNQo6VShuTIDqK3HfKXH4iK7pZKN5JUoMWiOvGjAmTGRy lbm [file] ICAgICAgICAgICAgICAgICAgICAgICAgICAgICAgICAgICAgICAgICAgICAgICAgICAgICAgICAgICAg ICAgICAgICAgICAgICAgICAgICAgICAgICAgICAgICAgICAgICANCiAgICAgICAgICAgICAgICAgICAg ICAgICAgICAgICAgICAgICAgICAgICAgICAgICAgIC AgICAgICAgICAgICAgICAgICAgICAgICAgICAgICAgICAgICAgICAgICAgICAgICANCiAgICAgICAgIC AgICAgICAgICAgICAgICAgICAgICAgICAgICAgICAgICAgICAgICAgICAgICAgICAgICAgICAgICAgIC AgICAgICAgICAgICAgICAgICAgICAgICAgICAgICAN CiAgICAgICAgICAgICAgICAgICAgICAgICAgICAgICAgICAgICAgICAgICAgICAgICAgICAgICAgICAg ICAgICAgICAgICAgICAgICAgICAgICAgICAgICAgICAgICAgICAgICANCiAgICAgICAgICAgICAgICAg ICAgICAgICAgICAgICAgICAgICAgICAgICAgICAgIC AgICAgICAgICAgICAgICAgICAgICAgICAgICAgICAgICAgICAgICAgICAgICAgICAgICANCiAgICAgIC AgICAgICAgICAgICAgICAgICAgICAgICAgICAgICAgICAgICAgICAgICAgICAgICAgICAgICAgICAgIC AgICAgICAgICAgICAgICAgICAgICAgICAgICAgICAg ICANCiAgICAgICAgICAgICAgICAgICAgICAgICAgICAgICAgICAgICAgICAgICAgICAgICAgICAgICAg ICAgICAgICAgICAgICAgICAgICAgICAgICAgICAgICAgICAgICAgICAgICANCiAgICAgICAgICAgICAg ICAgICAgICAgICAgICAgICAgICAgICAgICAgICAgIC AgICAgICAgICAgICAgICAgICAgICAgICAgICAgICAgICAgICAgICAgICAgICAgICAgICAgICANCiAgIC AgICAgICAgICAgICAgICAgICAgICAgICAgICAgICAgICAgICAgICAgICAgICAgICAgICAgICAgICAgIC AgICAgICAgICAgICAgICAgICAgICAgICAgICAgICAg ICAgICANCiAgICAgICAgICAgICAgICAgICAgICAgICAgICAgICAgICAgICAgICAgICAgICAgICAgICAg ICAgICAgICAgICAgICAgICAgICAgICAgICAgICAgICAgICAgICAgICAgICAgICANCjw/nXDjL7lndKDo pgC4U9saYu6KGp6LSQ4by1YmNCMqEBfdvyKqVmpNMc JxJAZfIphAQno5SKtdFT9NmDLcI2HmR1IoCIvgMJ6FBAOyLHIjsXCqPHJjHFQbYsG0KGKwGBlkRZ7BwQ PxBCtyBIVmQKUwRoKnTUPcOLRhXWQrDUVhKXRBDTUePVPfZbDrWPByFXFsGLvqXQJSTWT4JTCdBbGgBR RgCGHeEiOzJNECVYW8HFBaWvBxLIqxTE8Nq1YknYRc OW6UAn9OIrCnPX4ahk6QLQKkRMSxFxaGPgt0HNxpPU2CdVHfvII4QxZsHWNGAaApG7enw6MfNYezTXZC QRxdXJ7Uw3ZuyUJfIAb+Rs1DQR5qk5AcCLn3JkKlMK9uwt7QAQpKTgOyA7SmkMfpZEIPTPNrw6WfEFSw BS6xiVIsOVA1UYSwuVNpV0lnEuKFLEVeB1mlAC1FTO A0SIbhHZ7xXBZhHTRbQqM8PUBDEP7KQTSlPWGpuRKkVQUwIWXNJT6TANdfTUK6BpHghhWrePDgPKiwGI 8JSVNccxAxMWMjHVMZBNcnAE2UfNSyeDO6SbLuNXXUJdMdM7hfd0JiQAgeKBOAHNkhAL2Ep4XgeLZxUI 1RDHCpPrQ5nKY3DKSdPEZFGm8+DQplbmRvYmoNCjQ3 LSFfb0QqSBl3PZ6AXRYwVSk3jFTpIlJcl0iemvStIL1ZUUCkCVHjpPByCIInYGEtKiHgPSnfMJVgHfYs FI55rSbqAB8XAQRfVPPkRW58RTM0NDDeFp8BGd9GJwRwFM2crv6QKMrqBJOpYciMKzl0KNtkNB7VeFGp SJlDCRIVkp81mCUblhSQf4RlbdBadSPQLBIyoOGyXG SdPERjt2XaPVEBXZEbsQU4DmLeIjAcXHEuHms7LtLZIGhKNrWwD4Vny9HyZdLrQaEhMQEsT4lWCrQsTI ToZGUanUrgXA6GJcZeI7LgsnCyeZF6OHMgHCGTGpBmI6WrWCAjWFBrYFZEBItfKG5GJRb4KFY1TCKpRp 5UIb7LXoTrEB9dpr7UUYhyDAUeXocWLwk2SUaaUA4V zJYlSYoGSBQKjlsaX5HjSk33DLQhDlbpCuKqd2FdxMZAOBesbfraScwvCr0sLODuOA06EzTuFpKuACK4 OAOgUE9hVHbgAB7ADJN4FOtwDcAwQCNWPJ6RPJfjCYP2UMKybhKltDYeYKhmSL6EDTItvsVzYTPrUIOS ZUzmTX8QgrZ5PNC6QQSuKe6EOy9QFxZxZS6xbr6FXY TnVKKuTmgLAkd8DXfvVN4IqCMyS6ZwzCChb6kLTsIhX9GVMCOiYKLlEk7XEWDeEfPeHCAhCEhbRI6oAG ToDVUZsYxaifC9TK8AKV8mmxGbMA0AMnHyDo8fBa3WMgCvS0EqO4LtWODvPDMHLRpkJQ3BKRheQK7lQU 2Ln4RPvIWwwL9vvt9NSVTxNSJhAjhobv5SUgpoV1K3 kRngGDPfGOHfZUKMJGazEW5PEVKyWSX9XVO8TQDvPNQNDvSyE20yYB5ZC4Ndn58wRgO4ZSHgLvCfKOwn ZP31tGfnhfBwbRZlhLwsGZ4RNp4+BGeqwrOeQlxFZapgJVNHXfDnTRSIWyCzJVIoVYXnPETeCwN8DbWf Cn1XKXTzATOqOMImKnGlLMZmKGVuRNknYDRqIYJ8IP qnHGIeLRUwQN9KPbGhWBNsVGc1BNGrKQCkNDSile1LMAFnIMIjXRU4WmHwDMMyHLXpDTbxOOIjOYYkVn y4KKWcQTVqCE3INgClJVUoBWU4NLKeIIQqYEGuez5GJJQyVLZbDLX9MPBmFGVvXEKfJIejLBCbGVT1Sa fqNXTnTAUxOJ2OJhZzUARrSKt0UYIrBLQnQWOnaa5F VGLwGILbZWC0DZBxYDGhWBOfTZtoMUNrBHVnDwBvFSElWIDuIA7MNvCeKPBlDQK1AKSrUYBzAKPhrl8P DSAbQJQyCVVjSsQbRDXxELIzZBpkKPXrSJU0SmDzBKYmCSFhCB8WUpUkUVQoHHodVwBdOJSiWUTrxg7A DHPnRHAmKvU3ZLYoJRHkYEXpDGtsAKKuOEV5ZRH9JS XlGIOiOP3IRjBsPBRtIiPnWiOxDLLwEZFkiy5AEWHpMJLfBtW3XpNhRDAgQRPjLPhvBYEjUHTuJLdcHQ SfMOYyZW6IOpEpBFHcYyYeYCKgENKgSNYjpa5OWHLkPKXgHPTgOyMoKPTbQTIhKVuxWCJiNPS1LgKcRC BwHHFvJE9WIsVzVJLwNzb5AQkmVYXsXFCvpj1ZNDIb FBMyFBO5WpNoATJoJQAkFFdwIQRlHHLfIRw3KBZzZVMpFI6TWtAdTVQhDtY2WpibZWDlJNDrrc1TXOTh LMUsLBBnYFNxGZOhPUSnAZeuHFIpWKRbQRT6TQGzDVBmDE2DOcSjKYXhPyN1XduwZOTpHHLobh6RXDMu WNFkYue6LWOyHKIiRSMgXUryFZPgSBKqTWT7VDFaOT CaNK5SSsJlKMVwTKQ4EUEzEUNoJLXjrq6JRWJkMCK4FMw7NWJiEKLjHXFqKZbyUVOdEFZ1GWq8NTBuBE ZuFM3BMrJtBHBkFZDrSDfuHTNoQIYanp6ATYVpTHR3AQM5NCWxHTUuYZVlCTuyYMGaFGK5PNG1FLJxOO AxZZ1CGnDyKJHqJNE7GTFxUXWaARScgf3GQZFgSAO9 Gir5KBEmJUQnEWFcCOeaZTByFUF2ExK7RPFoMWOnQJ4HRkDsHPDjZLn9SIbzRURdERUcav8PCPRpQEF5 VYW0IBDsPDDfJGMaKNqePDIaLCG5WJIxSTDmTCJuQK0LXtUaAESsGLQmDQJdHKBfLMFphc6BXVSlJWS4 ZRE8OZDcUWZqKNMgKYkzUMEtFKEoXhw8BUWxPTFfTT 3MPhMxTKDqZMTuZBqyBRJjDMOkqb5USWOwDPK8SST8AoNcTPTrPEPfTGkjHHBxDHHxFmSdHPIgYNZgSX 5UFrKfILqcDRJTDex3IMwfN3w9KLS5YX5HS7Rea6YmYUSjNZLGVNvkTZ7geeWoNJUtKc9VP4uYOfziSn MaDIFhSoUhJ8MbWSN8LbPnZTR6ZoX5PtZlSXSsLB1w EFNnTVJqGrW9PNAxHUBxJhRvJGO0PqfgDLM1FNE4RZSxDxWkZQ1SRw5SJwD5OMZ0pMIlRy7LKCS8YGMX GtWaDF8AUFc= ID Date Data Source [id number] [facility]18[facility]2020 [facility]16[facility] Name Value Range Interpretation Code Description Data Medina rce(s) Supporting Document(s) Amphetamine [Presence] in Urine by Screen method Negative [facility] Benzodiazepines [Presence] in Urine by Screen method Negat [facility] Cannabinoids [Presence] in Urine by Screen method Negative [facility] (NOTE)Positive results are presumptive a nd unconfirmed;confirmatorytesting can be ordered at the [facility] at [phone] [facility] at [phone] within 5 days of collection. Benzoylecgonine [Presence] in Urine by Screen [facility] Methadone [Presence] in Urine by Screen method Negative [facility] Opiates [Presence] in Urine by Screen method Negative [facility] Oxycodone [Presence] in Urine by Screen method Negative [facility] Fentanyl+Norfentanyl [Presence] in Urine by Screen method Negative [facility] Service comment [facility] Results below the indicated cutoff (ng/m L), are reported as"Negative." Note: for medical purposes only; not valid for legalor employment testing. ID Date Data Source [id number] 05/18/2020 09:45:36 PM [facility] Value Range Interpretation Code Description Data Medina rce(s) Supporting Document(s) Buprenorphine [Presence] in Urine Negative [facility] (NOTE)Positive results above the cutoff of 10 ng/mL are presumptive andunconfirmed. [phone] within 5 days of collection. ID Date Data Source [id number] 05/18/2020 09:21:43 AM [facility] Name Value Range Interpretation Code Description Data Medina rce(s) Supporting Document(s) Progress Note [facility] DVKXCj5kDiSFCjKm27/NLOosHSRvo4PfCGfeDEc9LWcsHNIuR4MyMJF7zZ9zAIV4JVoHWxUwVqJsZFR0 [facility] HtAkiUEoXgNYJzEppIIdCxJFqyKokqgKZiWN9RiSX2UQOcT78oXBDcVBYkN2XtMLI1AvN+Ta6HOSUgkL SpPS4IBaoI0C5qf2kIFf8+vB5ULrQzV2SA42H9ETKYOcjn6UW2h8SshB+7CVglOSXz3OEw1i8/PiXOhP zRG39ZAj4v0Id8HAN8D+9ZkkrV//tFHfquYRiq/G/9 Tz+01N1c/h1vcaNMqfeXKr5su7mGCNCz/TyAbB0v454nDKwKC88PYFZTN/uH6IOALOyuyAsxwmydf49U 4rEC6zmEn6FvduFvGp26/XEeOnB72sy+my++UDc/idKz6Ul4PiGnLBSS+MO5MZjO0Jbc9MdbnlUht0+w I4Q4wsV14xBokslgk1L2HNm7xbdpSs3A79YF3OUMvk lH91TzT9hAy1PTnDRIFapIJGcGlPVTHTCxma+3rVp+2bCp9WndowcTZhMmAjxtoDSlFv/m0PB75oIOmQ 68q5Fk1XCUO6lUjSw5Ex5oECHjsGg6z1K+jnw7v5Fo4x1xr9/kFnvFffe6UM4AXnY5oS0totgGh67bcM uhm6gKxAQC+8gKc7oZCDmvUsNWB2s8ro9/A0Guz7aT heBZxZIe7Qu6MRL1nvfcgsXsbk6Ju1Hy7HuWrLfPbKo1d5zh9/PhZdrnFh08h0HL9dKyufy/sOzdLg3V xhr565xrfYpR3N7IZD3oG7vPJgCPdm51PcGdKSdgrw0hwvMTp3isCK6Kaf3DgGmYtgbsP+GBE3p+Ee58 v36buJTsYhsWPMB9tl9bowYoUFgJ2PDBFf+Cp8T2Cb 8qrTOjZMLoqZFf6Bxj+CoTcmVW2AxAQs3Sa1Mi29vlFyHpPHK4Kr3F1UCBCk9zFj2blATHGAldJHJ7Jz DwFKN4Fzv/ewkxbLtAWfqsKI/Machine Sewer+owbO1plNxlXXSYcRExNJVVmeYyiKX9JXad/l5l6a/EEO0id1s8a4 [file] Maria Luisa+tTTl2Pa78YWK5ZAd2ftF9UMfct6dBGnQ3owlfWLs0x1KN2KwGrrPRMHhOphlccnshl7Dr2aTby4m [file] o= ID Date Data Source [id number] 05/13/2020 11:43:52 PM EDT [facility] Name Value Range Interpretation Code Description Data Medina rce(s) Supporting Document(s) ED Provider Note [facility] QBHBWs5eMqXPBkVh39/XQOduDRDco1RnYQgcPTy6INsfSWGqN3TfMAA0sS4dIQB0EMqJAaZxWoBjQMId lbm VnItuNWnVaCAWwBflDPfAoBTivCqazuODaIR7SjEN2LJThV39wMNIpJFPcP2TcLFY2AGA+Ac5ATHTtgZ YgQJ3GZxvT2P5SLneYKj7ket9POeumn/XqrErAm2TiJE+7YlmayXlakyg3NQWG2H88S7rCT0/NxrFw9z Eyxp4evCEsHB3pDDZAvQLTFvG//Na2lVWTtcS/97+6 VIuTK/D7q1nKOIAyz14+ZBMJD5ms4rSkNH7c0sXKn8/Fm/gGFETJ0GmExEhGYZOygHlY9bkFg2/j2fS1 OMqz6/PRdJKJA/F47fIIBoN4gL5f668+Dent Remover/pWkA3nNlkGieMvonyfdPw8wJRS/mYm+UZztCpm+keaOl [file] ICAgICAgICAgICAgICAgICAgICAgICAgICAgICAgICAgICAgICAgICAgICAgICAgDQogICAgICAgICAg ICAgICAgICAgICAgICAgICAgICAgICAgICAgICAgIC AgICAgICAgICAgICAgICAgICAgICAgICAgICAgICAgICAgICAgICAgICAgICAgICAgICAgICAgICAgDQ ogICAgICAgICAgICAgICAgICAgICAgICAgICAgICAgICAgICAgICAgICAgICAgICAgICAgICAgICAgIC AgICAgICAgICAgICAgICAgICAgICAgICAgICAgICAg ICAgICAgICAgDQogICAgICAgICAgICAgICAgICAgICAgICAgICAgICAgICAgICAgICAgICAgICAgICAg ICAgICAgICAgICAgICAgICAgICAgICAgICAgICAgICAgICAgICAgICAgICAgICAgICAgDQogICAgICAg ICAgICAgICAgICAgICAgICAgICAgICAgICAgICAgIC AgICAgICAgICAgICAgICAgICAgICAgICAgICAgICAgICAgICAgICAgICAgICAgICAgICAgICAgICAgIC AgDQogICAgICAgICAgICAgICAgICAgICAgICAgICAgICAgICAgICAgICAgICAgICAgICAgICAgICAgIC AgICAgICAgICAgICAgICAgICAgICAgICAgICAgICAg ICAgICAgICAgICAgDQogICAgICAgICAgICAgICAgICAgICAgICAgICAgICAgICAgICAgICAgICAgICAg ICAgICAgICAgICAgICAgICAgICAgICAgICAgICAgICAgICAgICAgICAgICAgICAgICAgICAgDQogICAg ICAgICAgICAgICAgICAgICAgICAgICAgICAgICAgIC AgICAgICAgICAgICAgICAgICAgICAgICAgICAgICAgICAgICAgICAgICAgICAgICAgICAgICAgICAgIC AgICAgDQogICAgICAgICAgICAgICAgICAgICAgICAgICAgICAgICAgICAgICAgICAgICAgICAgICAgIC AgICAgICAgICAgICAgICAgICAgICAgICAgICAgICAg ICAgICAgICAgICAgICAgDQogICAgICAgICAgICAgICAgICAgICAgICAgICAgICAgICAgICAgICAgICAg ICAgICAgICAgICAgICAgICAgICAgICAgICAgICAgICAgICAgICAgICAgICAgICAgICAgICAgICAgDQo8 V3wgZNXeINPjBV0mJZk1Zf7+AHgVHaZqHAL5exTotB [id number]JfBVslLX0TGGotqq8WYKGjHJMlcEMOo7gsEbXtTVG0YZQvGt lkRK5IBYLbV9wlteHvTIGgSGYOCGloBZYTOCcwEFBGSLEtECZaUpYrNqIxXTQoTCVqPKRCMJD8XFGvJg WiNLAlDWJqUL3TTWKhW419iuMaXO1XKc6REgPbVH8e qk9VLrwaFHXcEmpZFbm7PXtiEJ3JaKRmvOJ9WQRgZSTKVaWsL2bko5MmFACaSRHTPOpcVV1Rv0RfwAMp DQo+Vd1KWH2sx1XmYVk8KVEdKM1lew0CJVsNHqXiY4MkwThjKJKZYKDlz4DxDWGmWP3voZXoDVB1BA8e axmeRoIKxLMwc3glDVUeeHydSYMtLOLeFM0qUnYxFg RbGNY7ZMIgUF8oKOtrFU5CUNK2PJlsCQRwJTWtU7lDOyHnHXukETDstYhnGD0HMdDbO0KgnbOplIDnET FoHZZBMlUdX85pdRBfOWDtUUYFWLc+Ho2GEW0nv7UuDOq2OKSmAI0iof3JYEzKHsUlS0GfgMwqMLWYVN Mkg4CdEMBePD3czJShZIX0YN2mdvcyNgHHqMAvp1tw OMDulEpuFMFlQEYsGH1wXaOmMgKaAUA5JHXwPC6wMKglWI6SQRO8BOweHXDzFPWNSC6UYVziAOFiMTHd zcLauHMgBPrbIP0SJJYkdxEwHpjcJKHJKQluXU6QyeU7RRByUEGkTo1OYPOrOgF3iDR6FgOoAMOMEh8+ FEugtrTjTmwSNtCbTKPem9BkEAa9NM0SFRCnIUs7iQ JqUPEbKUCyWHyiZM9hjMPnNLC4SLeyjNvaCiAOdWLnOTROPxMydNR8WlUwRdDlQDOeDUqoFeBCTIoOYz UeF3Gfb9PeViDgZRGbPJKfN2bGRdXzHBVqUCOqqUslCI7QQzYoK4BwjhDizVYbXIUnUFTWSpRkD6ZaWN YgNDEgMCBSDQo+Dw3PKR3bc7FjAPn5QpXzSM0jqo7A GCwZBkKnK4Z1vQKuB6S1BVldPz7AWTClMNCeOsrzDBFGSAguNP2BVY2wpsL7LG9PwZJwWEByOCSpdIJl RXc5A61cpYHeYNzxSO9JNLT+Pradeep+Kx5TLIQgJAOkHRGlDeKuQSBVVyWxZ9WnM5ONw6RyK3KsAH68wMlq zmUcSLysTM6IUM0rJFGdGWHRGO4CrZZbzN0kqnCoSC YnDUOXGjZeR53tdKPhBPIwSNJ2KCTnLn0CSQLvW6KqauHtfXmnjhLeRCUeVCLHPM7CXJqtpeNipDCgtH ywWK36wTobBR4NJl9WLoMgCI5wad7IjXUkCo7LHHE1MN9IFEWzYPDcHKEvBDK8ALCuVaDnNZubSAFqSN WwHVG6CDTeXUEaQT7HVzJwYQFcBnj2JJmvZCTaFUIy xu8CLBRnDVK7VHW3BFCdCDHfZMRyTFrkWUUiNRMfMLP4EFApRQUfRQ1LVmZqHBSfJKRiSpPjWSHcKTBy gp6NYINyOICcChPzVISgZWYbZBPhXLxoKOLaSQY5KhCuXGDuIOUoQP6FImZrIPMgVPL8GLknHSTqTYAt tt4BNQXqGGGgZSDwBGJeFLFvUBBqTAgoIPTiHAL5Sf D7JZGnAQOuDE9WKbJiHHFmDDB8RzTqAWPhPDTliz9KSYEcYLXnCAs6WQGkVJFeQESoQPysLEBiSCA8JM DbMAJqCCQcBX8ZXxYzREBkZOY5HinyZNOtSSGlbp1FLIEwLXCuDxU2JGEbJPAdATXxDPpfQZLgBGA6Ym HpKWWsMXPzMU2MBbJpKREoTtZsBOdhGWUpDVQysq0E RHIdHSThOGD0MZTbTESnTYAtFBrtWYLqQOBiPcZ4NSQcVCInFU4WLlIyTRGkNvL8NjHrSJBmHIUhkj9N WZUwCWHwMlqaDHBiGAVtHQZsBSgwZRZoSRUkPVU2RAZjSGQhYM3UKaNwDBKsUqDpRGAzCCUsNVOmvv0J MDNpKLZlOTI5VRXvJWQmBRZnJIoiOGJxCKC8GCOhOG QpJGHaSI2ZJuFoMPJgUbO4CWauHOInUGSmdo5RFMTuZSIsGANnXORvQJHbDZDdPXevRYTmZOG4VKB8HL LzQXImAA5CCdDcOIAhQaV9YCbiLQErGJYrzh6UOBQoSIQwMkW1NMCkLMEjTCCqVQorWHIaFEZ1DrsgQQ UhMXVdYI5ACkKdIJHkBln5TFTrNASqTQXdhk1XIIWh HKNqTAI0DJBrCOYyNKOoRCciTXUsLZS1Adr4VYElUUOkVS6GTjVaYEHnQpznBkCsYQIgUHHgsb4TZQOx NXZjBCWnRDOzACZdMVVrSIqrWHVqPCI2TYr0HGYsFHDwMM3XJfSrQOGoFMBnGendYDTqOHZvhh0NOIXj LEL0YBDbSWMvGRPkMCBzATzfMUVuRMKwLKu8JOQuTA JvMZ1VKsCsWPOeRSO9LILiQCMtTMAdod8SUEFmYPA2FAd2TAIgUHRiAOKsKSwyDPIoHEVkBIZ8SNKfCV FkUL1SCyAhCGizQDCCFja6ZWleY9i5VLC0TQ3EG1Dnn7YoALIdHUKDPSmxHR4opxVvJBCbQz0XV7tSTj fgFsV2TnPkFAWcQYRrNTG4IMBhBbu7FZL6MQN7HXRd ML4jZALsBYbgPKCkAnNzGJTjZImeQNUbGNq0FoQgSRH0A1R4KeYaEU2QNu8DXjB3AQM9eTDaPf9STAJy JNAAStYgWI9IFUw= ID Date Data Source [id number] 05/13/2020 04:59:47 PM EDT [facility] Name Value Range Interpretation Code Description Data Medina rce(s) Supporting Document(s) Consultation [facility] EFJVCw8pSqITCgJh67/NQFakFMThl9YcHGoiDDm2YWgeEPEtZ8IuLHN8kZ9cSRL0QLkVXxGwTfPaZKWw lbm PxWxcLLrGcRDUsMleKRdDcUOneCpxppKDyUP7BuQU2BMFzY43nNVFqLZLcD0MhWQIeVIT+Lg7COQBnfO XlLO0CMxrI2K9nz9v1Dl9tra5TfHoRP+nENsE7/jgKdeRZswFiaO5Hum5FroA4h3dkWh7mv77axer2hc +qXfdh4b6lkMDJraHU6uOZtWpJ9i//qG5AccdC7A/X N9UTQcCn+A5qecah7FW45wloCZtRHjuXmpQ458ZRR1mlu99bY4QedPkiUU8B8WnLPpP7Ieg6Zca7E9He iCv9qrpaoAou+IFmJc15SrGE45iurKI7cJd/W0nA6xXpqiKfWOzRHo3gajQsoff7g1GcNBO3a8QgOhqx 4bUpUK10L5F5SbiX9lY/bHXktOe0F5GVafP/S2MxN8 s/126AKubL6nzOcXsSzJlJclBVQy4dwJRbP/9ZL+LVWhzFy+SypxabLqo71swhB0VYpAYq2h7dqW55a+ Tx6TbHa1xJAYS9jWhal03PxXGdU8A+1UT1RTb3klYk3PvtKrnNgiQ0sosWj7Lel9kwcg+EzSFFZw81F8 iSdTkYZ8+M0yGdlL9pG+xrp9v1lB2FwupY9IuAne3D aMm+4IM3kJW1IimwXqfmruvXdGPl+3CqIIAwG0bPfEjLJqBQG73pqEEebxMV60SA/oaYu7rdM8ZZ2mr4 quqywt+yISuHHNdLKTtMe6F+QF0VUluYI4WRHVK5KhdtOWcX0PhwnlIPokrUCt55yI7d1k62AYsbCDUV YaXPMGEfks+P01eczCYqrLuOzkjvVrP0QcvoHHnje9 jdEobGWOML6Wi2twEmwaoiCBBoWPO+xGCSvbYcJFHpUxhsoJOsiZVZ4VISEoXM6yc6gJgNzX5SIZNyb4 W/vqORqpERaNqlzEiB48pkyepN5NdWVPRhu6Tus0hXhJxnFRtyDjHtigwsYGZ3TtxzBUqU0qDFbvdOrk qFMPL/UWYmUOQfikgR0S7lZvk4aCFHuA2zneCwV7Pr aR9/ghGuyJSrPgqXcMSe6SDBLSsPew1TBPTf9wE/Cw46cpHmLE5cdfoDtv5osNQ4RuktcumzPiPpH4df I9RUea9L+tc59S+VFDAAKWig7ZqG7THXMxe2OMBJJzZSr5fr9uFEb8DnNPyTeNxG9uf0aDy3ZKfiEOsb bbtYdh/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+SdN/pognqv9p/DjKvBDsTMJXH6RaWmQ [file] T4WGK9VXk6MQCwBUMaVAphKGr5IeTuPX0ZBb5ODlM0BFC5qJPfTy3LUDRlVu2NPJZRD1ZTIp== Procedure Social History Code Duration Value Status Description Data Source(s ) Smoking 06/17/2021 12:00:00 AM EDT Current Smoker completed Curre nt Smoker eCW1 ([facility]) Alcohol intake 07/13/2020 12:00:00 AM EST Ex-drinker (finding) comp leted Ex- drinker (finding) [facility] Tobacco use and exposure 07/13/2020 12:00:00 AM EST Never used co mpleted Never used [facility] Cigarettes smoked current (pack per day) - Reported 07/13/20 12:00:00 AM EST UNK completed [facility] Smoking 07/13/2020 12:00:00 AM EST Current every day smoker co mpleted Current every day smoker [facility] Alcohol intake 07/06/2020 12:00:00 AM EDT Ex-drinker (finding) comp leted Ex- drinker (finding) [facility] Alcohol intake 06/28/2020 12:00:00 AM EDT Ex-drinker (finding) comp leted Ex- drinker (finding) [facility] Smoking 06/27/2020 11:30:00 AM EDT Daily Smoker completed Daily [facility] Smoking 06/26/2020 03:10:00 PM EDT Daily Smoker completed Daily [facility] Alcohol intake 06/26/2020 12:00:00 AM EDT Ex-drinker (finding) comp leted Ex- drinker (finding) [facility] Smoking 06/14/2020 07:56:00 AM EDT Daily Smoker completed Daily [facility] Vital Signs ID Date Data Source UNK Name Value Range Interpretation Code Description Data Source(s) Body temperature 98.4 [degF] 98.4 [degF] eCW1 ( [facility]) Systolic blood pressure 128 mm[Hg] 128 mm[Hg] e CW1 ([facility]) Diastolic blood pressure 60 mm[Hg] 60 mm[Hg] eCW1 ([facility]) Body weight 115 [lb_av] 115 [lb_av] eCW1 ([facility]) Body weight 52.16 kg 52.16 kg eCW1 ([facility]) Body height 63 [in_i] 63 [in_i] eCW1 ([facility]) Body mass index (BMI) [Ratio] 20.37 kg/m2 20.37 kg/m2 eCW1 ([facility]) Heart rate 122 /min 122 /min eCW1 ([facility]) Respiratory rate 18 /min 18 /min eCW1 ([facility]) Body temperature 98.0 [DEGF] 98.0 [DEGF] NETSMA RT ([facility]) Body temperature 36.7 KRISTEN 36.7 KRISTEN NETSMART ([facility]) Heart rate 120.0 /MIN 120.0 /MIN NETSMART ([facility]) Respiratory rate 18.0 /MIN 18.0 /MIN NETSMART ([facility]) Systolic blood pressure 108.0 MM[HG] 108.0 MM[H G] NETSMART ([facility]) Diastolic blood pressure 71.0 MM[HG] 71.0 MM[HG ] NETSMART ([facility]) Heart rate 90.0 /MIN 90.0 /MIN NETSMART ([facility]) Respiratory rate 12.0 /MIN 12.0 /MIN NETSMART ([facility]) Body temperature 97.8 [DEGF] 97.8 [DEGF] NETSMA RT ([facility]) Body temperature 36.6 KRISTEN 36.6 KRISTEN NETSMART ([facility]) Systolic blood pressure 101.0 [...] pressure 78.0 MM[HG] 78.0 MM[HG ] NETSMART ([facility]) Body temperature 96.8 [DEGF] 96.8 [DEGF] [...] pressure 69.0 MM[HG] 69.0 MM[HG ] NETSMART ([facility]) Body mass index (BMI) [Ratio] 18.5 kg/m2 No rmal (applies to non-numeric results) 18.5 kg/m2 [facility] Systolic blood pressure 105 mm[Hg] Normal (applies t o non-numeric results) 105 mm[Hg] [facility] Diastolic blood pressure 69 mm[Hg] Normal (applies to non-numeric results) 69 mm[Hg] [facility] Heart rate 104 min Normal (applies to non-numeric resul ts) 104 min [facility] Body height 159.7152 cm Normal (applies to non-numeric res ults) 159.7152 cm [facility] Deprecated Oxygen saturation in Capillary blood by Oximetry 100 % Normal (applies to non-numeric results) 100 % [facility] Respiratory rate 16 min Normal (applies to non-numeric results) 16 min [facility] Body temperature 36.8 kristen Normal (applies to non-numeric results) 36.8 kristen [facility] Body weight Measured 105 [lb_av] Normal (applies to n on-numeric results) 105 [lb_av] [facility] Systolic blood pressure 99 mm[Hg] Normal (applies t o non-numeric results) 99 mm[Hg] [facility] Diastolic blood pressure 68 mm[Hg] Normal (applies to non-numeric results) 68 mm[Hg] [facility] Body mass index (BMI) [Ratio] 18.0 kg/m2 No rmal (applies to non-numeric results) 18.0 kg/m2 [facility] Heart rate 88 min Normal (applies to non-numeric resul ts) 88 min [facility] Body height 159.7152 cm Normal (applies to non-numeric res ults) 159.7152 cm [facility] Deprecated Oxygen saturation in Capillary blood by Oximetry 99 % Normal (applies to non-numeric results) 99 % [facility] Respiratory rate 18 min Normal (applies to non-numeric results) 18 min [facility] Body temperature 36.7 kristen Normal (applies to non-numeric results) 36.7 kristen [facility] Body weight Measured 102 [lb_av] Normal (applies to n on-numeric results) 102 [lb_av] [facility] Body temperature 98.7 [DEGF] 98.7 [DEGF] NETSMA RT ([facility]) Body temperature 37.1 KRISTEN 37.1 KRISTEN NETSMART ([facility]) Oxygen saturation in Arterial blood by Pulse oximetry 96.0 % 96.0 % [facility] ([facility]) Body mass index (BMI) [Ratio] 18.0 kg/m2 No rmal (applies to non-numeric results) 18.0 kg/m2 [facility] Body height 159.7152 cm Normal (applies to non-numeric res ults) 159.7152 cm [facility] Deprecated Oxygen saturation in Capillary blood by Oximetry 98 % Normal (applies to non-numeric results) 98 % [facility] Respiratory rate 18 min Normal (applies to non-numeric results) 18 min [facility] Body temperature 36.5 kristen Normal (applies to non-numeric results) 36.5 kristen [facility] Body weight Measured 102 [lb_av] Normal (applies to n on-numeric results) 102 [lb_av] [facility] Systolic blood pressure 123 mm[Hg] Normal (applies t o non-numeric results) 123 mm[Hg] [facility] Diastolic blood pressure 79 mm[Hg] Normal (applies to non-numeric results) 79 mm[Hg] [facility] Heart rate 105 min Normal (applies to non-numeric resul ts) 105 min [facility] Body height 160.0 cm 160.0 cm [facility] ([facility]) Body weight 45.5 KG 45.5 KG [facility] ([facility]) Body mass index (BMI) [Ratio] 17.7 17.7 [facility] ([facility]) Pain severity - 0-10 verbal numeric rating [Score] - Reported 0.0 S karie 0.0 Scale [facility] ([facility]) ID Date Data Source [id number] 12/20/2020 10:54:00 AM EDT [facility] Name Value Range Interpretation Code Description Data Source(s) Weight (Calculated Kilograms) 48.99 48.99 [facility] Height (Calculated Centimeters) 160.02 160. 02 [facility] Body Mass Index (BMI) 19.1 19.1 [facility] ID Date Data Source [id number] 12/20/2020 10:48:00 AM EDT [facility] Name Value Range Interpretation Code Description Data Source(s) Weight (Calculated Kilograms) 48.99 48.99 [facility] Height (Calculated Centimeters) 160.02 160. 02 [facility] Body Mass Index (BMI) 19.1 19.1 [facility] Weight (Calculated Kilograms) 48.99 48.99 [facility] Height (Calculated Centimeters) 160.02 160. 02 [facility] Body Mass Index (BMI) 19.1 19.1 [facility] Weight (Calculated Kilograms) 48.99 48.99 [facility] Height (Calculated Centimeters) 160.02 160. 02 [facility] Body Mass Index (BMI) 19.1 19.1 [facility] ID Date Data Source [id number] 12/23/2020 01:12:00 PM EDT [facility] Name Value Range Interpretation Code Description Data Source(s) Weight (Calculated Kilograms) 48.99 48.99 [facility] Height (Calculated Centimeters) 160.02 160. 02 [facility] Body Mass Index (BMI) 19.1 19.1 [facility] Weight (Calculated Kilograms) 48.99 48.99 [facility] Height (Calculated Centimeters) 160.02 160. 02 [facility] Body Mass Index (BMI) 19.1 19.1 [facility] Weight (Calculated Kilograms) 48.99 48.99 [facility] Height (Calculated Centimeters) 160.02 160. 02 [facility] Body Mass Index (BMI) 19.1 19.1 [facility] Weight (Calculated Kilograms) 48.99 48.99 [facility] Height (Calculated Centimeters) 160.02 160. 02 [facility] Body Mass Index (BMI) 19.1 19.1 [facility] ID Date Data Source [id number] 12/16/2020 01:58:00 PM EDT [facility] Name Value Range Interpretation Code Description Data Source(s) Weight (Calculated Kilograms) 48.99 48.99 [facility] Height (Calculated Centimeters) 160.02 160. 02 [facility] Body Mass Index (BMI) 19.1 19.1 [facility] Weight (Calculated Kilograms) 48.99 48.99 [facility] Height (Calculated Centimeters) 160.02 160. 02 [facility] Body Mass Index (BMI) 19.1 19.1 [facility] ID Date Data Source [id number] 12/15/2020 12:19:00 AM T [facility] Name Value Range Interpretation Code Description Data Source(s) Weight (Calculated Kilograms) 48.99 48.99 [facility] Height (Calculated Centimeters) 160.02 160. 02 [facility] Body Mass Index (BMI) 19.1 19.1 [facility] Weight (Calculated Kilograms) 48.99 48.99 [facility] Height (Calculated Centimeters) 160.02 160. 02 [facility] Body Mass Index (BMI) 19.1 19.1 [facility] ID Date Data Source [id number] 12/09/2020 06:48:00 PM [facility] Name Value Range Interpretation Code Description Data Source(s) Weight (Calculated Kilograms) 48.99 48.99 [facility] Height (Calculated Centimeters) 160.02 160. 02 [facility] Body Mass Index (BMI) 19.1 19.1 [facility] ID Date Data Source [id number] 12/07/2020 06:17:00 PM [facility] Name Value Range Interpretation Code Description Data Source(s) Weight (Calculated Kilograms) 48.99 48.99 [facility] Height (Calculated Centimeters) 160.02 160. 02 [facility] Body Mass Index (BMI) 19.1 19.1 [facility] ID Date Data Source [id number] 11/30/2020 12:12:00 AM [facility] Hospital Name Value Range Interpretation Code Description Data Source(s) Weight (Calculated Kilograms) 48.99 48.99 [facility] Height (Calculated Centimeters) 160.02 160. 02 [facility] Body Mass Index (BMI) 19.1 19.1 [facility] Weight (Calculated Kilograms) 48.99 48.99 [facility] Height (Calculated Centimeters) 160.02 160. 02 [facility] Body Mass Index (BMI) 19.1 19.1 [facility] Weight (Calculated Kilograms) 48.99 48.99 [facility] Height (Calculated Centimeters) 160.02 160. 02 [facility] Body Mass Index (BMI) 19.1 19.1 [facility] ID Date Data Source [id number] 11/16/2020 12:40:00 AM [facility] Hospital Name Value Range Interpretation Code Description Data Source(s) Weight (Calculated Kilograms) 48.99 48.99 [facility] Height (Calculated Centimeters) 160.02 160. 02 [facility] Body Mass Index (BMI) 19.1 19.1 [facility] Weight (Calculated Kilograms) 48.99 48.99 [facility] Height (Calculated Centimeters) 160.02 160. 02 [facility] Body Mass Index (BMI) 19.1 19.1 [facility] ID Date Data Source [id number] 11/10/2020 11:10:00 AM [facility] Hospital Name Value Range Interpretation Code Description Data Source(s) Weight (Calculated Kilograms) 48.99 48.99 [facility] Height (Calculated Centimeters) 160.02 160. 02 [facility] Body Mass Index (BMI) 19.1 19.1 [facility] ID Date Data Source [id number] 11/11/2020 12:57:00 AM [facility] Hospital Name Value Range Interpretation Code Description Data Source(s) Weight (Calculated Kilograms) 48.99 48.99 [facility] Height (Calculated Centimeters) 160.02 160. 02 [facility] Body Mass Index (BMI) 19.1 19.1 [facility] Weight (Calculated Kilograms) 48.99 48.99 [facility] Height (Calculated Centimeters) 160.02 160. 02 [facility] Body Mass Index (BMI) 19.1 19.1 [facility] ID Date Data Source [id number] 11/05/2020 02:59:00 AM [facility] Hospital Name Value Range Interpretation Code Description Data Source(s) Weight (Calculated Kilograms) 48.99 48.99 [facility] Height (Calculated Centimeters) 160.02 160. 02 [facility] Body Mass Index (BMI) 19.1 19.1 [facility] Weight (Calculated Kilograms) 48.99 48.99 [facility] Height (Calculated Centimeters) 160.02 160. 02 [facility] Body Mass Index (BMI) 19.1 19.1 [facility] ID Date Data Source [id number] 11/03/2020 12:51:00 AM EST [facility] Name Value Range Interpretation Code Description Data Source(s) Weight (Calculated Kilograms) 48.99 48.99 [facility] Height (Calculated Centimeters) 160.02 160. 02 [facility] Body Mass Index (BMI) 19.1 19.1 [facility] Weight (Calculated Kilograms) 48.99 48.99 [facility] Height (Calculated Centimeters) 160.02 160. 02 [facility] Body Mass Index (BMI) 19.1 19.1 [facility] ID Date Data Source [id number] 10/27/2020 01:35:00 AM EST [facility] Name Value Range Interpretation Code Description Data Source(s) Weight (Calculated Kilograms) 48.99 48.99 [facility] Height (Calculated Centimeters) 160.02 160. 02 [facility] Body Mass Index (BMI) 19.1 19.1 [facility] Weight (Calculated Kilograms) 48.99 48.99 [facility] Height (Calculated Centimeters) 160.02 160. 02 [facility] Body Mass Index (BMI) 19.1 19.1 [facility] ID Date Data Source [id number] 12/22/2020 03:54:00 PM EDT [facility] Name Value Range Interpretation Code Description Data Source(s) Weight Measurement Method 1 1 [facility] Weight (Calculated Kilograms) 48.99 48.99 [facility] Weight 6 2096 [facility] Temperature Source 7 7 [facility] Temperature 98.1 98.1 [facility] Respiratory Effort 1 1 [facility] Respiratory Rate 18 18 [facility] Pulse Assessment Method 4 4 [facility] Pulse Rate 96 96 [facility] Height (Calculated Centimeters) 160.02 160. 02 [facility] Height 63 63 [facility] Blood Pressure 113/66 113/66 [facility] Body Mass Index (BMI) 19.1 19.1 [facility] Weight Measurement Method 1 1 [facility] Weight (Calculated Kilograms) 48.99 48.99 [facility] Weight 20956 [facility] Temperature Source 7 7 [facility] Temperature 98.1 98.1 [facility] Respiratory Effort 1 1 [facility] Respiratory Rate 18 18 [facility] Pulse Assessment Method 4 4 [facility] Pulse Rate 96 96 [facility] Height (Calculated Centimeters) 160.02 160. 02 [facility] Height 63 63 [facility] Blood Pressure 113/66 113/66 [facility] Body Mass Index (BMI) 19.1 19.1 [facility] Weight Measurement Method 1 1 [facility] Weight (Calculated Kilograms) 48.99 48.99 [facility] Weight 2095 2095 [facility] Temperature Source 7 7 [facility] Temperature 98.1 98.1 [facility] Respiratory Effort 1 1 [facility] Respiratory Rate 18 18 [facility] Pulse Assessment Method 4 4 [facility] Pulse Rate 96 96 [facility] Height (Calculated Centimeters) 160.02 160. 02 [facility] Height 63 63 [facility] Blood Pressure 113/66 113/66 [facility] Body Mass Index (BMI) 19.1 19.1 [facility] Weight Measurement Method 1 1 [facility] Weight (Calculated Kilograms) 48.99 48.99 [facility] Weight 1728 1728 [facility] Temperature Source 7 7 [facility] Temperature 98.2 98.2 [facility] Respiratory Effort 1 1 [facility] Respiratory Rate 16 16 [facility] Pulse Assessment Method 4 4 [facility] Pulse Rate 93 93 [facility] Height (Calculated Centimeters) 160.02 160. 02 [facility] Height 63 63 [facility] Blood Pressure 109/79 109/79 [facility] Body Mass Index (BMI) 19.1 19.1 [facility] Weight Measurement Method 1 1 [facility] Weight (Calculated Kilograms) 48.99 48.99 [facility] Weight 1728 1728 [facility] Temperature Source 7 7 [facility] Temperature 98.0 98.0 [facility] Respiratory Effort 1 1 [facility] Respiratory Rate 12 12 [facility] Pulse Assessment Method 4 4 [facility] Pulse Rate 93 93 [facility] Height (Calculated Centimeters) 160.02 160. 02 [facility] Height 63 63 [facility] Blood Pressure 109/79 109/79 [facility] Body Mass Index (BMI) 19.1 19.1 [facility] Weight Measurement Method 1 1 [facility] Weight (Calculated Kilograms) 48.99 48.99 [facility] Weight 1728 1728 [facility] Temperature Source 7 7 [facility] Temperature 97.0 97.0 [facility] Respiratory Effort 1 1 [facility] Respiratory Rate 16 16 [facility] Pulse Assessment Method 4 4 [facility] Pulse Rate 95 95 [facility] Height (Calculated Centimeters) 160.02 160. 02 [facility] Height 63 63 [facility] Blood Pressure 110/75 110/75 [facility] Body Mass Index (BMI) 19.1 19.1 [facility] Weight Measurement Method 1 1 [facility] Weight (Calculated Kilograms) 48.99 48.99 [facility] Weight 1728 1728 [facility] Temperature Source 7 7 [facility] Temperature 97.9 97.9 [facility] Respiratory Effort 1 1 [facility] Respiratory Rate 18 18 [facility] Pulse Assessment Method 4 4 [facility] Pulse Rate 96 96 [facility] Height (Calculated Centimeters) 160.02 160. 02 [facility] Height 63 63 [facility] Blood Pressure 99/59 99/59 [facility] Body Mass Index (BMI) 19.1 19.1 [facility] ID Date Data Source [id number] 08/19/2020 12:11:00 AM [facility] Name Value Range Interpretation Code Description Data Source(s) Weight Measurement Method 1 1 [facility] Weight (Calculated Kilograms) 41.39 41.39 [facility] Weight 1460 1460 [facility] pital Temperature Source 7 7 [facility] Temperature 97.9 97.9 [facility] spital Respiratory Effort 1 1 [facility] Respiratory Rate 18 18 [facility] Pulse Assessment Method 4 4 G [facility] Pulse Rate 97 97 [facility] pital Height (Calculated Centimeters) 160.02 160. 02 [facility] Height 63 63 [facility] pital Blood Pressure 99/62 99/62 [facility] Body Mass Index (BMI) 16.1 16.1 [facility] Weight Measurement Method 1 1 [facility] Weight (Calculated Kilograms) 41.39 41.39 [facility] Weight 1460 1460 [facility] pital Temperature Source 7 7 [facility] Temperature 97.9 97.9 [facility] spital Respiratory Effort 1 1 [facility] Respiratory Rate 18 18 [facility] Pulse Assessment Method 4 4 G [facility] Pulse Rate 97 97 [facility] pital Height (Calculated Centimeters) 160.02 160. 02 [facility] Height 63 63 [facility] Blood Pressure 99/62 99/62 [facility] Body Mass Index (BMI) 16.1 16.1 [facility] Weight Measurement Method 1 1 [facility] Weight (Calculated Kilograms) 41.39 41.39 [facility] Weight 1460 1460 [facility] pital Temperature Source 7 7 [facility] Temperature 97.9 97.9 [facility] spital Respiratory Effort 1 1 [facility] Respiratory Rate 18 18 [facility] Pulse Assessment Method 4 4 G [facility] Pulse Rate 97 97 [facility] pital Height (Calculated Centimeters) 160.02 160. 02 [facility] Height 63 63 [facility] Blood Pressure 99/62 99/62 [facility] Body Mass Index (BMI) 16.1 16.1 [facility] Weight Measurement Method 1 1 [facility] Weight (Calculated Kilograms) 41.39 41.39 [facility] Weight 1460 1460 [facility] pital Temperature Source 7 7 [facility] Temperature 97.6 97.6 [facility] spital Respiratory Effort 1 1 [facility] Respiratory Rate 17 17 [facility] Pulse Assessment Method 4 4 G [facility] Pulse Rate 93 93 [facility] pital Height (Calculated Centimeters) 160.02 160. 02 [facility] Height 63 63 [facility] pital Blood Pressure 102/70 102/70 [facility] Body Mass Index (BMI) 16.1 16.1 [facility] Weight Measurement Method 1 1 [facility] Weight (Calculated Kilograms) 41.39 41.39 [facility] Weight 1460 1460 [facility] pital Temperature Source 6 6 [facility] Temperature 98.7 98.7 [facility] spital Respiratory Effort 1 1 [facility] Respiratory Rate 16 16 [facility] Pulse Assessment Method 4 4 G [facility] Pulse Rate 114 114 [facility] pital Height (Calculated Centimeters) 160.02 160. 02 [facility] Height 63 63 [facility] pital Blood Pressure 107/71 107/71 [facility] Body Mass Index (BMI) 16.1 16.1 [facility] Weight Measurement Method 1 1 [facility] Weight (Calculated Kilograms) 41.39 41.39 [facility] Weight 1460 1460 [facility] pital Temperature Source 7 7 [facility] Temperature 97.7 97.7 [facility] spital Respiratory Effort 1 1 [facility] Respiratory Rate 16 16 [facility] Pulse Assessment Method 4 4 G [facility] Pulse Rate 103 103 [facility] pital Height (Calculated Centimeters) 160.02 160. 02 [facility] Height 63 63 [facility] pital Blood Pressure 123/79 123/79 [facility] Body Mass Index (BMI) 16.1 16.1 [facility] Weight Measurement Method 1 1 [facility] Weight (Calculated Kilograms) 41.39 41.39 [facility] Weight 1460 1460 [facility] pital Temperature Source 7 7 [facility] Temperature 98.7 98.7 [facility] spital Respiratory Effort 1 1 [facility] Respiratory Rate 16 16 [facility] Pulse Assessment Method 4 4 G [facility] Pulse Rate 108 108 [facility] pital Height (Calculated Centimeters) 160.02 160. 02 [facility] Height 63 63 [facility] pital Blood Pressure 103/70 103/70 [facility] Body Mass Index (BMI) 16.1 16.1 [facility] Weight Measurement Method 1 1 [facility] Weight (Calculated Kilograms) 41.39 41.39 [facility] Weight 1460 1460 [facility] pital Temperature Source 1 1 [facility] Temperature 98.1 98.1 [facility] spital Respiratory Effort 1 1 [facility] Respiratory Rate 17 17 [facility] Pulse Assessment Method 1 1 G [facility] Pulse Rate 109 109 [facility] pital Height (Calculated Centimeters) 160.02 160. 02 [facility] Height 63 63 [facility] Blood Pressure 93/65 93/65 [facility] Body Mass Index (BMI) 16.1 16.1 [facility] Weight (Calculated Kilograms) 42.55 42.55 [facility] Height (Calculated Centimeters) 160.02 160. 02 [facility] Body Mass Index (BMI) 16.6 16.6 [facility] ID Date Data Source [id number] 07/06/2020 08:22:12 PM [facility] Name Value Range Interpretation Code Description Data Source(s) WEIGHT RECORDED 102 lb 102 lb [facility] Body height Measured 62.99 in 62.99 in [facility] ID Date Data Source [id number] 05/26/2020 10:33:09 AM [facility] Name Value Range Interpretation Code Description Data Source(s) WEIGHT RECORDED 105.4 lb 105.4 lb [facility] ID Date Data Source [id number] 05/13/2020 11:43:52 PM [facility] Name Value Range Interpretation Code Description Data Source(s) WEIGHT RECORDED 105 lb 105 lb [facility] Body height Measured 63 in 63 in [facility] Patient Treatment Plan of Care Planned Activity Planned Date Details Description Data Source (s) Buprenorphine 8 MG / Naloxone 2 MG Oral Strip 07/13/2020 12:00:00 A [facility] Sulfamethoxazole 800 MG / Trimethoprim 160 MG Oral Tab let 07/13/2020 12:00:00 AM [facility] Sulfamethoxazole 800 MG / Trimethoprim 160 MG Oral Tab let 07/13/2020 12:00:00 AM [facility] ospital Buprenorphine 8 MG / Naloxone 2 MG Oral Strip 07/13/2020 12:00:00 A [facility] Polymyxin B 75722 UNT/ML / Trimethoprim 1 MG/ML Ophtha lmic Solution 07/06/2020 12:00:00 AM [facility] ospital Buprenorphine 8 MG / Naloxone 2 MG Oral Strip 07/06/2020 12:00:00 A M [facility] Buprenorphine 8 MG / Naloxone 2 MG Oral Strip 06/28/2020 12:00:00 A M [facility] First-Mouthwash BLM Mouth/Throat Suspension 06/08/2020 12:00:00 AM [facility] quetiapine 200 MG Oral Tablet 06/08/2020 12:00:00 AM [facility] aripiprazole 5 MG Oral Tablet 06/08/2020 12:00:00 AM [facility] Buprenorphine 8 MG / Naloxone 2 MG Oral Strip 06/08/2020 12:00:00 A [facility] Hydroxyzine Hydrochloride 10 MG Oral Tablet 06/01/2020 12:00:00 AM [facility] Buprenorphine 8 MG / Naloxone 2 MG Oral Strip 06/01/2020 12:00:00 A [facility] Omeprazole 40 MG Delayed Release Oral Capsule 05/25/2020 12:00:00 A [facility] Buprenorphine 12 MG / Naloxone 3 MG Oral Strip 05/25/2020 12:00:00 AM [facility] Buprenorphine 8 MG / Naloxone 2 MG Oral Strip 05/18/2020 12:00:00 A [facility] Buprenorphine 8 MG / Naloxone 2 MG Oral Strip 04/13/2020 12:00:00 A M [facility]
[2021-06-30] MEDS ORDERED: BACTRIM 160MG/800MG DS TAB PO ONE (18:05)
[2021-06-30 18:48] LABS: RSV AMPLIFICATION NEGATIVE (NEGATIVE)
[2021-06-30 20:21] VITALS: BP 106/71
[2021-06-30] MEDS: QUEtiapine FUMARATE 200 MG TAB PO SCH (21:01)
[2021-06-30] MEDS: PRAZOSIN 1 MG CAP PO SCH (21:01)
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
[2021-07-01 18:51] VITALS: BP 110/65
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
[2021-07-01] MEDS ORDERED: ALBUTEROL 90 MCG/ACT 8GM HFA INHALER INH PRN (19:55)
[2021-07-01] MEDS: QUEtiapine FUMARATE 200 MG TAB PO SCH (20:55)
[2021-07-01] MEDS: traZODone 50 MG TAB PO PRN (20:55)
[2021-07-01] MEDS: PRAZOSIN 1 MG CAP PO SCH (20:57)
[2021-07-01] MEDS: IBUPROFEN 600MG TAB PO PRN (21:00)
[2021-07-01] MEDS: CLINDAMYCIN 150MG CAPSULE PO SCH (22:36)
[2021-07-02] MEDS: CLINDAMYCIN 150MG CAPSULE PO SCH ×3 (06:08→21:47)
[2021-07-02 07:22] VITALS: BP 121/58
[2021-07-02] MEDS: PANTOPRAZOLE 20 MG TAB PO SCH (09:11)
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
[2021-07-02] MEDS: GABAPENTIN 300 MG CAP PO SCH ×3 (11:13→21:47)
[2021-07-02] MEDS: IBUPROFEN 600MG TAB PO PRN ×2 (12:42→21:48)
[2021-07-02 12:56] LABS: BASO % 0.5 % (0.0-1.0); EOS # 0.3 10^3/uL (0.0-0.5); EOS % 3.2 % (0.0-3.0); HEMATOCRIT 44.5 % (36.0-47.0); HEMOGLOBIN 15.1 g/dl (12.0-15.5); LYMPH # 3.4 10^3/uL (1.5-5.0); LYMPH % 42.5 % (24.0-44.0); MEAN CORPUSCULAR HEMOGLOBIN 30.1 pg (27.0-33.0); MEAN CORPUSCULAR HGB CONC 33.9 g/dl (32.0-36.5); MEAN CORPUSCULAR VOLUME 88.8 fl (80.0-96.0); MONO # 0.5 10^3/uL (0.0-0.8); MONO % 6.6 % (2.0-8.0); NEUTROPHILS # 3.8 10^3/uL (1.5-8.5); NEUTROPHILS % 47.1 % (36.0-66.0); PLATELET COUNT, AUTOMATED 302 10^3/uL (150-450); RED BLOOD COUNT 5.01 10^6/uL (4.00-5.40)
[2021-07-02 13:23] LABS: ALBUMIN 3.4 GM/DL (3.2-5.2); ALT/SGPT 80 U/L (12-78); BILIRUBIN,TOTAL 0.2 MG/DL (0.2-1.0); BLOOD UREA NITROGEN 11 MG/DL (7-18); CALCIUM LEVEL 9.6 MG/DL (8.5-10.1); CARBON DIOXIDE LEVEL 28 MEQ/L (21-32); CHLORIDE LEVEL 104 MEQ/L (98-107); CREATININE FOR GFR 0.68 MG/DL (0.55-1.30); GLOMERULAR FILTRATION RATE > 60.0 (>60); GLUCOSE, FASTING 104 MG/DL (70-100); MAGNESIUM LEVEL 1.9 MG/DL (1.8-2.4); POTASSIUM SERUM 4.8 MEQ/L (3.5-5.1); SODIUM LEVEL 136 MEQ/L (136-145); TOTAL PROTEIN 7.1 GM/DL (6.4-8.2)
--- NOTE | 2021-07-02 13:54 | CR ---
CONSULTATION DATE: 07/02/2021 CHIEF COMPLAINT: Abscess, left thigh. HISTORY OF PRESENT ILLNESS: The patient is a 30-year-old female currently in the Mental Health Unit for substance abuse, suicidal and homicidal ideation. During her stay she was found to have an abscess on the left thigh. She claims she has had it for about three days. No elevated white count on admission. No fevers. She does have pain, swelling, induration and active drainage from this area. Ultrasound was done which did confirm that there was about a 1.5 to 2 cm fluid collection at that location as well. Because of this I was asked to evaluate for possible I&D. She has no new complaints this morning. She is on antibiotics. The abscess size has not changed yet but she also has not had her dressing changed in three days. She has not showered or cleaned it up at all. PAST MEDICAL HISTORY: Asthma, migraines, substance abuse, possible history of suicidal attempts, PTSD. FAMILY HISTORY: Noncontributory. SOCIAL HISTORY: Polysubstance abuse, again using heroin, cannabis, alcohol, nicotine, bath salts. ALLERGIES: CEFACLOR. MEDICATIONS: Please see Med Rec. REVIEW OF SYSTEMS: For pertinent positive and negatives as noted in HPI. PHYSICAL EXAMINATION: GENERAL: A&O x3, no acute distress. VITALS: Temp 97.8, pulse 88, respirations 16, blood pressure 121/58, pulse ox 99% on room air. HEENT: Pupils equal, round and reactive to light and accommodation. HEART: S1, S2, regular rate and rhythm. LUNGS: Clear to auscultation bilaterally. ABDOMEN: Soft, nontender, non-distended. SKIN: In the left anterior mid thigh there is about a 5 cm area of induration. In the middle of it there is about 1 to 1.5 cm opening with active purulent drainage. With gentle compression around the opening purulent fluid was easily flowing out on its own obstructed and the patient had tenderness around the area. LABS: White count as of three days ago was 10.1. IMAGING DATA: Ultrasound, again three days ago, showed probable 1.7 cm abscess with soft tissues of the left thigh versus infiltrating subcutaneous edema with superficial cellulitis. ASSESSMENT AND PLAN: The patient is a 30-year-old female with left thigh abscess. Recommendation at this time is to change the dressing at least twice a day, shower at least once a day using soap and water to evacuate the purulent fluid from the area. She also is already on antibiotics; continue those current antibiotics pending wound cultures. All of her questions were asked. There is no need to make this incision any larger at this time. Good local wound care should be sufficient to take care of this on its own. Thank you for the consult.
[2021-07-02 18:33] VITALS: BP 106/63
[2021-07-02] MEDS: QUEtiapine FUMARATE 200 MG TAB PO SCH (21:47)
[2021-07-02] MEDS: traZODone 50 MG TAB PO PRN (21:47)
[2021-07-02] MEDS: QUEtiapine FUMARATE 100 MG TAB PO PRN (21:47)
[2021-07-02] MEDS: PRAZOSIN 1 MG CAP PO SCH (21:48)
[2021-07-03] MEDS: CLINDAMYCIN 150MG CAPSULE PO SCH ×3 (05:37→21:29)
[2021-07-03 07:01] VITALS: BP 90/58
[2021-07-03] MEDS: NICOTINE 21MG/24HR 1 EA TRANSDERMAL TD PRN (07:49)
[2021-07-03] MEDS: GABAPENTIN 300 MG CAP PO SCH ×3 (07:50→20:27)
[2021-07-03] MEDS: PANTOPRAZOLE 20 MG TAB PO SCH (07:50)
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
[2021-07-03] MEDS: VENLAFAXINE **XR** 37.5 MG CAPSULE PO SCH (10:05)
[2021-07-03 18:20] VITALS: BP 118/67
[2021-07-03] MEDS: traZODone 50 MG TAB PO PRN (20:27)
[2021-07-03] MEDS: ARIPiprazole 10 MG TAB PO SCH (20:27)
[2021-07-03] MEDS: PRAZOSIN 1 MG CAP PO SCH (20:28)
[2021-07-03] MEDS: IBUPROFEN 600MG TAB PO PRN (20:28)
[2021-07-03] MEDS: QUEtiapine FUMARATE 100 MG TAB PO PRN (21:28)
[2021-07-04] MEDS: CLINDAMYCIN 150MG CAPSULE PO SCH ×3 (05:55→21:16)
[2021-07-04] MEDS: PANTOPRAZOLE 20 MG TAB PO SCH (08:00)
[2021-07-04] MEDS: GABAPENTIN 300 MG CAP PO SCH ×3 (08:00→20:15)
[2021-07-04] MEDS: VENLAFAXINE **XR** 37.5 MG CAPSULE PO SCH (08:00)
[2021-07-04] MEDS: NICOTINE 21MG/24HR 1 EA TRANSDERMAL TD PRN (08:01)
[2021-07-04] MEDS: IBUPROFEN 600MG TAB PO PRN ×2 (08:01→16:35)
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
[2021-07-04] MEDS: guanFACINE 1 MG TAB PO SCH (13:29)
[2021-07-04] MEDS ORDERED: ONDANSETRON 4 MG TAB PO PRN (14:15)
[2021-07-04 16:11] VITALS: BP 133/77
[2021-07-04] MEDS: ARIPiprazole 10 MG TAB PO SCH (20:15)
[2021-07-04] MEDS: PRAZOSIN 1 MG CAP PO SCH (20:16)
[2021-07-04] MEDS ORDERED: QUEtiapine FUMARATE 100 MG TAB PO SCH (21:00)
[2021-07-04] MEDS: traZODone 50 MG TAB PO PRN (21:15)
[2021-07-05] MEDS: CLINDAMYCIN 150MG CAPSULE PO SCH (05:44)
[2021-07-05 06:18] VITALS: BP 107/60
[2021-07-05 08:01] VITALS: BP 114/64
[2021-07-05] MEDS: guanFACINE 1 MG TAB PO SCH (08:01)
[2021-07-05] MEDS: GABAPENTIN 300 MG CAP PO SCH (08:01)
[2021-07-05] MEDS: NICOTINE 21MG/24HR 1 EA TRANSDERMAL TD PRN (08:01)
[2021-07-05] MEDS: PANTOPRAZOLE 20 MG TAB PO SCH (08:01)
[2021-07-05] MEDS: VENLAFAXINE **XR** 37.5 MG CAPSULE PO SCH (08:02)
[2021-07-05] MEDS ORDERED: TRAZ-252 PO (08:31)
[2021-07-05] MEDS ORDERED: GUAN1TA PO (08:31)
[2021-07-05] MEDS ORDERED: QUET200T2 PO (08:31)
[2021-07-05] MEDS ORDERED: ABIL10TA9 PO (08:31)
[2021-07-05] MEDS ORDERED: CLIN150C17 PO (08:31)
[2021-07-05] MEDS ORDERED: VENL37.598 PO (08:31)
[2021-07-05] MEDS ORDERED: GABA-282 PO (08:31)
[2021-07-05] MEDS ORDERED: NICO21PAT TD (08:31)
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
== END 2021-07-05 12:45 | disposition home or self-care (01) | DRG 774 ==
LOC: M ED 20:47 → EEVIPCON 06-30 15:44 → M ED INP 06-30 15:44 → M PSY 06-30 20:20
PROVIDERS: ADMIT Student in an Organized Health Care Education/Training Program; ATTEND Student in an Organized Health Care Education/Training Program
DX: F16.24 Hallucinogen dependence with hallucinogen-induced mood disorder (principal); R45.851 Suicidal ideations; F14.11 Cocaine abuse, in remission; F10.11 Alcohol abuse, in remission; R45.850 Homicidal ideations; L02.416 Cutaneous abscess of left lower limb; L03.116 Cellulitis of left lower limb; F12.20 Cannabis dependence, uncomplicated; F43.10 Post-traumatic stress disorder, unspecified; F90.9 Attention-deficit hyperactivity disorder, unspecified type; F17.200 Nicotine dependence, unspecified, uncomplicated; J45.909 Unspecified asthma, uncomplicated; G47.00 Insomnia, unspecified; F32.9 Major depressive disorder, single episode, unspecified; F34.1 Dysthymic disorder; Z20.822 Contact with and (suspected) exposure to COVID-19; Z79.899 Other long term (current) drug therapy

== ENCOUNTER 2021-10-10 13:46 | Emergency (ER) | payer MEDICAID, OTHER ==
[~2021-10-10] VITALS: Ht 160 cm; Wt 56.3 kg
[~2021-10-10 13:46] MED LIST changes: +ABIL10TA9 PO; +DOXY100C3 PO; +GABA-282 PO; +GUAN1TA PO; -OMEP-221 PO; +OMEP40CA5 PO; +TRAZ-252 PO; +VENL37.598 PO; +VIVI380I IM
[2021-10-10 13:47] VITALS: BP 134/80
== END 2021-10-10 17:22 | disposition left against medical advice (07) ==
LOC: M ED 13:46
DX: Z53.29 Procedure and treatment not carried out because of patient's decision for other reasons (principal)

== ENCOUNTER → 2021-12-01 | Outpatient (CLI) | payer MEDICAID ==
[~2021-12-01] MED LIST changes: -DOXY150C PO; +DOXY150C3 PO
== END ==
LOC: M OUTALCOH 09:32
PROVIDERS: ATTEND Psychiatry & Neurology Psychiatry
DX: Z03.89 Encounter for observation for other suspected diseases and conditions ruled out (principal)

== ENCOUNTER 2021-12-06 16:08 | Outpatient (RCR) | payer MEDICAID | END 2021-12-08 | LOC: M OUTALCOH 16:08 | PROVIDERS: ATTEND Psychiatry & Neurology Psychiatry | DX: F16.20 Hallucinogen dependence, uncomplicated (principal); F11.20 Opioid dependence, uncomplicated; F12.20 Cannabis dependence, uncomplicated; F15.20 Other stimulant dependence, uncomplicated; Z72.0 Tobacco use ==

== ENCOUNTER 2022-09-07 20:55 | Emergency (ER) | payer MEDICAID ==
[~2022-09-07 20:55] MED LIST changes: +ALBU2.5V10 INH; -ALBU83IN INH
[2022-09-07] MEDS ORDERED: NS 1,000 ML IV ONE ×2 (21:20→22:05)
[2022-09-07 21:37] LABS: BASO % 0.3 % (0.0-1.0); EOS % 0.1 % (0.0-3.0); HEMATOCRIT 27.3 % (36.0-47.0); HEMOGLOBIN 9.2 g/dl (12.0-15.5); LYMPH # 1.7 10^3/uL (1.5-5.0); LYMPH % 23.8 % (24.0-44.0); MEAN CORPUSCULAR HEMOGLOBIN 30.1 pg (27.0-33.0); MEAN CORPUSCULAR HGB CONC 33.7 g/dl (32.0-36.5); MEAN CORPUSCULAR VOLUME 89.2 fl (80.0-96.0); MONO # 0.6 10^3/uL (0.0-0.8); MONO % 7.9 % (2.0-8.0); NEUTROPHILS # 4.8 10^3/uL (1.5-8.5); NEUTROPHILS % 67.8 % (36.0-66.0); PLATELET COUNT, AUTOMATED 258 10^3/uL (150-450); RED BLOOD COUNT 3.06 10^6/uL (4.00-5.40); WHITE BLOOD COUNT 7.1 10^3/uL (4.0-10.0)
[2022-09-07 21:52] LABS: HCG, SERUM QUALITATIVE NEGATIVE (NEGATIVE)
[2022-09-07 21:57] LABS: ETHYL ALCOHOL (ETHANOL) 0.003 % (0.000-0.010)
[2022-09-07 21:59] LABS: ALBUMIN 3.9 G/DL (3.2-5.2); ALKALINE PHOSPHATASE 77 U/L (46-116); ALT/SGPT 63 U/L (7.0-40); AST/SGOT 52 U/L (<34); BILIRUBIN,DIRECT 0.3 MG/DL (<0.4); BILIRUBIN,TOTAL 0.7 MG/DL (0.3-1.2); BLOOD UREA NITROGEN 16 MG/DL (9-23); CARBON DIOXIDE LEVEL 18 MMOL/L (20-31); CHLORIDE LEVEL 106 MMOL/L (98-107); CREATININE FOR GFR 0.55 MG/DL (0.55-1.30); GLOMERULAR FILTRATION RATE > 60.0 (>60); GLUCOSE, FASTING 182 MG/DL (60-100); POTASSIUM SERUM 3.3 MMOL/L (3.5-5.1); SALICYLATE LEVEL < 3.0 MG/DL (<30); SODIUM LEVEL 140 MMOL/L (136-145); TOTAL PROTEIN 6.9 G/DL (5.7-8.2)
[2022-09-07 22:00] LABS: ACETAMINOPHEN LEVEL < 2.0 UG/ML (10.0-20.0)
[2022-09-07 22:01] LABS: THYROID STIMULATING HORMONE 0.912 uIU/ML (0.55-4.78)
[2022-09-07 22:03] LABS: CPK CREATINE PHOSPHOKINASE 404 U/L (34-145)
[2022-09-07 22:12] LABS: BENZODIAZEPINES URINE NEGATIVE (NEGATIVE)
[2022-09-07 22:13] LABS: BARBITURATES URINE NEGATIVE (NEGATIVE); OPIATES URINE NEGATIVE (NEGATIVE); PHENCYCLIDINE URINE NEGATIVE (NEGATIVE)
[2022-09-07 22:17] LABS: CANNABINOIDS URINE NEGATIVE (NEGATIVE)
[2022-09-07 22:23] LABS: AMPHETAMINES LEVEL URINE POSITIVE (NEGATIVE); COCAINE METABOLITE URINE POSITIVE (NEGATIVE); METHADONE URINE POSITIVE (NEGATIVE)
[2022-09-07] MEDS ORDERED: LORazepam 2 MG/ML VIAL IV STA (22:33)
[2022-09-08 02:32] LABS: RSV AMPLIFICATION NEGATIVE (NEGATIVE)
[2022-09-08 19:18] VITALS: BP 113/68
== END 2022-09-08 19:21 | disposition home or self-care (01) ==
LOC: M ED 20:55
DX: F19.921 Other psychoactive substance use, unspecified with intoxication with delirium (principal); F10.10 Alcohol abuse, uncomplicated; F32.A Depression, unspecified; R00.0 Tachycardia, unspecified; Z88.1 Allergy status to other antibiotic agents
CPT/HCPCS: 36415; 36600; 51701; 70450; 80048; 80076; 80143; 80307; 82077; 82550; 82803; 83605; 84443; 84703; 85025; 87631; 93005; 93041; 94760; 96361; 96374; 99285; J2060

== ENCOUNTER 2022-10-08 22:20 | Emergency (ER) | payer MEDICAID, OTHER ==
[~2022-10-08] VITALS: Ht 160 cm; Wt 62.0 kg
[2022-10-08] MEDS ORDERED: NS 1,000 ML IV ONE (22:30)
[2022-10-09 02:52] VITALS: BP 139/78
== END 2022-10-09 03:05 | disposition home or self-care (01) ==
LOC: M ED 22:20
DX: T40.1X1A Poisoning by heroin, accidental (unintentional), initial encounter (principal); F43.10 Post-traumatic stress disorder, unspecified; F32.9 Major depressive disorder, single episode, unspecified; G47.00 Insomnia, unspecified; G43.909 Migraine, unspecified, not intractable, without status migrainosus; F17.200 Nicotine dependence, unspecified, uncomplicated; F19.10 Other psychoactive substance abuse, uncomplicated; Z88.8 Allergy status to other drugs, medicaments and biological substances

== ENCOUNTER 2022-11-12 21:23 | Emergency (ER) | payer OTHER ==
[~2022-11-12] VITALS: Ht 160 cm; Wt 56.3 kg
[2022-11-12 21:24] VITALS: BP 136/80
== END 2022-11-12 23:58 | disposition left against medical advice (07) ==
LOC: M ED 21:23
DX: Z53.21 Procedure and treatment not carried out due to patient leaving prior to being seen by health care provider (principal)

== ENCOUNTER → 2023-03-19 | Outpatient (CLI) | payer OTHER | LOC: M OUTALCOH 10:16 | PROVIDERS: ATTEND Psychiatry & Neurology Psychiatry | DX: F10.10 Alcohol abuse, uncomplicated (principal) ==

== ENCOUNTER 2023-04-06 16:00 | Outpatient (RCR) | payer OTHER | END 2023-04-09 | LOC: M OUTALCOH 16:00 | PROVIDERS: ATTEND Psychiatry & Neurology Psychiatry | DX: F16.20 Hallucinogen dependence, uncomplicated (principal); F11.20 Opioid dependence, uncomplicated; F15.20 Other stimulant dependence, uncomplicated; F17.200 Nicotine dependence, unspecified, uncomplicated ==

== ENCOUNTER 2023-04-16 15:02 | Outpatient (RCR) | payer OTHER ==
[~2023-04-16 15:02] MED LIST changes: -GABA-283; +GABA-284
== END 2023-05-10 ==
LOC: M OUTALCOH 15:02
PROVIDERS: ATTEND Psychiatry & Neurology Psychiatry
DX: F16.20 Hallucinogen dependence, uncomplicated (principal); F11.20 Opioid dependence, uncomplicated; F15.20 Other stimulant dependence, uncomplicated; F17.200 Nicotine dependence, unspecified, uncomplicated

== ENCOUNTER → 2023-06-11 | Outpatient (CLI) | payer OTHER | LOC: M OUTALCOH 08:57 | PROVIDERS: ATTEND Psychiatry & Neurology Psychiatry | DX: Z13.39 Encounter for screening examination for other mental health and behavioral disorders (principal) ==

== ENCOUNTER 2023-07-06 16:20 | Emergency (ER) | payer OTHER ==
[~2023-07-06] VITALS: Ht 160 cm; Wt 61.4 kg
[2023-07-06 17:38] VITALS: TEMP 98.3
[2023-07-06] MEDS ORDERED: MED REC IN PROGRESS XX SCH (17:40)
[2023-07-06] MEDS ORDERED: LIDOCAINE 2% W/EPINEPHRINE 20ML VIAL **PRES FREE INJ ONE (17:50)
[2023-07-06 18:19] LABS: BASO % 0.3 % (0.0-1.0); EOS # 0.2 10^3/uL (0.0-0.5); EOS % 1.4 % (0.0-3.0); HEMATOCRIT 42.2 % (36.0-47.0); HEMOGLOBIN 14.6 g/dl (12.0-15.5); LYMPH # 3.2 10^3/uL (1.5-5.0); LYMPH % 25.6 % (24.0-44.0); MEAN CORPUSCULAR HEMOGLOBIN 31.1 pg (27.0-33.0); MEAN CORPUSCULAR HGB CONC 34.6 g/dl (32.0-36.5); MONO # 0.9 10^3/uL (0.0-0.8); NEUTROPHILS # 8.1 10^3/uL (1.5-8.5); NEUTROPHILS % 65.5 % (36.0-66.0); PLATELET COUNT, AUTOMATED 314 10^3/uL (150-450); RED BLOOD COUNT 4.69 10^6/uL (4.00-5.40); WHITE BLOOD COUNT 12.4 10^3/uL (4.0-10.0)
[2023-07-06 18:25] LABS: RSV AMPLIFICATION NEGATIVE (NEGATIVE)
[2023-07-06 18:28] LABS: ERYTHROCYTE SEDIMENTATION RATE 23 mm/hr (0-20)
[2023-07-06 18:33] LABS: INR 1.02; PROTHROMBIN TIME 13.1 SECONDS (12.5-14.5)
[2023-07-06 18:34] LABS: PARTIAL THROMBOPLASTIN TIME 30.3 SECONDS (24.8-34.2)
[2023-07-06 18:43] LABS: ALBUMIN 3.8 G/DL (3.2-5.2); ALKALINE PHOSPHATASE 93 U/L (46-116); ALT/SGPT 54 U/L (7.0-40); AST/SGOT 35 U/L (<34); BILIRUBIN,DIRECT 0.1 MG/DL (<0.4); BILIRUBIN,TOTAL 0.2 MG/DL (0.3-1.2); BLOOD UREA NITROGEN 15 MG/DL (9-23); CALCIUM LEVEL 9.3 MG/DL (8.5-10.1); CARBON DIOXIDE LEVEL 28 MMOL/L (20-31); CHLORIDE LEVEL 102 MMOL/L (98-107); CREATININE FOR GFR 0.72 MG/DL (0.55-1.30); GLOMERULAR FILTRATION RATE > 60.0 (>60); GLUCOSE, FASTING 78 MG/DL (60-100); POTASSIUM SERUM 4.7 MMOL/L (3.5-5.1); SODIUM LEVEL 138 MMOL/L (136-145); TOTAL PROTEIN 7.4 G/DL (5.7-8.2)
[2023-07-06] MEDS ORDERED: OMEP40CA5 PO (18:49)
[2023-07-06] MEDS ORDERED: ARIP10TA32 PO (18:49)
[2023-07-06] MEDS ORDERED: BUPR8SUB SL (18:52)
[2023-07-06] MEDS ORDERED: CLIN150C17 PO (18:53)
[2023-07-06] MEDS ORDERED: PRAZ1CAP PO (18:54)
[2023-07-06] MEDS ORDERED: IBUP200T46 PO (18:55)
[2023-07-06] MEDS ORDERED: HOME MED LIST COMPLETE! XX SCH (19:00)
[2023-07-06] MEDS ORDERED: DALBAVANCIN 1,500 MG in D5W 250 ML IV ONE (19:05)
[2023-07-06 20:46] VITALS: BP 111/78
[2023-07-06 20:50] VITALS: O2SAT 100
== END 2023-07-06 21:22 | disposition home or self-care (01) ==
LOC: M ED 16:20
DX: L02.416 Cutaneous abscess of left lower limb (principal); L03.116 Cellulitis of left lower limb; Z88.8 Allergy status to other drugs, medicaments and biological substances; Z79.899 Other long term (current) drug therapy; Z79.1 Long term (current) use of non-steroidal anti-inflammatories (NSAID)
CPT/HCPCS: 36415; 76882; 80048; 80076; 83605; 85025; 85610; 85652; 85730; 86140; 87040; 87070; 87205; 87631; 93971; 96365; 96372; 99284; J0875

== ENCOUNTER 2023-07-09 08:40 | Outpatient (RCR) | payer OTHER ==
[~2023-07-09 08:40] MED LIST changes: +ARIP10TA32 PO; +BUPR8SUB SL; +IBUP200T46 PO
== END 2023-07-10 ==
LOC: M OUTALCOH 08:40
PROVIDERS: ATTEND Psychiatry & Neurology Psychiatry
DX: F16.20 Hallucinogen dependence, uncomplicated (principal); F11.20 Opioid dependence, uncomplicated; F12.20 Cannabis dependence, uncomplicated; F17.200 Nicotine dependence, unspecified, uncomplicated

== ENCOUNTER → 2023-08-01 | Outpatient (CLI) | payer OTHER | LOC: M RAD 13:15 | PROVIDERS: ATTEND Physician Assistant Medical | DX: A15.9 Respiratory tuberculosis unspecified (principal); J84.10 Pulmonary fibrosis, unspecified ==

== ENCOUNTER 2024-03-21 12:59 | Emergency (ER) | payer OTHER ==
[~2024-03-21] VITALS: Ht 160 cm; Wt 59.6 kg
[~2024-03-21 12:59] MED LIST changes: +DOXY-323 PO; -DOXY-443 PO; -DOXY150C3 PO; +DOXY150C5 PO
[2024-03-21 13:00] VITALS: BP 112/68; TEMP 97.9; O2SAT 97
[2024-03-21] MEDS ORDERED: ACET500P3 PO (13:29)
[2024-03-21] MEDS ORDERED: CLEO300C2 PO (15:05)
== END 2024-03-21 15:13 | disposition home or self-care (01) ==
LOC: M ED 12:59
DX: K04.7 Periapical abscess without sinus (principal); F17.210 Nicotine dependence, cigarettes, uncomplicated; Z88.8 Allergy status to other drugs, medicaments and biological substances; Z79.1 Long term (current) use of non-steroidal anti-inflammatories (NSAID); Z79.2 Long term (current) use of antibiotics; Z79.899 Other long term (current) drug therapy

== ENCOUNTER → 2024-11-05 | Outpatient (CLI) | payer OTHER ==
[~2024-11-05] MED LIST changes: +ACET500P3 PO; -ARIP10TA32; -ARIP10TA32 PO; +ARIP10TA63; +ARIP10TA63 PO; +CLEO300C2 PO; -DOXY-323 PO; +DOXY-441 PO; +GABA-1172 PO; +GABA-1490; +GABA-1490 PO; +GABA-1635 PO; -GABA-282 PO; -GABA600T4; -GABA600T4 PO; -GABA800T4 PO
== END ==
LOC: M OUTALCOH 10:10
PROVIDERS: ATTEND Psychiatry & Neurology Psychiatry
DX: F11.20 Opioid dependence, uncomplicated (principal); F16.20 Hallucinogen dependence, uncomplicated; F15.20 Other stimulant dependence, uncomplicated

== ENCOUNTER 2024-11-10 20:04 | Emergency (ER) | payer OTHER ==
[~2024-11-10] VITALS: Ht 160 cm; Wt 65.2 kg
[2024-11-10 20:09] VITALS: BP 127/84; TEMP 97.7; O2SAT 100
== END 2024-11-10 22:42 | disposition left against medical advice (07) ==
LOC: M ED 20:04
DX: Z53.21 Procedure and treatment not carried out due to patient leaving prior to being seen by health care provider (principal)

== ENCOUNTER 2025-06-13 12:54 | Emergency (ER) | payer OTHER ==
[~2025-06-13] VITALS: Ht 160 cm; Wt 66.1 kg
[~2025-06-13 12:54] MED LIST changes: -ABIL400I IM; +ARIP400S IM; -IBUP-1022 PO; +IBUP600T42 PO
[2025-06-13 14:45] LABS: PLATELET COUNT, AUTOMATED 309 10^3/uL (150-450)
[2025-06-13 14:50] LABS: ERYTHROCYTE SEDIMENTATION RATE 9 mm/hr (0-20)
[2025-06-13 15:00] LABS: SALICYLATE LEVEL < 3.0 MG/DL (<30)
[2025-06-13 15:01] LABS: ALT/SGPT 17 U/L (7.0-40); AST/SGOT 25 U/L (<34); C REACTIVE PROTEIN QUANTITATIV 6.00 MG/DL (<1.0); CALCIUM LEVEL 8.9 MG/DL (8.5-10.1); CARBON DIOXIDE LEVEL 22 MMOL/L (20-31); CHLORIDE LEVEL 107 MMOL/L (98-107); CPK CREATINE PHOSPHOKINASE 101 U/L (34-145); CREATININE FOR GFR 0.56 MG/DL (0.55-1.30); GLOMERULAR FILTRATION RATE > 90.0 (>60); POTASSIUM SERUM 3.6 MMOL/L (3.5-5.1); SODIUM LEVEL 140 MMOL/L (136-145)
[2025-06-13 15:02] LABS: ETHYL ALCOHOL (ETHANOL) < 0.003 % (0.000-0.010)
[2025-06-13 15:04] LABS: HCG, SERUM QUALITATIVE NEGATIVE (NEGATIVE)
[2025-06-13] MEDS: NS (Normal Saline) 0.9% 1,000 ML IV ONE (15:36)
[2025-06-13] MEDS: KETOROLAC 30 MG/ML 1 ML VIAL IV ONE (15:36)
[2025-06-13] MEDS ORDERED: HOME MED LIST COMPLETE! XX SCH (16:50)
[2025-06-13 17:20] VITALS: BP 109/55; TEMP 97.5; O2SAT 97
[2025-06-13] MEDS: OVERDOSE RESCUE KIT XX SCH (17:41)
== END 2025-06-13 17:30 | disposition home or self-care (01) ==
LOC: M ED 12:54
DX: M79.10 Myalgia, unspecified site (principal); F19.10 Other psychoactive substance abuse, uncomplicated; Z88.1 Allergy status to other antibiotic agents; Z79.899 Other long term (current) drug therapy
CPT/HCPCS: 80048; 80076; 80143; 82077; 82550; 84443; 84703; 85027; 85652; 86140; 87040; 87486; 87581; 87633; 87798; 96361; 96374; 99285; J1885